=== PATIENT | male | born 1970 | race Caucasian/White ===

== ENCOUNTER 2024-04-01 10:26 | Outpatient (OUT) | payer BC, SELFPAY ==
--- NOTE | 2024-04-01 10:45 | CT_ITS ---
The [address] [address] Patient Name: LIYA BERMAN MRN: [id number] date: 1970 Sex: M Assigned Patient Location: [facility] Current Patient Location: [facility] Accession/Order Number: [id number] Exam Date: 04/01/2024 10:38 Report Date: 04/01/2024 12:30 At the request of: STACEY MOROCHO Procedure: CT head/brain wo con CT head without contrast, 04/01/2024. HISTORY: Headache and dizziness. COMPARISON: None. TECHNIQUE: Noncontrast axial CT images obtained through the head. Reconstructions obtained in the sagittal and coronal planes. Dose reduction techniques were achieved by using automated exposure control and/or adjustment of mA and/or kV according to patient size and/or use of iterative reconstruction technique. FINDINGS: There are postoperative changes from previous frontal craniotomy as well as maxillofacial reconstruction. Frontal sinuses are obliterated. Ethmoid air cells and sphenoid sinuses are clear. Mastoid air cells are clear. Middle ear cavities appear clear. No skull lesion. Orbital contents unremarkable to the extent visualized. Mild generalized cerebral volume loss. No hydrocephalus. No subdural fluid collection. No mass effect. No shift of midline structures. No acute hemorrhage. No masses. No edema in the brain. CT/CT head/brain wo con IMPRESSION: 1. No acute findings. No hemorrhage. No mass. 2. There are postoperative changes from previous frontal craniotomy as well as maxillofacial bone reconstruction. 3. There are no extra-axial fluid collections. 4. Mild generalized cerebral volume loss could be related to prior traumatic brain injury. No hydrocephalus. Electronically authenticated by: ANDRY DANIEL Date: 04/01/2024 12:30
== END 2024-04-01 10:27 | disposition home or self-care (01) ==
LOC: RAD 10:29
PROVIDERS: PCP Family Medicine; Visit Provider Family Medicine
DX: G43.909 Migraine, unspecified, not intractable, without status migrainosus (principal)
CPT/HCPCS: 70450

== ENCOUNTER 2024-04-12 11:21 | Outpatient (OUT) | payer BC, SELFPAY ==
[2024-04-12 12:46] LABS: Estimated Average Glucose 108 mg/dL; Glycohemoglobin A1C 5.4 % (4.5-6.2)
[2024-04-12 13:14] LABS: Alanine Aminotransferase 32 U/L (16-63); Albumin Globulin Ratio 1.2; Albumin Level 3.6 g/dL (3.4-5.0); Alkaline Phosphatase 146 U/L (46-116); Anion Gap 11.4; Aspartate Amino Transferase 14 U/L (15-37); BUN Creatinine Ratio 10.1; Bilirubin Total 0.6 mg/dL (0.2-1.0); Calcium 9.1 mg/dL (8.5-10.1); Carbon Dioxide 29.4 mmol/L (21.0-32.0); Chloride 105 mmol/L (98-107); Chol HDL Ratio 4.2; Cholesterol 223 mg/dL (<=200); Estimated GFR (African America >60 (>=60); Estimated GFR (Non-African Ame 58 (>=60); Free T3 3.09 pg/mL (2.18-3.98); Glucose 99 mg/dL (74-106); HDL Cholesterol 53 mg/dL (40-60); Potassium 3.8 mmol/L (3.5-5.1); Sodium 142 mmol/L (136-145); Total Protein 6.6 g/dL (6.4-8.2); Triglycerides 149 mg/dL (<=150); VLDL CHOLESTEROL 29.8 mg/dL
[2024-04-12 13:26] LABS: Prostate Specific Antigen Scrn 2.29 ng/mL (<=4.00)
[2024-04-12 16:40] LABS: Basophils Percent Auto 0.4 % (0.2-2.0); Eosinophils Absolute Auto 0.1 10^3/uL (0.0-0.7); Eosinophils Percent Auto 1.3 % (0.9-7.0); Hematocrit 45.7 % (42.0-54.0); Hemoglobin 15.7 g/dL (14.0-18.0); Immature Granulocytes Abs Auto 0.04 10^3/uL (0.00-0.03); Immature Granulocytes Pct Auto 0.7 % (0.0-0.5); Lymphocytes Percent Auto 35.9 % (20.5-60.0); Mean Corpuscular HGB Conc 34.4 g/dL (29.9-35.2); Mean Corpuscular Hemoglobin 31.7 pg (25.9-34.0); Mean Corpuscular Volume 92.3 fL (80.0-94.0); Mean Platelet Volume 9.6 fL (9.5-13.5); Monocytes Absolute Auto 0.6 10^3/uL (0.3-0.8); Monocytes Percent Auto 10.3 % (1.7-12.0); Neutrophils Absolute Auto 2.8 10^3/uL (1.4-6.5); Neutrophils Percent Auto 51.4 % (43.0-75.0); Platelet Count 307 10^3/uL (150-450); Red Blood Count 4.95 10^6/uL (4.70-6.10); Red Cell Distribution Width 11.9 % (11.0-15.0); White Blood Count 5.5 10^3/uL (4.0-11.0)
[2024-04-13 12:09] LABS: Insulin 20.1 uIU/mL (2.6-24.9)
== END 2024-04-12 11:22 | disposition home or self-care (01) ==
LOC: LAB 11:23
PROVIDERS: PCP Family Medicine; Visit Provider Family Medicine
DX: Z00.00 Encounter for general adult medical examination without abnormal findings (principal)
CPT/HCPCS: 36415; 80053; 80061; 83036; 83525; 84436; 84443; 84481; 84550; 85025; G0103

== ENCOUNTER 2024-06-14 08:16 | Outpatient (OUT) | payer BC, SELFPAY ==
--- OUTSIDE RECORDS SUMMARY | 2024-06-14 08:25 | XMS_ITS | CCD ---
Author Organization [facility] Care Team Providers Care Mobility Architect Name Role Phone RASHAWN, DR IBARRA Attending Unavailable HOY, DR IBARRA Consulting Unavailable JAYNAY, DR IBARRA Primary Care Unavailable JAYNAY, DR IBARRA Admitting Unavailable HOY, DR IBARRA Attending Unavailable HOY, DR IBARRA Consulting Unavailable HOY, DR IBARRA Primary Care Unavailable HOY, DR IBARRA Admitting Unavailable HOY, DR IBARRA Consulting Unavailable JAYNAY, DR IBARRA Primary Care Unavailable RASHAWN, DR IBARRA Admitting Unavailable RASHAWN, DR IBARRA Attending Unavailable Free, Text Entry Unavailable Unavailable Nitesh Yousif Unavailable Unavailable Michael Vanegas Unavailable Unavailable Pending Provider Unavailable Unavailable Jami Pate Attending Unavailable Divine, Dr. Michael Dugan Referring Unavail able Pending, Provider Primary Care Unavailable Jami Pate Referring Unavailable Pending, Provider Primary Care Unavailable James Vasques Attending Unavailable MD NITESH YOUSIF JR Attending Unajay juarez Pending, Provider Primary Care Unavailable MD ELSIE CROFT Admitting Unava ilMD BARBER Nelson Referring Unavail able Pending, Provider Primary Care Unavailable Pesa, Ms. Mosquera Attending Unavailable Pending, Provider Primary Care Unavailable Divine, Dr. Michael Dugan Attending Unavail able Tufaro, Dr. Michael Dugan Referring Unavail able Tufaro, Dr. Michael Dugan Attending Unavail able Tufaro, Dr. Michael Dugan Referring Unavail able Pending, Provider Primary Care Unavailable Pending, Provider Primary Care Unavailable Pesa, Ms. Mosquera Attending Unavailable Pesa, Ms. Mosquera Referring Unavailable Tufaro, Dr. Michael Dugan Referring Unavail able Tufaro, Dr. Michael Dugan Attending Unavail able Pending, Provider Primary Care Unavailable Pending, Provider Primary Care Unavailable Dr. Michael Vanegas Referring Unavail able Dr. Michael Vanegas Attending Unavail able Stacey Morocho MD Unavailable Stacey Morocho MD Primary Care Provider Stacey Morocho MD Primary Care Provider Pola GARCIA Attending Unavailable Stacey Morocho Referring Unavailable Stacey Morocho Primary Care Physician JENNIFER GUZMAN Referring Unavailable HOConnor, STACEY M Primary Care Unavailable PAPAY, CHRISTOPHER A Referring Unavailable STACEY MOROCHO M Primary Care Unavailable MICHAEL VANEGAS Referring Unavailable STACEY MOROCHO M Primary Care Unavailable PAPAY, CHRISTOPHER A Attending Unavailable HOConnor, STACEY M Primary Care Unavailable HOConnor, STACEY M Referring Unavailable PAPAY, CHRISTOPHER A Attending Unavailable STACEY MOROCHO M Primary Care Unavailable PAPAY, CHRISTOPHER A Referring Unavailable PAPAY, CHRISTOPHER A Attending Unavailable STACEY MOROCHO M Primary Care Unavailable PAPAY, CHRISTOPHER A Attending Unavailable PAPAY, CHRISTOPHER A Referring Unavailable NANCY CHENG Attending Unavailable HOConnor, STACEY M Primary Care Unavailable PAPAY, CHRISTOPHER A Attending Unavailable PAPAY, CHRISTOPHER A Admitting Unavailable STACEY MOROCHO M Primary Care Unavailable Allergies Allergy Classification Reported Allergen(s) Allergy Type Date of Onset Reaction(s) Facility (1 source) No Known Medication Allergies; Translations: [No Known Medication Allergies] Propensity to adverse reactions (disorder) [facility] Repository Medications Current Medications Medication Drug Class(es) Dates Sig (Normalized) Sig (Original) acetaminophen 325 mg oral tablet (4 sources) Start: 01-08-2024 End: 01-27-2024 take 2 tablets by mouth every six hours as needed for pain, then take 2 tablets by mouth every six hours as needed for pain acetaminophen (TYLENOL) 325 mg tablet Take 2 tablets by mouth every 6 hours for 5 days, THEN 2 tablets every 6 hours as needed for pain for up to 14 days. 0 01/08/2024 01/27/[address] rength 500 MG TABS Quantity: 0 Refills: 0 Ordered: 04-Jul-2022 DO Active DM/p-ephed/acetaminoph/doxyl am (NYQUIL D ORAL) (5 sources) DM/p-ephed/aceta minoph/doxylam (NYQUIL D ORAL) Take by mouth daily at bedtime. Active DM/p-ephed/aceta minoph/doxylam (NYQUIL D ORAL) Take by mouth daily at bedtime. 0 Active fluticasone propionate 0.05 mg/actuat metered dose nasal spray (1 source) Corticosteroid Start: 05-17-2024 take 2 spray(s) nasal route twice daily fluticasone (FLONASE ALLERGY RELIEF) 50 mcg/actuation nasal spray Use 2 Sprays in each nostril two times a day. 16 g 1 05/17/2024 Active oxymetazoline hydrochloride 0.5 mg/ml nasal spray (5 sources) oxymetazoline (AFRIN, OXYMETAZOLINE,) 0.05 % nasal spray Use 2 Sprays in the nose daily at bedtime. Active SUMAtriptan 100 mg oral tablet (1 source) Serotonin-1b and Serotonin-1d Receptor Agonist Start: 04-18-2024 take 1 tablet by mouth once Imitrex 100 mg Tab 100 mg = 1 tab(s), Oral, Once, Refills(s) 0 Start Date: 04/18/24 Status: Ordered Completed/Discontinued Medications Medication Drug Class(es) Dates Sig (Normalized) Sig (Original) Bacitracin (2 sources) Bacitracin OINT Quantity: 0 Refills: 0 Ordered: 04-Jul-2022 DO Active cefadroxil 500 mg oral capsule (1 source) Cephalosporin Antibacterial Start: 01-08-2024 End: 01-18-2024 take 1 capsule by mouth twice daily cefADROxil (DURICEF) 500 mg capsule Take 1 capsule by mouth two times a day for 10 days. 20 capsule 0 01/08/2024 01/18/2024 cyclobenzaprine hydrochloride 5 mg oral tablet (11 sources) Muscle Relaxant Start: 05-31-2022 End: 01-04-2024 take 1 tablet by mouth every eight hours as needed cyclobenzaprine (FLEXERIL) 5 mg tablet Take 5 mg by mouth three times daily as needed. 0 05/31/2022 01/04/2024 Discontinued Comment on above: Take 5 mg by mouth t hree times daily as needed. gabapentin 300 mg oral capsule (11 sources) Anti-epileptic Agent Start: 05-31-2022 End: 01-04-2024 gabapentin (NEURONTIN) 300 mg capsule Take 300 mg by mouth. 0 05/31/2022 01/04/2024 Discontinued Comment on above: Take 300 mg by mouth . loratadine 10 mg disintegrating oral tablet (13 sources) End: 01-04-2024 loratadine 10 mg dissolvable tablet Take by mouth. 0 01/04/2024 Discontinued Loratadine 10 MG Oral Tablet Disintegrating Quantity: 0 Refills: 0 Ordered: 04-Jul-2022 DO Active Comment on above: Take by mouth. oxyCODONE hydrochloride 5 mg oral tablet (13 sources) Opioid Agonist End: 01-04-2024 oxyCODONE IR (ROXICODONE) 5 mg immediate release tablet Take by mouth q 6 HR. 0 01/04/2024 Discontinued Comment on above: Take by mouth q 6 HR . tobramycin 3 mg/ml ophthalmic solution (13 sources) Aminoglycoside Antibacterial End: 01-04-2024 tobramycin (TOBREX) 0.3 % ophthalmic solution Use in eyes. 0 01/04/2024 Discontinued Tobramycin 0.3 % Ophthalmic Solution Quantity: 0 Refills: 0 Ordered: 04-Jul-2022 DO Active Comment on above: Use in eyes. NEGATED: Highlighted row has not occurred!No Current Medications (1 source) No Current Medic ations Problems Active Problems Problem Classification Problem Date Documented Date Episodic/Chronic E Codes: Fall (2 sources) Fall 05-28-2022 Comment on above: FALL Esophageal disorders (11 sources) Gastroesophageal reflux disease without esophagitis; Translations: [Gastro-esophageal reflux disease without esophagitis] Onset: 01-04-2024 01-04-2024 Chronic Headache; including migraine (1 source) Migraine 04-18-2024 Chronic Other inflammatory condition of skin (1 source) Rosacea; Translations: [Rosacea, unspecified] 05-17-2024 Chronic Other injuries and conditions due to external causes (4 sources) H/O: facial injury; Translations: [Personal history of (healed) traumatic fracture] 09-05-2023 Episodic Other injuries and conditions due to external causes (1 source) Injury of face; Translations: [Unspecified injury of face, subsequent encounter] 09-05-2023 Episodic Other lower respiratory disease (2 sources) Difficulty breathing; Translations: [Other abnormalities of breathing] 09-05-2023 Episodic Other nervous system disorders (1 source) Other specified disorders of brain; Translations: [Other specified disorders of brain] Onset: 06-15-2022 Chronic Other nutritional; endocrine; and metabolic disorders (1 source) Overweight in adulthood with body mass index of 25 or more but less than 30 05-08-2024 Episodic Other screening for suspected conditions (not mental disorders or infectious disease) (19 sources) Abnormal findings on diagnostic imaging of other specified body structures; Translations: [Radiology result abnormal] Onset: 07-25-2022 02-08-2023 Chronic Other screening for suspected conditions (not mental disorders or infectious disease) (1 source) Screening for malignant neoplasm of colon done; Translations: [Encounter for screening for malignant neoplasm of colon] Onset: 05-08-2024 Episodic Residual codes; unclassified (1 source) Obstructive sleep apnea (adult) (pediatric); Translations: [Obstructive sleep apnea (adult) (pediatric)] Onset: 06-15-2022 Chronic Residual codes; unclassified (3 sources) Postoperative state; Translations: [Other specified postprocedural states] 01-25-2024 Episodic Substance-related disorders (1 source) Nicotine dependence, unspecified, uncomplicated; Translations: [Nicotine dependence, unspecified, uncomplicated] Onset: 06-15-2022 Chronic Unclassified (3 sources) CONTACT W/AND (SUSP) EXPOS COVID-19; Translations: [CONTACT W/AND (SUSP) EXPOS COVID-19] Onset: 08-15-2021 Unclassified (1 source) MULTIPLE COMPLEX FACIAL FRACTURE REPAIR 06-14-2022 Comment on above: MULTIPLE COMPLEX FAC IAL FRACTURE REPAIR Unclassified (1 source) Extensive facial fractures 06-05-2022 Unclassified (1 source) Fracture of frontal sinus 06-13-2022 Unclassified (1 source) Fracture of orbital roof 06-13-2022 Unclassified (1 source) Orbital wall fracture 06-13-2022 Unclassified (1 source) Fracture of maxillary sinus 06-13-2022 Unclassified (1 source) Other cranial cerebrospinal fluid leak; Translations: [Other cranial cerebrospinal fluid leak] Onset: 06-15-2022 Unclassified (1 source) Fracture of medial orbital wall, left side, initial encounter for closed fracture; Translations: [Fracture of medial orbital wall, left side, init] Onset: 06-15-2022 Unclassified (1 source) Fracture of medial orbital wall, right side, initial encounter for closed fracture; Translations: [Fracture of medial orbital wall, right side, init] Onset: 06-15-2022 Unclassified (1 source) Contact with and (suspected) exposure to COVID-19; Translations: [Contact with and (suspected) exposure to COVID-19] Onset: 06-15-2022 Unclassified (1 source) Patient encounter status 05-08-2024 Unclassified (1 source) Post Op Onset: 01-16-2024 Past or Other Problems Problem Classification Problem Date Documented Date Episodic/Chronic Complications of surgical procedures or medical care (1 source) Accidental puncture or laceration of dura during a procedure; Translations: [Accidental puncture or laceration of dura during a procedure] Onset: 06-15-2022 Episodic E Codes: Fall (20 sources) Unspecified fall, initial encounter; Translations: [Fall on and from ladder, initial encounter] Onset: 06-15-2022 Episodic Headache; including migraine (10 sources) Headache; Translations: [Post-traumatic headache, unspecified, not intractable] Onset: 01-04-2024 01-04-2024 Episodic Intracranial injury (2 sources) Contusion and laceration of right cerebrum without loss of consciousness, initial encounter; Translations: [Contusion and laceration of left cerebrum without loss of consciousness, initial encounter] Onset: 06-15-2022 Episodic Nausea and vomiting (1 source) Nausea with vomiting, unspecified; Translations: [Nausea with vomiting, unspecified] Onset: 06-15-2022 Episodic Other injuries and conditions due to external causes (1 source) Unspecified injury of head, sequela; Translations: [Headaches due to old head injury] Onset: 01-04-2024 Episodic Other injuries and conditions due to external causes (1 source) Personal history of (healed) traumatic fracture; Translations: [H/O closed fracture of nasal bones] Onset: 12-29-2023 Episodic Other injuries and conditions due to external causes (1 source) Unspecified injury of face, subsequent encounter; Translations: [Facial injury, subsequent encounter] Onset: 09-05-2023 Episodic Other lower respiratory disease (9 sources) Dyspnea on exertion; Translations: [Other forms of dyspnea] Onset: 01-04-2024 01-04-2024 Episodic Other lower respiratory disease (1 source) Other forms of dyspnea; Translations: [CELAYA (dyspnea on exertion)] Onset: 01-04-2024 Episodic Other lower respiratory disease (1 source) Other abnormalities of breathing; Translations: [Difficulty breathing] Onset: 12-29-2023 Episodic Other nervous system disorders (1 source) Other acute postprocedural pain; Translations: [Post-op pain] Onset: 01-08-2024 Episodic Other nutritional; endocrine; and metabolic disorders (10 sources) Overweight; Translations: [Overweight] Onset: 01-04-2024 01-04-2024 Episodic Other nutritional; endocrine; and metabolic disorders (1 source) Overweight; Translations: [Overweight] Onset: 01-04-2024 Episodic Other upper respiratory infections (20 sources) Acute sinusitis, unspecified; Translations: [Acute sinusitis] Onset: 09-03-2020 02-08-2023 Episodic Residual codes; unclassified (1 source) Other specified postprocedural states; Translations: [Other specified postprocedural states] Onset: 07-25-2022 Episodic Skull and face fractures (20 sources) Fracture of upper jaw, closed; Translations: [Closed fracture of other facial bones] Onset: 06-01-2022 06-05-2022 Episodic Unclassified (1 source) CONTACT W/AND (SUSP) EXPOS COVID-19; Translations: [CONTACT W/AND (SUSP) EXPOS COVID-19] Onset: 08-10-2021 Results Test Name Value Interpretation Reference Range Facility [facility] 05-17-2024 CNOV Office Visit (PLASAV ) ----- RM BERMAN ([id number]) 1970 M Date Time Provider Department 05/17/24 1:45 PM CHRISTOPHER MCGREGOR PLASAV During your visit today, we recorded the following information about you: Christopher Mcgregor MD 05/22/2024 7:42 AM Signed Plastic Surgery Follow Up Note CC: post-op HPI: Rm Berman is 4 months s/p open revision septorhinoplasty. No symptoms or signs of infection (no N/V/F/C, no wound drainage and no new redness) Meds and allergies reviewed in EPIC. ALLERGIES: ALLERGIES No Known Allergies PHYSICAL EXAM: Awake, alert, oriented x3 NAD, NC/AT VSS Septum supported well Structure is good ASSESSMENT: Expected post operative course s/p revision rhinopseptoplasty PLAN: Healed well Recommend to follow with Dermatology HIPAA: Patient acknowledged and consented to discussion of HPI/PE/medical care/dispo with family/friends in room. The patient is seen and examined by Dr. Mcgregor and the following reflects their service. Scribed by Nancy Cheng PA-C Attending Note I have personally performed a face to face assessment of the patient and have reviewed the ARLYN note. I performed a substantive portion of the visit including all aspects of the following. My delvalle findings include: agree with above for history, physical and medical decision making. Other additions or changes: None Signature: Fransisca Mcgregor MD Date: May 22, 2024 Time: 7:42 AM Referring Provider: CHRISTOPHER MCGREGOR [[id number]] Allergies As of Date: 05/17/2024 (No Known Allergies) Date Reviewed: 05/17/2024 Reviewed by: Aaliyah Emerson RN - Fully Assessed Reason for Visit: Post Op [174] Primary Visit Diagnosis:Rosacea [L71.9] Other Visit Diagnoses:Post-operative state [Z98.890] H/O closed fracture of nasal bones [Z87.81] Order(s):fluticasone (FLONASE ALLERGY RELIEF) 50 mcg/actuation nasal sprayUse 2 Sprays in each nostril two times a day.Disp: 16 gRfl: 1 CONSULT TO DERMATOLOGY [[id number]] Order #: [id number]: 1 FUTURE Prescriptions as of 05/22/2024 - fluticasone (FLONASE ALLERGY RELIEF) 50 mcg/actuation nasal spray Use 2 Sprays in each nostril two times a day. - oxymetazoline (AFRIN, OXYMETAZOLINE,) 0.05 % nasal spray Use 2 Sprays in the nose daily at bedtime. - DM/p-ephed/acetaminoph/do xylam (NYQUIL D ORAL) Take by mouth daily at bedtime. Problem List As Of Date 05/17/2024 Noted Resolved Abnormal findings on diagnostic imaging of othe*07/25/2022 Acute sinusitis, unspecified [J01.90] 09/03/2020 Facial fracture (HCC) [S02.92XA] 02/08/2023 Closed fracture of orbit (HCC) [S02.85XA] 02/08/2023 Fall on and from ladder, initial encounter [W11*06/15/2022 Headaches due to old head injury [G44.309, S09.*01/04/2024 Gastroesophageal reflux disease without esophag*01/04/2024 CELAYA (dyspnea on exertion) [R06.09] 01/04/2024 Overweight [E66.3] 01/04/2024 Prescriptions ordered this encounter Disp Refills Start End FLUTICASONE PROPIONATE 50 MCG/ACTUAT* 16 g 1 05/17/2024 Route: EACH NOSTRIL Sig: Use 2 Sprays in each nostril two times a day. Encounter Status:Closed by CHRISTOPHER MCGREGOR on 05/22/24 Normal [facility] Ambulatory Visit Summaryon 1 Ambulatory Visit Summary Ambulatory Visit Summary RM BERMAN :1970 Visit Date:05/08/2024 Ambulatory Visit Instructions Your Diagnosis Screening for malignant neoplasm of colon Your Care Team Attending Physician - RADHA SIMPSON, Pola Cruz Primary Care Physician - Stacey Morocho MD Referring Physician - Stacey Morocho MD This Is Your Medications List Contact prescribing physician if questions or concerns sumatriptan (Imitrex 100 mg Tab) Procedures Performed Nose reconstruction, Reconstruction of facial bones. Discharge Vitals Heart Rate (Peripheral) 76 Respiratory Rate 16 Blood Pressure 126/78 Height 175.2 cm Height 69 in Weight 84.3 kg Weight 185.46 lb BMI 27.46 Medications What How Much When Instructions Unchanged sumatriptan (Imitrex 100 mg Tab) 1 Tablets By Mouth Once Contact prescribing physician if questions or concerns Allergies No Known Allergies No Known Medication Allergies Problems Ongoing - Any problem that you are currently receiving treatment for. BMI 27.0-27.9,adult Gastroesophageal reflux disease without esophagitis History of facial trauma Migraine Overweight Screening for malignant neoplasm of colon Patient Survey You may receive a survey via text or e-mail asking about your office visit. Please share your experience with us by completing your survey. We appreciate your feedback and thank you for choosing us for your care. Patrick [facility] CNOVon 02-14-2024 CNOV Office Visit (PLASAV ) ----- RM BERMAN ([id number]) 1970 M Date Time Provider Department 02/14/24 2:00 PM CHRISTOPHER MCGREGOR PLASAV During your visit today, we recorded the following information about you: Christopher Mcgregor MD 02/16/2024 9:46 AM Signed Plastic Surgery Follow Up Note CC: post-op HPI: Rm Berman is 5.5 weeks s/p open revision septorhinoplasty. No symptoms or signs of infection (no N/V/F/C, no wound drainage and no new redness) Meds and allergies reviewed in EPIC. ALLERGIES: ALLERGIES No Known Allergies PHYSICAL EXAM: Awake, alert, oriented x3 NAD, NC/AT VSS No septal hematoma. Supratip swelling Profile much improved ASSESSMENT: Expected post operative course PLAN: Okay to return to full activity Follow up in 3 months HIPAA: Patient acknowledged and consented to discussion of HPI/PE/medical care/dispo with family/friends in room. The patient is seen and examined by Dr. Mcgregor and the following reflects their service. Scribed by Nancy Cheng PA-C Attending Note I have personally performed a face to face assessment of the patient and have reviewed the ARLYN note. I performed a substantive portion of the visit including all aspects of the following. My delvalle findings include: agree with above for history, physical and medical decision making. Other additions or changes: None Signature: Fransisca Mcgregor MD Date: February 16, 2024 Time: 9:46 AM Referring Provider: CHRISTOPHER MCGREGOR [[id number]] Allergies As of Date: 02/14/2024 (No Known Allergies) Date Reviewed: 02/14/2024 Reviewed by: Masha Horton RN - Fully Assessed Reason for Visit: Post Op [174] Primary Visit Diagnosis:Post-operative state [Z98.890] Prescriptions as of 02/16/2024 - oxymetazoline (AFRIN, OXYMETAZOLINE,) 0.05 % nasal spray Use 2 Sprays in the nose daily at bedtime. - DM/p-ephed/acetaminoph/do xylam (NYQUIL D ORAL) Take by mouth daily at bedtime. Problem List As Of Date 02/14/2024 Noted Resolved Abnormal findings on diagnostic imaging of othe*07/25/2022 Acute sinusitis, unspecified [J01.90] 09/03/2020 Facial fracture (HCC) [S02.92XA] 02/08/2023 Closed fracture of orbit (HCC) [S02.85XA] 02/08/2023 Fall on and from ladder, initial encounter [W11*06/15/2022 Headaches due to old head injury [G44.309, S09.*01/04/2024 Gastroesophageal reflux disease without esophag*01/04/2024 CELAYA (dyspnea on exertion) [R06.09] 01/04/2024 Overweight [E66.3] 01/04/2024 Disposition: Return in about 3 months (around 05/16/2024) for Follow up. Follow-up and Disposition History for Encounter Date Provider Department Center 02/14/2024 [id number] MCGREGOR [facility] Encounter Status:Closed by CHRISTOPHER MCGREGOR on 02/16/24 [facility] CNCOon 01-16-2024 CNCO Letter Text Normal [facility] CNOVon 01-16-2024 CNOV Office Visit (PLASMN ) ----- RM BERMAN ([id number]) 1970 M Date Time Provider Department 01/16/24 4:00 PM NANCY CHENG During your visit today, we recorded the following information about you: Nancy Cheng PA-C 01/25/2024 1:35 PM Signed Plastic Surgery Follow Up Note CC: post-op HPI: Rm Berman is 7 day s/p open revision septorhinoplasty. No symptoms or signs of infection (no N/V/F/C, no wound drainage and no new redness) Meds and allergies reviewed in [facility]. ALLERGIES: ALLERGIES No Known Allergies PHYSICAL EXAM: Awake, alert, oriented x3 NAD, NC/AT VSS No septal hematoma. Nasal stents, and splints in tact. Incision(s) c/d/i, no s/s of infection. ASSESSMENT: Expected post operative course PLAN: Nasal stents/splints removed, minimal bleeding. Patient tolerated the above well and left in good condition. Care including nasal cleaning regimen reviewed. Discussed to continue sleeping on back for 5 weeks, limiting physical activity for 5 weeks Reviewed nasal exercises with patient HIPAA: Patient acknowledged and consented to discussion of HPI/PE/medical care/dispo with family/friends in room. Nancy Cheng PA-C January 16, 2024 Referring Provider: SELF [[id number]] Allergies As of Date: 01/16/2024 (No Known Allergies) Date Reviewed: 01/16/2024 Reviewed by: Judy Floyd OCCA - Fully Assessed Reason for Visit: Post Op [174] Primary Visit Diagnosis:Post-operative state [Z98.890] Prescriptions as of 01/25/2024 - acetaminophen (TYLENOL) 325 mg tablet Take 2 tablets by mouth every 6 hours for 5 days, THEN 2 tablets every 6 hours as needed for pain for up to 14 days. - oxymetazoline (AFRIN, OXYMETAZOLINE,) 0.05 % nasal spray Use 2 Sprays in the nose daily at bedtime. - DM/p-ephed/acetaminoph/do xylam (NYQUIL D ORAL) Take by mouth daily at bedtime. Problem List As Of Date 01/16/2024 Noted Resolved Abnormal findings on diagnostic imaging of othe*07/25/2022 Acute sinusitis, unspecified [J01.90] 09/03/2020 Facial fracture (HCC) [S02.92XA] 02/08/2023 Closed fracture of orbit (HCC) [S02.85XA] 02/08/2023 Fall on and from ladder, initial encounter [W11*06/15/2022 Headaches due to old head injury [G44.309, S09.*01/04/2024 Gastroesophageal reflux disease without esophag*01/04/2024 CELAYA (dyspnea on exertion) [R06.09] 01/04/2024 Overweight [E66.3] 01/04/2024 Encounter Status:Closed by NANCY CHENG on 01/25/24 [facility] ANES POSTPROC EVALon 024 ANES POSTPROC EVAL HNO ID: [id number] Author: YUN LIU MD Service: ? Author Type: Anesthesiologist Type: Anesthesia Postprocedure Evaluation Filed: 01/10/2024 06:47 Note Text: POST ANESTHESIA EVALUATION NOTE : 1970 Procedure Summary Date: 01/08/24 Room / Location: [address] PEDIATRIC SURGERY Anesthesia Start: 1129 Anesthesia Stop: 1541 Procedure: Revision of rhinoplasty/nose reconstruction with cadaveric cartilage and acellular dermal matrix. . (Bilateral: Nose) Diagnosis: Difficulty breathing H/O closed fracture of nasal bones Facial injury, subsequent encounter (Difficulty breathing [R06.89]) (H/O closed fracture of nasal bones [Z87.81]) (Facial injury, subsequent encounter [S09.93XD]) Surgeons: Christopher Mcgregor MD Responsible Provider: Yun Liu MD Anesthesia Type: general ASA Status: 2 Anesthesia Type: general Airway Type: ETT Last Vitals Vitals Value Taken Time BP 121/78 01/08/24 1803 Temp 36 ?C (96.8 ?F) 01/08/24 1742 Pulse 82 01/08/24 1803 Resp 16 01/08/24 1803 SpO2 96 % 01/08/24 1803 Post Anesthesia Patient Status Patient Evaluation: PACU. Neurological Status: aware and responsive. Pulmonary Status: breathing comfortably on room air Airway Control: returned to baseline unsupported. Cardiovascular Status: stable. Pain Management: clinically adequate Postoperative Hydration: acceptable. Intraoperative Events: no significant anesthesia events Post Operative Nausea/Vomiting Status: no significant post operative nausea or vomiting Recommendation: continue current plan of care. Anesthesia Observations No notable events were associated with this procedure. Documented by Joellen Ribeiro APRN.CRNA 01/08/2024 3:43 PM EDT SIGNATURE: YUN CRUZ MD PATIENT NAME: Rm Berman DATE: January 10, 2024 TIME: 6:46 AM CSN: [id number] Normal [facility] ANES PRE-OPon 01-08-2024 ANES PRE-OP HNO ID: [id number] Author: YUN LIU MD Service: ? Author Type: Anesthesiologist Type: Anesthesia Preprocedure Evaluation Filed: 01/08/2024 08:32 Note Text: ANESTHESIOLOGY DAY OF SURGERY NOTE : 1970 Procedure Information Date/Time: 01/08/24 1015 Procedures: REVISION RHINOPLASTY - using donor cartilage (Bilateral: Nose) SEPTOPLASTY (Bilateral: Nose) RESECTION TURBINATE (Bilateral: Nose) Location: [address] PEDIATRIC SURGERY Surgeons: Christopher Mcgregor MD Estimated body mass index is 27.18 kg/m? as calculated from the following: Height as of 01/04/24: 175.3 cm (5' 9 ). Weight as of 01/04/24: 83.5 kg (184 lb 1.4 oz). Most recent hematocrit and potassium results: Hematocrit 47.6 01/04/2024 Potassium 4.2 01/04/2024 CBC with diff: WBC 6.78 01/04/2024 RBC 5.19 01/04/2024 Hemoglobin 16.2 01/04/2024 Hematocrit 47.6 01/04/2024 MCV 91.7 01/04/2024 MCH 31.2 01/04/2024 MCHC 34.0 01/04/2024 RDW-CV 11.9 01/04/2024 Platelet Count 273 01/04/2024 MPV 9.5 01/04/2024 Neutrophils % 49.0 01/04/2024 Lymphocytes % 39.4 01/04/2024 Monocytes % 9.3 01/04/2024 Eosinophils % 1.5 01/04/2024 Basophils % 0.4 01/04/2024 Abs Neut 3.32 01/04/2024 Abs Dupage 0.63 01/04/2024 Abs Eosin 0.10 01/04/2024 Abs Baso 0.03 01/04/2024 Relevant Problems CARDIO (+) CELAYA (dyspnea on exertion) GI (+) Gastroesophageal reflux disease without esophagitis NEURO-PSYCH (+) Headaches due to old head injury PULMONARY (+) CELAYA (dyspnea on exertion) I - PHYSICAL EVALUATION AIRWAY Patient intubated: No. Tracheostomy tube not present Mallampati: II. TM distance: >3 FB. Neck ROM: full ROM without neurological symptoms. Mouth opening: adequate. Short neck: no. Thick neck: no DENTAL Dental findings: teeth intact. Additional exam findings: no II - ANESTHESIA PLAN ASA Score: 2 Anesthetic Plan: general Airway type: ETT NPO Status: adequate Beta Pedro Pablo Monitoring Plan Monitoring plan: Standard ASA. Post Procedure Analgesic Plan Postoperative analgesic plan: parenteral or oral opioids and multimodal analgesia. Informed Consent Anesthetic risks, benefits, alternatives, personnel and consent discussed: yes. Patient / Responsible Alliance Party agrees to proceed: yes Patient / Surrogate agrees to blood products: yes DNR status not reviewed with patient and/or family prior to surgery. Significant changes in the patient condition since the History and Physical, not otherwise documented in primary service progress note: no. Potential Anesthesia issues that may suggest increased risk of complications or contraindication to planned procedure: none. No vitals data found for the desired time range. No current facility-administered medications on file as of 01/08/2024. No current outpatient medications on file as of 01/08/2024. I have interviewed and examined the patient. I have reviewed the medical record and/or the pre-anesthesia evaluation, pertinent labs, and test results. This contains updated information obtained within 48 hours of Surgery/Procedure. SIGNATURE: YUN CRUZ MD PATIENT NAME: Rm Berman DATE: January 08, 2024 TIME: 8:20 AM CSN: [id number] Normal [facility] BRIEF OP NOTon 01-08-2024 BRIEF OP NOT HNO ID: [id number] Author: HOOD IVEY MD Service: Plastic Surgery Author Type: Resident Type: Brief Op Note Filed: 01/08/2024 15:28 Note Text: BRIEF OPERATIVE NOTE PLASTIC AND RECONSTRUCTIVE SURGERY LOG ID: [id number] Surgery/Procedure Date: 01/08/2024 Incision/Procedure Start Time: 12:08 PM Incision Close/Procedure End Time: 3:09 PM Surgeon(s)/Proceduralist( s) and Final Inspector Motorcyles(s): Surgeon(s) and Role: * Christopher Mcgregor MD - Primary * Hood Ivey MD - Resident - Assisting No Additional Staff Procedure(s): Revision of rhinoplasty/nose reconstruction with cadaveric cartilage and acellular dermal matrix. Septoplasty Implants: Implant Name Type Inv. Item Serial No. [employer] Sales Representative Lot No. LRB No. Used Action CORTIVA ALLOGRAFT DERMIS 2CM X 4CM - [id number] Tissue CORTIVA ALLOGRAFT DERMIS 2CM X 4CM [id number] [employer] N/A 1 Implanted GRAFT COSTAL CARTILAGE 3.5CM BONE FROZEN - [id number] Graft GRAFT COSTAL CARTILAGE 3.5CM BONE FROZEN [id number] [facility] N/A 1 Implanted Anesthesia: General Findings: reconstructed nose with minimal tip projection, collapsed nasal bridge Estimated Blood Loss: 50 mL IV Fluids: 1300 mL crystalloid Urine Output: Not Measured Tubes/Drains: None Specimens: * No specimens in log * Complications: None Pre-Procedure Diagnosis: history of reconstructed nose, history of facial trauma. Post-Procedure Diagnosis: Same as Preop Post-Op Plan / Disposition: Discharge home SIGNATURE: Hood Ivey MD PATIENT NAME: Rm Antonella DATE: January 08, 2024 TIME: 3:10 PM After 6PM and on weekends, please page [phone] (Plastic Surgery on-call - [facility]), otherwise contact above provider. Normal [facility] NURSING PROGon 01-08-2024 NURSING PROG HNO ID: [id number] Author: CARTER MOYA RN Service: Nursing Author Type: Registered Nurse Type: Nursing Progress Note Filed: 01/08/2024 08:35 Note Text: Other: [id number] Rm Berman informed consent, melissa ORTA Carter Claudio, Dr Mcgregor and plastic resident paged AND notified Normal [facility] OPERATIVE NOon 01-08-2024 OPERATIVE NO HNO ID: [id number] Author: CHRISTOPHER MCGREGOR MD Service: Plastic Surgery Author Type: Physician Type: Operative Report Filed: 01/25/2024 14:02 Note Text: [facility] - Operative Report [id number] [address] [place] ANTONELLA RM : 1970 AGE: 53. SEX: M PATIENT TYPE: A HOSP SVC: [facility] LOCATION: [place] [address] ATTENDING PHYSICIAN: Christopher Mcgregor M.D. CSN NUMBER: [id number] DATE OF SURGERY/PROCEDURE: 01/08/2024 INCISION/PROCEDURE START TIME: 12:08 PM INCISION CLOSE/PROCEDURE END TIME: 3:09 PM PREOPERATIVE DIAGNOSIS: 1. Status post multiple facial reconstructions, medial canthal reconstruction status post multiple facial traumas and craniofacial fractures - open. 2. Obstruction of breathing. 3. Nasal dorsal deformity. POSTOPERATIVE DIAGNOSIS: Same as above SURGEON: Christopher Mcgregor M.D. MATERIAL RECLAIMER: Hood Ivey MD - Resident - Assisting SURGERY/PROCEDURE: 1. Secondary open rhinoplasty with multiple cartilage grafts. 2. Bilateral screen printing cloth spreader grafts. 3. Intercolumellar strut graft. 4. Bilateral alar strut grafts. 5. Shield tip graft. 6. Bilateral inferior turbinoplasty through open rhinoplasty approach. 7. Septoplasty. ANESTHESIA: General endotracheal. ESTIMATED BLOOD LOSS: Minimal. REPLACEMENT: D5 lactated Ringer. CONDITION: Stable. INDICATIONS: This patient is a 53-year-old male with history of previous craniofacial trauma with multiple nasal open fractures that had previous revisional work to reconstruct his nose. He is for revisional open septorhinoplasty with turbinoplasty. DESCRIPTION OF PROCEDURE: The patient was placed under general endotracheal anesthesia in modified supine position after which time the anterior face and nose were prepped and draped in a sterile fashion. The vibrissae nasal hairs were then shaved with a #15 blade. The nasal skin subcutaneously was then injected with 0.5% lidocaine with 1:200,000 epinephrine and nasal septum was also infiltrated in a similar manner. Bilateral nasal vaults were then packed with 4% cocaine. Large neurosurgical pledgets were then removed after 5 minutes. After this was performed, we made an incision over the leading border of the septum on the right side. Subperichondrial plane was developed bilaterally and then elevated down to the area of the subluxation of the septum and deviated to the posterior area of the vomer and perpendicular plate. These were then removed with double-action scissors and rongeurs. After this time, the septum was then brought to the middle and the small window was taken in the inferior posterior portion measuring approximately 2 x 2 cm. An L strut was left intact. The incision was then closed with interrupted 6-0 mild chromic. An open rhinoplasty incision in a step-off manner in the mid columellar waist was then performed and this was carried into bilateral rim incisions. This was then elevated superiorly onto the area of the lower lateral and upper lateral cartilages and nasal dorsum. The nasal dorsum was then slightly rasped. Vertical osteotomies were then made medially to release the scarred area of the nasal bones onto the area of the septum and upper lateral cartilage. These were then and bilateral screen printing cloth spreader grafts were then placed on either side of the septum and secured with interrupted 4-0 PDS. This was then brought over onto the area of the bilateral upper lateral cartilages in a similar manner and controlled. After this was done, the area was irrigated with normal saline. Bilateral electrocautery was then used to control bleeding. An intercolumellar strut graft was then placed in between the medial crura in addition to bilateral alar superficial strut grafts that were secured on the side table utilizing donor frozen cartilage. After this was performed securing with 5-0 PDS, the skin was then draped on top, a shield graft was then modified and formed and placed anterior to the intercolumellar strut graft and secured again with 5-0 PDS. After this was done, low-level osteotomies were then performed to correct the deviation of the lateral frontal process of the maxilla and the wounds were then closed with interrupted 6-0 mild chromic. Bilateral inferior turbinates were then expected. They underwent a stab incision anteriorly and utilizing the turbinate shaver, underwent shaving of the area of the bone and outfracturing of the turbinates. Bilateral septum were then secured in the midline with a Jeyson splint, which was secured anteriorly with 3-0 Prolene, and bilateral nasal vaults were then packed with Merocel sponges. Steri-Strips and Aquaplast dressing were placed on the nasal dorsum. I was present and participated during the entire procedure including non-delvalle portions. Christopher Mcgregor M.D. FP:[id number] Normal [facility] CBC W Auto Differential pane l (Bld)on 01-04-2024 Basophils (Bld) [#/Vol] 0.03 10*3/uL [facility] Basophils/100 WBC (Bld) 0.4 % [facility] Differential cell count method Nom (Bld) Auto [facility] Eosinophils (Bld) [#/Vol] 0.10 10*3/uL [facility] Eosinophils/100 WBC (Bld) 1.5 % [facility] Erythrocyte distribution width (RBC) [Ratio] 11.9 % 11.5 - 15.0 % [facility] Hematocrit (Bld) [Volume fraction] 47.6 % 39.0 - 51.0 % [facility] Hemoglobin (Bld) [Mass/Vol] 16.2 g/dL 13.0 - 17.0 g/dL [facility] Immature granulocytes (Bld) [#/Vol] 0.03 10*3/uL [facility] Immature granulocytes/100 WBC (Bld) 0.4 % [facility] Lymphocytes (Bld) [#/Vol] 2.67 10*3/uL [facility] Lymphocytes/100 WBC (Bld) 39.4 % [facility] MCH (RBC) [Entitic mass] 31.2 pg 26.0 - 34.0 pg [facility] MCHC (RBC) [Mass/Vol] 34.0 g/dL 30.5 - 36.0 g/dL [facility] MCV (RBC) [Entitic vol] 91.7 fL 80.0 - 100.0 fL [facility] Monocytes (Bld) [#/Vol] 0.63 10*3/uL [facility] Monocytes/100 WBC (Bld) 9.3 % [facility] Neutrophils (Bld) [#/Vol] 3.32 10*3/uL [facility] Neutrophils/100 WBC (Bld) 49.0 % [facility] Nucleated RBC (Bld) [#/Vol] NINF [facility] Nucleated RBC/100 WBC (Bld) [Ratio] 0.0 % /100 WBC [facility] Platelet mean volume (Bld) [Entitic vol] 9.5 fL 9.0 - 12.7 fL [facility] Platelets (Bld) [#/Vol] 273 10*3/uL [facility] RBC (Bld) [#/Vol] 5.19 10*6/uL 4.20 - 6.0 0 m/uL [facility] WBC (Bld) [#/Vol] 6.78 10*3/uL [facility] Basophils (Bld) [#/Vol] 0.03 10*3/uL Normal <0.11 [facility] Comment on above: Order Comment: Speci men Type: BLOOD SPECIMENOrdering Facility: [facility] Address: [address] [place] [address] Performed By: #### 5 7021-8 ####[facility] [id number] [place] [address] [place] Basophils/100 WBC (Bld) 0.4 % Normal [facility] Comment on above: Order Comment: Speci men Type: BLOOD SPECIMENOrdering Facility: [facility] Address: [address] [place] [address] Performed By: #### 5 7021-8 ####[facility] [id number] [place] [address] [place] Differential cell count method Nom (Bld) Auto Normal [facility] Comment on above: Order Comment: Speci men Type: BLOOD SPECIMENOrdering Facility: [facility] Address: [address] [place] [address] Performed By: #### 5 7021-8 ####[facility] [id number] [place] [address] [place] Eosinophils (Bld) [#/Vol] 0.10 10*3/uL Normal <0.46 [facility] Comment on above: Order Comment: Speci men Type: BLOOD SPECIMENOrdering Facility: [facility] Address: [address] [place] [address] Performed By: #### 5 7021-8 ####[facility] [id number] [place] [address] [place] Eosinophils/100 WBC (Bld) 1.5 % Normal [facility] Comment on above: Order Comment: Speci men Type: BLOOD SPECIMENOrdering Facility: [facility] Address: [address] [place] [address] Performed By: #### 5 7021-8 ####[facility] [id number] [place] [address] [place] Erythrocyte distribution width (RBC) [Ratio] 11.9 % Normal 11.5-15.0 [facility] Comment on above: Order Comment: Speci men Type: BLOOD SPECIMENOrdering Facility: [facility] Address: [address] [place] [address] Performed By: #### 5 7021-8 ####[facility] [id number] [place] [address] [place] Hematocrit (Bld) [Volume fraction] 47.6 % Normal 39.0-51.0 [facility] Comment on above: Order Comment: Speci men Type: BLOOD SPECIMENOrdering Facility: [facility] Address: [address] [place] [address] Performed By: #### 5 7021-8 ####[facility] [id number] [place] [address] [place] Hemoglobin (Bld) [Mass/Vol] 16.2 g/dL Normal 13.0-17.0 [facility] Comment on above: Order Comment: Speci men Type: BLOOD SPECIMENOrdering Facility: [facility] Address: [address] [place] [address] Performed By: #### 5 7021-8 ####[facility] [id number] [place] [address] [place] Immature granulocytes (Bld) [#/Vol] 0.03 10*3/uL Normal <0.10 [facility] Comment on above: Order Comment: Speci men Type: BLOOD SPECIMENOrdering Facility: [facility] Address: [address] [place] [address] Performed By: #### 5 7021-8 ####[facility] [id number] [place] [address] [place] Immature granulocytes/100 WBC (Bld) 0.4 % Normal [facility] Comment on above: Order Comment: Speci men Type: BLOOD SPECIMENOrdering Facility: [facility] Address: [address] [place] [address] Performed By: #### 5 7021-8 ####[facility] [id number] [place] [address] [place] Lymphocytes (Bld) [#/Vol] 2.67 10*3/uL Normal 1.00-4.00 [facility] Comment on above: Order Comment: Speci men Type: BLOOD SPECIMENOrdering Facility: [facility] Address: [address] [place] [address] Performed By: #### 5 7021-8 ####[facility] [id number] [place] [address] [place] Lymphocytes/100 WBC (Bld) 39.4 % Normal [facility] Comment on above: Order Comment: Speci men Type: BLOOD SPECIMENOrdering Facility: [facility] Address: [address] [place] [address] Performed By: #### 5 7021-8 ####[facility] [id number] [place] [address] [place] MCH (RBC) [Entitic mass] 31.2 pg Normal 26.0-34.0 [facility] Comment on above: Order Comment: Speci men Type: BLOOD SPECIMENOrdering Facility: [facility] Address: [address] [place] [address] Performed By: #### 5 7021-8 ####[facility] [id number] [place] [address] [place] MCHC (RBC) [Mass/Vol] 34.0 g/dL Normal 30.5-36.0 [facility] Comment on above: Order Comment: Speci men Type: BLOOD SPECIMENOrdering Facility: [facility] Address: [address] [place] [address] Performed By: #### 5 7021-8 ####[facility] [id number] [place] [address] [place] MCV (RBC) [Entitic vol] 91.7 fL Normal 80.0-100.0 [facility] Comment on above: Order Comment: Speci men Type: BLOOD SPECIMENOrdering Facility: [facility] Address: [address] [place] [address] Performed By: #### 5 7021-8 ####[facility] [id number] [place] [address] [place] Monocytes (Bld) [#/Vol] 0.63 10*3/uL Normal <0.87 [facility] Comment on above: Order Comment: Speci men Type: BLOOD SPECIMENOrdering Facility: [facility] Address: [address] [place] [address] Performed By: #### 5 7021-8 ####[facility] [id number] [place] [address] [place] Monocytes/100 WBC (Bld) 9.3 % Normal [facility] Comment on above: Order Comment: Speci men Type: BLOOD SPECIMENOrdering Facility: [facility] Address: [address] [place] [address] Performed By: #### 5 7021-8 ####[facility] [id number] [place] [address] [place] Neutrophils (Bld) [#/Vol] 3.32 10*3/uL Normal 1.45-7.50 [facility] Comment on above: Order Comment: Speci men Type: BLOOD SPECIMENOrdering Facility: [facility] Address: [address] [place] [address] Performed By: #### 5 7021-8 ####[facility] [id number] [place] [address] [place] Neutrophils/100 WBC (Bld) 49.0 % Normal [facility] Comment on above: Order Comment: Speci men Type: BLOOD SPECIMENOrdering Facility: [facility] Address: [address] [place] [address] Performed By: #### 5 7021-8 ####[facility] [id number] [place] [address] [place] Nucleated RBC (Bld) [#/Vol] 10*3/uL Normal <0.01 [facility] Comment on above: Order Comment: Speci men Type: BLOOD SPECIMENOrdering Facility: [facility] Address: [address] [place] [address] Performed By: #### 5 7021-8 ####[facility] [id number] [place] [address] [place] Nucleated RBC/100 WBC (Bld) [Ratio] 0.0 /100 WBC Normal [facility] Comment on above: Order Comment: Speci men Type: BLOOD SPECIMENOrdering Facility: [facility] Address: [address] [place] [address] Performed By: #### 5 7021-8 ####[facility] [id number] [place] [address] [place] Platelet mean volume (Bld) [Entitic vol] 9.5 fL Normal 9.0-12.7 [facility] Comment on above: Order Comment: Speci men Type: BLOOD SPECIMENOrdering Facility: [facility] Address: [address] [place] [address] Performed By: #### 5 7021-8 ####[facility] [id number] [place] [address] [place] Platelets (Bld) [#/Vol] 273 10*3/uL Normal 150-400 [facility] Comment on above: Order Comment: Speci men Type: BLOOD SPECIMENOrdering Facility: [facility] Address: [address] [place] [address] Performed By: #### 5 7021-8 ####[facility] [id number] [place] [address] [place] RBC (Bld) [#/Vol] 5.19 10*6/uL Normal 4.20-6.00 [facility] Comment on above: Order Comment: Speci men Type: BLOOD SPECIMENOrdering Facility: [facility] Address: [address] [place] [address] Performed By: #### 5 7021-8 ####[facility] [id number] [place] [address] [place] WBC (Bld) [#/Vol] 6.78 10*3/uL Normal 3.70-11.00 [facility] Comment on above: Order Comment: Speci men Type: BLOOD SPECIMENOrdering Facility: [facility] Address: [address] [place] [address] Performed By: #### 5 7021-8 ####[facility] [id number] [place] [address] [place] Comprehensive metabolic 2000 panelon 01-04-2024 Albumin [Mass/Vol] 4.3 g/dL 3.9 - 4.9 g/dL [facility] ALP [Catalytic activity/Vol] 141 U/L High 38 - 113 U/L [facility] ALT [Catalytic activity/Vol] 21 U/L 10 - 54 U/L [facility] Anion gap [Moles/Vol] 12 mmol/L 9 - 18 mmol/L [facility] AST [Catalytic activity/Vol] 17 U/L 14 - 40 U/L [facility] Bilirubin [Mass/Vol] 0.4 mg/dL 0.2 - 1 .3 mg/dL [facility] Calcium [Mass/Vol] 9.6 mg/dL 8.5 - 10. 2 mg/dL [facility] Chloride [Moles/Vol] 102 mmol/L 97 - 10 5 mmol/L [facility] CO2 [Moles/Vol] 25 mmol/L 22 - 30 mmol/L [facility] Creatinine [Mass/Vol] 1.22 mg/dL 0.73 - 1.22 mg/dL [facility] GFR/1.73 sq M.predicted among non-blacks MDRD (S/P/Bld) [Vol rate/Area] 71 mL/min/{1.73_m2} - PINF [facility] Comment on above: Estimated Glomerular Filtration Rate (eGFR) is calculated using the 2020 CKD-EPI creatinine equation. This equation utilizes serum creatinine, sex, and age as parameters. The creatinine assay has traceable calibration to isotope dilution-mass spectrometry. Refer to KDIGO guidelines for clinical interpretation. In patients with unstable renal function, e.g. those with acute kidney injury, the eGFR may not accurately reflect actual GFR. Glucose [Mass/Vol] 87 mg/dL 74 - 99 mg/dL [facility] Comment on above: The [place] [employer] (ADA) provides guidance for cutoff values for fasting glucose and random glucose. The ADA defines fasting as no caloric intake for at least 8 hours. Fasting plasma glucose results between 100 to 125 mg/dL indicate increased risk for diabetes (prediabetes). Fasting plasma glucose results greater than or equal to 126 mg/dL meet the criteria for diagnosis of diabetes. In the absence of unequivocal hyperglycemia, results should be confirmed by repeat testing. In a patient with classic symptoms of hyperglycemia or hyperglycemic crisis, random plasma glucose results greater than or equal to 200 mg/dL meet the criteria for diagnosis of diabetes. Reference: Standards of Medical Care in Diabetes 2016, [place] [employer]. Diabetes Care. 2016.39(Suppl 1). Interpretation and review of laboratory results Abnormal [facility] Potassium [Moles/Vol] 4.2 mmol/L 3.7 - 5.1 mmol/L [facility] Protein [Mass/Vol] 6.7 g/dL 6.3 - 8.0 g/dL [facility] Sodium [Moles/Vol] 139 mmol/L 136 - 144 mmol/L [facility] Urea nitrogen [Mass/Vol] 18 mg/dL 9 - 24 mg/dL [facility] Albumin [Mass/Vol] 4.3 g/dL Normal 3.9-4.9 [facility] Comment on above: Order Comment: Speci men Type: BLOOD SPECIMENOrdering Facility: [facility] Address: [address] [place] [address] Performed By: #### 2 4323-8 ####[facility] [id number] [place] [address] [place] ALP [Catalytic activity/Vol] 141 U/L High 38-113 [facility] Comment on above: Order Comment: Speci men Type: BLOOD SPECIMENOrdering Facility: [facility] Address: [address] [place] [address] Performed By: #### 2 4323-8 ####[facility] [id number] [place] [address] [place] ALT [Catalytic activity/Vol] 21 U/L Normal 10-54 [facility] Comment on above: Order Comment: Speci men Type: BLOOD SPECIMENOrdering Facility: [facility] Address: [address] [place] [address] Performed By: #### 2 4323-8 ####[facility] [id number] [place] [address] [place] Anion gap [Moles/Vol] 12 mmol/L Normal 9-18 [facility] Comment on above: Order Comment: Speci men Type: BLOOD SPECIMENOrdering Facility: [facility] Address: [address] [place] [address] Performed By: #### 2 4323-8 ####[facility] [id number] [place] [address] [place] AST [Catalytic activity/Vol] 17 U/L Normal 14-40 [facility] Comment on above: Order Comment: Speci men Type: BLOOD SPECIMENOrdering Facility: [facility] Address: [address] [place] [address] Performed By: #### 2 4323-8 ####[facility] [id number] [place] [address] [place] Bilirubin [Mass/Vol] 0.4 mg/dL Normal 0.2-1.3 [facility] Comment on above: Order Comment: Speci men Type: BLOOD SPECIMENOrdering Facility: [facility] Address: [address] [place] [address] Performed By: #### 2 4323-8 ####[facility] [id number] [place] [address] [place] Calcium [Mass/Vol] 9.6 mg/dL Normal 8.5-10.2 [facility] Comment on above: Order Comment: Speci men Type: BLOOD SPECIMENOrdering Facility: [facility] Address: [address] [place] [address] Performed By: #### 2 4323-8 ####[facility] [id number] [place] [id number] [place] Chloride [Moles/Vol] 102 mmol/L Normal 97-105 [facility] Comment on above: Order Comment: Speci men Type: BLOOD SPECIMENOrdering Facility: [facility] Address: [address] [place] [address] Performed By: #### 2 4323-8 ####[facility] [id number] [place] [address] [place] CO2 [Moles/Vol] 25 mmol/L Normal 22-30 [facility] Comment on above: Order Comment: Speci men Type: BLOOD SPECIMENOrdering Facility: [facility] Address: [address] [place] [address] Performed By: #### 2 4323-8 ####[facility] [id number] [place] [address] [place] Creatinine [Mass/Vol] 1.22 mg/dL Normal 0.73-1.22 [facility] Comment on above: Order Comment: Speci men Type: BLOOD SPECIMENOrdering Facility: [facility] Address: [address] [place] [address] Performed By: #### 2 4323-8 ####[facility] [id number] [place] [address] [place] [facility] Creatinine and Glomerular filtration rate.predicted panel (S/P/Bld) 71 mL/min/1.73m??? Normal >=60 [facility] Comment on above: Order Comment: Speci men Type: BLOOD SPECIMENOrdering Facility: [facility] Address: [address] [place] [address] Result Comment: Chele mated Glomerular Filtration Rate (eGFR) is calculated using the 2020 CKD-EPI creatinine equation. This equation utilizes serum creatinine, sex, and age as parameters. The creatinine assay has traceable calibration to isotope dilution-mass spectrometry. Refer to KDIGO guidelines for clinical interpretation. In patients with unstable renal function, e.g. those with acute kidney injury, the eGFR may not accurately reflect actual GFR. Performed By: #### 2 4323-8 ####[facility] [id number] [place] [address] [place] Glucose [Mass/Vol] 87 mg/dL Normal 74-99 [facility] Comment on above: Order Comment: Speci men Type: BLOOD SPECIMENOrdering Facility: [facility] Address: [address] [place] [address] Result Comment: The [place] Diabetes Association (ADA) provides guidance for cutoff values for fasting glucose and random glucose. The ADA defines fasting as no caloric intake for at least 8 hours. Fasting plasma glucose results between 100 to 125 mg/dL indicate increased risk for diabetes (prediabetes). Fasting plasma glucose results greater than or equal to 126 mg/dL meet the criteria for diagnosis of diabetes. In the absence of unequivocal hyperglycemia, results should be confirmed by repeat testing. In a patient with classic symptoms of hyperglycemia or hyperglycemic crisis, random plasma glucose results greater than or equal to 200 mg/dL meet the criteria for diagnosis of diabetes. Reference: Standards of Medical Care in Diabetes 2016, [place] [employer]. Diabetes Care. 2016.39(Suppl 1). Performed By: #### 2 4323-8 ####[facility] [id number] [place] [address] [place] Potassium [Moles/Vol] 4.2 mmol/L Normal 3.7-5.1 [facility] Comment on above: Order Comment: Speci men Type: BLOOD SPECIMENOrdering Facility: [facility] Address: [address] [place] [address] Performed By: #### 2 4323-8 ####[facility] [id number] [place] [address] [place] Protein [Mass/Vol] 6.7 g/dL Normal 6.3-8.0 [facility] Comment on above: Order Comment: Speci men Type: BLOOD SPECIMENOrdering Facility: [facility] Address: [address] [place] [address] Performed By: #### 2 4323-8 ####[facility] [id number] [place] [address] [place] Sodium [Moles/Vol] 139 mmol/L Normal 136-144 [facility] Comment on above: Order Comment: Speci men Type: BLOOD SPECIMENOrdering Facility: [facility] Address: [address] [place] [address] Performed By: #### 2 4323-8 ####[facility] [id number] [place] [address] [place] Urea nitrogen [Mass/Vol] 18 mg/dL Normal 9-24 [facility] Comment on above: Order Comment: Speci men Type: BLOOD SPECIMENOrdering Facility: [facility] Address: [address] [place] [address] Performed By: #### 2 4323-8 ####[facility] LABIA [id number] [place] [address] [place] HISTORY PHYSICALon HISTORY PHYSICAL HNO ID: [id number] Author: JENNIFER GUZMAN APRN.PRODUCTION PLANNING MANAGER Service: ? Author Type: Nurse Practitioner Type: H&P Filed: 01/05/2024 14:58 Note Text: HISTORY AND PHYSICAL EXAMINATION SERVICE DATE: 01/04/2024 SERVICE TIME: 2:40 PM PRIMARY CARE PHYSICIAN: Stacey Morocho MD Assessment Patient has the following medical conditions which may affect tess-operative course: Headaches due to old head injury recurrent headaches, and migraines related to head injury Fall 2021 Endorses sensitivity to light Acute sinusitis, unspecified Managed with afrin and nyquil nightly Inability to breathe through nose Gastroesophageal reflux disease without esophagitis Managed with TUMS PRN CELAYA (dyspnea on exertion) Endorses CELAYA due to lack of oxygenation through nose Mets 5.5 Overweight BMI 27.18 [place] Activity Status Index: METS: Do yardwork, such as raking leaves, weeding, or pushing a power mower (4.50 METs) DASI Score: 4.5 Patient denies any chest pain or undue shortness of breath with the above physical activity. Clinical Frailty Scale: 3. Well, with treated comorbid disease STOP-Bang Score: Patient over 50 years old Male patient BMI less than or equal to 35 kg/m2 STOP-Bang Score: 2 (+NAUN non-compliant with cpap/bipap +severe) ANESTHESIA FINDINGS: Intubation History: No history of difficult intubation. No abnormal airway history Significant Anesthesia Considerations: potential postop nausea/vomiting Airway History: Hx of facial fracture with CSF leak - sp extensive repair and rhinoplasty No history of difficult airway No abnormal airway history I - PHYSICAL EVALUATION AIRWAY Patient intubated: No. Tracheostomy tube not present Mallampati: I. TM distance: >3 FB. Neck ROM: full ROM without neurological symptoms. Mouth opening: adequate. Short neck: no. Thick neck: no Rodriguez present: no Lip Bite Test: II Microretrognathia/Microna gthia/Recessed Chin: No DENTAL Dental findings: teeth intact. Additional comments: Crowns Left upper rear endorses dental pain - ongoing for the last week . II - ANESTHESIA PLAN Anesthetic plan additional comments: *PACC/TCI - anesthesia choice. Beta Pedro Pablo Monitoring Plan Post Procedure Analgesic Plan Prepared for Surgery: optimally prepared for surgery, pending [see comment]. CMP, CBC ordered by il Addendum 01/05/24 Labs reviewed and accepted from 01/04/24 CONSULTS: Patient does not require consults for optimization at this time Planned Anesthetic: anesthesia choice The Following Tests/Procedures Have Been Initiated: Orders Placed This Encounter CMP Standing Status: Future Number of Occurrences: 1 Standing Expiration Date: 04/04/2024 Complete Blood Count and Differential Standing Status: Future Number of Occurrences: 1 Standing Expiration Date: 04/04/2024 oxymetazoline (AFRIN, OXYMETAZOLINE,) 0.05 % nasal spray Sig: Use 2 Sprays in the nose daily at bedtime. DM/p-ephed/acetaminoph/do xylam (NYQUIL D ORAL) Sig: Take by mouth daily at bedtime. REASON FOR VISIT: Rm Berman is a 53 year old male who is scheduled for Procedure(s): REVISION RHINOPLASTY - using donor cartilage (Bilateral) SEPTOPLASTY (Bilateral) RESECTION TURBINATE (Bilateral) at the request of Christopher Vital MD for consultation. My final recommendation will be communicated back to the requesting physician by way of shared medical record or letter. Subjective The patient has the following: ACTIVE PROBLEM LIST Abnormal Findings On Diagnostic Imaging of Other Specified Body Structures Acute Sinusitis, Unspecified Facial Fracture (Hcc) Closed Fracture of Orbit (Hcc) Fall On and From Ladder, Initial Encounter Headaches Due to Old Head Injury Gastroesophageal Reflux Disease Without Esophagitis Celaya (Dyspnea On Exertion) Overweight COVID-19 Immunization Status Covid-19 Vaccine (Series Information) Completed 04/27/2023 Imm Admin: COVID-19 vaccine, age 12+ yr, season (PFIZER-BIONTECH) 06/04/2021 Imm Admin: COVID-19 original vaccine, age 12+ yr, monovalent (PFIZER-BIONTECH - PURPLE TOP) 11/21/2020 Imm Admin: COVID-19 original vaccine, age 12+ yr, monovalent (PFIZER-BIONTECH - PURPLE TOP) Only the first 3 history entries have been loaded, but more history exists. CHIEF COMPLAINT: Preop exam HPI: Rm Berman is a 53 year old male with PMHx facial fracture. Presents to PACC today for preop exam. Patient is scheduled for the above procedure on 01/08/24. Patient with history of facial fracture from fall with prior repair, endorses persistent difficulty with breathing. Plan for revision rhinoplasty, septoplasty and turbinate reduction. Denies fevers, chills, chest pain, and SOB. REVIEW OF SYSTEMS: General: Negative for: weight loss >10% of BW in last 6 months, malaise and fever. Neurological: +sensitivity to light + endorses chronic facial discomfort and tightness related to injury Posit (more content not included)... Normal [facility] Griselda 11-30-2023 CNPN Telephone (PLASMN) ----- RM BERMAN ([id number]) 1970 M Date Time Provider Department 11/30/23 CHRISTOPHER MCGREGOR During your visit today, we recorded the following information about you: Raya Bhatti 11/30/2023 1:53 PM Signed Yoon from [facility] called she has not heard from CC. Yoon has tried [facility] at [phone], no luck. She's faxed, ,called CC no one is returning her call. Yoon is working w the pt to get him scheduled for surgery. Sent staff message to Marie. Nettles #[phone] Thanks Allergies As of Date: 11/30/2023 (Not on File) Date Reviewed: 09/05/2023 Reviewed by: Sylvie Garrett MA - Fully Assessed Reason for Visit: [facility] - workmans comp [Other] Prescriptions as of 11/30/2023 - tobramycin (TOBREX) 0.3 % ophthalmic solution Use in eyes. - oxyCODONE IR (ROXICODONE) 5 mg immediate release tablet Take by mouth q 6 HR. - loratadine 10 mg dissolvable tablet Take by mouth. - gabapentin (NEURONTIN) 300 mg capsule Take 300 mg by mouth. - cyclobenzaprine (FLEXERIL) 5 mg tablet Take 5 mg by mouth three times daily as needed. Problem List As Of Date 11/30/2023 Noted Resolved Abnormal findings on diagnostic imaging of othe*07/25/2022 Acute sinusitis, unspecified [J01.90] 09/03/2020 Facial fracture (HCC) [S02.92XA] 02/08/2023 Closed fracture of orbit (HCC) [S02.85XA] 02/08/2023 Fall on and from ladder, initial encounter [W11*06/15/2022 Encounter Status:Closed by RAYA BHATTI on 11/30/23 [facility] CNOVon 09-05-2023 CNOV Office Visit (PLASMN ) ----- ANTONELLARM ([id number]) 1970 M Date Time Provider Department 09/05/23 9:30 AM CHRISTOPHER MCGREGOR During your visit today, we recorded the following information about you: Temperature Pulse Blood pressure Weight 97 degrees 68/minute 118/86 81.2 kg Height 1.765 m Christopher Mcgregor MD 09/08/2023 3:07 PM Signed CC: trouble breathing HPI: Rm Berman is a 53 year old male here to discuss craniofacial crush injury. Injury first occurred 05/2022 after falling 20 feet. LV was 04/12/[address] Vanegas. 06/08/2022: H/O open reduction and internal fixation of naso-orbital ethmoidal injuries, nasal bone reconstruction, ORIF maxillay bone fractures and pericranial flap for skull base floor reconstruction Patient has numbness/tingling in forehead. No sense of smell. Pt reports difficulty breathing, Current Outpatient Medications on File Prior to Visit Medication Sig tobramycin (TOBREX) 0.3 % ophthalmic solution Use in eyes. oxyCODONE IR (ROXICODONE) 5 mg immediate release tablet Take by mouth q 6 HR. loratadine 10 mg dissolvable tablet Take by mouth. gabapentin (NEURONTIN) 300 mg capsule Take 300 mg by mouth. cyclobenzaprine (FLEXERIL) 5 mg tablet Take 5 mg by mouth three times daily as needed. No current facility-administered medications on file prior to visit. EXAM: There were no vitals taken for this visit. A+O x 3, NC/AT. NAD. Left internal exam: severe septal deviation to the right with scar band against the middle turbinate Right internal nasal exam: Subluxation of the septum of the left side Turbinate hypertrophy bilaterally ASSESSMENT/PLAN: Patient would benefit from: -septoplasty revision, turbinate reduction -revision rhinoplasty of the bridge with donor cartilage Pre-d sent for functional portion. Soft tissue cephalometrics and photos today. The risks/benefits/alternativ es/indications including but not limited to: cosmetic dissatisfaction along with possible need for revision surgery, bleeding, infection, breathing/functional difficulty, septal perforation, and skin necrosis, reviewed with patient who stated understanding and wishes to proceed. The patient is seen and examined by Dr. Mcgregor and the following reflects their service. Scribed by Nancy Cheng PA-C Attending Note I have personally performed a face to face assessment of the patient and have reviewed the ARLYN note. I performed a substantive portion of the visit including all aspects of the following. My delvalle findings include: agree with above for history, physical and medical decision making. Other additions or changes: None Signature: Fransisca Mcgregor MD Date: September 08, 2023 Time: 3:07 PM Referring Provider: STACEY MOROCHO [[id number]] Allergies As of Date: 09/05/2023 (Not on File) Date Reviewed: 09/05/2023 Reviewed by: Sylvie Garrett MA - Fully Assessed Reason for Visit: Consult [173] Primary Visit Diagnosis:Difficulty breathing [R06.89] Other Visit Diagnoses:H/O closed fracture of nasal bones [Z87.81] Facial injury, subsequent encounter [S09.93XD] Order(s):SURGICAL REQUEST - ELECTIVE (03/2020) [2017210] Order #: [id number]: 1 Prescriptions as of 09/08/2023 - tobramycin (TOBREX) 0.3 % ophthalmic solution Use in eyes. - oxyCODONE IR (ROXICODONE) 5 mg immediate release tablet Take by mouth q 6 HR. - loratadine 10 mg dissolvable tablet Take by mouth. - gabapentin (NEURONTIN) 300 mg capsule Take 300 mg by mouth. - cyclobenzaprine (FLEXERIL) 5 mg tablet Take 5 mg by mouth three times daily as needed. Problem List As Of Date 09/05/2023 Noted Resolved Abnormal findings on diagnostic imaging of othe*07/25/2022 Acute sinusitis, unspecified [J01.90] 09/03/2020 Facial fracture (HCC) [S02.92XA] 02/08/2023 Closed fracture of orbit (HCC) [S02.85XA] 02/08/2023 Fall on and from ladder, initial encounter [W11*06/15/2022 Encounter Status:Closed by CHRISTOPHER MCGREGOR on 09/08/23 [facility] Griselda 07-20-2023 BON Telephone (DPQ) ----- RM BERMAN ([id number]) 1970 M Date Time Provider Department 07/20/23 MICHAEL VANEGAS DPQ During your visit today, we recorded the following information about you: Nikki Irby 07/20/2023 1:48 PM Signed C9 and [employer] signed, faxed, and emailed to [facility]. Scanned into chart Allergies As of Date: 07/20/2023 (Not on File) Date Reviewed: Never Reviewed Reason for Visit: C9 and [facility] [Other] Prescriptions as of 07/20/2023 - tobramycin (TOBREX) 0.3 % ophthalmic solution Use in eyes. - oxyCODONE IR (ROXICODONE) 5 mg immediate release tablet Take by mouth q 6 HR. - loratadine 10 mg dissolvable tablet Take by mouth. - gabapentin (NEURONTIN) 300 mg capsule Take 300 mg by mouth. - cyclobenzaprine (FLEXERIL) 5 mg tablet Take 5 mg by mouth three times daily as needed. Problem List As Of Date 07/20/2023 Noted Resolved Abnormal findings on diagnostic imaging of othe*07/25/2022 Acute sinusitis, unspecified [J01.90] 09/03/2020 Facial fracture (HCC) [S02.92XA] 02/08/2023 Closed fracture of orbit (HCC) [S02.85XA] 02/08/2023 Fall on and from ladder, initial encounter [W11*06/15/2022 Encounter Status:Closed by NIKKI IRBY on 07/20/23 [facility] 07-18-2023 [facility] Telephone (DPQ) ----- RM BERMAN ([id number]) 1970 M Date Time Provider Department 07/18/23 MICHAEL VANEGAS DPQ During your visit today, we recorded the following information about you: Nikki Irby 07/18/2023 10:27 AM Signed Denice calling from [employer] says pre [facility] sent us a fax last week for a c9 form. I have not received anything. Can this be sent over again please or scanned into the chart. Please advise. Thank you Allergies As of Date: 07/18/2023 (Not on File) Date Reviewed: Never Reviewed Prescriptions as of 02/27/2024 - oxymetazoline (AFRIN, OXYMETAZOLINE,) 0.05 % nasal spray Use 2 Sprays in the nose daily at bedtime. - DM/p-ephed/acetaminoph/do xylam (NYQUIL D ORAL) Take by mouth daily at bedtime. Problem List As Of Date 07/18/2023 Noted Resolved Abnormal findings on diagnostic imaging of othe*07/25/2022 Acute sinusitis, unspecified [J01.90] 09/03/2020 Facial fracture (HCC) [S02.92XA] 02/08/2023 Closed fracture of orbit (HCC) [S02.85XA] 02/08/2023 Fall on and from ladder, initial encounter [W11*06/15/2022 Encounter Status:Closed by NIKKI IRBY on 02/27/24 [facility] 06-16-2023 [facility] Telephone (DPQ) ----- RM BERMAN ([id number]) 1970 M Date Time Provider Department 06/16/23 MICHAEL VANEGAS DPQ During your visit today, we recorded the following information about you: Nikki Irby 06/16/2023 11:46 AM Signed Received medco14 for office visit of 04/12/[address] Vanegas. Okay to sign? Please advise. Thank you Allergies As of Date: 06/16/2023 (Not on File) Date Reviewed: Never Reviewed Reason for Visit: [facility]co14 [Other] Prescriptions as of 02/27/2024 - oxymetazoline (AFRIN, OXYMETAZOLINE,) 0.05 % nasal spray Use 2 Sprays in the nose daily at bedtime. - DM/p-ephed/acetaminoph/do xylam (NYQUIL D ORAL) Take by mouth daily at bedtime. Problem List As Of Date 06/16/2023 Noted Resolved Abnormal findings on diagnostic imaging of othe*07/25/2022 Acute sinusitis, unspecified [J01.90] 09/03/2020 Facial fracture (HCC) [S02.92XA] 02/08/2023 Closed fracture of orbit (HCC) [S02.85XA] 02/08/2023 Fall on and from ladder, initial encounter [W11*06/15/2022 Encounter Status:Closed by NIKKI IRBY on 02/27/24 [facility] 06-02-2023 CNPN Telephone (DPQ) ----- RM BERMAN ([id number]) 1970 M Date Time Provider Department 06/02/23 MICHAEL VANEGAS During your visit today, we recorded the following information about you: Nikki Irby 06/02/2023 3:58 PM Signed Received [facility] 14 placed on Nikki Taylor 06/09/2023 11:39 AM Signed Received another medco14 request. Placed on Dr. Divine whitney Allergies As of Date: 06/02/2023 (Not on File) Date Reviewed: Never Reviewed Reason for Visit: [employer]14 paperwork [Other] Prescriptions as of 06/09/2023 - tobramycin (TOBREX) 0.3 % ophthalmic solution Use in eyes. - oxyCODONE IR (ROXICODONE) 5 mg immediate release tablet Take by mouth q 6 HR. - loratadine 10 mg dissolvable tablet Take by mouth. - gabapentin (NEURONTIN) 300 mg capsule Take 300 mg by mouth. - cyclobenzaprine (FLEXERIL) 5 mg tablet Take 5 mg by mouth three times daily as needed. Problem List As Of Date 06/02/2023 Noted Resolved Abnormal findings on diagnostic imaging of othe*07/25/2022 Acute sinusitis, unspecified [J01.90] 09/03/2020 Facial fracture (HCC) [S02.92XA] 02/08/2023 Closed fracture of orbit (HCC) [S02.85XA] 02/08/2023 Fall on and from ladder, initial encounter [W11*06/15/2022 Encounter Status:Closed by NIKKI IRBY on 06/02/23 Normal [facility] CT FACIAL BONE/ISIDRA WO IVCON on 2023 [facility] Follow Up (Plastic Surgery)o n 11-28-2022 Follow Up (Plastic Surgery) *Diagnoses/Problems Facial fracture due to fall (802.8,E888.9) (S02.92XA,W19.XXXA) Fracture of orbital roof (801.00) (S02.129A) *Patient Discussion/Summary Patient Discussion Summary Free Text Note Form: Problems 1) Limited upgaze OS. I reviewed the scan carefully and I do not see a clear mechanical reason for the mildly limited upgaze. He has no visual disturbance in all visual trejo except for upgaze. He is going to see a neuro opthomologist. I stated that this may be a result of direct trauma or nerve injury. 2) Paraesthesia of bilateral infraorbital nerves. I advised that for the most part this will improve. The nerves in question were trapped in the fractures and will slowly improve but may never be like pre injury. 3) Nasal obstruction. I went through is post op CT cut by cut and showed him the septum occluding the left nasal airway. I advised him that the septum can be resected and this airway improved. he will consider all of our discussions and follow up with me in 2-3 months. He has been very happy with his care here. I advised that he can fly, continue light duty, no lifting >10-15 lbs and no ladder climbing at this time. We should get a repeat head and craniofacial CT to evaluate the healing on the flooe of the anterior skull base/ cribriform plate area. *Chief Complaint Chief Complaint Free Text Note Form: An interactive audio and video telecommunication system which permits real time communications between the patient (at the originating site) and provider (at the distant site) was utilized to provide this telehealth service. follow up visit History of Present IllnessHPI: Rm Berman is 52 year old male s/p Multiple nasal bone ORIFs, calvarium bone harvest for nasal graft, cribiform defect ORIF on 06/08/22. Patient presents for a virtual visit follow up. 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) Past Medical History History of Healthy adult Surgical History History of Facial surgery Social History Occasional alcohol use *Allergies No Known Drug Allergies Recorded By: Joellen Marroquin; 07/04/2022 1:36:00 PM *Current Meds Medication NameInstruction No Reported Medications *Vitals Vital Signs Recorded: 28Nov2022 01:59PM Eufwgfwrbpc78.8 F Heart Rate59 Iyhvzwae346 Dpsfjqdjw23 Height5 ft 8.5 in Kuplhd143 lb BMI Lyvnjmdmrp30.22 kg/m2 BSA Calculated1.94 Tobacco Useb) No Physical Exam Free Text PE_UH: The patient returns with his for a follow up visit s/p craniofacial crush injury secondary to fall from a ladder at work. He had a combined neuro/craniofacial approach for repair of his extensive injuries. He had his frontal sinus cranialized and large pericranial flap placed on the floor of the anterior skull base. PE: The scalp is well healed. The anterior defect to accommodate the pericranial flap is palpable but not noticeable. The supra orbital rims are stable. There is some flattening of the nasal dorsum but the cranial bone graft is present. The orbital size is equal bilaterally and appears to be equal to his pre injury situation. The infra orbital rims are without a step defect/ Problems 1) Limited upgaze OS. I reviewed the scan carefully and I do not see a clear mechanical reason for the mildly limited upgaze. He has no visual disturbance in all visual trejo except for upgaze. He is going to see a neuro opthomologist. I stated that this may be a result of direct trauma or nerve injury. 2) Paraesthesia of bilateral infraorbital nerves. I advised that for the most part this will improve. The nerves in question were trapped in the fractures and will slowly improve but may never be like pre injury. 3) Nasal obstruction. I went through is post op CT cut by cut and showed him the septum occluding the left nasal airway. I advised him that the septum can be resected and this airway improved. he will consider all of our discussions and follow up with me in 2-3 months. He has been very happy with his care here. I advised that he can fly, continue light duty, no lifting >10-15 lbs and no ladder climbing at this time. We should get a repeat head and craniofacial CT to evaluate the healing on the flooe of the anterior skull base/ cribriform plate area. Time Time Stamp_UH: Total time on date of patient encounter: 20 minutes. 'Scores and Scales' Signatures Electronically signed by : Michael Vanegas MD; Nov 28 2022 4:10PM EST (Author) [facility] 2022 Ophthalmic Eye Exam DOCUMENT REVIEWED BY : Jami Pate MD DOCUMENT SIGNED ELECTRONICALLY BY Jami Pate MD ON 10/04/2022 05:03:[address] [address] THIS DOCUMENT WAS CREATED ON: 10/04/2022 05:03:25 PM BY: MD Lulu Andres COT performed Refraction SHREYA Stephenson performed IQHZS-Efhj-ux Exam Date: Tuesday, October 04, 2022 PATIENT NAME: RM BERMAN DATE: 1970 AGE: 52 GENDER: Male RACE: REFERRING DOCTOR: Michael Vanegas PRIMARY CARE PHYSICIAN: Stacey Morocho History Chief Complaint/Reason For Visit: Referred by Dr. Vanegas for evaluation. Patient fell 20 feet on May 2022. Patient had Facial Fractures; S/P Open Reduction and Internal Fixation of very complicated Naso-Orbital Ethmoidal Injuries Bilaterally, Nasal Bone Fractures w Cantilever bone Graft for Nasal Bone Reconstruction, Open Reduction and Internal Fixation of Maxillary Bone Fractures, Pericranial Flap for Anterior Skull Base Floor Reconstruction 06/08/22. Problem-swelling remains about both eyes, patient sees double w upward gaze OU but goes away if he closes either eye, Location-both eyes, Duration-several months, Timing-every day, HISTORY OF PRESENT ILLNESS: PROBLEM: swelling remains about both eyes, patient sees double w upward gaze OU but goes away if he closes either eye LOCATION: both eyes DURATION: several months TIMING: every day HPI was performed by Dr. Jami Pate MD and scribed by Aaron Pate MD PAST MEDICAL HISTORY: ILLNESSES: History of Healthy adult SURGERIES: History of Facial surgery SOCIAL HISTORY: ALCOHOL: Occasional alcohol use CURRENT MEDICATIONS: No Reported Medications - ALLERGIES: No Known Drug Allergies REVIEW OF SYSTEMS: All other Review Of Systems negative Exam ORIENTATION, MOOD AND AFFECT: Alert AND oriented x3 RIGHT EYE LEFT EYE UNCORRECTED VA 20/20 20/20 WEARING OTC Readers OTC Readers MANIFEST REFRACTION -0.50 SPHER add +2.00 -0.25 -0.75 x 150 add +2.00 BEST NINI FINAL VA 20/20 20/20 PRESSURE METHOD: Applanation Applanation PRESSURES: 14 14 DATE-TIME: 10/04/2022 3:07:23 PM 10/04/2022 3:07:23 LINE DANCER: Lisa Dolan1 CONFRONTATION VF Full to count fingers Full to count fingers EXTERNAL EYE EXAM: LID: Good Position Good Position PUPIL: PERRL/no APD, 2.5mm PERRL/no APD, 2.5mm ADNEXA: Normal, medial canthus pulled Normal. No lagophthalmos. more nasally. No lagophthalmos MUSCLE BALANCE: Ortho OCULAR MOTILITY: Full motility except upgaze - 90% OD and 80% OS. COLOR VA ISHIHARA OUT OF 11 OD: 11 COLOR VA ISHIHARA OUT OF 11 OS: 11 ANTERIOR SEGMENT EXAM: TEARFILM: Good Good CONJUNCTIVA: White and quiet White and quiet CORNEA: Clear, no guttata Clear, no guttata ANTERIOR CHAMBER: Deep and quiet Deep and quiet IRIS: Round and reactive, dilates Round and reactive, dilates 7.5mm 7.5mm LENS: tr NS, tr CC tr NS, tr CC ANTERIOR VITREOUS: Clear Clear FUNDUS EXAM: Dilation drop number 1 Mydriacyl 1% AND Dharmesh 2 1/2% OU 10/04/2022 03:12:19 PM Dilation drop number 2 Mydriacyl 1% OU 10/04/2022 03:12:26 PM CUP TO DISC: .3 .3 OPTIC DISC: [place] and sharp Rochester and sharp VITREOUS: Clear Clear MACULA: Normal reflex Normal reflex VESSELS: Normal Normal PERIPHERY: No tears, breaks, or holes No tears, breaks, or holes Impression 1 H53.2 Diplopia-New 2 S02.19XA Fracture of orbital roof-New 3 H52.4 Presbyopia-New Discussion Letter prepared for Michael Vanegas by:Jami Pate MD Plan Diplopia H53.2 Fracture of orbital roof S02.19XA -Patient fell from ladder in May 2022 -S/p Multiple nasal bone ORIFs, calvarium bone harvest for nasal graft, cribiform defect ORIF on 06/08/22 ([facility] Plastic surgery) -CT head (06/02/22) - Extensive comminuted fractures of the mid face with involvement of the anterior maxilla and nasal bones bilaterally, the nasal septum, the medial and inferior ceballos of the orbits, left greater than right. The fractures extend to the ceballos of the frontal sinuses with involvement of the inner table of the frontal bone. Pneumocephalus. -Noted diplopia initially, which has improved over time, however, having 3 main issues: 1. Diplopia only on upgaze. No diplopia in other trejo of gaze other than upgaze. Mild restriction of upgaze L>R today, no significant misalignment in other trejo of gaze. D/w patient would recommend observation for now. May potentially continue to improve with time as swelling improves, or could potentially remain stable. However, if no diplopia in primary, left, or right gaze, would not recommend surgical intervention. 2. Trouble with tracking/focusing when moving eyes - d/w patient this is a common symptom in patients with concussion/head trauma. I would also recommend giving this time as it may improve. Also could potentially pursue occupational therapy if i (more content not included)... [facility] Follow Up (Plastic Surgery)o n 10-03-2022 Follow Up (Plastic Surgery) *Diagnoses/Problems Facial fracture due to fall (802.8,E888.9) (S02.92XA,W19.XXXA) *Patient Discussion/Summary Patient Discussion Summary Free Text Note Form: I had a long discussion with the patient and his in the presence of Rekha Duarte R.N. We discussed his problem list. Much of his problems are resolving with time. He does have some limitations with diplopia in the left eye. His vision is is improving. There is persistent swelling under the right eye which is improving. We discussed the fact that we will get a new CT in 1 month to check progress. His sense of smell has not returned and I informed him due to the location of his initial injuries, through his cribriform plate, his smell may never return to normal. All in all he is feeling much better. He is seeing the opthomologist this week. I asked that he send a copy of the report. *Chief Complaint Chief Complaint Free Text Note Form: An interactive audio and video telecommunication system which permits real time communications between the patient (at the originating site) and provider (at the distant site) was utilized to provide this telehealth service. follow up visit History of Present IllnessHPI: Rm Berman is 52 year old male s/p Multiple nasal bone ORIFs, calvarium bone harvest for nasal graft, cribiform defect ORIF on 06/08/22. Patient presents for a virtual visit follow up. *Active Problems Facial fracture due to fall (802.8,E888.9) (S02.92XA,W19.XXXA) *Allergies No Known Drug Allergies Recorded By: Joellen Marroquin; 07/04/2022 1:36:00 PM Physical Exam Free Text PE_UH: I had a long discussion with the patient and his in the presence of Rekha Duarte R.N. We discussed his problem list. Much of his problems are resolving with time. He does have some limitations with diplopia in the left eye. His vision is is improving. There is persistent swelling under the right eye which is improving. We discussed the fact that we will get a new CT in 1 month to check progress. His sense of smell has not returned and I informed him due to the location of his initial injuries, through his cribriform plate, his smell may never return to normal. All in all he is feeling much better. He is seeing the opthomologist this week. I asked that he send a copy of the report. Time Time Stamp_UH: Total time on date of patient encounter: 30 minutes. 'Scores and Scales' Signatures Electronically signed by : Michael Vanegas MD; Oct 03 2022 12:18PM EST (Author) Electronically signed by : Michael Vanegas MD; Oct 03 2022 2:32PM EST (Author) [facility] Follow Up (Plastic Surgery)o n 09-05-2022 Follow Up (Plastic Surgery) *Diagnoses/Problems Facial fracture due to fall (802.8,E888.9) (S02.92XA,W19.XXXA) *Patient Discussion/Summary Patient Discussion Summary Free Text Note Form: Rm Berman is 52 year old male s/p 06/08/22 Multiple nasal bone ORIFs, calvarium bone harvest for nasal graft, cribiform defect ORIF. Patient presents for a post operative follow up. He reports limitations when he looks up for which he was seen by his opthalmology provider. Limitations: No driving yet, no lifting anything >10 lbs. Okay to use elliptical or exercise bike, but keep it moderate. We recommend to return to work 3/6 but would like to have a virtual appointment with Dr. Vanegas prior to his return. Mr Berman is scheduled for a virtual with Dr. Vanegas 10/03. Plan: FU 4 weeks for a virtual, tentative return to work October 10. Provider Impressions Provider Impressions Free Text Note Form: Rm Berman is 52 year old male s/p 06/08/22 Multiple nasal bone ORIFs, calvarium bone harvest for nasal graft, cribiform defect ORIF. Patient presents for a post operative follow up. He reports limitations when he looks up for which he was seen by his opthalmology provider. Limitations: No driving yet, no lifting anything >10 lbs. Okay to use elliptical or exercise bike, but keep it moderate. We recommend to return to work 3/6 but would like to have a virtual appointment with Dr. Vanegas prior to his return. Mr Berman is scheduled for a virtual with Dr. Vanegas 10/03. Plan: FU 4 weeks for a virtual, tentative return to work October 10. *Chief Complaint Chief Complaint Free Text Note Form: Post operative follow up visit History of Present IllnessHPI: Rm Berman is 52 year old male s/p 06/08/22 Multiple nasal bone ORIFs, calvarium bone harvest for nasal graft, cribiform defect ORIF. Patient presents for a post operative follow up. *Active Problems Facial fracture due to fall (802.8) (S02.92XA) *Allergies No Known Drug Allergies Recorded By: Joellen Marroquin; 07/04/2022 1:36:00 PM *Vitals Vital Signs Recorded: 05Sep2022 11:28AM Vuzsceyzfgb07.3 F, Temporal Heart Rate73 Fownxrhg394 Teicjjard11 Height5 ft 8.5 in Qegmog855 lb BMI Dyejbtsboz26.07 kg/m2 BSA Calculated1.94 Tobacco Useb) No PHQ-2 #1. Over the last 2 weeks have you felt down, depressed or hopeless? (If yes, answer PHQ-9 below)No PHQ-2 #2. Over the last 2 weeks have you felt little interest or pleasure in doing things? (If yes, answer PHQ-9 below)No Falls Screening (Age 18+)b) One or more falls in the last year Pain Scale0/10 Time Time Stamp_UH: Other time spent: 20 minutes. 'Scores and Scales' Signatures Electronically signed by : Eveline Dai PA-C; Sep 05 2022 3:58PM EST (Author) [facility] [employer] Tobacco Screening.on 023 Adult depression screening assessment No [facility] [address] Work Phone: Fall risk assessment b) One or more fall s in the last year [facility] [address] Work Phone: Tobacco use status [facility] b) No [facility] [employer] [address] Work Phone: CT IMAGE RECONSTRUCTION 3D V OLUME and MIPon 07-25-2022 CT IMAGE RECONSTRUCTION 3D VOLUME and MIP Patient Name: RM BERMAN STUDY: CT FACIAL BONES; CT HEAD WO CONTRAST; CT CORONAL/SAGITTAL/OBLIQUE RECON; 07/25/2022 7:57 am; 07/25/2022 7:55 am INDICATION: post op fracial fracture repair with plating S02.92XA: Facial fracture due to fall W19.XXXA:. COMPARISON: June 09. ACCESSION NUMBER(S): [id number]; [id number]; [id number] ORDERING CLINICIAN: EVELINE DAI TECHNIQUE: Noncontrast enhanced CT of the head was performed with multiplanar and 3D reconstruction FINDINGS: * Postoperative changes including repair with graft and cranioplasty at the frontal sinuses and ethmoid air cells bilaterally. Postoperative changes are also present in the anterior wall of both maxillary sinuses. *Hyperdense heterogeneous structure in the right anterior nasal aperture and mid nasal fossa on the right is consistent with bone cement *The posterior wall of the frontal sinuses is absent; however, there is no evidence of intracranial gas to suggest fistula *The cribriform plate and planum sphenoidale are discontinuous without evidence of gas. Soft tissue or bone cement repair is likely present at these locations and there is no evidence of CSF fistula in the anterior skull base. *The orbits are normal *The pterygoid plates are normal *The sphenoid sinuses are normal *The mastoid air cells are normal. *There is hyperdense fluid in the bilateral maxillary sinuses consistent with residual hemorrhage *Noncontrast enhanced CT of the brain demonstrates normal size ventricular system without evidence of cerebral contusion or extra-axial collection. IMPRESSION: * Bilateral facial fractures with internal fixation, fascial and bone cement repair as described *No evidence of intracranial gas or fluid * THIS EXAMINATION WAS INTERPRETED AT [facility] Electronically signed by: CHRISTEL DE LOS SANTOS MD [facility] Follow Up (Plastic Surgery)o n 07-25-2022 Follow Up (Plastic Surgery) *Diagnoses/Problems Facial fracture due to fall (802.8,E888.9) (S02.92XA,W19.XXXA) *Orders Dentistry Referral Evaluation and Treatment Evaluate AND Treat Bite is malaligned after facial fracture due to fall. Status: Hold For - Scheduling,Retrospective By Protocol Authorization Requested for: [id number] Ordered;For: Facial fracture due to fall; Ordered By: Michael Vanegas Performed: Due: 23Oct2022; Last Updated By: Kalyani Mcguire; 07/25/2022 11:25:13 AM Ophthalmology - General Referral Evaluation and Treatment Evaluate AND Treat Visual blurriness, right eye swollen post facial fractuers from fall. Status: Hold For - Scheduling,Retrospective By Protocol Authorization Requested for: [id number] Ordered;For: Facial fracture due to fall; Ordered By: Michael Vanegas Performed: Due: 23Oct2022; Last Updated By: Kalyani Mcguire; 07/25/2022 11:25:13 AM *Patient Discussion/Summary Patient Discussion Summary Free Text Note Form: The patient returns for a post op visit. s/p orif multiple facial fractures including bilat ARI, inner and outer table frontal sinus fractures. Surgery was Jun.08. PE: All of his incisions are well healed. I removed sutures today. He has persistent edema of the right lower lid and complains of blurry vision worse on right than left. I advised that he see a local opthalmologist to check his eyes. I also advised aggressive massage of the bridge of the nose and incisional area of the head to soften the scar. We discussed his infraorbital paraesthesias. I explained that much of this will resolve with time but he may be left with some residual numbness. He should see a local dentist to establish care and check bite alignment. He can continue a normal diet, shower, wash his hair like normal. We spoke about frequent headaches and I reminded Mr. Berman and his that he had a significant brain injury and this could continue for a while, but he is too early postop at this point. He may need to see a neurologist down the road if these headaches become chronic. We will reassess this in 6 weeks. We comprehensively reviewed his scans that were completed today and answered all questions. All in all he is doing very well only 6 weeks post surgery. As far as work goes, Mr. Berman is not ready to return to work. He needs to be evaluated and examined by an buttermaker helper to examine his retina and eyesight. He also needs to see a local dentist to check his teeth and bit. They were very happy with today's visit. *Chief Complaint Chief Complaint Free Text Note Form: Post operative visit after ORIF of facial fractures from fall. History of Present IllnessHPI: Rm Berman is 52 year old male presenting for a post-op visit after being seen by trauma for a fall from a ladder. Patient required the OR on 06/08/22 Procedure: 1. Multiple nasal bone ORIFs 2. Calvarium bone harvest for nasal graft 3. Cribiform defect ORIF. Hospital course was uncomplicated and patient was discharged home. *Active Problems Facial fracture due to fall (802.8,E888.9) (S02.92XA,W19.XXXA) *Allergies No Known Drug Allergies Recorded By: Joellen Marroquin; 07/04/2022 1:36:00 PM *Current Meds Medication NameInstruction Bacitracin OINT Loratadine 10 MG Oral Tablet Disintegrating oxyCODONE HCl - 5 MG Oral TabletTAKE 1 TABLET EVERY 6 HOURS NEEDED FOR BREAKTHROUGH PAIN. Tobramycin 0.3 % Ophthalmic Solution Tylenol Extra Strength 500 MG TABS *Vitals Vital Signs Recorded: 01Caq3613 10:19AM Egjblayvtqy40.1 F, Temporal Heart Rate70 Xofailpd097 Dobsqxncc39 Height5 ft 8.5 in Lrhpfp597 lb BMI Vgttgdrbyq25.27 kg/m2 BSA Calculated1.88 Tobacco Useb) No PHQ-2 #1. Over the last 2 weeks have you felt down, depressed or hopeless? (If yes, answer PHQ-9 below)No PHQ-2 #2. Over the last 2 weeks have you felt little interest or pleasure in doing things? (If yes, answer PHQ-9 below)No Falls Screening (Age 18+)b) One or more falls in the last year Pain Scale3/10 Physical Exam Free Text PE_UH: The patient returns for 6-week post op visit s/p orif multiple facial fractures including bilat ARI, inner and outer table frontal sinus fractures. Surgery was Jun.08. PE: All of his incisions are well healed. He has persistent edema of the right lower lid and complains of vision blurriness worse on right compared to left. We will refer him to opthalmology. I advised aggressive massage of the incisional area of the bridge of the nose and head. We discussed his infraorbital paraesthesias. I explained that much of this will resolve with time but he may be left with some residual numbness. He can continue a normal diet, shower, wash his hair like normal. I removed some retained sutures. I went through the post op images with the patient cut by cut. I advised that some of the nasal width may be a function of the small suzanne fragments displaced into the soft tissue in the lateral para nasal area. He c/o some dental changes in sensation. We are referring him to (more content not included)... [facility] NR CT FACIAL BONES W/O CONTR Liz 07-25-[address] FACIAL BONES W/O CONTRAST Patient Name: RM BERMAN STUDY: CT FACIAL BONES; CT HEAD WO CONTRAST; CT CORONAL/SAGITTAL/OBLIQUE RECON; 07/25/2022 7:57 am; 07/25/2022 7:55 am INDICATION: post op fracial fracture repair with plating S02.92XA: Facial fracture due to fall W19.XXXA:. COMPARISON: June 09. ACCESSION NUMBER(S): [id number]; [id number]; [id number] ORDERING CLINICIAN: EVELINE DAI TECHNIQUE: Noncontrast enhanced CT of the head was performed with multiplanar and 3D reconstruction FINDINGS: * Postoperative changes including repair with graft and cranioplasty at the frontal sinuses and ethmoid air cells bilaterally. Postoperative changes are also present in the anterior wall of both maxillary sinuses. *Hyperdense heterogeneous structure in the right anterior nasal aperture and mid nasal fossa on the right is consistent with bone cement *The posterior wall of the frontal sinuses is absent; however, there is no evidence of intracranial gas to suggest fistula *The cribriform plate and planum sphenoidale are discontinuous without evidence of gas. Soft tissue or bone cement repair is likely present at these locations and there is no evidence of CSF fistula in the anterior skull base. *The orbits are normal *The pterygoid plates are normal *The sphenoid sinuses are normal *The mastoid air cells are normal. *There is hyperdense fluid in the bilateral maxillary sinuses consistent with residual hemorrhage *Noncontrast enhanced CT of the brain demonstrates normal size ventricular system without evidence of cerebral contusion or extra-axial collection. IMPRESSION: * Bilateral facial fractures with internal fixation, fascial and bone cement repair as described *No evidence of intracranial gas or fluid * THIS EXAMINATION WAS INTERPRETED AT [facility] Electronically signed by: CHRISTEL DE LOS SANTOS MD Normal [facility] NR CT HEAD WO CONTRASTon NR CT HEAD WO CONTRAST Patient Name: RM BERMAN STUDY: CT FACIAL BONES; CT HEAD WO CONTRAST; CT CORONAL/SAGITTAL/OBLIQUE RECON; 07/25/2022 7:57 am; 07/25/2022 7:55 am INDICATION: post op fracial fracture repair with plating S02.92XA: Facial fracture due to fall W19.XXXA:. COMPARISON: June 09. ACCESSION NUMBER(S): [id number]; [id number]; [id number] ORDERING CLINICIAN: EVELINE DAI TECHNIQUE: Noncontrast enhanced CT of the head was performed with multiplanar and 3D reconstruction FINDINGS: * Postoperative changes including repair with graft and cranioplasty at the frontal sinuses and ethmoid air cells bilaterally. Postoperative changes are also present in the anterior wall of both maxillary sinuses. *Hyperdense heterogeneous structure in the right anterior nasal aperture and mid nasal fossa on the right is consistent with bone cement *The posterior wall of the frontal sinuses is absent; however, there is no evidence of intracranial gas to suggest fistula *The cribriform plate and planum sphenoidale are discontinuous without evidence of gas. Soft tissue or bone cement repair is likely present at these locations and there is no evidence of CSF fistula in the anterior skull base. *The orbits are normal *The pterygoid plates are normal *The sphenoid sinuses are normal *The mastoid air cells are normal. *There is hyperdense fluid in the bilateral maxillary sinuses consistent with residual hemorrhage *Noncontrast enhanced CT of the brain demonstrates normal size ventricular system without evidence of cerebral contusion or extra-axial collection. IMPRESSION: * Bilateral facial fractures with internal fixation, fascial and bone cement repair as described *No evidence of intracranial gas or fluid * THIS EXAMINATION WAS INTERPRETED AT [facility] Electronically signed by: CHRISTEL DE LOS SANTOS MD [facility] Post Op (Plastic Surgery)on 07-04-2022 Post Op (Plastic Surgery) Diagnoses/Problems Facial fracture due to fall (802.8,E888.9) (S02.92XA,W19.XXXA) Patient Discussion/Summary The patient returns for a post op visit. s/p orif multiple facial fractures including bilat ARI, inner and outer table frontal sinus fractures. Surgery was Jun.08. PE: all of his incisions are well healed. He has persistent edema of the right lower lid. I advised aggressive massage of the area. We discussed his infraorbital paraesthesias. I explained that much of this will resolve with time but he may be left with some residual numbness. He can advance to a normal diet, shower, wash his hair. I asked him to refrain from blowing his nose. I debrided some clots from his nose. All in all he is doing very well. We will obtain new imaging prior to his next visit. They were very happy with todays visit. Chief Complaint Headache Post operative visit History of Present IllnessRm Berman is 52 year old male presenting for a post-op visit after being seen by trauma for a fall from a ladder. Patient required the OR on 06/08/22 Procedure: 1. Multiple nasal bone ORIFs 2. Calvarium bone harvest for nasal graft 3. Cribiform defect ORIF. Hospital course was uncomplicated and patient was discharged home. Allergies No Known Drug Allergies Recorded By: Joellen Marroquin; 07/04/2022 1:36:00 PM Current Meds Medication NameInstruction Bacitracin OINT Loratadine 10 MG Oral Tablet Disintegrating oxyCODONE HCl - 5 MG Oral TabletTAKE 1 TABLET EVERY 6 HOURS NEEDED FOR BREAKTHROUGH PAIN. Tobramycin 0.3 % Ophthalmic Solution Tylenol Extra Strength 500 MG TABS Vitals Vital Signs Recorded: 04Jul2022 01:34PM Heart Rate84 [id number] Kiurtsdqk46 Height5 ft 8.5 in Knxgpw152 lb BMI Kxacxnjmzy45.23 kg/m2 BSA Calculated1.84 Physical Exam The patient returns for a post op visit. s/p orif multiple facial fractures including bilat ARI, inner and outer table frontal sinus fractures. Surgery was Jun.08. PE: all of his incisions are well healed. He has persistent edema of the right lower lid. I advised aggressive massage of the area. We discussed his infraorbital paraesthesias. I explained that much of this will resolve with time but he may be left with some residual numbness. He can advance to a normal diet, shower, wash his hair. I asked him to refrain from blowing his nose. I debrided some clots from his nose. All in all he is doing very well. We will obtain new imaging prior to his next visit. They were very happy with todays visit. Time Time Stamp_UH: Total time on date of patient encounter: 15 minutes. 'Scores and Scales' Signatures Electronically signed by : Michael Vanegas MD; Jul 04 2022 2:34PM EST (Author) [facility] [employer] [facility] Daily Progress Note-Plastic Surgeryon 06-15-2022 Daily Progress Note-Plastic Surgery Service: Plastic Surgery Subjective Data: RM BERMAN is a 52 year old Male who is Hospital Day #15 and POD #7 for 1. Multiple nasal bone ORIFs; 2. Calvarium bone harvest for nasal graft; 3. Cribiform defect ORIF; 4. Refer to neurosurg note. Slept well overnight, pain controlled on PO analgesics. Tolerating FLD well. No epistaxis or rhinorrhea in interim of nasal packing removal. Vision intact without diplopia or blurred vision. He is having some increased tearing and eye drainage. Ambulating and voiding independently. No BM since prior to OR but plans on utilizing scheduled suppositories this AM. Denies headache, dizziness, fever, chills, chest pain, dyspnea, abdominal pain, nausea or vomiting. Updated on plan and expectations for remaining postoperative course with all questions addressed. Overnight Events: Patient had an uneventful night. Objective Data: Objective Information: T PRBPMAPSpO2 [id number]/6896% Date/Time06/15 4: 4: 4: 4: 4:38 Range(35.9C - 36.6C ) (76 - 91 ) (18 - 18 ) (98 - 110 )/ (68 - 76 ) (96% - 99% ) Pain reported at 06/15 6:00: 4 = Moderate ---- Intake and Output ----- Mn/Dy/Year TimeIntakeOutputNet Jun 15, 2022 6:00 [id number] Jun 14, 2022 10:00 [id number] Jun 14, 2022 2:00 [id number] The Intake and Output Totals for the last 24 hours are: [id number] Physical Exam by System: Constitutional: A&O x3, sitting upright in bed. Eyes: Bilateral periorbital ecchymosis and edema. PERRLA, EOMI, clear sclera. Patient opens eyes spontaneously. Vision grossly intact bilaterally per patient. Eye drainage and tearing bilaterally. ENMT: MMM. Intraoral incision to inner, upper gingivae which is approximated with sutures. Improving nasal edema with incision spanning across nasal bridge which is approximated with intact absorbable sutures, dressed with topical Bacitracin. Bilateral nasal passages patent with small amount of residual dried blood but no active epistaxis or rhinorrhea. Head/Neck: Midfacial improving postoperative edema and ecchymosis. Surgical incisions spanning across nasal bridge and inferior to R eye which are approximated with intact absorbable sutures, dressed with topical Bacitracin. No bleeding, drainage or dehiscence. Bicoronal scalp incision which is intact, approximated with sutures. Respiratory/Thorax: Breathing comfortably on RA with symmetric chest expansion, no tachypnea or increased work of breathing. Gastrointestinal: Nondistended, soft. Genitourinary: Voiding independently. Extremities: SAAVEDRA spontaneously. Neurological: A&Ox3, no gross neuro deficits. Psychological: Appropriate mood and behavior. Skin: Warm, dry. Healed abrasions/lacerations to L anterior knee which are approximated with sutures. Medication: Medications: Continuous Medications ------- No continuous medications are active Scheduled Medications ------- 1. Acetaminophen: 650 mg Oral Every 6 Hours 2. Bacitracin - Polymyxin B Topical: 1 application(s) Topical 3 Times a Day 3. Chlorhexidine Gluconate 0.12% Mucous Mem: 15 mL Topical 3 Times a Day After Meals 4. Docusate: 240 mg Oral Daily 5. Enoxaparin SubCutaneous: 30 mg SubCutaneous Every 12 Hours 6. Sennosides: 1 tablet(s) Oral 2 Times a Day PRN Medications ------- 1. Bisacodyl Rectal: 10 mg Rectal Daily 2. Dextrose 50% in Water Injectable: 25 gram(s) IntraVenous Push Every 15 Minutes 3. Glucagon Injectable: 1 mg IntraMuscular Every 15 Minutes 4. oxyCODONE Immediate Release: 5 mg Oral Every 4 Hours 5. oxyCODONE Immediate Release: 10 mg Oral Every 4 Hours Assessment and Plan: Daily Risk Screen: Does patient have an indwelling urinary cathetern/a consulting service Comorbidities: ComorbidityOther Code Status: Code StatusFull Code Assessment: LIYA BERMAN is a 52 year old otherwise healthy male who initially presented to [facility] on 06/01/22 as a transfer from [facility] in [place], [place] for trauma evaluation s/p falling 14ft from a ladder while at work on 05/28. CTH at OSH notable for diffuse comminuted facial/frontal sinus fractures with evidence of intracranial extension and diffuse pneumocephalus. Plastic Surgery (Face) consulted for repair of patient's extensive facial fractures. Patient now s/p bifrontal craniotomy for frontal sinus exenteration and durotomy (per NSGY) plus cribriform defect ORIF, calvarial bone harvest with nasal bone ORIF, pericranial flap for anterior skull base reconstruction and complex closure (per plastics). Plan/Recommendations: - Xeroform nasal packing removed per plastic surgery team yesterday AM w/o complication -> Monitor for epistaxis or CSF rhinorrhoea for which plastics should be notified immediately -> Recommend patient remain inpatient 24 hrs post packing removal for mon (more content not included)... Normal [facility] Daily Progress Note-Trauma S urgayeshaon 06-15-2022 Daily Progress Note-Trauma Surgery Service: Trauma Surgery Subjective Data: Additional Information: 52 yo male with complex facial fractures transferred from [place] s/p repair by NSGY and plastics. Doing well. Tolerating PO. Packing was removed yesterday. Drain removed 2 days ago. Care discussed at the bedside with his . On exam, NAD. Facial incisions and scalp incisions are healing well and without erythema or drainage. Nasal packing is not present. Plan for diet, Lovenox and OK for discharge today. Objective Data: Objective Information: T PRBPMAPSpO2 [id number]/7699% Date/Time06/15 12: 12: 12: 12: 12:45 Range(35.9C - 36.8C ) (76 - 117 ) (18 - 18 ) (98 - 110 )/ (68 - 77 ) (96% - 99% ) Pain reported at 06/15 11:34: 3 = Mild ---- Intake and Output ----- Mn/Dy/Year TimeIntakeOutputNet Jun 15, 2022 6:00 [id number] Jun 14, 2022 10:00 [id number] Jun 14, 2022 2:00 [id number] The Intake and Output Totals for the last 24 hours are: IntakeOutputNet [id number] Assessment and Plan: Code Status: Code StatusFull Code Electronic Signatures: Nitesh Yousif) (Signed 15-Jun-2022 13:41) Authored: Service, Subjective Data, Objective Data, Assessment and Plan, Note Completion Last Updated: 15-Jun-2022 13:41 by Nitesh Yousif) Normal [facility] GLUCOSE-POCTon 06-15-2022 Glucose [Mass/Vol] 98 mg/dL Normal 74 - 99 [facility] Comment on above: Performed By: #### R ENAL #### [facility] [address] [place] [address] Glucose [Mass/Vol] 139 mg/dL High 74 - 99 [facility] Comment on above: Performed By: #### R ENAL #### [facility] [address] [place] [address] Laboratory - Chemistry and C hemistry - challengeon 06-15-2022 Glucose [Mass/Vol] 98 mg/dL 74 - 99 [facility] Surgery-[facility] [address] Work Phone: Glucose [Mass/Vol] 139 mg/dL above high threshold 74 - 99 MG-Plastic Surgery-[facility] [address] Work Phone: Order Reconciliationon 06-15 Order Reconciliation Page 1 Discharge Reconciliation Document Reconciliation Type: Discharge requested on behalf of Surekha eDe (Advanced Practice Nurse) done by Surekha Dee (FEED INSPECTION SUPERVISOR-PRODUCTION PLANNING MANAGER) Discharge - Reconciliation: 15-Jun-2022 12:09 by: Surekha Dee (FEED INSPECTION SUPERVISOR-PRODUCTION PLANNING MANAGER) Current OrdersDateHOME MEDICATIONS AT DISCHARGE DateReconciliation Comment/ Additional Information Acetaminophen Tablet (TYLENOL)DOSE = 650 mg Oral Every 6 Hours 09-Jun-2022 15:21 acetaminophen 325 mg oral tablet 2 tab(s) orally every 6 hours -.Meds to Beds 15-Jun-2022 12:02 Prescription is created for acetaminophen 325 mg oral tablet Bacitracin - Polymyxin B Topical Ointment (POLYSPORIN)DOSE = 1 application(s) Topical 3 Times a DayApply to incision 08-Jun-2022 21:25 bacitracin-polymyxin B 500 units-10,000 units/g topical ointment Apply topically to affected area 3 times a day -.Meds to Beds 15-Jun-2022 12:06 Prescription is created for bacitracin-polymyxin B 500 units-10,000 units/g topical ointment Bisacodyl Rectal Suppository (DULCOLAX)DOSE = 10 mg Rectal Daily, PRN Constipation 14-Jun-2022 22:07 Bisacodyl Rectal is not required Chlorhexidine Gluconate 0.12% Mucous Mem Liquid (PERIDEX)DOSE = 15 mL Topical 3 Times a Day After MealsApply to MouthClinician Notes: Swish and spit 3x a day following meals and PRN, 10-Jun-2022 10:05 chlorhexidine 0.12% mucous membrane liquid 15 milliliter(s) mucous membrane 3 times a day -.Meds to Beds 15-Jun-2022 12:04 Prescription is created for chlorhexidine 0.12% mucous membrane liquid Dextrose 50% in Water Injectable DOSE = 25 gram(s) IntraVenous Push Every 15 Minutes, PRN Blood Glucose 70 mg/dL or LESS & HAS IV access;Clinician Notes: IF patient HAS a secure IV access & is Unconscious, Conscious, NPO or Unable to Eat or Drink. R 08-Jun-2022 21:40 Dextrose 50% in Water Injectable is not required Docusate Capsule (SURFAK)DOSE = 240 mg Oral Daily 11-Jun-2022 19:38 docusate calcium 240 mg oral capsule 1 cap(s) orally once a day -.Meds to Beds 15-Jun-2022 12:03 Prescription is created for docusate calcium 240 mg oral capsule Enoxaparin SubCutaneous (LOVENOX)DOSE = 30 mg SubCutaneous Every 12 Hours 10-Jun-2022 07:54 Enoxaparin SubCutaneous is not required Glucagon Injectable DOSE = 1 mg IntraMuscular Every 15 Minutes, PRN Blood Glucose 70 mg/dL or LESS & NO IV accessClinician Notes: IF patient DOES NOT have secure IV access & is Unconscious, Conscious, NPO or Unable to Eat or Drink. Repeat until BG r 08-Jun-2022 21:40 Glucagon Injectable is not required Hydrogen Peroxide 3% Topical SolutionDOSE = 1 application(s) Topical OnceApply to scalpClinician Notes: Please place at bedside, Plastic surgery team to return to clean dry blood from incision. 15-Jun-2022 09:08 Hydrogen Peroxide 3% Topical is not required oxyCODONE Immediate Release Tablet (OXYIR, ROXICODONE)DOSE = 10 mg Oral Every 4 Hours, PRN Pain - Severe (7-10) 09-Jun-2022 12:45 oxyCODONE Immediate Release is not required oxyCODONE Immediate Release Tablet (OXYIR, ROXICODONE)DOSE = 5 mg Oral Every 4 Hours, PRN Pain - Mod (4-6) 09-Jun-2022 12:45 oxyCODONE 5 mg oral tablet 1 tab(s) orally every 6 hours, As Needed -Pain - Mod (4-6) - .Meds to Beds 15-Jun-2022 12:02 Prescription is created for oxyCODONE 5 mg oral tablet Sennosides Tablet (SENOKOT)DOSE = 1 tablet(s) Oral 2 Times a Day 11-Jun-2022 19:38 senna (sennosides) 8.6 mg oral tablet 1 tab(s) orally 2 times a day -.Meds to Beds 15-Jun-2022 12:05 Prescription is created for senna (sennosides) 8.6 mg oral tablet Home Medications Added During Discharge Reconciliation Claritin 10 mg oral tablet 1 tab(s) orally once a day -.Meds to Beds tobramycin 0.3% ophthalmic solution 1 drop(s) in each eye 2 times a day -.Meds to Beds All Active Home Medications at time of Discharge Reconciliation: 15-Jun-2022 12:09 acetaminophen 325 mg oral tablet 2 tab(s) orally every 6 hours -.Meds to Beds bacitracin-polymyxin B 500 units-10,000 units/g topical ointment Apply topically to affected area 3 times a day -.Meds to Beds chlorhexidine 0.12% mucous membrane liquid 15 milliliter(s) mucous membrane 3 times a day -.Meds to Beds Claritin 10 mg oral tablet 1 tab(s) orally once a day -.Meds to Beds docusate calcium 240 mg oral capsule 1 cap(s) orally once a day -.Meds to Beds oxyCODONE 5 mg oral tablet 1 tab(s) orally every 6 hours, As Needed -Pain - Mod (4-6) - .Meds to Beds senna (sennosides) 8.6 mg oral tablet 1 tab(s) orally 2 times a day -.Meds to Beds tobramycin 0.3% ophthalmic solution 1 drop(s) in each eye 2 times a day -.Meds to Beds Normal [facility] Order Reconciliation Page 1 Admission Reconciliation Document Reconciliation Type: Admission requested on behalf of Surekha Dee (Advanced Practice Nurse) done by Surekha Dee (FEED INSPECTION SUPERVISOR-PRODUCTION PLANNING MANAGER) Admission - Reconciliation: 15-Jun-2022 12:01 by: Surekha Dee (FEED INSPECTION SUPERVISOR-PRODUCTION PLANNING MANAGER) No Current Medications. Additional Current Orders Acetaminophen Tablet (TYLENOL)DOSE = 650 mg Oral Every 6 Hours Bacitracin - Polymyxin B Topical Ointment (POLYSPORIN)DOSE = 1 application(s) Topical 3 Times a DayApply to incision Bisacodyl Rectal Suppository (DULCOLAX)DOSE = 10 mg Rectal Daily, PRN Constipation Chlorhexidine Gluconate 0.12% Mucous Mem Liquid (PERIDEX)DOSE = 15 mL Topical 3 Times a Day After MealsApply to MouthClinician Notes: Swish and spit 3x a day following meals and PRN, Dextrose 50% in Water Injectable DOSE = 25 gram(s) IntraVenous Push Every 15 Minutes, PRN Blood Glucose 70 mg/dL or LESS & HAS IV access;Clinician Notes: IF patient HAS a secure IV access & is Unconscious, Conscious, NPO or Unable to Eat or Drink. Repeat until BG reaches 100 mg/dL or greater. Push 2-3 mL/minute. Discontinue Once BG reaches 100 mg/dL or greater. Docusate Capsule (SURFAK)DOSE = 240 mg Oral Daily Enoxaparin SubCutaneous (LOVENOX)DOSE = 30 mg SubCutaneous Every 12 Hours Glucagon Injectable DOSE = 1 mg IntraMuscular Every 15 Minutes, PRN Blood Glucose 70 mg/dL or LESS & NO IV accessClinician Notes: IF patient DOES NOT have secure IV access & is Unconscious, Conscious, NPO or Unable to Eat or Drink. Repeat until BG reaches 100 mg/dL or greater. Discontinue Once BG reaches 100 mg/dL or greater. Hydrogen Peroxide 3% Topical SolutionDOSE = 1 application(s) Topical OnceApply to scalpClinician Notes: Please place at bedside, Plastic surgery team to return to clean dry blood from incision. oxyCODONE Immediate Release Tablet (OXYIR, ROXICODONE)DOSE = 10 mg Oral Every 4 Hours, PRN Pain - Severe (7-10) oxyCODONE Immediate Release Tablet (OXYIR, ROXICODONE)DOSE = 5 mg Oral Every 4 Hours, PRN Pain - Mod (4-6) Sennosides Tablet (SENOKOT)DOSE = 1 tablet(s) Oral 2 Times a Day Normal [facility] Daily Progress Note-Plastic Surgeryon 06-14-2022 Daily Progress Note-Plastic Surgery Service: Plastic Surgery Subjective Data: RM BERMAN is a 52 year old Male who is Hospital Day #14 and POD #6 for 1. Multiple nasal bone ORIFs; 2. Calvarium bone harvest for nasal graft; 3. Cribiform defect ORIF; 4. Refer to neurosurg note. Resting upright in bed asleep on assessment, pain controlled, no acute concerns. Aware of plan for nasal packing removal today. He is tolerating FLD, voiding independently. Has not had BM since prior to OR, endorses prior relief of use of suppository. Denies headache, dizziness, fever, chills, chest pain, dyspnea, abdominal pain, nausea, vomiting or visual changes. Overnight Events: Patient had an uneventful night. Objective Data: Objective Information: T PRBPMAPSpO2 [id number]/6996% Date/Time06/14 7: 7: 7: 7: 7:37 Range(35.8C - 36.6C ) (76 - 102 ) (16 - 19 ) (100 - 129 )/ (69 - 83 ) (95% - 99% ) Pain reported at 06/14 6:00: 5 = Moderate ---- Intake and Output ----- Mn/Dy/Year TimeIntakeOutputNet Jun 14, 2022 6:00 [id number] Jun 13, 2022 2:00 [id number] The Intake and Output Totals for the last 24 hours are: IntakeOutputNet [id number] Physical Exam by System: Constitutional: A&O x3, sitting upright in bed. Eyes: Bilateral periorbital ecchymosis and edema. PERRLA, EOMI, clear sclera. Patient opens eyes spontaneously. Vision grossly intact bilaterally per patient. ENMT: MMM. Intraoral incision to inner, upper gingivae which is approximated with sutures. Appreciable nasal edema with incision spanning across nasal bridge which is approximated with intact absorbable sutures, dressed with topical Bacitracin. R nasal passage packed with postoperative Xeroform dressing, moderate amount of blood tinged mucous surrounding packing. L nasal passage patent with dried blood. Head/Neck: Midfacial postoperative edema and ecchymosis. Surgical incisions spanning across nasal bridge and inferior to R eye which are approximated with intact absorbable sutures, dressed with topical Bacitracin. No bleeding, drainage or dehiscence. Bicoronal scalp incision which is intact, approximated with sutures. x1 10 fr [address] drain in place at L parietal scalp region with serosanguinous drainage. Respiratory/Thorax: Breathing comfortably on RA with symmetric chest expansion, no tachypnea or increased work of breathing. Gastrointestinal: Nondistended, soft. Genitourinary: Voiding independently. Extremities: SAAVEDRA spontaneously. Neurological: A&Ox3, no gross neuro deficits. Psychological: Tearful, anxious mood. Skin: Warm, dry. Healed abrasions/lacerations to L anterior knee which are approximated with sutures. Medication: Medications: Continuous Medications ------- No continuous medications are active Scheduled Medications ------- 1. Acetaminophen: 650 mg Oral Every 6 Hours 2. Bacitracin - Polymyxin B Topical: 1 application(s) Topical 3 Times a Day 3. Chlorhexidine Gluconate 0.12% Mucous Mem: 15 mL Topical 3 Times a Day After Meals 4. Docusate: 240 mg Oral Daily 5. Enoxaparin SubCutaneous: 30 mg SubCutaneous Every 12 Hours 6. Lidocaine Viscous 2%: 15 mL Oral Once 7. Sennosides: 1 tablet(s) Oral 2 Times a Day PRN Medications ------- 1. Dextrose 50% in Water Injectable: 25 gram(s) IntraVenous Push Every 15 Minutes 2. Glucagon Injectable: 1 mg IntraMuscular Every 15 Minutes 3. oxyCODONE Immediate Release: 5 mg Oral Every 4 Hours 4. oxyCODONE Immediate Release: 10 mg Oral Every 4 Hours Assessment and Plan: Daily Risk Screen: Does patient have an indwelling urinary cathetern/a consulting service Comorbidities: ComorbidityOther Code Status: Code StatusFull Code Assessment: LIYA BERMAN is a 52 year old otherwise healthy male who initially presented to [facility] on 06/01/22 as a transfer from [facility] in [place], [place] for trauma evaluation s/p falling 14ft from a ladder while at work on 05/28. CTH at OSH notable for diffuse comminuted facial/frontal sinus fractures with evidence of intracranial extension and diffuse pneumocephalus. Plastic Surgery (Face) consulted for repair of patient's extensive facial fractures. Patient now s/p bifrontal craniotomy for frontal sinus exenteration and durotomy (per NSGY) plus cribriform defect ORIF, calvarial bone harvest with nasal bone ORIF, pericranial flap for anterior skull base reconstruction and complex closure (per plastics). Plan/Recommendations: - Xeroform nasal packing removed per plastic surgery team this AM w/o complication -> Monitor for epistaxis or CSF rhinorrhoea for which plastics should be notified immediately -> Recommend patient remain inpatient 24 hrs post packing removal for monitoring - Keep HOB elevated to alleviate facial edema - Bacitracin to incision lines daily, otherwise HOSE COUPLING JOINER - BROOKE drain removed from L scalp (more content not included)... Normal [facility] Daily Progress Note-Trauma Wilbert ricks 06-14-2022 Daily Progress Note-Trauma Surgery Service: Trauma Surgery Subjective Data: RM BERMNA is a 52 year old Male who is Hospital Day # 14 and POD #6 for 1. Multiple nasal bone ORIFs;2. Calvarium bone harvest for nasal graft;3. Cribiform defect ORIF;4. Refer to neurosurg note;5. NAEO. Pt awake, lying in bed this morning. Tearful. Pt had bad family news that he received yesterday. Pt denies any pain. Pt looking forward to having nasal packing removed today by Plastics. Pt tolerating FLD. Denies N/V, SOB. Objective Data: Objective Information: T PRBPMAPSpO2 [id number]/6996% Date/Time06/14 7: 7: 7: 7: 7:37 Range(35.8C - 36.6C ) (76 - 102 ) (16 - 19 ) (100 - 129 )/ (69 - 83 ) (95% - 99% ) Pain reported at 06/14 6:00: 5 = Moderate ---- Intake and Output ----- Mn/Dy/Year TimeIntakeOutputNet Jun 14, 2022 6:00 [id number] Jun 13, 2022 2:00 [id number] The Intake and Output Totals for the last 24 hours are: IntakeOutputNet [id number] Physical Exam by System: Constitutional: NAD, awake, alert x3 Eyes: periorbital edema, ecchymosis, improving. EOMI ENMT: MMM. Intraoral incision to inner, upper gingivae which is approximated with sutures. Appreciable nasal edema with incision spanning across nasal bridge which is approximated with intact absorbable sutures, dressed with topical Bacitracin. R nasal passage packed with postoperative Xeroform dressing, moderate amount of blood tinged mucous surrounding packing. L nasal passage patent with dried blood. Head/Neck: Midfacial postoperative edema and ecchymosis. Surgical incisions spanning across nasal bridge and inferior to R eye which are approximated with intact absorbable sutures, dressed with topical Bacitracin. No bleeding, drainage or dehiscence. Bicoronal scalp incision which is intact, approximated with sutures. L parietal scalp region post BROOKE drain removal, c/d/i, no drainage Respiratory/Thorax: CTAB, on RA, no increase WOB Gastrointestinal: soft, NT/ND Musculoskeletal: SAAVEDRA x4 Extremities: Healed abrasions/lacerations to L anterior knee which are approximated with sutures. Neurological: GCS 15 Psychological: tearful, cooperative, pleasant Skin: warm, dry, scattered bruising to face Medication: Medications: CENTRAL NERVOUS SYSTEM AGENTS: 1. Acetaminophen: 650 mg Oral Every 6 Hours 2. oxyCODONE Immediate Release: 5 mg Oral Every 4 Hours PRN 3. oxyCODONE Immediate Release: 10 mg Oral Every 4 Hours PRN COAGULATION MODIFIERS: 1. Enoxaparin SubCutaneous: 30 mg SubCutaneous Every 12 Hours GASTROINTESTINAL AGENTS: 1. Docusate: 240 mg Oral Daily 2. Sennosides: 1 tablet(s) Oral 2 Times a Day METABOLIC AGENTS: 1. Dextrose 50% in Water Injectable: 25 gram(s) IntraVenous Push Every 15 Minutes PRN 2. Glucagon Injectable: 1 mg IntraMuscular Every 15 Minutes PRN TOPICAL AGENTS: 1. Bacitracin - Polymyxin B Topical: 1 application(s) Topical 3 Times a Day 2. Lidocaine Viscous 2%: 15 mL Oral Once 3. Chlorhexidine Gluconate 0.12% Mucous Mem: 15 mL Topical 3 Times a Day After Meals Assessment and Plan: Code Status: Code StatusFull Code Assessment: 52 YOM s/p fall with ladder 05/28 List of clinically significant injuries/problems - pneumocephalus - comminuted frontal sinus fx involving anterior and posterior ceballos, ext to nola roney and cribiform plate - comminuted nasal bone fx - b/l medial and inferior orbital wall fx - nasal septum fx - anterior ceballos of b/l maxillary sinuses - suspicion of epidual blood products posteriorly at cranial/cervical junction - Bifrontal cerebral parenchymal contusions OR Course: 06/08 bifrontal approach for frontal sinus exenteration, duraplasty with NSGY, multiple nasal ORIF, cribriform defect ORIF and calvarial bone harvest with Plastics PLAN ## comminuted frontal sinus and facial/nasal bone fx -Plastics following -> BROOKE drain removed from L scalp by plastics 06/13 -> Nasal packing to be removed by plastics POD6 (06/14) -> Strict sinus precautions -> Bacitracin to incision lines daily, otherwise HOSE COUPLING JOINER -> Peridex mouth wash TID -> FLD -> Continue to monitor for 24h post nasal packing removal for CSF leak - NSGY initially following -> Okay for chemoppx POD#2 -> CTX x 5 days for traumatic durotomy (last dose 06/13 pm) - Pain control with scheduled Tylenol, PRN oxy 5/10 with Dilaudid breakthrough ## FEN/GI - Full liquid diet, Ensures - HLIV - BR - Monitor electrolytes and replete as clinically indicated - ISS: continue while poor PO intake PPX: - SCDs - LVX Dispo: RNF, discharge home with no needs when medically clear, likely tomorrow Patient discussed with attending Dr. Nica Mchugh, FEED INSPECTION SUPERVISOR-PRODUCTION PLANNING MANAGER Trauma Surgery [id number] I spent 20 minutes with patient today obtaining subjective information, reviewing vitals/ labs/ radiology reports, performing physical exam. Greater than 50% (more content not included)... Normal [facility] GLUCOSE-POCTon 06-14-2022 Glucose [Mass/Vol] 136 mg/dL High 74 - 99 [facility] Comment on above: Performed By: #### G CARLIN #### [facility] [address] [place] [address] Glucose [Mass/Vol] 99 mg/dL Normal 74 - 99 [facility] Comment on above: Performed By: #### R ENAL #### [facility] [address] [place] [address] Glucose [Mass/Vol] 101 mg/dL High 74 - 99 [facility] Comment on above: Performed By: #### G CARLIN #### [facility] [address] [place] [address] Glucose [Mass/Vol] 110 mg/dL High 74 - 99 [facility] Comment on above: Performed By: #### R ENAL #### [facility] [address] [place] [address] Laboratory - Chemistry and C hemistry - challengeon 06-14-2022 Glucose [Mass/Vol] 136 mg/dL above high threshold 74 - 99 MG-Plastic Surgery-[facility] 2099 Work Phone: Glucose [Mass/Vol] 99 mg/dL 74 - 99 [facility] Work Phone: Glucose [Mass/Vol] 101 mg/dL above high threshold 74 - 99 [facility] [place] [facility] Work Phone: Glucose [Mass/Vol] 110 mg/dL above high threshold 74 - 99 MG-Plastic Surgery-[facility] 2100 Work Phone: Clinical Event Note-Neurosur shauna Updateon 06-13-2022 Clinical Event Note-Neurosurgery Update Clinical Event: Clinical Event Note: TopicNeurosurgery Update Details Agree with prophylactic CTX for five days in setting of traumatic durotomy. Electronic Signatures: Radha Prieto ( (Resident)) (Signed 13-Jun-2022 07:45) Authored: Clinical Event Note Last Updated: 13-Jun-2022 07:45 by Radha Prieto ( (Resident)) Normal [facility] Daily Progress Note-Plastic Surgeryon 06-13-2022 Daily Progress Note-Plastic Surgery Service: Plastic Surgery Subjective Data: RM BERMAN is a 52 year old Male who is Hospital Day #13 and POD #5 for 1. Multiple nasal bone ORIFs; 2. Calvarium bone harvest for nasal graft; 3. Cribiform defect ORIF; 4. Refer to neurosurg note. Resting upright in bed on assessment, experiencing some face discomfort, provided PO pain medication. Apprehensive to utilize narcotics d/t concern of them contributing to constipation. Last BM prior to OR. He is passing gas and utilizing bowel regimen. He is tolerating small amount of liquids on FLD. Voiding independently and ambulating. Denies visual changes including decreased vision, diplopia or blurred vision. No dizziness, fever, chills, chest pain, dyspnea, abdominal pain, nausea or vomiting. Aware of plan for nasal packing removal at bedside tomorrow. Expresses anxiety surrounding packing removal but agreeable to complete with premedication. Additional Information: L parietal scalp BROOKE drain removed on assessment today w/o complication. Objective Data: Objective Information: T PRBPMAPSpO2 [id number]/8399% Date/Time06/13 8: 8: 8: 8: 8:08 Range(36.2C - 37.1C ) (75 - 99 ) (16 - 19 ) (112 - 130 )/ (74 - 83 ) (96% - 100% ) Highest temp of 37.1 C was recorded at 06/12 12:00 Pain reported at 06/13 11:00: 0 = None Physical Exam by System: Constitutional: A&O x3, sitting upright in bed. Eyes: Bilateral periorbital ecchymosis and edema. PERRLA, EOMI, clear sclera. Patient opens eyes spontaneously. Vision grossly intact bilaterally per patient. ENMT: MMM. Intraoral incision to inner, upper gingivae which is approximated with sutures. Appreciable nasal edema with incision spanning across nasal bridge which is approximated with intact absorbable sutures, dressed with topical Bacitracin. R nasal passage packed with postoperative Xeroform dressing, moderate amount of blood tinged mucous surrounding packing. L nasal passage patent with dried blood. Head/Neck: Midfacial postoperative edema and ecchymosis. Surgical incisions spanning across nasal bridge and inferior to R eye which are approximated with intact absorbable sutures, dressed with topical Bacitracin. No bleeding, drainage or dehiscence. Bicoronal scalp incision which is intact, approximated with sutures. x1 10 fr [address] drain in place at L parietal scalp region with serosanguinous drainage. Respiratory/Thorax: Breathing comfortably on RA with symmetric chest expansion, no tachypnea or increased work of breathing. Gastrointestinal: Nondistended, soft. Genitourinary: Voiding independently. Extremities: SAAVEDRA spontaneously. Neurological: A&Ox3, no gross neuro deficits. Psychological: Tearful, anxious mood. Skin: Warm, dry. Healed abrasions/lacerations to L anterior knee which are approximated with sutures. Medication: Medications: Continuous Medications ------- No continuous medications are active Scheduled Medications ------- 1. Acetaminophen: 650 mg Oral Every 6 Hours 2. Bacitracin - Polymyxin B Topical: 1 application(s) Topical 3 Times a Day 3. cefTRIAXone 2 gram/Dextrose 5% IVPB Premixed Soln 50 mL: 50 mL IntraVenous Piggyback Every 12 Hours 4. Chlorhexidine Gluconate 0.12% Mucous Mem: 15 mL Topical 3 Times a Day After Meals 5. Docusate: 240 mg Oral Daily 6. Enoxaparin SubCutaneous: 30 mg SubCutaneous Every 12 Hours 7. Insulin Regular Moderate Corrective Scale: unit(s) SubCutaneous Every 6 Hours 8. Sennosides: 1 tablet(s) Oral 2 Times a Day PRN Medications ------- 1. Dextrose 50% in Water Injectable: 25 gram(s) IntraVenous Push Every 15 Minutes 2. Glucagon Injectable: 1 mg IntraMuscular Every 15 Minutes 3. HYDROmorphone Injectable: 0.2 mg IntraVenous Push Every 2 Hours 4. oxyCODONE Immediate Release: 5 mg Oral Every 4 Hours 5. oxyCODONE Immediate Release: 10 mg Oral Every 4 Hours Assessment and Plan: Daily Risk Screen: Does patient have an indwelling urinary cathetern/a consulting service Comorbidities: ComorbidityOther Code Status: Code StatusFull Code Assessment: LIYA BERMAN is a 52 year old otherwise healthy male who initially presented to [facility] on 06/01/22 as a transfer from [facility] in [place], [place] for trauma evaluation s/p falling 14ft from a ladder while at work on 05/28. CTH at OSH notable for diffuse comminuted facial/frontal sinus fractures with evidence of intracranial extension and diffuse pneumocephalus. Plastic Surgery (Face) consulted for repair of patient's extensive facial fractures. Patient now s/p bifrontal craniotomy for frontal sinus exenteration and durotomy (per NSGY) plus cribriform defect ORIF, calvarial bone harvest with nasal bone ORIF, pericranial flap for anterior skull base reconstruction and complex closure (per plastics). Plan/Recommendations: - Mainta (more content not included)... Normal [facility] Daily Progress Note-Trauma Wilbert ricks 06-13-2022 Daily Progress Note-Trauma Surgery Service: Trauma Surgery Subjective Data: RM BERMAN is a 52 year old Male who is Hospital Day # 13 and POD #5 for 1. Multiple nasal bone ORIFs;2. Calvarium bone harvest for nasal graft;3. Cribiform defect ORIF;4. Refer to neurosurg note;5. Additional Information: No acute events overnight. Pain controlled. Tolerating full liquid diet. Objective Data: Objective Information: T PRBPMAPSpO2 [id number]/7795% Date/Time06/13 16: 16: 16: 16: 16:25 Range(36.2C - 37.1C ) (75 - 102 ) (16 - 19 ) (109 - 130 )/ (74 - 83 ) (95% - 100% ) Highest temp of 37.1 C was recorded at 06/12 12:00 Pain reported at 06/13 11:13: 7 = Severe ---- Intake and Output ----- Mn/Dy/Year TimeIntakeOutputNet Jun 13, 2022 2:00 [id number] Jun 13, 2022 6:00 [id number] The Intake and Output Totals for the last 24 hours are: IntakeOutputNet [id number] Physical Exam by System: Constitutional: Awake, alert, NAD Eyes: periorbital edema ENMT: R nasal packing Head/Neck: facial edema and ecchymoses, L parietal scalp BROOKE to self suction with serosanguinous drainage Respiratory/Thorax: Nonlabored respirations on room air Cardiovascular: regular rate Gastrointestinal: soft, nontender, nondistended Extremities: Moves all extremities Neurological: No focal neurological deficits, cognitively at preop baseline Psychological: appropriate affect Assessment and Plan: Comorbidities: ComorbidityOther Code Status: Code StatusFull Code Assessment: 52 YOM s/p fall with ladder 05/28 List of clinically significant injuries/problems - pneumocephalus - comminuted frontal sinus fx involving anterior and posterior ceballos, ext to nola roney and cribiform plate - comminuted nasal bone fx - b/l medial and inferior orbital wall fx - nasal septum fx - anterior ceballos of b/l maxillary sinuses - suspicion of epidual blood products posteriorly at cranial/cervical junction - Bifrontal cerebral parenchymal contusions OR Course: 06/08 bifrontal approach for frontal sinus exenteration, duraplasty with NSGY, multiple nasal ORIF, cribriform defect ORIF and calvarial bone harvest with Plastics PLAN ## comminuted frontal sinus and facial/nasal bone fx -Plastics following -> BROOKE drain removed from L scalp by plastics 06/13 -> Nasal packing to be removed by plastics POD6 (06/14) -> Strict sinus precautions -> Bacitracin to incision lines daily, otherwise MARGARITA -> Peridex mouth wash TID -> FLD - NSGY initially following -> Okay for chemoppx POD#2 -> CTX x 5 days for traumatic durotomy (last dose 06/13 pm) - Pain control with scheduled Tylenol, PRN oxy 5/10 with Dilaudid breakthrough ## FEN/GI - Full liquid diet, Ensures - HLIV - BR - Monitor electrolytes and replete as clinically indicated - ISS: continue while poor PO intake ## PPX: SCDs, LVX Dispo: RNF, discharge home with no needs when medically clear, likely tomorrow Patient seen and discussed with attending Dr. Nica Pedraza MD Trauma Surgery [id number] Attestation: Note Completion: I am a: Resident/Fellow Attending AttestationI saw and evaluated the patient. I personally obtained the delvalle and critical portions of the history and physical exam or was physically present for delvalle and critical portions performed by the resident/fellow. I reviewed the resident/fellows documentation and discussed the patient with the resident/fellow. I agree with the resident/fellows medical decision making as documented in their note with the exception/addition of the following: I personally evaluated the patient [id number] Comments/ Additional Findings I saw and examined the patient with the resident/ARLYN team. I agree with the note with the additions/clarifications below. Late entry for 06/13/2022 52 yo male with complex facial fractures transferred from [place] s/p repair by NSGY and plastics. Doing well. Tolerating PO. Pain is controlled. On exam, NAD. Drain with serosanginous output. Facial incisions and scalp incisions are healing well and without erythema or drainage. Plan for diet, antiemetics, Lovenox and drain and nasal packing per surgical teams. Electronic Signatures: Yolis Pedraza (Resident)) (Signed 13-Jun-2022 17:56) Authored: Service, Subjective Data, Objective Data, Assessment and Plan, Note Completion Nitesh Yousif) (Signed 15-Jun-2022 13:39) Authored: Note Completion Co-Signer: Service, Subjective Data, Objective Data, Assessment and Plan, Note Completion Last Updated: 15-Jun-2022 13:39 by Nitesh Yousif) Normal [facility] GLUCOSE-POCTon 06-13-2022 Glucose [Mass/Vol] 85 mg/dL Normal 74 - 99 [facility] Comment on above: Performed By: #### I ONC1 #### [facility] [address] [place] [address] Glucose [Mass/Vol] 118 mg/dL High 74 - 99 [facility] Comment on above: Performed By: #### R ENAL #### [facility] [address] [place] [address] Glucose [Mass/Vol] 96 mg/dL Normal 74 - 99 [facility] Comment on above: Performed By: #### R ENAL #### [facility] [address] [place] [address] Glucose [Mass/Vol] 88 mg/dL Normal 74 - 99 [facility] Comment on above: Performed By: #### I ONC1 #### [facility] [address] [place] [address] Laboratory - Chemistry and C hemistry - challengeon 06-13-2022 Glucose [Mass/Vol] 85 mg/dL 74 - 99 [facility] Surgery-[facility] 2100 Work Phone: [phone] Glucose [Mass/Vol] 118 mg/dL above high threshold 74 - 99 [facility]astic Surgery[facility] [place] [address] Work Phone: [phone] Glucose [Mass/Vol] 96 mg/dL 74 - 99 [facility] Surgery-[facility] 2100 Work Phone: Glucose [Mass/Vol] 88 mg/dL 74 - 99 [facility] Surgery-[facility] 2100 Work Phone: [phone] Rehab Note-physical therapis ton 06-13-2022 Rehab Note-physical therapist Rehab: Info: Disciplinephysical therapist Mode of Treatmentphysical therapy; individual therapy Time IN13:40 Time OUT14:06 Total Treatment [id number] Patient in ... at end of sessionbed, 2 railings up; alarm off; not on at start of visit Communicated with ... at end of sessionbedside nurse Patient Effortgood Symptoms Noted During/After Treatmentincreased pain Treatment Considerations/CommentsSi nus precautions - reviewed with pt Patient Response to TreatmentPt tolerating mobility well this date, including functional mobility into hallway. Progressing well & remains appropriate for dc to home with no further PT needed. Patient/Family/Caregiver Comments/ObservationsPt appears & expresses tasha overwhelmed with situation as well as other family situations. How much can one person take Expresses eagerness to return home to be with family. Support & encouragement offered - RN aware. Line and Tubestelemetry Post Treatment Patient Positionsitting Post Treatment SpO2 (%)99 % Post Treatment Oxygen Deliveryroom air Post Treatment CommentsPost ambulation Vision/Cognition: Affect/Mental Status (Cognitive)overwhelmed by current situation, but appropriate Orientation Status (Cognition)oriented x 4 Able to Follow Commands (Receptive)WFL Mobility/Tone: Bed Mobility Assessment/Interventionss upine to sit [facility]hmw[facility] [place] (Bed Mobility)standby assist Assistive Device (Bed Mobility)bed rails; HOB elevated Transfer Assessment/Interventionss it to stand transfer; stand to sit transfer Sit-Stand [place] (Transfers)standby assist; verbal cues Stand-Sit [place] (Transfers)standby assist; verbal cues Gait/Stairs Locomotiongait/ambulation independence; distance ambulated; gait deviations Gait Locomotion (Gait)standby assist Distance in Feet (Gait Training)50' Gait Deviations Identified (Gait)decreased edgar Impairments Impacting Function (Mobility)pain; endurance/activity tolerance Motor: Sitting, Static (Balance)good balance Sitting, Dynamic (Balance)good balance Gru-yl-Unwyo (Balance)good balance Standing, Static (Balance)good balance Standing, Dynamic (Balance)good balance Balance ActivitiesPt masha sitting EOB x ~15 min prior to ambulation - reports inc PEDRAZA, mild dizziness that resolved, some photosensitivity Sensory: Pre-Treatment Pain Rating5/10 Post-Treatment Pain Rating5/10 Pain LocationHA Pain LimitationRN or team was notified of limitations due to pain; Educated patient on positioning to reduce pain; Educated patient on rest/activity routine to address increase in pain; Patient trained for proper mobility/transfer techniques to decrease pain Health: Plan of Care Reviewed Withpatient; support person unavailable Outcomes Tools: Turning from your back to your side while in a flat bed without using bedrails a little Moving from lying on your back to sitting on the side of a flat bed without using bedrailsa little Moving to and from bed to chair (including a wheelchair)a little Standing up from a chair using your arms (e.g. wheelchair or bedside chair)a little To walk in hospital rooma little Climbing 3-5 steps with railinga joe AM-PAC (PT) Total Score18 Short Term Goals: Bed Mobility: Date [id number] Bed Mobility: [place] Level Goalindependent Bed Mobility: Time Frame for Goal2 wks Transfer: Established Transfer: Transfer Type Dpzrvdo-jz-uzrcx/chair-to -bed; rqd-wi-velji/ethoz-vc-rsz Transfer: [place] Level Goalindependent Transfer: Time Frame for Goal2 wks Gait: Established Gait: [place] Level Goalindependent Gait: Distance [id number] ft Gait: Time Frame for Goal2 wks Balance: Established Balance: Goal DetailsFunctional balance assessment >/= 20/30 Balance: Time Frame for Goal2 wks Strength: Established Strength Train: Goal5x sit <> resin mixer <12 sec Strength Train: Time Frame for Goal2 wks Education: Learnerpatient Barriers to Learningacuteness of illness barrier Methodverbal Outcome Evaluation1=partially meets; needs review Topicrehab plan of care; precautions; discharge recommendations including destination and/or equipment; fall prevention; sctivity/rest routine to decrease pain; positioning to decrease pain; activity modification to decrease pain Education - Topicsinus precautions Outcome Summary: Progress: Physical Therapyprogress toward functional goals as expected DC Recommendations: Discharge Recommendation (PT Eval)Home with family assist, do not anticipate further PT needs. Will continue to follow acutely. Electronic Signatures: Christine Croft (PT) (Signed 13-Jun-2022 16:19) Authored: Info, Vision/Cognition, Mobility/Tone, Motor, Sensory, Health, Outcomes Tools, Short Term Goals, Education, Outcome Summary, DC Recommendations Last Updated: 13-Jun-2022 16:19 by W (more content not included)... Normal [facility] Daily Progress Note-Plastic Surgeryon 06-12-2022 Daily Progress Note-Plastic Surgery Service: Plastic Surgery Subjective Data: RM BERMAN is a 52 year old Male who is Hospital Day # 12 and POD #4 for 1. Multiple nasal bone ORIFs;2. Calvarium bone harvest for nasal graft;3. Cribiform defect ORIF;4. Refer to neurosurg note;5. Sitting upright in bed on assessment. Pain stable and controlled with oxycodone if given every 4 hours. Continued concerns about upper lip swelling which is inhibiting his ability to eat, but admits it does feel like swelling is beginning to decrease. He denies abdominal pain, boating, nausea, vomiting, headache, dizziness, fever, chills, chest pain, dyspnea or palpitations. He is voiding independently. Vision intact bilaterally with some R eye blurriness per patient. Denies visual loss, diplopia. Overnight Events: Patient had an uneventful night. Objective Data: Objective Information: T PRBPMAPSpO2 [id number]% Date/Time06/12 8: 8: 8: 8: 21: 8:00 Range(36C - 36.7C ) (67 - 92 ) (16 - 18 ) (112 - 125 )/ (72 - 87 ) (93 - 93 ) (96% - 100% ) Pain reported at 06/12 9:29: 7 = Severe ---- Intake and Output ----- Mn/Dy/Year TimeIntakeOutGr[facility] Jun 12, 2022 6:00 am000 Jun 11, 2022 10:00 [id number] Jun 11, 2022 2:00 [id number] The Intake and Output Totals for the last 24 hours are: IntakeOutpresbyterian [facility] ranchoNet [id number] Physical Exam by System: Constitutional: A&O x3, sitting upright in bed. Eyes: Bilateral periorbital ecchymosis and edema. PERRLA, EOMI, clear sclera. Patient opens eyes spontaneously. Vision grossly intact bilaterally per patient. ENMT: MMM. Intraoral incision to inner, upper gingivae which is approximated with sutures. Appreciable nasal edema with incision spanning across nasal bridge which is approximated with intact absorbable sutures, dressed with topical Bacitracin. R nasal passage packed with postoperative Xeroform dressing, moderate amount of blood tinged mucous surrounding packing. L nasal passage patent with dried blood. Head/Neck: Midfacial postoperative edema and ecchymosis. Surgical incisions spanning across nasal bridge and inferior to R eye which are approximated with intact absorbable sutures, dressed with topical Bacitracin. No bleeding, drainage or dehiscence. Bicoronal scalp incision which is intact, approximated with sutures. x1 10 fr [address] drain in place at L parietal scalp region with serosanguinous drainage. Respiratory/Thorax: Breathing comfortably on RA with symmetric chest expansion, no tachypnea or increased work of breathing. Gastrointestinal: Nondistended, soft. Genitourinary: Voiding independently. Extremities: SAAVEDRA spontaneously. Neurological: A&Ox3, no gross neuro deficits. Psychological: Labile mood. Skin: Warm, dry. Healed abrasions/lacerations to L anterior knee which are approximated with sutures. Medication: Medications: Continuous Medications ------- 1. Lactated Ringers Infusion: 1000 mL IntraVenous Scheduled Medications ------- 1. Acetaminophen: 650 mg Oral Every 6 Hours 2. Bacitracin - Polymyxin B Topical: 1 application(s) Topical 3 Times a Day 3. cefTRIAXone 2 gram/Dextrose 5% IVPB Premixed Soln 50 mL: 50 mL IntraVenous Piggyback Every 12 Hours 4. Chlorhexidine Gluconate 0.12% Mucous Mem: 15 mL Topical 3 Times a Day After Meals 5. Docusate: 240 mg Oral Daily 6. Enoxaparin SubCutaneous: 30 mg SubCutaneous Every 12 Hours 7. Insulin Regular Moderate Corrective Scale: unit(s) SubCutaneous Every 6 Hours 8. Sennosides: 1 tablet(s) Oral 2 Times a Day PRN Medications ------- 1. Dextrose 50% in Water Injectable: 25 gram(s) IntraVenous Push Every 15 Minutes 2. Glucagon Injectable: 1 mg IntraMuscular Every 15 Minutes 3. HYDROmorphone Injectable: 0.2 mg IntraVenous Push Every 2 Hours 4. oxyCODONE Immediate Release: 5 mg Oral Every 4 Hours 5. oxyCODONE Immediate Release: 10 mg Oral Every 4 Hours Radiology Results: Results: Impression: CT HEAD: There is no evidence of acute hemorrhage, mass lesion or acute infarction. CT MAXILLOFACIAL SKELETON: Postoperative changes of bifrontal approach craniotomy for frontal sinus exenteration with postoperative pneumocephalus and blood products. Postoperative changes are also noted of reduction internal fixation of multiple nasal bone fractures with associated blood products. CT Image Reconstruction 3D Volume and MIP [Nov 3 2022 7:13AM] Assessment and Plan: Daily Risk Screen: Does patient have an indwelling urinary cathetern/a consulting service Comorbidities: ComorbidityOther Code Status: Code StatusFull Code Assessment: LIYA BERMAN is a 52 year old otherwise healthy male who initially presented to [facility] on 06/01/22 as a transfer from [facility] in [place], [place] for trauma evaluation s/p falling 14ft from a ladder while a (more content not included)... Normal [facility] Daily Progress Note-Trauma S brandonon 06-12-2022 Daily Progress Note-Trauma Surgery Service: Trauma Surgery Subjective Data: RM BERMAN is a 52 year old Male who is Hospital Day # 12 and POD #4 for 1. Multiple nasal bone ORIFs;2. Calvarium bone harvest for nasal graft;3. Cribiform defect ORIF;4. Refer to neurosurg note;5. No acute events overnight. Drinking juice and water. Voiding, no bowel movement in several days. Pain is tolerable. Objective Data: Objective Information: T PRBPMAPSpO2 [id number]% Date/Time06/12 16: 16: 16: 16: 21:12116 16:06 Range(36C - 37.1C ) (67 - 99 ) (16 - 18 ) (112 - 130 )/ (72 - 87 ) (93 - 93 ) (96% - 100% ) Highest temp of 37.1 C was recorded at 06/12 12:00 Pain reported at 06/12 13:12: 5 = Moderate Intake Output Enteral - Oral 120 mL Urine 1700 mL IV Fluids 900 mL Physical Exam by System: Constitutional: Calm, conversational Eyes: EOMI, periorbital edema ENMT: Nasal edema with incision spanning across nasal bridge, R nare packed and taped, superior nasal laceration with sutures Head/Neck: Midfacial postoperative edema and ecchymosis. Surgical incisions spanning across nasal bridge and inferior to R eye. Bicoronal scalp incision which is intact, approximated with sutures, dried blood along incision, hemostatic. x1 BROOKE drain in place at L parietal scalp region with serosanguinous drainage in bulb, holding suction. Respiratory/Thorax: Nonlabored respirations on room air Genitourinary: No lafleur Extremities: Moves all extremities Neurological: No focal neurological deficits, cognitively at preop baseline Psychological: Calm, sad Medication: Medications: Continuous Medications ------- 1. Lactated Ringers Infusion: 1000 mL IntraVenous Scheduled Medications ------- 1. Acetaminophen: 650 mg Oral Every 6 Hours 2. Bacitracin - Polymyxin B Topical: 1 application(s) Topical 3 Times a Day 3. cefTRIAXone 2 gram/Dextrose 5% IVPB Premixed Soln 50 mL: 50 mL IntraVenous Piggyback Every 12 Hours 4. Chlorhexidine Gluconate 0.12% Mucous Mem: 15 mL Topical 3 Times a Day After Meals 5. Docusate: 240 mg Oral Daily 6. Enoxaparin SubCutaneous: 30 mg SubCutaneous Every 12 Hours 7. Insulin Regular Moderate Corrective Scale: unit(s) SubCutaneous Every 6 Hours 8. Sennosides: 1 tablet(s) Oral 2 Times a Day PRN Medications ------- 1. Dextrose 50% in Water Injectable: 25 gram(s) IntraVenous Push Every 15 Minutes 2. Glucagon Injectable: 1 mg IntraMuscular Every 15 Minutes 3. HYDROmorphone Injectable: 0.2 mg IntraVenous Push Every 2 Hours 4. oxyCODONE Immediate Release: 5 mg Oral Every 4 Hours 5. oxyCODONE Immediate Release: 10 mg Oral Every 4 Hours Recent Lab Results: Results: I have reviewed these laboratory results: Glucose_POCT Trending View [id number] 12:12:00 12-Jun-2022 06:09:00 12-Jun-2022 03:33:00 Glucose-POCT83 90 76 Assessment and Plan: Comorbidities: ComorbidityOther Code Status: Code StatusFull Code Assessment: 52 YOM s/p fall with ladder 05/28. TR from [facility] in [place] List of clinically significant injuries/problems - pneumocephalus - comminuted frontal sinus fx involving anterior and posterior ceballos, ext to nola roney and cribiform plate - comminuted nasal bone fx - b/l medial and inferior orbital wall fx - nasal septum fx - anterior ceballos of b/l maxillary sinuses - suspicion of epidual blood products posteriorly at cranial/cervical junction - Bifrontal cerebral parenchymal contusions OR Course: 06/08 sp bifrontal approach for frontal sinus exenteration, duraplasty with NSGY, multiple nasal ORIF, cribriform defect ORIF and calvarial bone harvest with Plastics PLAN ## comminuted frontal sinus and facial/nasal bone fx -Plastics following -> BROOKE drain per plastics(), maintain and record output per shift -> Nasal packing until POD5 (06/13) -> Sinus Precautions -> Peridex mouth wash TID -> FLD POD#2 - NSGY initially following -> Okay for chemoppx POD#2 -> CTX for ABx x 5 days per NSGY (117pm) - Pain control with scheduled Tylenol, PRN oxy /10 with Dilaudid breakthrough ## FEN/GI - Full liquid diet, added Ensures today - BR - Poor PO intake, continue IVF - Monitor electrolytes and replete as clinically indicated - ISS: continue while poor PO intake ## PPX - SCDs - LVX 30 mg BID Dispo: Continue care on RNF, PT/OT recommended home with no needs when medically cleared Patient discussed with attending. Dr. Tamir Mata MD Trauma Surgery, Phone [phone] Attestation: Note Completion: I am a: Resident/Fellow Attending AttestationI reviewed the resident/fellows documentation and discussed the patient with the resident/fellow. I agree with the resident/fellows medical decision making as documented in the note. Comments/ Additional Findings parish (more content not included)... Normal [facility] GLUCOSE-POCTon 06-12-2022 Glucose [Mass/Vol] 147 mg/dL High 74 - 99 [facility] Comment on above: Performed By: #### R ENAL #### [facility] [address] [place] [address] Glucose [Mass/Vol] 83 mg/dL Normal 74 - 99 [facility] Comment on above: Performed By: #### R ENAL #### [facility] [address] [place] [address] Glucose [Mass/Vol] 90 mg/dL Normal 74 - 99 [facility] Comment on above: Performed By: #### G CARLIN #### [facility] [address] [place] [address] Glucose [Mass/Vol] 76 mg/dL Normal 74 - 99 [facility] Comment on above: Performed By: #### G CARLIN #### [facility] [address] [place] [address] Laboratory - Chemistry and C hemistry - challengeon 06-12-2022 Glucose [Mass/Vol] 147 mg/dL above high threshold 74 - 99 MG-Plastic Surgery-[facility] [address] Work Phone: [phone] Glucose [Mass/Vol] 83 mg/dL 74 - 99 [facility] Surgery-[facility] 2099 Work Phone: Glucose [Mass/Vol] 90 mg/dL 74 - 99 [facility] Surgery-[facility] 2099 Work Phone: [phone] Glucose [Mass/Vol] 76 mg/dL 74 - 99 [facility] Surgery-[facility] 2099 Work Phone: Daily Progress Note-Plastic Surgeryon 06-11-2022 Daily Progress Note-Plastic Surgery Service: Plastic Surgery Subjective Data: RM BERMAN is a 52 year old Male who is Hospital Day # 11 and POD #3 for 1. Multiple nasal bone ORIFs;2. Calvarium bone harvest for nasal graft;3. Cribiform defect ORIF;4. Refer to neurosurg note;5. Sitting upright in bedside chair on assessment. Experiencing some pain to his surgical sites but reports pain is well controlled with oxycodone if given every 4 hours. Concerned about upper lip swelling which is inhibiting his ability to eat. He denies abdominal pain, boating, nausea, vomiting, headache, dizziness, fever, chills, chest pain, dyspnea or palpitations. He is voiding independently. Vision intact bilaterally with some R eye blurriness per patient. Denies visual loss, diplopia. Overnight Events: Patient had an uneventful night. Objective Data: Objective Information: T PRBPMAPSpO2 [id number]% Date/Time06/11 7: 7: 7: 7: 9: 7:24 Range(36C - 37.1C ) (67 - 95 ) (11 - 19 ) (99 - 122 )/ (69 - 87 ) (80 - 99 ) (92% - 98% ) Highest temp of 37.1 C was recorded at 06/10 13:00 Pain reported at 06/10 8:00: 0 Pain reported at 06/11 4:11: 7 = Severe ---- Intake and Output ----- Mn/Dy/Year TimeIntakeOutputNet Jun 11, 2022 6:00 [id number] Jun 10, 2022 10:00 [id number] Jun 10, 2022 2:00 [id number] The Intake and Output Totals for the last 24 hours are: [facility] [phone] Physical Exam by System: Constitutional: A&O x3, sitting upright in bed. Eyes: Bilateral periorbital ecchymosis and edema. PERRLA, EOMI, clear sclera. Patient opens eyes spontaneously. Vision grossly intact bilaterally per patient. ENMT: MMM. Intraoral incision to inner, upper gingivae which is approximated with sutures. Appreciable nasal edema with incision spanning across nasal bridge which is approximated with intact absorbable sutures, dressed with topical Bacitracin. R nasal passage packed with postoperative Xeroform dressing. Some thin blood tinged serous drainage from b/l nares. L nasal passage patent with dried blood. Head/Neck: Midfacial postoperative edema and ecchymosis. Surgical incisions spanning across nasal bridge and inferior to R eye which are approximated with intact absorbable sutures, dressed with topical Bacitracin. No bleeding, drainage or dehiscence. Bicoronal scalp incision which is intact, approximated with sutures. x1 10 fr BROO[address] drain in place at L parietal scalp region with serosanguinous drainage. Respiratory/Thorax: Breathing comfortably on RA with symmetric chest expansion, no tachypnea or increased work of breathing. Gastrointestinal: Nondistended, soft. Genitourinary: Voiding independently. Extremities: SAAVEDRA spontaneously. Neurological: A&Ox3, no gross neuro deficits. Psychological: Labile mood. Skin: Warm, dry. Healed abrasions/lacerations to L anterior knee which are approximated with sutures. Medication: Medications: Continuous Medications ------- 1. Lactated Ringers Infusion: 1000 mL IntraVenous Scheduled Medications ------- 1. Acetaminophen: 650 mg Oral Every 6 Hours 2. Bacitracin - Polymyxin B Topical: 1 application(s) Topical 3 Times a Day 3. cefTRIAXone 2 gram/Dextrose 5% IVPB Premixed Soln 50 mL: 50 mL IntraVenous Piggyback Every 12 Hours 4. Chlorhexidine Gluconate 0.12% Mucous Mem: 15 mL Topical 3 Times a Day After Meals 5. Enoxaparin SubCutaneous: 30 mg SubCutaneous Every 12 Hours 6. Insulin Regular Moderate Corrective Scale: unit(s) SubCutaneous Every 6 Hours PRN Medications ------- 1. Dextrose 50% in Water Injectable: 25 gram(s) IntraVenous Push Every 15 Minutes 2. Glucagon Injectable: 1 mg IntraMuscular Every 15 Minutes 3. HYDROmorphone Injectable: 0.2 mg IntraVenous Push Every 2 Hours 4. oxyCODONE Immediate Release: 5 mg Oral Every 4 Hours 5. oxyCODONE Immediate Release: 10 mg Oral Every 4 Hours Radiology Results: Results: Impression: CT HEAD: There is no evidence of acute hemorrhage, mass lesion or acute infarction. CT MAXILLOFACIAL SKELETON: Postoperative changes of bifrontal approach craniotomy for frontal sinus exenteration with postoperative pneumocephalus and blood products. Postoperative changes are also noted of reduction internal fixation of multiple nasal bone fractures with associated blood products. CT Image Reconstruction 3D Volume and MIP [Jun 09 2022 7:13AM] Assessment and Plan: Daily Risk Screen: Does patient have an indwelling urinary cathetern/a consulting service Comorbidities: ComorbidityOther Code Status: Code StatusFull Code Assessment: LIYA BERMAN is a 52 year old otherwise healthy male who initially presented to [facility] on 06/01/22 as a transfer from [facility] in [place], [place] for trauma evaluation s/p falling 14ft from a ladder while at work on (more content not included)... Normal [facility] Daily Progress Note-Trauma Wilbert ricks 06-11-2022 Daily Progress Note-Trauma Surgery Service: Trauma Surgery Subjective Data: RM BERMAN is a 52 year old Male who is Hospital Day # 11 and POD #3 for 1. Multiple nasal bone ORIFs;2. Calvarium bone harvest for nasal graft;3. Cribiform defect ORIF;4. Refer to neurosurg note;5. No acute events overnight. Tolerating water, did not enjoy jello. Objective Data: Objective Information: T PRBPMAPSpO2 [id number]% Date/Time06/11 15: 15: 15: 15: 9: 15:45 Range(36C - 37.1C ) (67 - 95 ) (11 - 19 ) (99 - 125 )/ (69 - 87 ) (80 - 99 ) (92% - 98% ) Highest temp of 37.1 C was recorded at 06/10 13:00 Pain reported at 06/10 8:00: 0 Pain reported at 06/11 17:54: 8 = Severe Intake Output Enteral - Oral 120 mL Urine 1635 mL IV Fluids 225 mL Drain 15 mL Physical Exam by System: Constitutional: Calm, conversational Eyes: EOMI, periorbital edema ENMT: Nasal edema with incision spanning across nasal bridge, R nare packed and taped, superior nasal laceration with sutures Head/Neck: Midfacial postoperative edema and ecchymosis. Surgical incisions spanning across nasal bridge and inferior to R eye. Bicoronal scalp incision which is intact, approximated with sutures, dried blood along incision, hemostatic. x1 BROOKE drain in place at L parietal scalp region with serosanguinous drainage in bulb, holding suction Respiratory/Thorax: Nonlabored respirations on room air Genitourinary: No lafleur Extremities: Moves all extremities Neurological: No focal neurological deficits, cognitively at preop baseline Psychological: Calm, sad Medication: Medications: Continuous Medications ------- 1. Lactated Ringers Infusion: 1000 mL IntraVenous Scheduled Medications ------- 1. Acetaminophen: 650 mg Oral Every 6 Hours 2. Bacitracin - Polymyxin B Topical: 1 application(s) Topical 3 Times a Day 3. cefTRIAXone 2 gram/Dextrose 5% IVPB Premixed Soln 50 mL: 50 mL IntraVenous Piggyback Every 12 Hours 4. Chlorhexidine Gluconate 0.12% Mucous Mem: 15 mL Topical 3 Times a Day After Meals 5. Enoxaparin SubCutaneous: 30 mg SubCutaneous Every 12 Hours 6. Insulin Regular Moderate Corrective Scale: unit(s) SubCutaneous Every 6 Hours PRN Medications ------- 1. Dextrose 50% in Water Injectable: 25 gram(s) IntraVenous Push Every 15 Minutes 2. Glucagon Injectable: 1 mg IntraMuscular Every 15 Minutes 3. HYDROmorphone Injectable: 0.2 mg IntraVenous Push Every 2 Hours 4. oxyCODONE Immediate Release: 5 mg Oral Every 4 Hours 5. oxyCODONE Immediate Release: 10 mg Oral Every 4 Hours Recent Lab Results: Results: I have reviewed these laboratory results: Glucose_POCT Trending View [id number] 17:43:00 11-Jun-2022 11:19:00 11-Jun-2022 06:22:00 11-Jun-2022 00:53:00 Glucose-POCT78 93 86 106 H Assessment and Plan: Comorbidities: ComorbidityOther Code Status: Code StatusFull Code Assessment: 52 YOM s/p fall with ladder 05/28. TR from [employer] in [place] List of clinically significant injuries/problems - pneumocephalus - comminuted frontal sinus fx involving anterior and posterior ceballos, ext to nola roney and cribiform plate - comminuted nasal bone fx - b/l medial and inferior orbital wall fx - nasal septum fx - anterior ceballos of b/l maxillary sinuses - suspicion of epidual blood products posteriorly at cranial/cervical junction - Bifrontal cerebral parenchymal contusions OR Course: 06/08 sp bifrontal approach for frontal sinus exenteration, duraplasty with NSGY, multiple nasal ORIF, cribriform defect ORIF and calvarial bone harvest with Plastics PLAN ## comminuted frontal sinus and facial/nasal bone fx -Plastics following -> BROOKE drain per plastics, maintain and record output per shift -> Nasal packing until POD5 (06/13) -> Sinus Precautions -> Peridex mouth wash TID -> FLD POD#2 - NSGY initially following -> Okay for chemoppx POD#2 -> CTX for ABx x 5 days per NSGY (117pm) - Pain control with juan f. Tylenol, PRN oxy /10 with Dilaudid BT ## FEN/GI - Full liquid diet - BR - Poor PO intake, continue IVF - Monitor electrolytes and replete as clinically indicated - ISS: continue while poor PO intake ## PPX - SCDs - LVX 30 mg BID Dispo: Continue care on RNF, PT/OT recommended home with no needs when medically cleared Patient discussed with attending. Dr. Tamir Mata MD Trauma Surgery, Phone [phone] Attestation: Note Completion: I am a: Resident/Fellow Attending AttestationI saw and evaluated the patient. I personally obtained the delvalle and critical portions of the history and physical exam or was physically present for delvalle and critical portions performed by the resident/fellow. I reviewed the resident/fellows documentation and discussed the patient with the resident/fellow. I agree with t (more content not included)... Normal [facility] GLUCOSE-POCTon 06-11-2022 Glucose [Mass/Vol] 78 mg/dL Normal 74 - 99 [facility] Comment on above: Performed By: #### G CARLIN #### [facility] [address] [place] [address] Glucose [Mass/Vol] 93 mg/dL Normal 74 - 99 [facility] Comment on above: Performed By: #### G CARLIN #### [facility] [address] [place] [address] Glucose [Mass/Vol] 86 mg/dL Normal 74 - 99 [facility] Comment on above: Performed By: #### G CARLIN #### [facility] [address] [place] [address] Glucose [Mass/Vol] 106 mg/dL High 74 - 99 [facility] Comment on above: Performed By: #### G CARLIN #### [facility] [address] [place] [address] Laboratory - Chemistry and C hemistry - challengeon 06-11-2022 Glucose [Mass/Vol] 78 mg/dL 74 - 99 [facility] 2099 Work Phone: [phone] Glucose [Mass/Vol] 93 mg/dL 74 - 99 [facility] Surgery-[facility] 2099 Work Phone: Glucose [Mass/Vol] 86 mg/dL 74 - 99 [facility] Surgery-[facility] 2099 Work Phone: Glucose [Mass/Vol] 106 mg/dL above high threshold 74 - 99 MG-Plastic Surgery-[facility] 2099 Work Phone: [phone] CBCon 06-10-2022 Erythrocyte distribution width (RBC) [Ratio] 11.8 % Normal 11.5 - 14.5 [facility] Comment on above: Performed By: #### I ONC1 #### [facility] [address] [place] [address] Hematocrit (Bld) [Volume fraction] 33.8 % Low 41.0 - 52.0 [facility] Comment on above: Performed By: #### I ONC1 #### [facility] [address] [place] [address] Hemoglobin (Bld) [Mass/Vol] 11.9 g/dL Low 13.5 - 17.5 [facility] Comment on above: Performed By: #### I ONC1 #### [facility] [address] [place] [address] MCHC (RBC) [Mass/Vol] 35.2 g/dL Normal 32.0 - 36.0 [facility] Comment on above: Performed By: #### I ONC1 #### [facility] [address] [place] [address] MCV (RBC) [Entitic vol] 94 fL Normal 80 - 100 [facility] Comment on above: Performed By: #### I ONC1 #### [facility] [address] [place] [address] NUCLEATED RBC 0.0 /100 WBC Normal 0.0-0.0 [facility] Comment on above: Performed By: #### I ONC1 #### [facility] [address] [place] [address] Platelets (Bld) [#/Vol] 283 10*3/uL Normal 150 - 450 [facility] Comment on above: Performed By: #### I ONC1 #### [facility] [address] [place] [address] RBC 3.58 x10E12/L Low 4.50 - 5.90 [facility] Comment on above: Performed By: #### I ONC1 #### [facility] [address] [place] [address] WBC (Bld) [#/Vol] 13.2 10*3/uL High 4.4 - 11.3 [facility] Comment on above: Performed By: #### I ONC1 #### [facility] [address] [place] [address] Daily Progress Note-Plastic Surgeryon 06-10-2022 Daily Progress Note-Plastic Surgery Service: Plastic Surgery Subjective Data: RM BERMAN is a 52 year old Male who is Hospital Day #10 and POD #2 for 1. Multiple nasal bone ORIFs; 2. Calvarium bone harvest for nasal graft; 3. Cribiform defect ORIF; 4. Refer to neurosurgery note. Sitting upright in bedside chair on assessment. Experiencing some pain to his surgical sites but is apprehensive about using narcotics d/t concern he will not be able to have a bowel movement. Last BM x4 days ago. He denies abdominal pain, boating, nausea, vomiting, headache, dizziness, fever, chills, chest pain, dyspnea or palpitations. He is voiding independently, tolerating small amounts of clear liquids. Vision intact bilaterally with some R eye blurriness per patient. Denies visual loss, diplopia. Additional Information: Remains in TSICU. Extubated yesterday AM and Lafleur catheter removed. Objective Data: Objective Information: T PRBPMAPSpO2 [id number]% Date/Time06/10 8: 9: 9: 9: 9: 9:00 Range(36.1C - 37C ) (74 - 115 ) (9 - 19 ) (99 - 198 )/ (69 - 91 ) (80 - 131 ) (92% - 100% ) As of 09-Jun-2022 10:33:00, patient is on 4 L/min of oxygen via room air. Highest temp of 37 C was recorded at 06/09 12:00 Pain reported at 06/10 8:00: 0 Pain reported at 06/10 8:00: 2 = Mild ---- Intake and Output ----- Mn/Dy/Year TimeIntakeOutputNet Jun 10, 2022 6:00 [id number] Jun 09, 2022 10:00 [id number] Jun 09, 2022 2:00 [id number] The Intake and Output Totals for the last 24 hours are: IntakeOutputNet [id number] Physical Exam by System: Constitutional: A&O x3, sitting upright in bedside chair, appears uncomfortable. Eyes: Bilateral periorbital ecchymosis and edema. PERRLA, EOMI, clear sclera. Patient opens eyes spontaneously. Vision grossly intact bilaterally per patient. ENMT: MMM. Intraoral incision to inner, upper gingivae which is approximated with sutures. Appreciable nasal edema with incision spanning across nasal bridge which is approximated with intact absorbable sutures, dressed with topical Bacitracin. R nasal passage packed with postoperative Xeroform dressing. Some thin blood tinged serous drainage from b/l nares. L nasal passage patent with dried blood. Head/Neck: Midfacial postoperative edema and ecchymosis. Surgical incisions spanning across nasal bridge and inferior to R eye which are approximated with intact absorbable sutures, dressed with topical Bacitracin. No bleeding, drainage or dehiscence. Bicoronal scalp incision which is intact, approximated with sutures, small amount of oozing bleeding. x1 10 fr BROOKE drain in place at L parietal scalp region with serosanguinous drainage. Respiratory/Thorax: Breathing comfortably on RA with symmetric chest expansion, no tachypnea or increased work of breathing. Cardiovascular: Regular rhythm and rate per cardiac specialist. Gastrointestinal: Nondistended, soft. Genitourinary: Voiding independently. Extremities: SAAVEDRA spontaneously. Neurological: A&Ox3, no gross neuro deficits. Psychological: Labile mood. Skin: Warm, dry. Healed abrasions/lacerations to L anterior knee which are approximated with sutures. Medication: Medications: Continuous Medications ------ 1. Lactated Ringers Infusion: 1000 mL IntraVenous Scheduled Medications ------- 1. Acetaminophen: 650 mg Oral Every 6 Hours 2. Bacitracin - Polymyxin B Topical: 1 application(s) Topical 3 Times a Day 3. cefTRIAXone 2 gram/Dextrose 5% IVPB Premixed Soln 50 mL: 50 mL IntraVenous Piggyback Every 12 Hours 4. Enoxaparin SubCutaneous: 30 mg SubCutaneous Every 12 Hours 5. Insulin Regular Moderate Corrective Scale: unit(s) SubCutaneous Every 6 Hours PRN Medications ------- 1. Calcium Gluconate IVPB: 1 gram(s) IntraVenous Piggyback Every 6 Hours 2. Calcium Gluconate IVPB: 2 gram(s) IntraVenous Piggyback Every 6 Hours 3. Dextrose 50% in Water Injectable: 25 gram(s) IntraVenous Push Every 15 Minutes 4. Glucagon Injectable: 1 mg IntraMuscular Every 15 Minutes 5. HYDROmorphone Injectable: 0.2 mg IntraVenous Push Every 2 Hours 6. Magnesium Sulfate 2 gram/Sterile Water 50 mL Premix Soln: 2 gram(s) IntraVenous Piggyback Every 6 Hours 7. Magnesium Sulfate 4 gram/Sterile Water 100 mL Premix Soln: 4 gram(s) IntraVenous Piggyback Every 6 Hours 8. oxyCODONE Immediate Release: 5 mg Oral Every 4 Hours 9. oxyCODONE Immediate Release: 10 mg Oral Every 4 Hours 10. Potassium Chloride 20 mEq/Sterile Water 100 mL Premix IVPB: 20 mEq IntraVenous Piggyback Every 6 Hours Recent Lab Results: Results: I have reviewed these laboratory results: Renal Function Panel 10-Jun-2022 02:26:00 ResultValue Glucose, Serum 106 H NA 137 K 3.8 CL 100 Bicarbonate, Serum 27 Anion Gap, Serum 14 BUN 12 CREAT 0.98 GFR Male >90 Calcium, Serum 8.1 L Phosphor (more content not included)... Normal [facility] Daily Progress Note-Trauma S rambo 06-10-2022 Daily Progress Note-Trauma Surgery Service: Trauma Surgery Subjective Data: RM BERMAN is a 52 year old Male who is Hospital Day # 10 and POD #2 for 1. Multiple nasal bone ORIFs;2. Calvarium bone harvest for nasal graft;3. Cribiform defect ORIF;4. Refer to neurosurg note;5. No acute events overnight. Feeling well this morning. Only pain is in his hand where he was getting IV potassium. Otherwise doing well. Objective Data: Objective Information: T PRBPMAPSpO2 [id number]% Date/Time06/10 10: 10: 10: 10: 9: 10:00 Range(36.1C - 37C ) (74 - 115 ) (9 - 19 ) (99 - 198 )/ (69 - 91 ) (80 - 131 ) (92% - 100% ) As of 09-Jun-2022 10:33:00, patient is on 4 L/min of oxygen via room air. Highest temp of 37 C was recorded at 06/09 12:00 Pain reported at 06/10 8:00: 0 Pain reported at 06/10 8:00: 2 = Mild Weights 06/10 8:00: Weight in kg (Weight (kg)) 77.2 06/10 8:00: Weight in lbs ((lbs)) 170.1 Vent Settings 06/09 8:31ModesCPAP 06/09 8:31Tidal Volume Set (mL)450 06/09 8:31PEEP (cm H2O)5 06/09 8:31FiO2 (%)30 06/09 4:01Rate Set (breaths/min)16 Vent Data 06/09 10:33Start 06/09 10:33Start Time18:24 06/09 10:33Discontinued 06/09 10:33Discontinued Time10:33 06/09 10:33Ventilator Days and Hours16 Hours Vent Weaning 06/09 8:31Spontaneous Respiratory Rate (breaths/min)7 06/09 8:31Spontaneous Tidal Volume (mL)898 06/09 8:31RSBI (f/VT)7 06/09 8:31Spontaneous Minute Ventilation (L)6.286 06/09 8:31Negative Inspiratory Force (enter negative value) (cm H2O)-23 Non-Invasive 06/09 8:31High Inspiratory Pressure (cm H2O)40 ---- Intake and Output ----- Mn/Dy/Year TimeIntakeOutputNet Jun 10, 2022 6:00 [id number] Jun 09, 2022 10:00 [id number] Jun 09, 2022 2:00 [id number] The Intake and Output Totals for the last 24 hours are: IntakeOutputNet [id number] Physical Exam by System: Constitutional: Well developed, awake/alert/oriented x3, no distress, alert and cooperative Eyes: PERRL, EOMI, clear sclera ENMT: Nasal edema with incision spanning across nasal bridge. R nare packed Head/Neck: Midfacial postoperative edema and ecchymosis. Surgical incisions spanning across nasal bridge and inferior to R eye. Bicoronal scalp incision which is intact, approximated with sutures, small amount of oozing bleeding. x1 10 fr [address] drain in place at L parietal scalp region with serosanguinous drainage. Respiratory/Thorax: Patent airways, CTAB, normal breath sounds with good chest expansion, thorax symmetric Gastrointestinal: Nondistended, soft, non-tender, no rebound tenderness or guarding Neurological: alert and oriented x3, intact senses, motor, response and reflexes, normal strength. GCS 15 Medication: Medications: Continuous Medications ------- 1. Lactated Ringers Infusion: 1000 mL IntraVenous Scheduled Medications ------- 1. Acetaminophen: 650 mg Oral Every 6 Hours 2. Bacitracin - Polymyxin B Topical: 1 application(s) Topical 3 Times a Day 3. cefTRIAXone 2 gram/Dextrose 5% IVPB Premixed Soln 50 mL: 50 mL IntraVenous Piggyback Every 12 Hours 4. Chlorhexidine Gluconate 0.12% Mucous Mem: 15 mL Topical 3 Times a Day After Meals 5. Enoxaparin SubCutaneous: 30 mg SubCutaneous Every 12 Hours 6. Insulin Regular Moderate Corrective Scale: unit(s) SubCutaneous Every 6 Hours PRN Medications ------- 1. Dextrose 50% in Water Injectable: 25 gram(s) IntraVenous Push Every 15 Minutes 2. Glucagon Injectable: 1 mg IntraMuscular Every 15 Minutes 3. HYDROmorphone Injectable: 0.2 mg IntraVenous Push Every 2 Hours 4. oxyCODONE Immediate Release: 5 mg Oral Every 4 Hours 5. oxyCODONE Immediate Release: 10 mg Oral Every 4 Hours Recent Lab Results: Results: I have reviewed these laboratory results: Renal Function Panel 10-Jun-2022 02:26:00 ResultValue Glucose, Serum 106 H NA 137 K 3.8 CL 100 Bicarbonate, Serum 27 Anion Gap, Serum 14 BUN 12 CREAT 0.98 GFR Male >90 Calcium, Serum 8.1 L Phosphorus, Serum 2.7 ALB 3.2 L Complete Blood Count 10-Jun-2022 02:26:00 ResultValue White Blood Cell Count 13.2 H Nucleated Erythrocyte Count 0.0 Red Blood Cell Count 3.58 L HGB 11.9 L HCT 33.8 L MCV 94 MCHC 35.2 PLT 283 RDW-CV 11.8 Triglycerides, Serum 10-Jun-2022 02:26:00 ResultValue Triglycerides, Serum 124 . AGE DESIRABLE BORDERLINE HIGH HIGH VERY HIGH 0 D-90 D 19 - 174 ---- ---- ----91 D- 9 Y 0 - 74 75 - 99 >/= 100 ---- 10-19 Y 0 - 89 90 - 129 >/= 130 ---- Magnesium, Serum 10-Jun-2022 02:26:00 ResultValue Magnesium, Serum 2.00 Glucose_POCT 10-Jun-2022 00:06:00 ResultValue Glucose-POCT 119 H Radiology Results: Results: Impression: 1. Medical appliances as described above. 2. No focal infiltrate, pleural effusion, edema or pneumothora (more content not included)... Normal [facility] GLUCOSE-POCTon 06-10-2022 Glucose [Mass/Vol] 104 mg/dL High 74 - 99 [facility] Comment on above: Performed By: #### G CARLIN ####[id number] [place] [address] Glucose [Mass/Vol] 119 mg/dL High 74 - 99 [facility] Comment on above: Performed By: #### G CARLIN #### [facility] [address] [place] [address] Laboratory - Chemistry and C hemistry - challengeon 06-10-2022 Glucose [Mass/Vol] 104 mg/dL above high threshold 74 - 99 [facility] 2099 Work Phone: Glucose [Mass/Vol] 119 mg/dL above high threshold 74 - 99 [facility] 2099 Work Phone: Laboratory - Hematology and Cell countson 06-10-2022 Erythrocyte distribution width (RBC) [Ratio] 11.8 % See Below [facility] 2099 Work Phone: Comment on above: Reference Range: 11. 5 - 14.5 Hematocrit (Bld) [Volume fraction] 33.8 % below low threshold See Below [facility] 2099 Work Phone: Comment on above: Reference Range: 41. 0 - 52.0 Hemoglobin (Bld) [Mass/Vol] 11.9 g/dL below low threshold See Below [facility] 2099 Work Phone: Comment on above: Reference Range: 13. 5 - 17.5 MCHC (RBC) [Mass/Vol] 35.2 g/dL See Below [facility] 2099 Work Phone: Comment on above: Reference Range: 32. 0 - 36.0 MCV (RBC) [Entitic vol] 94 fL 80 - 100 [facility] 2099 Work Phone: Platelets (Bld) [#/Vol] 283 10*3/uL 150 - 450 [facility] 2099 Work Phone: RBC (Bld) [#/Vol] 3.58 {x10E12/L} below low threshold See Below [facility] 2099 Work Phone: Comment on above: Reference Range: 4.5 0 - 5.90 WBC (Bld) [#/Vol] 13.2 10*3/uL above high threshold 4.4 - 11.3 [facility] 2099 Work Phone: MAGNESIUMon 06-10-2022 Magnesium [Mass/Vol] 2.00 mg/dL Normal 1.60 - 2.40 [facility] Comment on above: Performed By: #### G CARLIN #### [facility] [address] [place] [address] Magnesium, Serumon Magnesium [Mass/Vol] 2.00 mg/dL See Below [facility]-P last[facility] Surgery-[facility] 2099 Work Phone: Comment on above: Reference Range: 1.6 0 - 2.40 No Panel Informationon 06-10 0.0 {/100_WBC} 0.0-0.0 [facility] 2099 Work Phone: RENAL FUNCTION PANELon 06-10 Albumin [Mass/Vol] 3.2 g/dL Low 3.4 - 5.0 [facility] Comment on above: Performed By: #### G CARLIN #### [facility] [address] [place] [address] Anion gap [Moles/Vol] 14 mmol/L Normal 10 - 20 [facility] Comment on above: Performed By: #### G CARLIN #### [facility] [address] [place] [address] Calcium [Mass/Vol] 8.1 mg/dL Low 8.6 - 10.6 [facility] Comment on above: Performed By: #### G CARLIN #### [facility] [address] [place] [address] Chloride [Moles/Vol] 100 mmol/L Normal 98 - 107 [facility] Comment on above: Performed By: #### G CARLIN #### [facility] [address] [place] [address] Creatinine [Mass/Vol] 0.98 mg/dL Normal 0.50 - 1.30 [facility] Comment on above: Performed By: #### G CARLIN #### [facility] [address] [place] [address] eGFR MALE >90 Normal >90 [facility] Comment on above: Result Comment: CALC ULATIONS OF ESTIMATED GFR ARE PERFORMED USING THE 2020 CKD-EPI STUDY REFIT EQUATION WITHOUT THE RACE VARIABLE FOR THE IDMS-TRACEABLE CREATININE METHODS. https://jasn.asnjournals.org/content/early//ASN.6270954 988 Performed By: #### G CARLIN #### [facility] [address] [place] [address] Glucose [Mass/Vol] 106 mg/dL High 74 - 99 [facility] Comment on above: Performed By: #### G CARLIN #### [facility] [address] [place] [address] HCO3 (Bld) [Moles/Vol] 27 mmol/L Normal 21 - 32 [facility] Comment on above: Performed By: #### G CARLIN #### [facility] [address] [place] [address] Phosphate [Mass/Vol] 2.7 mg/dL Normal 2.5 - 4.9 [facility] Comment on above: Result Comment: The performance characteristics of phosphorus testing in heparinized plasma have been validated by the individual laboratory site where testing is performed. Testing on heparinized plasma is not approved by the FDA; however, such approval is not necessary. Performed By: #### G CARLIN #### [facility] [address] [place] [address] Potassium [Moles/Vol] 3.8 mmol/L Normal 3.5 - 5.3 [facility] Comment on above: Performed By: #### G CARLIN #### [facility] [address] [place] [address] Sodium [Moles/Vol] 137 mmol/L Normal 136 - 145 [facility] Comment on above: Performed By: #### G CARLIN #### [facility] [address] [place] [address] Urea nitrogen [Mass/Vol] 12 mg/dL Normal 6 - 23 [facility] Comment on above: Performed By: #### G CARLIN #### [facility] [address] [place] [address] Renal Function Panelon 06-10 Albumin BCP dye [Mass/Vol] 3.2 g/dL below low threshold 3.4 - 5.0 [facility] Work Phone: Anion gap [Moles/Vol] 14 mmol/L 10 - 20 [facility] 2099 Work Phone: Calcium [Mass/Vol] 8.1 mg/dL below low threshold 8.6 - 10.6 [facility] 2099 Work Phone: Chloride [Moles/Vol] 100 mmol/L 98 - 107 [facility] last[facility] 2099 Work Phone: CO2 [Moles/Vol] 27 mmol/L 21 - 32 [facility]asti c Surgery-[facility] 2099 Work Phone: Creatinine [Mass/Vol] 0.98 mg/dL See Below [facility] 2099 Work Phone: Comment on above: Reference Range: 0.5 0 - 1.30 Glucose [Mass/Vol] 106 mg/dL above high threshold 74 - 99 [facility] 2099 Work Phone: Phosphate [Mass/Vol] 2.7 mg/dL 2.5 - 4.9 [facility] last[facility] Surgery-[facility] 2099 Work Phone: Comment on above: The performance pauline acteristics of phosphorus testing in heparinized plasma have been validated by the individual laboratory site where testing is performed. Testing on heparinized plasma is not approved by the FDA; however, such approval is not necessary. Potassium [Moles/Vol] 3.8 mmol/L 3.5 - 5.3 [facility] 2099 Work Phone: Sodium [Moles/Vol] 137 mmol/L 136 - 145 [facility]-Tomasa stic Surgery-[facility] 2099 Work Phone: Urea nitrogen [Mass/Vol] 12 mg/dL 6 - 23 [facility] 2099 Work Phone: [phone] Renal Function Panel >90 >90 [facility]P last[facility] Surgery-[facility] 2099 Work Phone: Comment on above: CALCULATIONS OF CHELE MATED GFR ARE PERFORMED USING THE 2020 CKD-EPI STUDY REFIT EQUATION WITHOUT THE RACE VARIABLE FOR THE IDMS-TRACEABLE CREATININE METHODS.https://jasn.asnjournals.org/content/early/ASN .6226233486 TRIGLYCERIDESon 06-10-2022 Triglyceride [Mass/Vol] 124 mg/dL Normal 0 - 149 [facility] Comment on above: Result Comment: . AGE DESIRABLE BORDERLINE HIGH HIGH VERY HIGH 0 D-90 D 19 - 174 ---- ---- ---- 91 D- 9 Y 0 - 74 75 - 99 >/= 100 ---- 10-19 Y 0 - 89 90 - 129 >/= 130 ---- 20-24 Y 0 - 114 115 - 149 >/= 150 ---- >24 Y 0 - 149 150 - 199 200- 499 >/= 500 . Venipuncture immediately after or during the administration of Metamizole may lead to falsely low results. Testing should be performed immediately prior to Metamizole dosing. Performed By: #### I ONC1 #### [facility] [address] [place] [address] Triglycerides, Serumon 06-10 Triglyceride [Mass/Vol] 124 mg/dL 0 - 149 [facility] 2099 Work Phone: Comment on above: . AGE DESIRABLE BORD JAZLYN HIGH HIGH VERY HIGH 0 D-90 D 19 - 174 ---- ---- ----91 D- 9 Y 0 - 74 75 - 99 >/= 100 ---- 10-19 Y 0 - 89 90 - 129 >/= 130 ---- 20-24 Y 0 - 114 115 - 149 >/= 150 ---- >24 Y 0 - 149 150 - 199 200- 499 >/= 500. Venipuncture immediately after or during the administration of Metamizole may lead to falsely low results. Testing should be performed immediately prior to Metamizole dosing. CALCIUM, IONIZEDon 2 CALCIUM,IONIZED 1.08 mmol/L Low 1.10 - 1.33 [facility] Comment on above: Result Comment: The performance characteristics of ionized calcium tested in heparinized plasma or serum have been validated by the individual laboratory site where testing is performed. Testing on heparinized plasma or serum is not approved by the FDA; however, such approval is not necessary. Performed By: #### G CARLIN #### [facility] [address] [place] [address] CBCon 06-09-2022 Erythrocyte distribution width (RBC) [Ratio] 11.8 % Normal 11.5 - 14.5 [facility] Comment on above: Performed By: #### C BC ####[id number] [place] [address] Hematocrit (Bld) [Volume fraction] 40.8 % Low 41.0 - 52.0 [facility] Comment on above: Performed By: #### C BC ####[id number] [place] [address] Hemoglobin (Bld) [Mass/Vol] 14.5 g/dL Normal 13.5 - 17.5 [facility] Comment on above: Performed By: #### C BC ####[id number] [place] [address] MCHC (RBC) [Mass/Vol] 35.5 g/dL Normal 32.0 - 36.0 [facility] Comment on above: Performed By: #### C BC ####[id number] [place] [address] MCV (RBC) [Entitic vol] 94 fL Normal 80 - 100 [facility] Comment on above: Performed By: #### C BC ####[id number] [place] [address] NUCLEATED RBC 0.0 /100 WBC Normal 0.0-0.0 [facility] Comment on above: Performed By: #### C BC ####[id number] [place] [address] Platelets (Bld) [#/Vol] 359 10*3/uL Normal 150 - 450 [facility] Comment on above: Performed By: #### C BC ####[id number] [place] [address] RBC 4.33 x10E12/L Low 4.50 - 5.90 [facility] Comment on above: Performed By: #### C BC ####[id number] [place] [address] WBC (Bld) [#/Vol] 16.1 10*3/uL High 4.4 - 11.3 [facility] Comment on above: Performed By: #### C BC ####[id number] [place] [address] Erythrocyte distribution width (RBC) [Ratio] 11.8 % Normal 11.5 - 14.5 [facility] Comment on above: Performed By: #### G CARLIN #### [facility] [address] [place] [address] Hematocrit (Bld) [Volume fraction] 40.9 % Low 41.0 - 52.0 [facility] Comment on above: Performed By: #### G CARLIN #### [facility] [address] [place] [address] Hemoglobin (Bld) [Mass/Vol] 14.9 g/dL Normal 13.5 - 17.5 [facility] Comment on above: Performed By: #### G CARLIN #### [facility] [address] [place] [address] MCHC (RBC) [Mass/Vol] 36.4 g/dL High 32.0 - 36.0 [facility] Comment on above: Performed By: #### G CARLIN #### [facility] [address] [place] [address] MCV (RBC) [Entitic vol] 95 fL Normal 80 - 100 [facility] Comment on above: Performed By: #### G CARLIN #### [facility] [address] [place] [address] NUCLEATED RBC 0.0 /100 WBC Normal 0.0-0.0 [facility] Comment on above: Performed By: #### G CARLIN #### [facility] [address] [place] [address] Platelets (Bld) [#/Vol] 322 10*3/uL Normal 150 - 450 [facility] Comment on above: Performed By: #### G CARLIN #### [facility] [address] [place] [address] RBC 4.30 x10E12/L Low 4.50 - 5.90 [facility] Comment on above: Performed By: #### Josue CARLIN #### [facility] [address] [place] [address] WBC (Bld) [#/Vol] 16.9 10*3/uL High 4.4 - 11.3 [facility] Comment on above: Performed By: #### Josue CARLIN #### [facility] [address] [place] [address] COAGULATION SCREENon 022 aPTT Coag (Bld) [Time] 23 s Low 26 - 39 [facility] Comment on above: Result Comment: THE APTT IS NO LONGER USED FOR MONITORING UNFRACTIONATED HEPARIN THERAPY. FOR MONITORING HEPARIN THERAPY, USE THE HEPARIN ASSAY. Performed By: #### G CARLIN #### [facility] [address] [place] [address] PT Coag (PPP) [Time] 13.4 s Normal 9.8 - 13.4 [facility] Comment on above: Performed By: #### G CARLIN #### [facility] [address] [place] [address] PT, INR 1.2 High 0.9 - 1.1 [facility] Comment on above: Performed By: #### G CARLIN #### [facility] [address] [place] [address] CT Facial Boneson 06-09-2022 CT Facial bones Normal [facility] 2099 Work Phone: CT Head without Contraston 1 08-09-2021 CT Head limited WO contrast Normal [facility] 2100 Work Phone: CT IMAGE RECONSTRUCTION 3D V OLUME and MIPon 06-09-2022 CT IMAGE RECONSTRUCTION 3D VOLUME and MIP Patient Name: RM BERMAN STUDY: CT FACIAL BONES; CT HEAD WO CONTRAST; CT CORONAL/SAGITTAL/OBLIQUE RECON; 06/09/2022 12:50 am INDICATION: s/p cranial face recon, Lie Flat: Yes ; s/p bifrontal crani, frontal sinus exenteration, Lie Flat: Yes . COMPARISON: CT head on 06/02/2022 ACCESSION NUMBER(S): [id number]; [id number]; [id number] ORDERING CLINICIAN: MIGUEL A ROBERT TECHNIQUE: Axial noncontrast CT images of the head with coronal and sagittal reformatted images. Axial noncontrast CT images of the facial bones with coronal and sagittal reformatted images. 3D facial reconstructions were created on an independent workstation and reviewed. FINDINGS: CT HEAD: BRAIN PARENCHYMA: No evidence of acute intraparenchymal hemorrhage or acute large territory ischemic infarct. No mass-effect, midline shift or effacement of cerebral sulci. Shepard-white matter distinction is preserved. VENTRICLES and EXTRA-AXIAL SPACES: No acute extra-axial or intraventricular hemorrhage. Ventricles and sulci are age-concordant. MASTOIDS: Well-aerated. CALVARIUM: No skull fracture. CT MAXILLOFACIAL SKELETON: FACIAL BONES: Surgical changes of bifrontal approach craniotomy for frontal sinus exenteration. Open reduction internal fixation of multiple nasal bone fractures. Redemonstration of extensive comminuted fractures of the mid face with involvement of the nasal bones bilaterally, the nasal septum, the medial and inferior ceballos of the orbits, left greater than right. These fractures are again noted to extend to the level of the frontal sinus. ORBITS: The globes, extraocular muscles, and optic nerve sheath complexes are intact. No retrobulbar hematoma. SOFT TISSUES: No discernible abnormality. PARANASAL SINUSES: There is moderate opacification of the frontal sinuses with hyperdense heterogeneous material and postoperative pneumocephalus. There is additional layering high attenuation material in the right maxillary sinus, likely blood products. Hyperattenuating packing material is visualized within the right nostril. No hemorrhage within the paranasal sinuses. OTHER FINDINGS: Partially visualized endotracheal tube. IMPRESSION: CT HEAD: There is no evidence of acute hemorrhage, mass lesion or acute infarction. CT MAXILLOFACIAL SKELETON: Postoperative changes of bifrontal approach craniotomy for frontal sinus exenteration with postoperative pneumocephalus and blood products. Postoperative changes are also noted of reduction internal fixation of multiple nasal bone fractures with associated blood products. I personally reviewed the images/study and I agree with operations vice president Dr. Yvette Clinton's findings as stated. This study was interpreted at [facility], [place], [place]. Electronically signed by: CHRISTEL DE LOS SANTOS MD Normal [facility] CT Image Reconstruction 3D V olume and MIPon 06-09-2022 CT Image Reconstruction 3D Volume and MIP [facility] 2[facility] Work Phone: Calcium, Ionized Levelon Calcium, Ionized Level 1.08 mmol/L below low threshold See Below [facility] [place] [place] [facility] 2[facility] Work Phone: Comment on above: Reference Range: 1.1 0 - 1.33 The performance characteristics of ionized calcium tested in heparinized plasma or serum have been validated by the individual laboratory site where testing is performed. Testing on heparinized plasma or serum is not approved by the FDA; however, such approval is not necessary. Clinical Event Note-Neurosur shauna signoffon 06-09-2022 Clinical Event Note-Neurosurgery signoff Clinical Event: Clinical Event Note: TopicNeurosurgery signoff Details Imaging reviewed, no acute neurosurgical intervention or additional neuroimaging needed at this time. Patient going well neurologically stable postoperatively. OK for DVT prophylaxis. Thank you for allowing us to participate in the care of this patient. Will sign off at this time. Please page [phone] with any questions or concerns. Electronic Signatures: Garth Franco (Resident)) (Signed 09-Jun-2022 16:19) Authored: Clinical Event Note Last Updated: 09-Jun-2022 16:19 by Garth Franco (Resident)) Normal [facility] Clinical Event Note-plastic surgery post op checkon 06-09-2022 Clinical Event Note-plastic surgery post op check Clinical Event: Clinical Event Note: Topicplastic surgery post op check Details Rm is POD0 nasal bone ORIF with plastic surgery and frontal sinus exenteration, duraplasty with NSGY. Patient is HDS in TSICU. Physical Exam: Constitutional: Intubated, opens eyes to voice Eyes: Bilateral periorbital edema and ecchymosis. Sutures well-approximated below right eye and left eyebrow ENMT: MMM. Closed lac to bridge of nose. Bloody drainage from mouth. Xeroform nasal packing to right nare. Head/Neck: Coronal incision c/d/i covered with bacitracin. x1 BROOKE drain to left scalp with SSG output. Cardiovascular: WWP Respiratory/Thorax: intubated Genitourinary: Lafleur in place Psychological: Sedated Skin: Warm and dry with no lesions or rashes Plan: - Obtain non-contrast CT head/face with 3D reconstruction post-op - Q1 neuro checks per nursing until post-op CT obtained/cleared per NSGY - Hold anticoagulants 2 days post-op per NSGY recs - Resume IV abx - Keep HOB elevated as able - Maintain sinus precautions - Bacitracin to incision lines daily, otherwise HOSE COUPLING JOINER - x1 BROOKE drain per plastics - Peridex mouthwash TID following meals and PRN - Keep xeroform nasal packing in place until POD5 - Plastics will follow Makenna Carver PA-C Plastic and Reconstructive Surgery [facility], Pager #[phone], Team phones: [phone] Electronic Signatures: Makenna Carver (PAC) (Signed 08-Jun-2022 23:34) Authored: Clinical Event Note Last Updated: 08-Jun-2022 23:34 by Makenna Carver (PAC) Normal [facility] Daily Progress Note - Critic al Care-TSICUon 06-09-2022 Daily Progress Note - Critical Care-TSICU Service: Critical Care Service: ServiceTSICU Subjective Data: ID Statement: RM BERMAN is a 52 year old Male who is Hospital Day # 9 and ICU Day #2 and POD #1 for 1. Multiple nasal bone ORIFs;2. Calvarium bone harvest for nasal graft;3. Cribiform defect ORIF;4. Refer to neurosurg note;5. Objective Data: Objective Information T PRBPMAPSpO2 [id number]% Date/Time06/09 12: 13: 13: 12: 12: 13:00 Range(36.1C - 37C ) (81 - 115 ) (11 - 24 ) (98 - 198 )/ (70 - 91 ) (80 - 131 ) (95% - 100% ) As of 09-Jun-2022 08:00:00, patient is on 30% oxygen via ventilator assisted. Highest temp of 37 C was recorded at 06/09 12:00 Pain reported at 06/09 13:30: 0 Pain reported at 06/09 12:00: 6 = Moderate ---- Intake and Output ----- Mn/Dy/Year TimeIntakeOutputNet Jun 09, 2022 2:00 [id number] Jun 09, 2022 6:00 [id number] Jun 08, 2022 10:00 [id number] The Intake and Output Totals for the last 24 hours are: IntakeOutputNet [id number] Drain and tube details (included in I&O totals) 1685 cc Indwelling Catheter - Urethral( 09-Jun-2022 06:00:00 ) Date: Weight/Scale Type: 08-Jun-2022 21:0575.8 kg 08-Jun-2022 18:3790 kg Physical Exam by System: Neurological: Eyes open to voice, perrl, OU 3mm Reactive EOMI BUE follow commands with thumbs up BLE wiggles toes to command Cardiovascular: well perfused Respiratory/Thorax: equal chest rise, breathing comfortably on room air Genitourinary: lafleur in place Gastrointestinal: soft, non distended Skin: bicoronal incision, BROOKE drain in place Musculoskeletal: no obvious deformity Constitutional: sedated, awakens when off sedatoin Eyes: anicteric ENMT: mucous membranes moist Head/Neck: trachea midline Extremities: normal ROM Lymphatic: No significant lymphadenopathy Psychological: sedated Allergies: Allergies: No Known Allergies: Recent Lab Results: Results: CBC: 06/09/2022 03:18 \ Hgb / \ 14.5 / WBC Plt 16.1 H 359 / Hct \ / 40.8 L \ RBC: 4.33 L MCV: 94 RFP: 06/09/2022 03:18 NA+ Cl- BUN / 138 99 10 / ------- Glucose -- 110 H K+ HCO3- Creat \ 4.7 28 1.05 \ Calcium : 8.5 LAnion Gap : 16 Albumin : 3.5 Phos : 3.5 Coagulation: 06/08/2022 21:25 PT / 13.4 / -------< INR < 1.2 H PTT\ 23 L \ Assessment and Plan: Daily Risk Screen: Does patient have a central lineno Does patient have an indwelling urinary catheterno Is the patient intubatedno Assessment/Plan: Assessment/Plan: 52 YOM s/p fall with ladder 05[facility]28[facility] [place] List of clinically significant injuries/problems - pneumocephalus - comminuted frontal sinus fx involving anterior and posterior ceballos, ext to nola roney and cribiform plate - comminuted nasal bone fx - b/l medial and inferior orbital wall fx - nasal septum fx - anterior ceballos of b/l maxillary sinuses - suspicion of epidual blood products posteriorly at cranial/cervical junction - Bifrontal cerebral parenchymal contusions OR -06/08 sp bifrontal approach for frontal sinus exenteration with NGY, nasal ORIF, cribiform ORIF and calvarial bone harvest with Plastics NEURO #comminuted frontal sinus and facial/nasal bone fx - s/p bifrontal approach for repair with plastics/NGY - BROOKE drain per plastics, maintain and record output per shift - maintain SBP<180 - monitor for CSF rhinorrhea - Dilaudid as needed, Oxy 5/10 as needed, sched tylenol Resp - Extubated - Doing well on room air CV - maintain MAPS>65 - maintain SBP <180, PRNs as needed - not requiring pressors GI - Clear liquid diet ID - CTX for ABx x 5 days per NSGY RENAL - strict I/Os - LR at 75 until taking adequate by mouth - lafleur in place, DC - electrolyte replacement per ICU protocol ENDO - accuchecks - SSI MSK - plastics recs- - Maintain Xeroform nasal packing until POD5 (05/13) - Keep HOB elevated to alleviate facial edema - Bacitracin to incision lines daily, otherwise MARGARITA - BROOKE drain care to x1 drain present at L parietal scalp Strip drain tubing TID and PRN Monitor and record output q8h Removal per plastic surgery team when output <30 cc/24 hrs for 2 consecutive days - Peridex mouthwash TID (once extubated) - Patient to maintain strict sinus precautions postoperatively Do NOT blow nose for at least two weeks Do NOT forcibly split Do NOT smoke Avoid holding sneezes, sneeze with mouth open Do not use a straw to drink Keep mouth open when coughing No lifting greater than 15-20 pounds - Hold anticoagulants until POD2 (05/10) - Continue IV ABX (currently IV ceftriaxone until POD5 per NSYG recs in setting of traumatic durotomy) NSGY- Signed off, no additional neuro needs DVT ppx: SCD, ok for DVT ppx on POD 2 per NGY GI pp (more content not included)... Normal [facility] Daily Progress Note-Samy anand 06-09-2022 Daily Progress Note-Neurosurgery Service: Neurosurgery Subjective Data: RM BERMAN is a 52 year old Male who is Hospital Day # 9 and POD #1 for 1. Multiple nasal bone ORIFs;2. Calvarium bone harvest for nasal graft;3. Cribiform defect ORIF;4. Refer to neurosurg note;5. Objective Data: Objective Information: T PRBPMAPSpO2 [id number] % Date/Time06/09 8: 8: 8: 8: 8: 8:00 Range(36.1C - 36.9C ) (81 - 115 ) (16 - 24 ) (98 - 198 )/ (70 - 91 ) (85 - 131 ) (95% - 100% ) As of 09-Jun-2022 08:00:00, patient is on 30% oxygen via ventilator assisted. Highest temp of 36.9 C was recorded at 06/08 4:28 Pain reported at 06/09 8:00: 2 Pain reported at 06/09 8:00: 8 = Severe ---- Intake and Output ----- Mn/Dy/Year TimeIntakeOutputNet Jun 09, 2022 6:00 am831.6930-99 Jun 08, 2022 10:00 [id number] The Intake and Output Totals for the last 24 hours are: IntakeOutputNet [id number] Physical Exam by System: Neurological: Awake, Ox3 FCx4 12/09 Assessment and Plan: Daily Risk Screen: Does patient have an indwelling urinary cathetern/a consulting service Does patient have a central linen/a consulting service Code Status: Code StatusFull Code Assessment: 52 year old with no sig pmh, s/p 14ft fall off ladder, CTH diffuse comminuted facial and frontal sinus fxs w/ intracranial ext, diffuse pneumocephalus, 06/02 vCTH stable. Hospital course: 06/08 s/p bifrontal approach, frontal sinus exenteration, s/p nasal bone ORIFs, calvarial bone harvest for nasal fracture, cribriform defect ORIG, and wound closure by Plastic Surgery Trauma primary: drains per plastics please page once extubated for exam Please page Neurosurgery pager [phone]] with any questions or concerns during the day. Progress note authored by Plate Washer resident. Arben[employer]alo messages will have delayed responses. Attestation: Note Completion: I am a: Resident/Fellow Attending AttestationI saw and evaluated the patient. I personally obtained the delvalle and critical portions of the history and physical exam or was physically present for delvalle and critical portions performed by the resident/fellow. I reviewed the resident/fellows documentation and discussed the patient with the resident/fellow. I agree with the resident/fellows medical decision making as documented in the note. I personally evaluated the patient [id number] Electronic Signatures: Miguel A Robert (Resident)) (Signed 09-Jun-2022 08:34) Authored: Service, Subjective Data, Objective Data, Assessment and Plan, Note Completion Barber Castañeda) (Signed 09-Jun-2022 15:27) Authored: Note Completion Co-Signer: Service, Subjective Data, Objective Data, Assessment and Plan, Note Completion Last Updated: 09-Jun-2022 15:27 by Barber Castañeda) Normal [facility] Daily Progress Note-Plastic Surgeryon 06-09-2022 Daily Progress Note-Plastic Surgery Service: Plastic Surgery Subjective Data: RM BERMAN is a 52 year old Male who is Hospital Day #9 and POD #1 for 1. Multiple nasal bone ORIFs; 2. Calvarium bone harvest for nasal graft; 3. Cribriform defect ORIF. Resting in bed in TSICU, remains intubated, following commands. Additional Information: Patient to TSICU postoperatively yesterday evening. No acute events overnight. Objective Data: Objective Information: T PRBPMAPSpO2 [id number] % Date/Time06/09 8: 8: 8: 8: 8: 8:00 Range(36.1C - 36.9C ) (81 - 115 ) (16 - 24 ) (98 - 198 )/ (70 - 91 ) (85 - 131 ) (95% - 100% ) As of 09-Jun-2022 08:00:00, patient is on 30% oxygen via ventilator assisted. Highest temp of 36.9 C was recorded at 06/08 4:28 Pain reported at 06/09 8:00: 2 Pain reported at 06/09 8:00: 8 = Severe ---- Intake and Output ----- Mn/Dy/Year TimeIntakeOutputNet Jun 09, 2022 6:00 [id number] Jun 08, 2022 10:00 [id number] The Intake and Output Totals for the last 24 hours are: IntakeOutputNet [id number] Physical Exam by System: Constitutional: Awake, following verbal commands. Eyes: Bilateral periorbital ecchymosis and edema. EOMI, clear sclera. Patient opens eyes spontaneously. Vision grossly intact per patient. ENMT: Intubated. MMM. Intraoral incision to inner, upper gingivae which is approximated with sutures. Appreciable nasal edema with incision spanning across nasal bridge which is approximated with intact absorbable sutures, dressed with topical Bacitracin. R nasal passage packed with postoperative Xeroform dressing. L nasal passage patent with dried blood. Head/Neck: Midfacial postoperative edema and ecchymosis. Surgical incisions spanning across nasal bridge and inferior to R eye which are approximated with intact absorbable sutures, dressed with topical Bacitracin. No bleeding, drainage or dehiscence. Bicoronal scalp incision which is intact, approximated with sutures, small amount of oozing bleeding. x1 10 fr BROO[address] drain in place at L parietal scalp region with serosanguinous drainage. Respiratory/Thorax: Intubated, on vent. Cardiovascular: Regular rhythm, marginally tachycardic rate per cardiac specialist. Gastrointestinal: Nondistended, soft. +orogastric tube. Genitourinary: Voiding per indwelling Lafleur catheter. Extremities: Moves b/l upper extremities spontaneously. Neurological: Alert, following verbal commands. Skin: Warm, dry. Healed abrasions/lacerations to L anterior knee which are approximated with sutures. Medication: Medications: Continuous Medications ------- 1. Lactated Ringers Infusion: 1000 mL IntraVenous 2. Propofol 10 mg/mL Infusion with Bolus from Ba mcg/kg/min IntraVenous Scheduled Medications ------- 1. Bacitracin - Polymyxin B Topical: 1 application(s) Topical 3 Times a Day 2. cefTRIAXone 2 gram/Dextrose 5% IVPB Premixed Soln 50 mL: 50 mL IntraVenous Piggyback Every 12 Hours 3. Famotidine Injectable: 20 mg IntraVenous Push Every 12 Hours 4. Insulin Regular Moderate Corrective Scale: unit(s) SubCutaneous Every 6 Hours PRN Medications ------- 1. Calcium Gluconate IVPB: 1 gram(s) IntraVenous Piggyback Every 6 Hours 2. Calcium Gluconate IVPB: 2 gram(s) IntraVenous Piggyback Every 6 Hours 3. Dextrose 50% in Water Injectable: 25 gram(s) IntraVenous Push Every 15 Minutes 4. Glucagon Injectable: 1 mg IntraMuscular Every 15 Minutes 5. HYDROmorphone Injectable: 0.2 mg IntraVenous Push Every 2 Hours 6. Magnesium Sulfate 2 gram/Sterile Water 50 mL Premix Soln: 2 gram(s) IntraVenous Piggyback Every 6 Hours 7. Magnesium Sulfate 4 gram/Sterile Water 100 mL Premix Soln: 4 gram(s) IntraVenous Piggyback Every 6 Hours 8. Potassium Chloride 20 mEq/Sterile Water 100 mL Premix IVPB: 20 mEq IntraVenous Piggyback Every 6 Hours Recent Lab Results: Results: I have reviewed these laboratory results: Complete Blood Count 09-Jun-2022 03:18:00 ResultValue White Blood Cell Count 16.1 H Nucleated Erythrocyte Count 0.0 Red Blood Cell Count 4.33 L HGB 14.5 HCT 40.8 L MCV 94 MCHC 35.5 PLT 359 RDW-CV 11.8 Renal Function Panel 09-Jun-2022 03:18:00 ResultValue Glucose, Serum 110 H NA 138 K 4.7 CL 99 Bicarbonate, Serum 28 Anion Gap, Serum 16 BUN 10 CREAT 1.05 GFR Male 85 Calcium, Serum 8.5 L Phosphorus, Serum 3.5 ALB 3.5 Magnesium, Serum 09-Jun-2022 03:18:00 ResultValue Magnesium, Serum 2.18 Calcium, Ionized Level 09-Jun-2022 03:18:00 ResultValue Calcium, Ionized Level 1.08 L Radiology Results: Results: Impression: 1. Medical appliances as described above. 2. No focal infiltrate, pleural effusion, edema or pneumothorax. Xray Chest 1 View [Jun 09 2022 7:52AM] Impression: 1. Enteric tube with distal tip and side hole projecting ov (more content not included)... Normal [facility] Daily Progress Note-Trauma S rambo 06-09-2022 Daily Progress Note-Trauma Surgery Service: Trauma Surgery Subjective Data: RM BERMAN is a 52 year old Male who is Hospital Day # 9 and POD #1 for 1. Multiple nasal bone ORIFs;2. Calvarium bone harvest for nasal graft;3. Cribiform defect ORIF;4. Refer to neurosurg note;5. Extubated this morning without issues. Objective Data: Objective Information: T PRBPMAPSpO2 [id number]% Date/Time06/09 8: 10: 10: 10: 10: 10:00 Range(36.1C - 36.9C ) (81 - 115 ) (11 - 24 ) (98 - 198 )/ (70 - 91 ) (85 - 131 ) (95% - 100% ) As of 09-Jun-2022 08:00:00, patient is on 30% oxygen via ventilator assisted. Highest temp of 36.9 C was recorded at 06/08 4:28 Pain reported at 06/09 9:00: 0 Pain reported at 06/09 8:00: 8 = Severe ---- Intake and Output ----- Mn/Dy/Year TimeIntakeOutputNet Jun 09, 2022 6:00 [id number] Jun 08, 2022 10:00 [id number] The Intake and Output Totals for the last 24 hours are: IntakeOutputNet [id number] Physical Exam by System: Constitutional: Cooperative, conversational ENMT: Moist mucus membranes Head/Neck: post op incision without drainage; BROOKE in place Respiratory/Thorax: nonlabored on supp O2 Cardiovascular: RRR, normotensive with maps 80s; HR 80s Gastrointestinal: Nondistended, soft, non-tender, no rebound tenderness or guarding Genitourinary: lafleur in place Extremities: WWP, no edema Neurological: GCS 15 Medication: Medications: Continuous Medications ------- 1. Lactated Ringers Infusion: 1000 mL IntraVenous 2. Propofol 10 mg/mL Infusion with Bolus from Ba mcg/kg/min IntraVenous Scheduled Medications ------- 1. Bacitracin - Polymyxin B Topical: 1 application(s) Topical 3 Times a Day 2. cefTRIAXone 2 gram/Dextrose 5% IVPB Premixed Soln 50 mL: 50 mL IntraVenous Piggyback Every 12 Hours 3. Famotidine Injectable: 20 mg IntraVenous Push Every 12 Hours 4. Insulin Regular Moderate Corrective Scale: unit(s) SubCutaneous Every 6 Hours PRN Medications ------- 1. Calcium Gluconate IVPB: 1 gram(s) IntraVenous Piggyback Every 6 Hours 2. Calcium Gluconate IVPB: 2 gram(s) IntraVenous Piggyback Every 6 Hours 3. Dextrose 50% in Water Injectable: 25 gram(s) IntraVenous Push Every 15 Minutes 4. Glucagon Injectable: 1 mg IntraMuscular Every 15 Minutes 5. HYDROmorphone Injectable: 0.2 mg IntraVenous Push Every 2 Hours 6. Magnesium Sulfate 2 gram/Sterile Water 50 mL Premix Soln: 2 gram(s) IntraVenous Piggyback Every 6 Hours 7. Magnesium Sulfate 4 gram/Sterile Water 100 mL Premix Soln: 4 gram(s) IntraVenous Piggyback Every 6 Hours 8. Potassium Chloride 20 mEq/Sterile Water 100 mL Premix IVPB: 20 mEq IntraVenous Piggyback Every 6 Hours Recent Lab Results: Results: CBC: 06/09/2022 03:18 \ Hgb / \ 14.5 / WBC Plt 16.1 H 359 / Hct \ / 40.8 L \ RBC: 4.33 L MCV: 94 RFP: 06/09/2022 03:18 NA+ Cl- BUN / 138 99 10 / ------- Glucose -- 110 H K+ HCO3- Creat \ 4.7 28 1.05 \ Calcium : 8.5 LAnion Gap : 16 Albumin : 3.5 Phos : 3.5 Coagulation: 06/08/2022 21:25 PT / 13.4 / -------< INR < 1.2 H PTT\ 23 L \ Radiology Results: Results: Impression: 1. Medical appliances as described above. 2. No focal infiltrate, pleural effusion, edema or pneumothorax. Xray Chest 1 View [Jun 09 2022 7:52AM] Assessment and Plan: Daily Risk Screen: Does patient have an indwelling urinary catheteryes Plan for indwelling urinary catheter removal todayno The patient continues to require indwelling urinary catheterization for critically ill patients who need accurate urinary output measurements Does patient have a central linen/a consulting service Admitting Dx: Fall from ladder: Entered Date: 01-Jun-2022 02:31 Additional Dx: Extensive facial fractures: Entered Date: 05-Jun-2022 21:31 Code Status: Code StatusFull Code Assessment: 52M s/p fall from ladder 05/28. List of clinically significant injuries/problems - Pneumocephalus - Comminuted frontal sinus fx involving anterior and posterior ceballos, ext to nola roney and cribiform plate - Comminuted nasal bone fx - B/l medial and inferior orbital wall fx - Nasal septum fx - Anterior ceballos of b/l maxillary sinuses - Suspicion of epidural blood products posteriorly at cranial/cervical junction - Bifrontal cerebral parenchymal contusions OR course: 06/08 sp bifrontal approach for frontal sinus exenteration with NGY, nasal ORIF, cribiform ORIF and calvarial bone harvest with Plastics Plan: - NSGY and Plastics following. f/u recs - BROOKE drain in place to the scalp>managed by plastics - aggressive bronchial hygiene - continue antibiotics - OK for diet when able - PT/OT Discussed with Dr. Rojas (more content not included)... Normal [facility] Daily Progress Note-Trauma Surgery Service: Trauma Surgery Subjective Data: RM BERMAN is a 52 year old Male who is Hospital Day # 8 and POD #0 for 1. Multiple nasal bone ORIFs;2. Calvarium bone harvest for nasal graft;3. Cribiform defect ORIF;4. Refer to neurosurg note;5. patient seen post operatively in the ICU on propofol for sedation. Remained intubated postoperatively and currently on minimal settinngs but otherwise HDS. Objective Data: Objective Information: T PRBPMAPSpO2 [id number]% Date/Time06/08 21:0511 22: 22: 22:0012 22:001/ 22:00 Range(35.9C - 36.9C ) (72 - 113 ) (16 - 24 ) (98 - 118 )/ (70 - 89 ) (85 - 94 ) (94% - 100% ) As of 08-Jun-2022 21:05:00, patient is on 30% oxygen via ventilator assisted. Highest temp of 36.9 C was recorded at 06/08 4:28 Pain reported at 06/08 21:05: 0 Pain reported at 06/08 18:16: unable to assess; pt intubated and sedated ---- Intake and Output ----- Mn/Dy/Year TimeIntakeOutputNet Jun 08, 2022 10:00 [id number] The Intake and Output Totals for the last 24 hours are: IntakeOutputNet [id number] Physical Exam by System: Constitutional: Cooperative, conversational ENMT: Moist mucus membranes Head/Neck: post op incision without drainage; BROOKE in place Respiratory/Thorax: intubated, on AC minimal settings Cardiovascular: RRR, normotensive with maps 80s; HR 80s Gastrointestinal: Nondistended, soft, non-tender, no rebound tenderness or guarding Genitourinary: lafleur in place Extremities: BUE follow commands with thumbs up BLE wiggles toes to command Neurological: Eyes open to voice, perrl, OU 3mm Reactive EOMI BUE follow commands with thumbs up BLE wiggles toes to command Recent Lab Results: Results: CBC: 06/08/2022 21:25 \ Hgb / \ 14.9 / WBC Plt 16.9 H 322 / Hct \ / 40.9 L \ RBC: 4.30 L MCV: 95 Coagulation: 06/08/2022 21:25 PT / 13.4 / -------< INR < 1.2 H PTT\ 23 L \ Radiology Results: Results: Impression: No evidence of acute cardiopulmonary process. Xray Chest 1 View [Jun 07 2022 11:50AM] Assessment and Plan: Daily Risk Screen: Does patient have an indwelling urinary catheteryes Plan for indwelling urinary catheter removal todayno The patient continues to require indwelling urinary catheterization for critically ill patients who need accurate urinary output measurements Code Status: Code StatusFull Code Assessment: 52 YOM s/p fall with ladder 05/28. Transfer from [facility] in [place]. List of clinically significant injuries/problems - Pneumocephalus - Comminuted frontal sinus fx involving anterior and posterior ceballos, ext to nola roney and cribiform plate - Comminuted nasal bone fx - B/l medial and inferior orbital wall fx - Nasal septum fx - Anterior ceballos of b/l maxillary sinuses - Suspicion of epidural blood products posteriorly at cranial/cervical junction - Bifrontal cerebral parenchymal contusions OR course: 06/08 sp bifrontal approach for frontal sinus exenteration with NGY, nasal ORIF, cribiform ORIF and calvarial bone harvest with Plastics Plan: - s/p OR with nsgy and plastics today> remained intubated post op and was admitted to tsicu - BROOKE drain in place to the scalp>managed by plastics -intubated/sedated in ICU on minimal settings; prop for sedation -cont. antibiotics per nsgy for at least 5 days -eval for poss. extubation in AM Dispo: tsu Azalea Castle [facility] Trauma Surgery [id number]/[place] Electronic Signatures: Joie Alvarado (PAC) (Signed 09-Jun-2022 06:04) Authored: Note Azalea Ornelas (FEED INSPECTION SUPERVISOR-[facility]) (Signed 08-Jun-2022 23:00) Authored: Service, Subjective Data, Objective Data, Assessment and Plan Last Updated: 09-Jun-2022 06:04 by Joie Alvarado (PAC) Normal [facility] GLUCOSE-POCTon 06-09-2022 Glucose [Mass/Vol] 139 mg/dL High 74 - 99 [facility] Comment on above: Performed By: #### I ONC1 #### [facility] [id number] [place] [address] Glucose [Mass/Vol] 127 mg/dL High 74 - 99 [facility] Comment on above: Performed By: #### I ONC1 #### [facility] [address] [place] [address] Glucose [Mass/Vol] 121 mg/dL High 74 - 99 [facility] Comment on above: Performed By: #### G CARLIN #### [facility] [address] [place] [address] Glucose [Mass/Vol] 131 mg/dL High 74 - 99 [facility] Comment on above: Performed By: #### G CARLIN #### [facility] [address] [place] [address] Laboratory - Chemistry and C hemistry - challengeon 06-09-2022 Glucose [Mass/Vol] 139 mg/dL above high threshold 74 - 99 [facility] [facility] Work Phone: Glucose [Mass/Vol] 127 mg/dL above high threshold 74 - 99 [facility] [facility] Work Phone: Glucose [Mass/Vol] 121 mg/dL above high threshold 74 - 99 [facility] [facility] Work Phone: Glucose [Mass/Vol] 131 mg/dL above high threshold 74 - 99 [facility] [facility] Work Phone: Laboratory - Hematology and Cell countson 06-09-2022 Erythrocyte distribution width (RBC) [Ratio] 11.8 % See Below [facility] 2099 Work Phone: Comment on above: Reference Range: 11. 5 - 14.5 Hematocrit (Bld) [Volume fraction] 40.8 % below low threshold See Below [facility] 2099 Work Phone: Comment on above: Reference Range: 41. 0 - 52.0 Hemoglobin (Bld) [Mass/Vol] 14.5 g/dL See Below [facility] 2099 Work Phone: Comment on above: Reference Range: 13. 5 - 17.5 MCHC (RBC) [Mass/Vol] 35.5 g/dL See Below [facility] [facility]99 Work Phone: Comment on above: Reference Range: 32. 0 - 36.0 MCV (RBC) [Entitic vol] 94 fL 80 - 100 [facility] 2099 Work Phone: Platelets (Bld) [#/Vol] 359 10*3/uL 150 - 450 [facility] 2099 Work Phone: RBC (Bld) [#/Vol] 4.33 {x10E12/L} below low threshold See Below [facility] 2099 Work Phone: Comment on above: Reference Range: 4.5 0 - 5.90 WBC (Bld) [#/Vol] 16.1 10*3/uL above high threshold 4.4 - 11.3 [facility] 2099 Work Phone: MAGNESIUMon 06-09-2022 Magnesium [Mass/Vol] 2.18 mg/dL Normal 1.60 - 2.40 [facility] Comment on above: Performed By: #### G CARLIN #### [facility] [address] [place] [address] Magnesium [Mass/Vol] 1.90 mg/dL Normal 1.60 - 2.40 [facility] Comment on above: Result Comment: MILD HEMOLYSIS DETECTED. The result may be falsely elevated due to hemolysis or other interferents. Clinical correlation is recommended. Repeat testing may be considered. MARKED LIPEMIA, HIGH SPEED CENTRIFUGATION WAS PERFORMED REVISED REPORT, Previously reported as: MILD HEMOLYSIS DETECTED. The result may be falsely elevated due to hemolysis or other interferents. Clinical correlation is recommended. Repeat testing may be considered. (Reported 06/08/2022 23:53) Performed By: #### M G ####[id number] [place] [address] Magnesium, Serumon Magnesium [Mass/Vol] 2.18 mg/dL See Below [facility] 2099 Work Phone: Comment on above: Reference Range: 1.6 0 - 2.[address] FACIAL BONES W/O CONTR Liz 06-09-[address] FACIAL BONES W/O CONTRAST Patient Name: RM BERMAN STUDY: CT FACIAL BONES; CT HEAD WO CONTRAST; CT CORONAL/SAGITTAL/OBLIQUE RECON; 06/09/2022 12:50 am INDICATION: s/p cranial face recon, Lie Flat: Yes ; s/p bifrontal crani, frontal sinus exenteration, Lie Flat: Yes . COMPARISON: CT head on 06/02/2022 ACCESSION NUMBER(S): [id number]; [id number]; [id number] ORDERING CLINICIAN: MIGUEL A ROBERT TECHNIQUE: Axial noncontrast CT images of the head with coronal and sagittal reformatted images. Axial noncontrast CT images of the facial bones with coronal and sagittal reformatted images. 3D facial reconstructions were created on an independent workstation and reviewed. FINDINGS: CT HEAD: BRAIN PARENCHYMA: No evidence of acute intraparenchymal hemorrhage or acute large territory ischemic infarct. No mass-effect, midline shift or effacement of cerebral sulci. Shepard-white matter distinction is preserved. VENTRICLES and EXTRA-AXIAL SPACES: No acute extra-axial or intraventricular hemorrhage. Ventricles and sulci are age-concordant. MASTOIDS: Well-aerated. CALVARIUM: No skull fracture. CT MAXILLOFACIAL SKELETON: FACIAL BONES: Surgical changes of bifrontal approach craniotomy for frontal sinus exenteration. Open reduction internal fixation of multiple nasal bone fractures. Redemonstration of extensive comminuted fractures of the mid face with involvement of the nasal bones bilaterally, the nasal septum, the medial and inferior ceballos of the orbits, left greater than right. These fractures are again noted to extend to the level of the frontal sinus. ORBITS: The globes, extraocular muscles, and optic nerve sheath complexes are intact. No retrobulbar hematoma. SOFT TISSUES: No discernible abnormality. PARANASAL SINUSES: There is moderate opacification of the frontal sinuses with hyperdense heterogeneous material and postoperative pneumocephalus. There is additional layering high attenuation material in the right maxillary sinus, likely blood products. Hyperattenuating packing material is visualized within the right nostril. No hemorrhage within the paranasal sinuses. OTHER FINDINGS: Partially visualized endotracheal tube. IMPRESSION: CT HEAD: There is no evidence of acute hemorrhage, mass lesion or acute infarction. CT MAXILLOFACIAL SKELETON: Postoperative changes of bifrontal approach craniotomy for frontal sinus exenteration with postoperative pneumocephalus and blood products. Postoperative changes are also noted of reduction internal fixation of multiple nasal bone fractures with associated blood products. I personally reviewed the images/study and I agree with operations vice president Dr. Yvette Clinton's findings as stated. This study was interpreted at [facility], [place], [place]. Electronically signed by: CHRISTEL DE LOS SANTOS MD Normal [facility] NR CT HEAD WO CONTRASTon NR CT HEAD WO CONTRAST Patient Name: RM BERMAN STUDY: CT FACIAL BONES; CT HEAD WO CONTRAST; CT CORONAL/SAGITTAL/OBLIQUE RECON; 06/09/2022 12:50 am INDICATION: s/p cranial face recon, Lie Flat: Yes ; s/p bifrontal crani, frontal sinus exenteration, Lie Flat: Yes . COMPARISON: CT head on 06/02/2022 ACCESSION NUMBER(S): [id number]; [id number]; [id number] ORDERING CLINICIAN: MIGUEL A ROBERT TECHNIQUE: Axial noncontrast CT images of the head with coronal and sagittal reformatted images. Axial noncontrast CT images of the facial bones with coronal and sagittal reformatted images. 3D facial reconstructions were created on an independent workstation and reviewed. FINDINGS: CT HEAD: BRAIN PARENCHYMA: No evidence of acute intraparenchymal hemorrhage or acute large territory ischemic infarct. No mass-effect, midline shift or effacement of cerebral sulci. Shepard-white matter distinction is preserved. VENTRICLES and EXTRA-AXIAL SPACES: No acute extra-axial or intraventricular hemorrhage. Ventricles and sulci are age-concordant. MASTOIDS: Well-aerated. CALVARIUM: No skull fracture. CT MAXILLOFACIAL SKELETON: FACIAL BONES: Surgical changes of bifrontal approach craniotomy for frontal sinus exenteration. Open reduction internal fixation of multiple nasal bone fractures. Redemonstration of extensive comminuted fractures of the mid face with involvement of the nasal bones bilaterally, the nasal septum, the medial and inferior ceballos of the orbits, left greater than right. These fractures are again noted to extend to the level of the frontal sinus. ORBITS: The globes, extraocular muscles, and optic nerve sheath complexes are intact. No retrobulbar hematoma. SOFT TISSUES: No discernible abnormality. PARANASAL SINUSES: There is moderate opacification of the frontal sinuses with hyperdense heterogeneous material and postoperative pneumocephalus. There is additional layering high attenuation material in the right maxillary sinus, likely blood products. Hyperattenuating packing material is visualized within the right nostril. No hemorrhage within the paranasal sinuses. OTHER FINDINGS: Partially visualized endotracheal tube. IMPRESSION: CT HEAD: There is no evidence of acute hemorrhage, mass lesion or acute infarction. CT MAXILLOFACIAL SKELETON: Postoperative changes of bifrontal approach craniotomy for frontal sinus exenteration with postoperative pneumocephalus and blood products. Postoperative changes are also noted of reduction internal fixation of multiple nasal bone fractures with associated blood products. I personally reviewed the images/study and I agree with operations vice president Dr. Yvette Clinton's findings as stated. This study was interpreted at [facility], [place], [place]. Electronically signed by: CHRISTEL DE LOS SANTOS MD Normal [facility] No Panel Informationon 06-09 0.0 {/100_WBC} 0.0-0.0 [facility] Work Phone: OT Evaluation v2-occupationa l therapy - co-treatment with PTon 06-09-2022 OT Evaluation v2-occupational therapy - co-treatment with PT Rehab: Info: Mode of Treatmentoccupational therapy; co-treatment with PT to maximize pt safety with mobility and optimize pt performance during session. Time IN11:32 Time OUT11:54 Total Treatment [id number] Patient in ... at end of sessionchair; alarm on Communicated with ... at end of sessionbedside nurse Patient Effortexcellent Symptoms Noted During/After Treatmentnone Patient Profile Reviewedyes Onset of Illness/Injury or Date of [id number] Reason for Referralfall from ladder with injuries including: - pneumocephalus - comminuted frontal sinus fx involving anterior and posterior ceballos, ext to nola roney and cribiform plate - comminuted nasal bone fx - b/l medial and inferior orbital wall fx - nasal septum fx - anterior ceballos of b/l maxillary sinuses - suspicion of epidual blood products posteriorly at cranial/cervical junction - Bifrontal cerebral parenchymal contusions OR -06/08 sp bifrontal approach for frontal sinus exenteration with NGY, nasal ORIF, cribiform ORIF and calvarial bone harvest with Plastics General Observations of PatientPt supine in bed upon arrival. Pt pleasant and agreeable to therapy, flat affect. 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 Tub shower with no grab bars or shower chair in bathroom Lives WithWife who works and 18 yo son Type of Equipment Currently In the Homenone Line and TubesIV; telemetry; BROOKE Pre Treatment Patient Positionsupine Pre Treatment Blood Pressure [id number] mmHg Pre Treatment Diastolic (mm Hg)77 mmHg Pre Treatment Heart Rate (beats/min)101 Pre Treatment Respiratory Rate (breaths/min)19 Pre Treatment SpO2 (%)99 % Pre Treatment Oxygen Deliveryroom air Post Treatment Patient Positionsitting Post Treatment Blood Pressure [id number] Post Treatment Diastolic (mm Hg)78 mmHg Post Treatment Heart Rate (beats/min)119 Post Treatment Respiratory Rate (breaths/min)14 Post Treatment SpO2 (%)100 % Post Treatment Oxygen Deliveryroom air Vision/Cognition: Affect/Mental Status (Cognitive)flat affect, soft speech, difficult to understand at times 2/2 facial surgery and swelling Orientation Status (Cognition)oriented x 4 Cognition TestsCAM ICU (-) Cognitive Function (Cognitive)WFL Able to Follow Commands (Receptive)WFL ROM: Upper Extremity: Range of Motionleft upper extremity ROM WFL; right upper extremity ROM WFL Lower Extremity: Range of Motionleft lower extremity ROM WFL; right lower extremity ROM WFL MMT: Upper Extremity: Manual Muscle Testing (MMT)left upper extremity strength WFL; right upper extremity strength WFL Lower Extremity: Manual Muscle Testing (MMT)left lower extremity strength WFL; right lower extremity strength WFL Mobility/Tone: Bed Mobility Assessment/Interventionss upine to sit Bqxkky-ky-Ynd [place] (Bed Mobility)standby assist; 1 person assist; verbal cues Comment, Bed MobilityHOB ~30 deg, cues for body positioning and sequencing of mobility Transfer Assessment/Interventionss it to stand transfer; stand to sit transfer; bed to chair transfer Bed-Chair [place] (Transfers)contact guard; 1 person assist Bed-Chair Assistive Device (Transfers)no AD Sit-Stand [place] (Transfers)contact guard; 1 person assist Sit-Stand Assistive Device (Transfers)no AD Stand-Sit [place] (Transfers)contact guard; 1 person assist Stand-Sit Assistive Device (Transfers)no AD ADL: BADL Assessment/Interventionba thing; upper body dressing; lower body dressing; grooming; toileting; feeding [place] Level (Bathing)contact guard; anticipated [place] Level (Upper Body Dressing)standby assist Comment (Upper Body Dressing)donning gown [place] Level (Lower Body Dressing)contact guard assist [place] Level (Grooming)independent [place] Level (Feeding)independent [place] Level (Toileting)anticipate; contact guard Impairments, BADL Safety/Performancebalance ; endurance/activity tolerance; pain Skilled BADL Treatment/InterventionBAD L process/adaptation training; compensatory training; energy conservation Motor: Sitting, Static (Balance)SBA Sitting, Dynamic (Balance)SBA Yfk-gc-Qsyba (Balance)CGA no AD Standing, Static (Balance)CGA no AD Standing, Dynamic (Balance)CGA no AD Sensory: Comment, Pre/Post Treatment PainDenied pain. Positioned for comfort end of session. Sensory General Assessmentno sensation deficits identifi (more content not included)... Normal [facility] PT Evaluation [id number] t - Co-treat with OT to maximizeon 06-09-2022 PT Evaluation [id number] - Co-treat with OT to maximize Rehab: Info: Mode of Treatmentphysical therapy; co-treatment; Co-treat with OT to maximize pt safety and function Time IN11:32 Time OUT11:54 Total Treatment [id number] Patient in ... at end of sessionchair; alarm on Communicated with ... at end of sessionbedside nurse Patient Effortexcellent Symptoms Noted During/After Treatmentnone Patient Profile Reviewedyes Onset of Illness/Injury or Date of [id number] Reason for Referralfall from ladder with injuries including: - pneumocephalus - comminuted frontal sinus fx involving anterior and posterior ceballos, ext to nola roney and cribiform plate - comminuted nasal bone fx - b/l medial and inferior orbital wall fx - nasal septum fx - anterior ceballos of b/l maxillary sinuses - suspicion of epidual blood products posteriorly at cranial/cervical junction - Bifrontal cerebral parenchymal contusions OR -06/08 sp bifrontal approach for frontal sinus exenteration with NGY, nasal ORIF, cribiform ORIF and calvarial bone harvest with Plastics General Observations of PatientPt supine in bed at start of session, alert and agreeable to therapy. Pt now extubated, OK to see per RN. 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 Tub shower with no grab bars or shower chair in bathroom Lives WithWife who works and 18 yo son Type of Equipment Currently In the [place] Line and TubesIV; telemetry; BROOKE Pre Treatment Patient Positionsupine Pre Treatment Blood Pressure [id number] mmHg Pre Treatment Diastolic (mm Hg)77 mmHg Pre Treatment Heart Rate (beats/min)101 Pre Treatment Respiratory Rate (breaths/min)19 Pre Treatment SpO2 (%)99 % Pre Treatment Oxygen Deliveryroom air Post Treatment Patient Positionsitting Post Treatment Blood Pressure [id number] Post Treatment Diastolic (mm Hg)78 mmHg Post Treatment Heart Rate (beats/min)119 Post Treatment Respiratory Rate (breaths/min)14 Post Treatment SpO2 (%)100 % Post Treatment Oxygen Deliveryroom air Vision/Cognition: Affect/Mental Status (Cognitive)CAM (-), flat affect, garbled speech 2/2 facial surgery and swelling but appearing overall WFL Orientation Status (Cognition)oriented x 4 Able to Follow Commands (Receptive)WFL ROM: Lower Extremity: Range of Motionleft lower extremity ROM WFL; right lower extremity ROM WFL MMT: Lower Extremity: Manual Muscle Testing (MMT)left lower extremity strength WFL; right lower extremity strength WFL Mobility/Tone: Bed Mobility Assessment/Interventionss upine to sit Jolprk-tj-Aig [place] (Bed Mobility)standby assist; 1 person assist; verbal cues Comment, Bed MobilityHOB ~30 deg, cues for body positioning and sequencing of mobility Transfer Assessment/Interventionss it to stand transfer; stand to sit transfer Sit-Stand [place] (Transfers)contact guard; 1 person assist Sit-Stand Assistive Device (Transfers)no AD Stand-Sit [place] (Transfers)contact guard; 1 person assist Stand-Sit Assistive Device (Transfers)no AD Gait/Stairs Locomotiongait/ambulation independence; distance ambulated; gait/ambulation assistive device Gait Locomotion (Gait)contact guard; 1 person assist Assistive Device (Gait Training)no AD Distance in Feet (Gait Training)x3 ft bed to chair Comment, Gait/Stairs Trainingappropriate balance with stepping Motor: Sitting, Static (Balance)SBA Sitting, Dynamic (Balance)SBA Slz-fs-Ggnlf (Balance)CGA no AD Standing, Static (Balance)CGA no AD Standing, Dynamic (Balance)CGA no AD Sensory: Comment, Pre/Post Treatment PainDenied pain. Positioned for comfort end of session. Sensory General Assessmentno sensation deficits identified Health: Observed Emotional Statecooperative; flat Plan of Care Reviewed Withpatient Impression: Criteria for Skilled Therapeutic Interventions Met (PT Eval)yes; treatment indicated PT Diagnosisimpaired mobility, impaired gait Patient/Family Goals Statement (PT Eval)to get out of ICU System Pathology/Pathophysiology Noted (PT Eval)musculoskeletal Impairments Found (PT Eval)aerobic capacity/endurance; gait, locomotion, and balance Functional Limitations in Following Categoriesself-care; mobility/gait; community/leisure Disability: Inability to Perform Actions/Activities of Required Roles community/leisure Assessment (PT Eval)Pt is a 52 yo male admitted s/p fall with facial fxs and subsequent surgical repair. Upon PT eval, pt moving well but d (more content not included)... Normal [facility] RENAL FUNCTION PANELon 06-09 Albumin [Mass/Vol] 3.5 g/dL Normal 3.4 - 5.0 [facility] Comment on above: Performed By: #### G CARLIN #### [facility] [id number] [place] [address] Anion gap [Moles/Vol] 16 mmol/L Normal 10 - 20 [facility] Comment on above: Performed By: #### G CARLIN #### [facility] [address] [place] [address] Calcium [Mass/Vol] 8.5 mg/dL Low 8.6 - 10.6 [facility] Comment on above: Performed By: #### G CARLIN #### [facility] [address] [place] [address] Chloride [Moles/Vol] 99 mmol/L Normal 98 - 107 [facility] Comment on above: Performed By: #### G CARLIN #### [facility] [address] [place] [address] Creatinine [Mass/Vol] 1.05 mg/dL Normal 0.50 - 1.30 [facility] Comment on above: Performed By: #### G CARLIN #### [facility] [address] [place] [address] GFR/1.73 sq M.predicted among non-blacks MDRD (S/P/Bld) [Vol rate/Area] 85 mL/min/{1.73_m2} Normal >90 [facility] Comment on above: Result Comment: CALC ULATIONS OF ESTIMATED GFR ARE PERFORMED USING THE 2020 CKD-EPI STUDY REFIT EQUATION WITHOUT THE RACE VARIABLE FOR THE IDMS-TRACEABLE CREATININE METHODS. https://jasn.asnjournals.org/content/early//ASN.4981413 988 Performed By: #### G CARLIN #### [facility] [id number] [place] [address] Glucose [Mass/Vol] 110 mg/dL High 74 - 99 [facility] Comment on above: Performed By: #### G CARLIN #### [facility] [address] [place] [address] HCO3 (Bld) [Moles/Vol] 28 mmol/L Normal 21 - 32 [facility] Comment on above: Performed By: #### G CARLIN #### [facility] [address] [place] [address] Phosphate [Mass/Vol] 3.5 mg/dL Normal 2.5 - 4.9 [facility] Comment on above: Result Comment: The performance characteristics of phosphorus testing in heparinized plasma have been validated by the individual laboratory site where testing is performed. Testing on heparinized plasma is not approved by the FDA; however, such approval is not necessary. MILD HEMOLYSIS DETECTED. The result may be falsely elevated due to hemolysis or other interferents. Clinical correlation is recommended. Repeat testing may be considered. Performed By: #### G CARLIN #### [facility] [address] [place] [address] Potassium [Moles/Vol] 4.7 mmol/L Normal 3.5 - 5.3 [facility] Comment on above: Result Comment: MILD HEMOLYSIS DETECTED. The result may be falsely elevated due to hemolysis or other interferents. Clinical correlation is recommended. Repeat testing may be considered. Performed By: #### G CARLIN #### [facility] [id number] [place] [address] Sodium [Moles/Vol] 138 mmol/L Normal 136 - 145 [facility] Comment on above: Performed By: #### G CARLIN #### [facility] [address] [place] [address] Urea nitrogen [Mass/Vol] 10 mg/dL Normal 6 - 23 [facility] Comment on above: Performed By: #### G CARLIN #### [facility] [address] [place] [address] Anion gap [Moles/Vol] 16 mmol/L Normal 10 - 20 [facility] Comment on above: Performed By: #### R ENAL ####[id number] [place] [address] Sodium [Moles/Vol] 131 mmol/L Low 136 - 145 [facility] Comment on above: Performed By: #### R ENAL ####[id number] [place] [address] Urea nitrogen [Mass/Vol] 9 mg/dL Normal 6 - 23 [facility] Comment on above: Performed By: #### R ENAL ####[id number] [place] [address] Albumin [Mass/Vol] 3.3 g/dL Low 3.4 - 5.0 [facility] Comment on above: Performed By: #### R ENAL ####[id number] [place] [address] Calcium [Mass/Vol] 8.4 mg/dL Low 8.6 - 10.6 [facility] Comment on above: Performed By: #### R ENAL ####[id number] [place] [address] Chloride [Moles/Vol] 93 mmol/L Low 98 - 107 [facility] Comment on above: Performed By: #### R ENAL ####[id number] [place] [address] Creatinine [Mass/Vol] 0.91 mg/dL Normal 0.50 - 1.30 [facility] Comment on above: Performed By: #### R ENAL ####[id number] [place] [address] eGFR MALE >90 Normal >90 [facility] Comment on above: Result Comment: CALC ULATIONS OF ESTIMATED GFR ARE PERFORMED USING THE 2020 CKD-EPI STUDY REFIT EQUATION WITHOUT THE RACE VARIABLE FOR THE IDMS-TRACEABLE CREATININE METHODS. https://jasn.asnjournals.org/content/early/ASN.8793284 988 Performed By: #### R ENAL ####[id number] [place] [address] Glucose [Mass/Vol] 109 mg/dL High 74 - 99 [facility] Comment on above: Performed By: #### R ENAL ####[id number] [place] [address] HCO3 (Bld) [Moles/Vol] 27 mmol/L Normal 21 - 32 [facility] Comment on above: Performed By: #### R ENAL ####[id number] [place] [address] Phosphate [Mass/Vol] 3.0 mg/dL Normal 2.5 - 4.9 [facility] Comment on above: Result Comment: The performance characteristics of phosphorus testing in heparinized plasma have been validated by the individual laboratory site where testing is performed. Testing on heparinized plasma is not approved by the FDA; however, such approval is not necessary. MILD HEMOLYSIS DETECTED. The result may be falsely elevated due to hemolysis or other interferents. Clinical correlation is recommended. Repeat testing may be considered. Performed By: #### R ENAL ####[id number] [place] [address] Potassium [Moles/Vol] 5.1 mmol/L Normal 3.5 - 5.3 [facility] Comment on above: Result Comment: MILD HEMOLYSIS DETECTED. The result may be falsely elevated due to hemolysis or other interferents. Clinical correlation is recommended. Repeat testing may be considered. Performed By: #### R ENAL ####[id number] [place] [address] Radiologyon 06-09-2022 XR Chest Single view Normal [facility] 2099 Work Phone: Renal Function Panelon 06-09 Albumin BCP dye [Mass/Vol] 3.5 g/dL 3.4 - 5.0 [facility] 2099 Work Phone: Anion gap [Moles/Vol] 16 mmol/L 10 - 20 [facility] 2099 Work Phone: Calcium [Mass/Vol] 8.5 mg/dL below low threshold 8.6 - 10.6 [facility] 2099 Work Phone: Chloride [Moles/Vol] 99 mmol/L 98 - 107 [facility] 2099 Work Phone: CO2 [Moles/Vol] 28 mmol/L 21 - 32 [facility] 2099 Work Phone: Creatinine [Mass/Vol] 1.05 mg/dL See Below MG-Plastic Surgery-[facility] 2099 Work Phone: Comment on above: Reference Range: 0.5 0 - 1.30 Glucose [Mass/Vol] 110 mg/dL above high threshold 74 - 99 [facility] 2099 Work Phone: Phosphate [Mass/Vol] 3.5 mg/dL 2.5 - 4.9 MG-P lastic Surgery-[facility] 2099 Work Phone: Comment on above: The performance pauline acteristics of phosphorus testing in heparinized plasma have been validated by the individual laboratory site where testing is performed. Testing on heparinized plasma is not approved by the FDA; however, such approval is not necessary.MILD HEMOLYSIS DETECTED. The result may be falsely elevated due tohemolysis or other interferents. Clinical correlation is recommended.Repeat testing may be considered. Potassium [Moles/Vol] 4.7 mmol/L 3.5 - 5.3 MG-Plastic Surgery-[facility] 2100 Work Phone: Comment on above: MILD HEMOLYSIS DETEC JANET. The result may be falsely elevated due tohemolysis or other interferents. Clinical correlation is recommended.Repeat testing may be considered. Sodium [Moles/Vol] 138 mmol/L 136 - 145 [facility] 2100 Work Phone: Urea nitrogen [Mass/Vol] 10 mg/dL 6 - 23 [facility] 2100 Work Phone: Renal Function Panel 85 {mL/min/1.73m2} >90 [facility] 2100 Work Phone: Comment on above: CALCULATIONS OF CHELE MATED GFR ARE PERFORMED USING THE 2020 CKD-EPI STUDY REFIT EQUATION WITHOUT THE RACE VARIABLE FOR THE IDMS-TRACEABLE CREATININE METHODS.https://jasn.asnjournals.org/content/early/ASN .1178331465 ABDOMEN AP VIEWon 022 ABDOMEN AP VIEW Patient Name: RM BERMAN STUDY: CHEST 1 VIEW; ABDOMEN AP VIEW; 06/08/2022 10:29 pm INDICATION: post op eval, ett eval ; eval og placement . COMPARISON: Chest radiograph 06/06/2022 ACCESSION NUMBER(S): [id number]; [id number] ORDERING CLINICIAN: DOM DON FINDINGS: AP radiograph of the chest was provided. AP radiograph of the abdomen was provided. Endotracheal tube approximately 6.9 cm above the alfredo. Enteric tube with distal tip and side hole projecting over the stomach. CARDIOMEDIASTINAL SILHOUETTE: Cardiomediastinal silhouette is normal in size and configuration. LUNGS: No evidence of airspace consolidation, pleural effusion, or pneumothorax. ABDOMEN: Nonobstructive bowel gas pattern. No definite evidence of pneumoperitoneum. BONES: No acute osseous changes. IMPRESSION: 1. Enteric tube with distal tip and side hole projecting over the stomach. 2. Endotracheal tube approximately 6.9 cm above the alfredo. Consider advancement by 2 cm 3. No focal infiltrate, pleural effusion, edema or pneumothorax. 4. Nonobstructive bowel gas pattern. I personally reviewed the images/study and I agree with the findings as stated. This study was interpreted at [place], [place]. Electronically signed by: SHE NGUYEN MD Normal [facility] TH CHEST 1 VIEWon 06-09-2022 TH CHEST 1 VIEW Patient Name: RM BERMAN STUDY: CHEST 1 VIEW; 06/09/2022 6:47 am INDICATION: eval ett, for effusions . COMPARISON: Radiograph dated 06/08/2022 ACCESSION NUMBER(S): [id number] ORDERING CLINICIAN: DOM DON FINDINGS: ET tube is terminating 6 cm from the alfredo. Enteric tube is in place with the tip projecting over the distal stomach. The cardiac silhouette size is within normal limits. There is no focal consolidation, edema or pneumothorax. No sizeable pleural effusion. No acute osseous abnormality. IMPRESSION: 1. Medical appliances as described above. 2. No focal infiltrate, pleural effusion, edema or pneumothorax. Electronically signed by: SHE NGUYEN MD Normal [facility] TH CHEST 1 VIEW Patient Name: RM BERMAN STUDY: CHEST 1 VIEW; ABDOMEN AP VIEW; 06/08/2022 10:29 pm INDICATION: post op eval, ett eval ; eval og placement . COMPARISON: Chest radiograph 06/06/2022 ACCESSION NUMBER(S): [id number]; [id number] ORDERING CLINICIAN: DOM DON FINDINGS: AP radiograph of the chest was provided. AP radiograph of the abdomen was provided. Endotracheal tube approximately 6.9 cm above the alfredo. Enteric tube with distal tip and side hole projecting over the stomach. CARDIOMEDIASTINAL SILHOUETTE: Cardiomediastinal silhouette is normal in size and configuration. LUNGS: No evidence of airspace consolidation, pleural effusion, or pneumothorax. ABDOMEN: Nonobstructive bowel gas pattern. No definite evidence of pneumoperitoneum. BONES: No acute osseous changes. IMPRESSION: 1. Enteric tube with distal tip and side hole projecting over the stomach. 2. Endotracheal tube approximately 6.9 cm above the alfredo. Consider advancement by 2 cm 3. No focal infiltrate, pleural effusion, edema or pneumothorax. 4. Nonobstructive bowel gas pattern. I personally reviewed the images/study and I agree with the findings as stated. This study was interpreted at [facility], [place], [place]. Electronically signed by: SHE NGUYEN MD Normal [facility] CALCIUM, IONIZEDon 2 CALCIUM,IONIZED 0.91 mmol/L Low 1.10 - 1.33 [facility] Comment on above: Result Comment: The performance characteristics of ionized calcium tested in heparinized plasma or serum have been validated by the individual laboratory site where testing is performed. Testing on heparinized plasma or serum is not approved by the FDA; however, such approval is not necessary. Performed By: #### I ONC1 #### [facility] [address] [place] [address] Calcium, Ionized Levelon Calcium, Ionized Level 0.91 mmol/L below low threshold See Below MG-Plastic Surgery-[facility] 2100 Work Phone: Comment on above: Reference Range: 1.1 0 - 1.33 The performance characteristics of ionized calcium tested in heparinized plasma or serum have been validated by the individual laboratory site where testing is performed. Testing on heparinized plasma or serum is not approved by the FDA; however, such approval is not necessary. Clinical Event Note-OR [facility] [place] 06-08-2022 Clinical Event Note-OR Wheat Washer Clinical Event: Clinical Event Note: TopicOR Wheat Washer Details I was the FEED INSPECTION SUPERVISOR/DISABILITY COORDINATOR rn first assist in today's OR procedure with Dr. Divine Guzman APRN-FE, DISABILITY COORDINATOR Phone [phone] or [phone]/Doc Halo Electronic Signatures: Christiano Guzman (FEED INSPECTION SUPERVISOR-PRODUCTION PLANNING MANAGER) (Signed 08-Jun-2022 18:40) Authored: Clinical Event Note Last Updated: 08-Jun-2022 18:40 by Christiano Guzman (FEED INSPECTION SUPERVISOR-PRODUCTION PLANNING MANAGER) Normal [facility] Daily Progress Note - Critic al Care-TSICUon 06-08-2022 Daily Progress Note - Critical Care-TSICU Service: Critical Care Service: ServiceTSICU Subjective Data: ID Statement: RM BERMAN is a 52 year old Male who is Hospital Day # 8 and ICU Day #1 and POD #0 for 1. Multiple nasal bone ORIFs;2. Calvarium bone harvest for nasal graft;3. Cribiform defect ORIF;4. Refer to neurosurg note;5. Objective Data: Objective Information T PRBPMAPSpO2 [id number]/[id number] % Date/Time06/08 21::: 21: 21: 21:32 Range(35.9C - 36.9C ) (72 - 113 ) (17 - 24 ) (100 - 118 )/ (70 - 89 ) (94 - 94 ) (94% - 100% ) As of 08-Jun-2022 21:05:00, patient is on 30% oxygen via ventilator assisted. Highest temp of 36.9 C was recorded at 06/08 4:28 Pain reported at 06/08 21:05: 0 Pain reported at 06/08 18:16: unable to assess; pt intubated and sedated The Intake and Output Totals for the last 24 hours are: IntakeOutputNet [id number] Date: Weight/Scale Type: 08-Jun-2022 18:3790 kg Physical Exam by System: Neurological: intubated Eyes open to voice, perrl, OU 3mm Reactive EOMI BUE follow commands with thumbs up BLE wiggles toes to command Cardiovascular: well perfused Respiratory/Thorax: intubated, equal chest rise Genitourinary: lafleur in place Gastrointestinal: soft, non distended Skin: bicoronal incision, BROOKE drain in place Musculoskeletal: no obvious deformity Constitutional: sedated, awakens when off sedatoin Eyes: anicteric ENMT: mucous membranes moist Head/Neck: trachea midline Extremities: normal ROM Lymphatic: No significant lymphadenopathy Psychological: sedated Allergies: Allergies: No Known Allergies: Assessment and Plan: Daily Risk Screen: Does patient have a central lineno Does patient have an indwelling urinary catheteryes Plan for indwelling urinary catheter removal todayyes Is the patient intubatedyes Plan for extubation todayyes Assessment/Plan: Assessment/Plan: 52 YOM s/p fall with ladder 05/28. TR from [facility] in [place] List of clinically significant injuries/problems - pneumocephalus - comminuted frontal sinus fx involving anterior and posterior ceballos, ext to nola roney and cribiform plate - comminuted nasal bone fx - b/l medial and inferior orbital wall fx - nasal septum fx - anterior ceballos of b/l maxillary sinuses - suspicion of epidual blood products posteriorly at cranial/cervical junction - Bifrontal cerebral parenchymal contusions OR -06/08 sp bifrontal approach for frontal sinus exenteration with NGY, nasal ORIF, cribiform ORIF and calvarial bone harvest with Plastics NEURO #comminuted frontal sinus and facial/nasal bone fx - s/p bifrontal approach for repair with plastics/NGY - BROOKE drain per plastics, maintain and record output per shift - plastics recs- baci to incision, ice packs - CTH/CT face postop - maintain SBP<180 - monitor for CSF rhinorrhea - propofol for sedation, dilaudid for analgesia Resp - remained intubated postop for edema - minimal vent settings - wean to extubate in AM CV - maintain MAPS>65 - maintain SBP <180, PRNs as needed - not requiring pressors GI - NPO - place OG for meds - ADAT when extubated, was regular diet before OR ID - CTX for ABx ppx, will discuss length of Abx course - NGY recommending at least 5 days of postop Abx in setting of traumatic durotomy RENAL - strict I/Os - LR at 75 - lafleur in place, likely DC when extubated - electrolyte replacement per ICU protocol ENDO - accuchecks - SSI DVT ppx: SCD, ok for DVT ppx on POD 2 per NGY GI ppx: pepcid Code Status: Code StatusFull Code Attestation: Note Completion: I am a: Resident/Fellow Attending AttestationI saw and evaluated the patient. I personally obtained the delvalle and critical portions of the history and physical exam or was physically present for delvalle and critical portions performed by the resident/fellow. I reviewed the resident/fellows documentation and discussed the patient with the resident/fellow. I agree with the resident/fellows medical decision making as documented in the note. I personally evaluated the patient [id number] Electronic Signatures: Jonathan Fong (Resident)) (Signed 08-Jun-2022 21:55) Authored: Service, Subjective Data, Objective Data, Assessment and Plan, Note Completion Nitesh Yousif) (Signed 09-Jun-2022 11:06) Authored: Note Completion Co-Signer: Service, Subjective Data, Objective Data, Assessment and Plan, Note Completion Last Updated: 09-Jun-2022 11:06 by Nitesh Yousif) [facility] Daily Progress Note-Neuroslori kika 06-08-2022 Daily Progress Note-Neurosurgery Service: Neurosurgery Subjective Data: RM BERMAN is a 52 year old Male who is Hospital Day # 8. Objective Data: Objective Information: T PRBPMAPSpO2 Value36.82031785/7095% Date/Time06/08 0:0311/2 0:0311/2 0:0311/2 0:0311/2 0:03 Range(35.9C - 36.8C ) (72 - 109 ) (17 - 20 ) (100 - 118 )/ (70 - 78 ) (94% - 97% ) Pain reported at 06/07 22:47: 9 = Severe ---- Intake and Output ----- Mn/Dy/Year TimeIntakeOutputNet Jun 06, 2022 10:00 pm000 Jun 06, 2022 6:00 [id number] The Intake and Output Totals for the last 24 hours are: IntakeOutputNet [id number] Physical Exam by System: Neurological: Awake, Ox3 FCx4 5/5 Recent Lab Results: Results: CBC: 06/06/2022 06:24 \ Hgb / \ 15.7 / WBC Plt 7.1 265 / Hct \ / 44.4 \ RBC: 4.69 MCV: 95 RFP: 06/06/2022 06:24 NA+ Cl- BUN / 140 102 6 / ------- Glucose -- 85 K+ HCO3- Creat \ 3.6 26 0.98 \ Calcium : 9.3Anion Gap : 16 Albumin : 3.6 Phos : 3.5 Coagulation: 06/06/2022 19:30 PT / 12.3 / -------< INR < 1.1 PTT\ 26 \ Assessment and Plan: Daily Risk Screen: Does patient have an indwelling urinary cathetern/a consulting service Does patient have a central linen/a consulting service Code Status: Code StatusFull Code Assessment: 52 year old with no sig pmh, s/p 14ft fall off ladder, CTH diffuse comminuted facial and frontal sinus fxs w/ intracranial ext, diffuse pneumocephalus, 06/02 vCTH stable. Recs: trauma primary OR Wed 06/08 frontal sinus exenteration, pericranial flap, possible mesh cranioplasty, LD with plastic surgery HOB 30 ENT recs Attestation: Note Completion: I am a: Resident/Fellow Attending AttestationI saw and evaluated the patient. I personally obtained the delvalle and critical portions of the history and physical exam or was physically present for delvalle and critical portions performed by the resident/fellow. I reviewed the resident/fellows documentation and discussed the patient with the resident/fellow. I agree with the resident/fellows medical decision making as documented in the note. I personally evaluated the patient [id number] Electronic Signatures: Fito Ledezma (Resident)) (Signed 08-Jun-2022 01:19) Authored: Service, Subjective Data, Objective Data, Assessment and Plan, Note Completion Barber Castañeda) (Signed 09-Jun-2022 15:26) Authored: Assessment and Plan, Note Completion Co-Signer: Service, Subjective Data, Objective Data, Assessment and Plan, Note Completion Last Updated: 09-Jun-2022 15:26 by Barber Castañeda) Normal [facility] GLUCOSE-POCTon 06-08-2022 Glucose [Mass/Vol] 129 mg/dL High 74 - 99 [facility] Comment on above: Performed By: #### G CARLIN #### [facility] [address] [place] [address] Laboratory - Chemistry and C hemistry - challengeon 06-08-2022 Glucose [Mass/Vol] 129 mg/dL above high threshold 74 - 99 MG-Plastic Surgery-[facility] 2099 Work Phone: Laboratory - Coagulationon 1 08-08-2021 aPTT Coag (PPP) [Time] 23 s below low threshold 26 - 39 [facility] [place] 2099 Work Phone: Comment on above: THE APTT IS NO LONGE R USED FOR MONITORING UNFRACTIONATED HEPARIN THERAPY. FOR MONITORING HEPARIN THERAPY, USE THE HEPARIN ASSAY. INR Coag (PPP) [Relative time] 1.2 {INR} above high threshold 0.9 - 1.1 [facility]astic Surgery[facility] 2099 Work Phone: PT Coag (PPP) [Time] 13.4 s 9.8 - 13.4 MG-P lastic Surgery-[facility] 2099 Work Phone: Laboratory - Hematology and Cell countson 06-08-2022 Erythrocyte distribution width (RBC) [Ratio] 11.8 % See Below [facility]Plastic Surgery[facility] 2099 Work Phone: Comment on above: Reference Range: 11. 5 - 14.5 Hematocrit (Bld) [Volume fraction] 40.9 % below low threshold See Below MG-Plastic Surgery-[facility] 2099 Work Phone: Comment on above: Reference Range: 41. 0 - 52.0 Hemoglobin (Bld) [Mass/Vol] 14.9 g/dL See Below [facility]astic Surgery[facility] 2099 Work Phone: Comment on above: Reference Range: 13. 5 - 17.5 MCHC (RBC) [Mass/Vol] 36.4 g/dL above high threshold See Below MG-Plastic Surgery-[facility] 2099 Work Phone: Comment on above: Reference Range: 32. 0 - 36.0 MCV (RBC) [Entitic vol] 95 fL 80 - 100 MG-Plastic Surgery-[facility] 2099 Work Phone: Platelets (Bld) [#/Vol] 322 10*3/uL 150 - 450 MG-Plastic Surgery-[facility] 2099 Work Phone: RBC (Bld) [#/Vol] 4.30 {x10E12/L} below low threshold See Below MG-Plastic Surgery-[facility] 2099 Work Phone: Comment on above: Reference Range: 4.5 0 - 5.90 WBC (Bld) [#/Vol] 16.9 10*3/uL above high threshold 4.4 - 11.3 MG-Plastic Surgery-[facility] 2099 Work Phone: Magnesium, Serumon Magnesium [Mass/Vol] 1.90 mg/dL See Below MG-P last Surgery-[facility] 2099 Work Phone: Comment on above: Reference Range: 1.6 0 - 2.40MILD HEMOLYSIS DETECTED. The result may be falsely elevated due tohemolysis or other interferents. Clinical correlation is recommended.Repeat testing may be considered.MARKED LIPEMIA, HIGH SPEED CENTRIFUGATION WAS PERFORMED REVISED REPORT, Previously reported as: MILD HEMOLYSIS DETECTED. The result may be falsely elevated due tohemolysis or other interferents. Clinical correlation is recommended.Repeat testing may be considered. (Reported 06/08/2022 23:53) No Panel Informationon 06-08 0.0 {/100_WBC} 0.0-0.0 MG-Plastic Surgery-[facility] 2099 Work Phone: [facility] - [facility] PREOPERATIVE DIAGNOSIS: Frontal sinus fracture. POSTOPERATIVE DIAGNOSIS: Frontal sinus fracture. OPERATION/PROCEDURE: 1. Bifrontal approach for frontal sinus exenteration. 2. Duraplasty. SURGEON: Barber Castañeda MD. MATERIAL RECLAIMER(S): Miguel A Robert, ANESTHESIA: BRIEF HISTORY: This is a 52-year-old gentleman with no significant past medical history who had a fall off ladder. CT head showed a diffuse comminuted facial and frontal sinus fractures with intracranial extension, diffuse pneumocephalus, stable on volumetric CT head. PROCEDURE DETAILS: The patient was brought into the operating room theater. A pre-incision team huddle was performed including verification of patient's name, MRN, laterality of the procedure, which in this case was not applicable, procedure to be performed. The patient was ultimately intubated without complication. The patient's hair was already clipped. The bifrontal incision was planned from tragus to tragus. The planned incision along with the entire face and neck was prepped in the usual sterile fashion. The patient was prepped and draped in usual sterile fashion after performing a pre-incision pause including verification of antibiotics. The incision was anesthetized with local anesthetic. A 15 blade was used to incise incision. We preserved the periosteum. A combination of blunt and sharp dissection was used to elevate the flap. We undermined posteriorly as well as anteriorly. A 10 blade was used to sharply reflect the flap anteriorly while preserving the pericranial graft. A large pericranial graft was incised with Bovie electrocautery and reflected anteriorly using a Kilauea 1 retractor and Ray-Ed. The pericranial flap was reflected anteriorly and covered with a moist lap sponge. A cranial career development associate was used to make a bur hole at the proximal location of the anterior sagittal sinus. The [place] drill was used to create 2 lateral incisions much more frontal. A B1 with a footplate was used to create a triangular shaped craniotomy. Additional bone was removed with B1 with a footplate. The dura was dissected off the anterior skull base. An [place] drill was used to exenterate the frontal sinus. The mucosa was stripped off the frontal sinus and discarded. No fransisca purulence was noted. There was one durotomy at the lateral lakeisha hole which was repaired with a 4-0 Nurolon suture. There was a traumatic orbitofrontal durotomy, which was also repaired with a 4-0 Nurolon suture. After the frontal sinus was exenterated, Dr. Vanegas (Plastic Surgery) took over. Please see separate operative report for the details of the plastic surgery portion of this case. The wound was copiously irrigated. After the pericranial graft was laid anteriorly, we proceeded to place DuraGen over the dura. DuraSeal was also used to reinforce the duraplasty. The bone was replaced. The wound was closed in the usual fashion after placing a drain. Miguel A Robert MD for Barber Castañeda MD EST EST DICTATION NUMBER: [id number] INTERNAL JOB NUMBER: [id number] CC: MD Barber Montoya MD, ELSIE CROFT Electronic Signatures: Barber Castañeda () (Signed on 09-Jun-2022 14:58) Authored Unsigned, Draft (SYS GENERATED) (Entered on 08-Jun-2022 13:14) Entered Last Updated: 09-Jun-2022 14:58 by Barber Castañeda) [facility] Operative Reports - [facility] PREOPERATIVE DIAGNOSIS: 1. Complex craniomaxillofacial trauma with frontal sinus anterior and posterior table fractures. 2. Bilateral naso-orbital ethmoidal fractures. 3. Nasal bone fractures. 4. Maxillary fractures. 5. Orbital rim and floor fractures. 6. Dural tear. POSTOPERATIVE DIAGNOSIS: 1. Complex craniomaxillofacial trauma with frontal sinus anterior and posterior table fractures. 2. Bilateral naso-orbital ethmoidal fractures. 3. Nasal bone fractures. 4. Maxillary fractures. 5. Orbital rim and floor fractures. 6. Dural tear. OPERATION/PROCEDURE: 1. Open reduction and internal fixation of very complicated naso-orbital ethmoidal injuries bilaterally. 2. Nasal bone fractures with cantilever bone graft for nasal bone reconstruction. 3. Open reduction and internal fixation of maxillary bone fractures. 4. Pericranial flap for anterior skull base floor reconstruction. SURGEON: Michael Vanegas MD, DDS. MATERIAL RECLAIMER(S): Resident surgeon is Wandy Quinteros. ANESTHESIA: General orotracheal. FINDINGS: Much of the frontal sinus inner table is fractured as well as the floor of the frontal sinus leading to a large defect into the nasopharynx. Both medial orbital ceballos are fractured and displaced. Nasal bones are crushed and unidentifiable. The fractures extend down to the medial ceballos of the maxilla bilaterally with displacement of the bones. INDICATIONS FOR SURGERY: The patient is a 52-year-old male, who fell from a ladder, striking his midface, sustaining severe craniomaxillofacial injuries including a CSF leak. In consult with the Neurosurgery Service, extended operation was planned. The pros and cons of this procedure discussed by me with the patient and his prior to surgery. The neurosurgeons will dictate their portion of the case under separate cover. SURGICAL PROCEDURE: The patient was placed on the operating room table in a supine position. General anesthesia was achieved via orotracheal intubation. He was then prepped and draped in the usual fashion for procedures of the head and neck as well as craniotomy. Once I am involved in the case, the neurosurgeons have been operating for a period of time. Apparently, they have removed much of the bone of the floor of the frontal sinus as well as cranialization of the posterior wall of the frontal sinus. I began by extending our coronal flap down over the supraorbital rims. I released the supraorbital nerve bilaterally and preserve the blood supply which was supplying the very large pericranial flap which we used to reconstruct the floor of the anterior skull base. As I entered into the medial portion of the orbital cavity, the orbits bilaterally, it was noted that the bone was grossly displaced and I actually struggled for quite a while to find the medial orbital bones. With extensive dissection down into the cheek area, I identified the bone on the right side. It has been retracted down into the soft tissue and into the nasal cavity. We brought it up an I aligned it at the orbital rim. In an effort to get this to lie passively, we then went intraorally and made a LeFort 1 incision through the mucosa down to the anterior wall of the maxilla. As I dissect up on the right side, I am able to find the inferior extent of the maxillary fracture pushing from below and manipulating from above, I am able to line up the maxillary wall and the infraorbital rim on the right side. A plate was placed at the LeFort 1 level in the bony buttress. This stabilized that piece of bone. Now 2 plates were placed on the infraorbital rim. This was done through a separate rim incision to access directly down to the bone. Periosteal elevators were used to strip the soft tissue and I am able to identify the fractures. The bone was aligned and 2 plates were placed at the infraorbital rim. Once this was done, we then reconstituted the medial orbital area on the right side. It was clear that the nasal bones on this side were quite fragmented and small pieces stuck to soft tissue and absolutely impossible to reconstruct. We now proceeded to the left side, where I found a large fragment of bone. This was a difficult puzzle to put back together. This appeared to be fractured off the nasal process of the frontal bone. We put this up in place and then using plates and screws, we held it into position. I found the medial wall of the orbit on the left side. Im able retract it as soft tissue pushing below from the [place] 1 level, I stabilized the bone with a plate anchoring into the maxilla and then further plating of the orbital component itself. Then the decision was made that he will need nasal support. I harvested a cranial bone graft from the patient's right parietal bone, formulate this into a nasal cantilever graft. I created a pocket in the soft tissue of the nasal area. I inserted the cantilever bone g (more content not included)... Normal [facility] Preop Checkliston 06-08-2022 Preop Checklist Preop Checklist: Preop Checklist: Temperature C36.9 degrees C Temperature F98.4 degrees F Heart Rate83 beats per minute Respiratory Rate20 breath per minute Blood Pressure Cvnarywe648 mm/Hg Blood Pressure Oasvjtwtw54 mm/Hg COVID 19 Results in Last 7 daysNot Detected NPOyes Last Food [id number] 23:59 Last Clear Fluid [id number] 23:59 ID Band On Patientpatient ID (name) Type and Screen Resultedyes Chlorhexadine Bath Givencompleted morning of surgery SCD's Appliednot applicable Denturesnot applicable Prostheticsnot applicable Hearing Aidsnot applicable Valuables Securednot applicable Neurological Assessment: Level of Consciousnessalert Mobilitymoves all extremities Able to Express Selfyes Age Appropriateyes Emotional Statuscalm Electronic Signatures: JONATHAN CLEMONS (THADDEUS) (Signed 08-Jun-2022 06:47) Authored: Preop Checklist Last Updated: 08-Jun-2022 06:47 by JONATHAN CLEMONS (THADDEUS) Normal [facility] Radiologyon 06-08-2022 XR Abdomen AP Normal [facility] 2099 Work Phone: XR Chest Single view Normal [facility] 2099 Work Phone: Renal Function Panelon 06-08 Albumin BCP dye [Mass/Vol] 3.3 g/dL below low threshold 3.4 - 5.0 [facility] 2099 Work Phone: Anion gap [Moles/Vol] 16 mmol/L 10 - 20 [facility] 2099 Work Phone: Calcium [Mass/Vol] 8.4 mg/dL below low threshold 8.6 - 10.6 [facility] 2099 Work Phone: Chloride [Moles/Vol] 93 mmol/L below low threshold 98 - 107 [facility] 2099 Work Phone: CO2 [Moles/Vol] 27 mmol/L 21 - 32 [facility] 2099 Work Phone: Creatinine [Mass/Vol] 0.91 mg/dL See Below [facility] 2099 Work Phone: Comment on above: Reference Range: 0.5 0 - 1.30 Glucose [Mass/Vol] 109 mg/dL above high threshold 74 - 99 [facility] 2099 Work Phone: Phosphate [Mass/Vol] 3.0 mg/dL 2.5 - 4.9 [facility] 2099 Work Phone: Comment on above: The performance pauline acteristics of phosphorus testing in heparinized plasma have been validated by the individual laboratory site where testing is performed. Testing on heparinized plasma is not approved by the FDA; however, such approval is not necessary.MILD HEMOLYSIS DETECTED. The result may be falsely elevated due tohemolysis or other interferents. Clinical correlation is recommended.Repeat testing may be considered. Potassium [Moles/Vol] 5.1 mmol/L 3.5 - 5.3 [facility] 2099 Work Phone: Comment on above: MILD HEMOLYSIS DETEC JANET. The result may be falsely elevated due tohemolysis or other interferents. Clinical correlation is recommended.Repeat testing may be considered. Sodium [Moles/Vol] 131 mmol/L below low threshold 136 - 145 [facility] 20[facility] Work Phone: Urea nitrogen [Mass/Vol] 9 mg/dL 6 - 23 [facility] 2099 Work Phone: Renal Function Panel >90 >90 [facility] 2099 Work Phone: Comment on above: CALCULATIONS OF CHELE MATED GFR ARE PERFORMED USING THE 2020 CKD-EPI STUDY REFIT EQUATION WITHOUT THE RACE VARIABLE FOR THE IDMS-TRACEABLE CREATININE METHODS.https://jasn.asnjournals.org/content/early/ASN .7766484888 Daily Progress Note-Neuroslori anand 06-07-2022 Daily Progress Note-Neurosurgery Service: Neurosurgery Subjective Data: RM BERMAN is a 52 year old Male who is Hospital Day # 7. Objective Data: Objective Information: T PRBPMAPSpO2 [id number]/408414% Date/Time06/07 0: 0: 0:16108/07 0:161 3:12108/07 0:16 Range(35.9C - 36.6C ) (69 - 96 ) (16 - 20 ) (114 - 126 )/ (73 - 80 ) (90 - 94 ) (95% - 97% ) Pain reported at 06/06 20:26: 7 = Severe ---- Intake and Output ----- Mn/Dy/[facility] Jun 05, 2022 10:00 [id number] Jun 05, 2022 2:00 [id number] Jun 05, 2022 6:00 am000 The Intake and Output Totals for the last 24 hours are: IntakeOutputNet [id number] Physical Exam by System: Neurological: Awake, Ox3 FCx4 12/09 Recent Lab Results: Results: CBC: 06/06/2022 06:24 \ Hgb / \ 15.7 / WBC Plt 7.1 265 / Hct \ / 44.4 \ RBC: 4.69 MCV: 95 RFP: 06/06/2022 06:24 NA+ Cl- BUN / 140 102 6 / ------- Glucose -- 85 K+ HCO3- Creat \ 3.6 26 0.98 \ Calcium : 9.3Anion Gap : 16 Albumin : 3.6 Phos : 3.5 Coagulation: 06/06/2022 19:30 PT / 12.3 / -------< INR < 1.1 PTT\ 26 \ Assessment and Plan: Daily Risk Screen: Does patient have an indwelling urinary cathetern/a consulting service Does patient have a central linen/a consulting service Code Status: Code StatusFull Code Assessment: 52 year old with no sig pmh, s/p 14ft fall off ladder, CTH diffuse comminuted facial and frontal sinus fxs w/ intracranial ext, diffuse pneumocephalus, 06/02 vCTH stable. Recs: trauma primary OR Wed 06/08 frontal sinus exenteration, pericranial flap, possible mesh cranioplasty, LD with plastic surgery HOB 30 ENT recs Attestation: Note Completion: I am a: Resident/Fellow Attending AttestationI saw and evaluated the patient. I personally obtained the delvalle and critical portions of the history and physical exam or was physically present for delvalle and critical portions performed by the resident/fellow. I reviewed the resident/fellows documentation and discussed the patient with the resident/fellow. I agree with the resident/fellows medical decision making as documented in the note. I personally evaluated the patient [id number] Electronic Signatures: Fito Ledezma (Resident)) (Signed 07-Jun-2022 01:43) Authored: Service, Subjective Data, Objective Data, Assessment and Plan, Note Completion Barber Castañeda) (Signed 09-Jun-2022 15:26) Authored: Assessment and Plan, Note Completion Co-Signer: Service, Subjective Data, Objective Data, Assessment and Plan, Note Completion Last Updated: 09-Jun-2022 15:26 by Barber Castañeda) Normal [facility] Daily Progress Note-Plastic Surgeryon 06-07-2022 Daily Progress Note-Plastic Surgery Service: Plastic Surgery Subjective Data: RM BERMAN is a 52 year old Male who is Hospital Day # 7. Possible OR today. Objective Data: Objective Information: T PRBPMAPSpO2 Value36.17800610/143225% Date/Time06/07 8: 8: 8: 8: 3: 8:08 Range(35.9C - 36.8C ) (69 - 96 ) (16 - 20 ) (111 - 126 )/ (73 - 80 ) (90 - 94 ) (94% - 97% ) Pain reported at 06/07 8:05: 7 = Severe ---- Intake and Output ----- Mn/Dy/Year TimeIntakeOutputNet Jun 07, 2022 6:00 [id number] Jun 06, 2022 10:00 pm000 The Intake and Output Totals for the last 24 hours are: IntakeOutputNet [id number] Physical Exam by System: Constitutional: awake/alert/oriented x3, no distress, alert and cooperative Eyes: EOMI, bilateral periorbital ecchymosis ENMT: MMM. Closed lac to bridge of nose. No nasal drainage noted on exam. Head/Neck: Scattered abrasions throughout face Respiratory/Thorax: Unlabored respirations on RA Cardiovascular: RRR Gastrointestinal: Nondistended, soft, non-tender, BM last night Genitourinary: Voiding independently Musculoskeletal: ROM intact, no joint swelling Extremities: normal extremities, no cyanosis edema, contusions or wounds, no clubbing Neurological: Alert and oriented x3 Psychological: Appropriate mood and behavior Skin: Warm and dry with no lesions or rashes Medication: Medications: ANTI-INFECTIVES: 1. cefTRIAXone 2 gram/Dextrose 5% IVPB Premixed Soln 50 mL: 50 mL IntraVenous Piggyback Every 12 Hours CENTRAL NERVOUS SYSTEM AGENTS: 1. oxyCODONE Immediate Release: 10 mg Oral Every 4 Hours PRN 2. Gabapentin: 300 mg Oral 3 Times a Day 3. Promethazine IV Piggy Back: 12.5 mg IntraVenous Piggyback Every 6 Hours PRN GASTROINTESTINAL AGENTS: 1. Bisacodyl Rectal: 10 mg Rectal Daily 2. Docusate: 100 mg Oral 2 Times a Day 3. Polyethylene Glycol: 17 gram(s) Oral Daily PRN 4. Sennosides: 2 tablet(s) Oral At Bedtime Currently Suspended Medications ------- 1. Acetaminophen: 650 mg Oral Every 4 Hours PRN 2. HYDROmorphone Injectable: 0.2 mg IntraVenous Push Every 4 Hours PRN 3. oxyCODONE Immediate Release: 5 mg Oral Every 4 Hours PRN 4. Enoxaparin SubCutaneous: 30 mg SubCutaneous Every 12 Hours 5. Lactated Ringers Infusion: 1000 mL IntraVenous Recent Lab Results: Results: Coagulation: 06/06/2022 19:30 PT / 12.3 / -------< INR < 1.1 PTT\ 26 \ I have reviewed these laboratory results: Coagulation Screen 06-Jun-2022 19:30:00 ResultValue Prothrombin Time, Plasma 12.3 International Normalized Ratio, Plasma 1.1 Activated Partial Thromboplastin Time 26 Renal Function Panel 06-Jun-2022 06:24:00 ResultValue Glucose, Serum 85 NA 140 K 3.6 CL 102 Bicarbonate, Serum 26 Anion Gap, Serum 16 BUN 6 CREAT 0.98 GFR Male >90 Calcium, Serum 9.3 Phosphorus, Serum 3.5 ALB 3.6 Complete Blood Count 06-Jun-2022 06:24:00 ResultValue White Blood Cell Count 7.1 Nucleated Erythrocyte Count 0.0 Red Blood Cell Count 4.69 HGB 15.7 HCT 44.4 MCV 95 MCHC 35.4 PLT 265 RDW-CV 11.8 Radiology Results: Results: Impression: Imaging for the purposes of preoperative planning demonstrates complex facial bone fractures extending to the frontal sinuses with associated pneumocephalus. CT Head without Contrast Volumeric Surgical Planning [Jun 02 2022 1:58PM] Assessment and Plan: Code Status: Code StatusFull Code Assessment: LIYA BERMAN is a 52 year old male with no significant PMH who fell on 05/28 14 ft from a ladder while he was at work and presented to [facility] in [place], [place] and was transferred to [facility] as a trauma. CTH at OSH indicates diffuse comminuted facial fracture/frontal sinus fracture with evidence of intracranial extension and diffuse pneumocephalus. Plastic Surgery (Face) consulted for extensive facial fractures. Plan/Recommendations: - Likely no OR today, possible OR tomorrow 06/08 NPO at midnight 06/08 COVID negative 06/01 Updated T&S 06/06 - Detailed CT obtained for surgical planning 06/02 - Patient to remain sinus precautions until further notice Keep head of bed elevated at all times, greater than 30 degrees Do NOT blow your nose for at least two weeks Keep head above heart level at all times Do NOT forcible split Do NOT smoke Avoid holding sneezes, sneeze with your mouth open Do not use a straw to drink Keep mouth open when coughing No lifting greater than 15-20 pounds - Continue protein supplementation with shakes/Ensure - Continue IV ceftriaxone - Pain management per primary - Plastics will continue to follow in preoperative period Patient and plan discussed with Dr. Divine Guzman, FEED INSPECTION SUPERVISOR-PRODUCTION PLANNING MANAGER/DISABILITY COORDINATOR Phone: [phone] Pager [phone] [facility] Time spent on the assessment of patient, gathering and interpreting data, review of medical (more content not included)... Normal [facility] Daily Progress Note-Trauma S urgeryon 06-07-2022 Daily Progress Note-Trauma Surgery Service: Trauma Surgery Subjective Data: RM BERMAN is a 52 year old Male who is Hospital Day # 7. Overnight Events: Patient had an uneventful night. Additional Information: No overnight events. Received suppository today. Head shaved in anticipation for OR. Nausea better controlled. Objective Data: Objective Information: T PRBPMAPSpO2 [id number]/[id number]% Date/Time06/07 14: 14: 14: 14: 3: 14:17 Range(35.9C - 36.8C ) (69 - 96 ) (16 - 20 ) (107 - 126 )/ (73 - 80 ) (90 - 94 ) (94% - 97% ) Pain reported at 06/07 12:18: 7 = Severe Intake Output Urine 700 mL Physical Exam by System: Constitutional: Cooperative, conversational Eyes: EOMI, able to open eyes, periorbital edema and bruising bilaterally (improving) ENMT: Moist mucus membranes Head/Neck: Normocephalic, shaved head Respiratory/Thorax: Nonlabored respirations on room air Genitourinary: No lafleur Extremities: Moves arms without assistance Neurological: No focal neurological deficits Psychological: Appropriate mood and behavior Medication: Medications: Continuous Medications ------- No continuous medications are active Scheduled Medications ------- 1. Bisacodyl Rectal: 10 mg Rectal Daily 2. cefTRIAXone 2 gram/Dextrose 5% IVPB Premixed Soln 50 mL: 50 mL IntraVenous Piggyback Every 12 Hours 3. Docusate: 100 mg Oral 2 Times a Day 4. Gabapentin: 300 mg Oral 3 Times a Day 5. Sennosides: 2 tablet(s) Oral At Bedtime PRN Medications ------- 1. oxyCODONE Immediate Release: 10 mg Oral Every 4 Hours 2. Polyethylene Glycol: 17 gram(s) Oral Daily 3. Promethazine IV Piggy Back: 12.5 mg IntraVenous Piggyback Every 6 Hours Currently Suspended Medications ------- 1. Acetaminophen: 650 mg Oral Every 4 Hours 2. Enoxaparin SubCutaneous: 30 mg SubCutaneous Every 12 Hours 3. HYDROmorphone Injectable: 0.2 mg IntraVenous Push Every 4 Hours 4. Lactated Ringers Infusion: 1000 mL IntraVenous 5. oxyCODONE Immediate Release: 5 mg Oral Every 4 Hours Radiology Results: Results: Impression: No evidence of acute cardiopulmonary process. Xray Chest 1 View [Jun 07 2022 11:50AM] Assessment and Plan: Daily Risk Screen: Does patient have an indwelling urinary catheteryes Plan for indwelling urinary catheter removal todayno The patient continues to require indwelling urinary catheterization forOR Code Status: Code StatusFull Code Assessment: 52 YOM s/p fall with ladder 05/28. Transfer from [facility] in [place]. List of clinically significant injuries/problems - Pneumocephalus - Comminuted frontal sinus fx involving anterior and posterior ceballos, ext to nola roney and cribiform plate - Comminuted nasal bone fx - B/l medial and inferior orbital wall fx - Nasal septum fx - Anterior ceballos of b/l maxillary sinuses - Suspicion of epidural blood products posteriorly at cranial/cervical junction - Bifrontal cerebral parenchymal contusions Plan: - OR with plastic surgery and neurosurgery - rescheduled to 06/08 due to projected duration of procedure - Soft diet, NPO at midnight 06/07 - Updated Type and Screen - Multimodal pain control with PRN Dilaudid for breakthrough - IVF to 50cc/hour with poor PO intake - Discontinued SSI - Continuous cardiac monitoring - KUB 06/02: Moderate stool burden - Scheduled suppository, docusate, and senna, Miralax PRN, mag citrate out of stock - Daily EKGs while on antiemetics - Discontinued Zofran, PRN Phenergan for nausea/vomiting - Continue IV ceftriaxone Discussed with attending, Dr. Tamir Mata MD General Surgery, PGY-1 Trauma Surgery, Phone [phone] Attestation: Note Completion: I am a: Resident/Fellow Attending AttestationI reviewed the resident/fellows documentation and discussed the patient with the resident/fellow. I agree with the resident/fellows medical decision making as documented in the note. Electronic Signatures: Maria M Baker () (Signed 09-Jun-2022 14:55) Authored: Assessment and Plan, Note Completion Co-Signer: Service, Subjective Data, Objective Data, Assessment and Plan, Note Completion Yun Mata (Resident)) (Signed 07-Jun-2022 17:59) Authored: Service, Subjective Data, Objective Data, Assessment and Plan, Note Completion Last Updated: 09-Jun-2022 14:55 by Maria M Baker () Normal [facility] CBCon 06-06-2022 Erythrocyte distribution width (RBC) [Ratio] 11.8 % Normal 11.5 - 14.5 [facility] Comment on above: Performed By: #### C ####[id number] [place] [address] Hematocrit (Bld) [Volume fraction] 44.4 % Normal 41.0 - 52.0 [facility] Comment on above: Performed By: #### C BC ####[id number] [place] [address] Hemoglobin (Bld) [Mass/Vol] 15.7 g/dL Normal 13.5 - 17.5 [facility] Comment on above: Performed By: #### C BC ####[id number] [place] [address] MCHC (RBC) [Mass/Vol] 35.4 g/dL Normal 32.0 - 36.0 [facility] Comment on above: Performed By: #### C BC ####[id number] [place] [address] MCV (RBC) [Entitic vol] 95 fL Normal 80 - 100 [facility] Comment on above: Performed By: #### C BC ####[id number] [place] [address] NUCLEATED RBC 0.0 /100 WBC Normal 0.0-0.0 [facility] Comment on above: Performed By: #### C BC ####[id number] [place] [address] Platelets (Bld) [#/Vol] 265 10*3/uL Normal 150 - 450 [facility] Comment on above: Performed By: #### C BC ####[id number] [place] [address] RBC 4.69 x10E12/L Normal 4.50 - 5.90 [facility] Comment on above: Performed By: #### C BC ####[id number] [place] [address] WBC (Bld) [#/Vol] 7.1 10*3/uL Normal 4.4 - 11.3 [facility] Comment on above: Performed By: #### C BC ####[id number] [place] [address] COAGULATION SCREENon 022 aPTT Coag (Bld) [Time] 26 s Normal 26 - 39 [facility] Comment on above: Result Comment: THE APTT IS NO LONGER USED FOR MONITORING UNFRACTIONATED HEPARIN THERAPY. FOR MONITORING HEPARIN THERAPY, USE THE HEPARIN ASSAY. Performed By: #### C OAGS ####[id number] [place] [address] PT Coag (PPP) [Time] 12.3 s Normal 9.8 - 13.4 [facility] Comment on above: Performed By: #### C OAGS ####[id number] [place] [address] PT, INR 1.1 Normal 0.9 - 1.1 [facility] Comment on above: Performed By: #### C OAGS ####[id number] [place] [address] Daily Progress Note-Neurosur kika 06-06-2022 Daily Progress Note-Neurosurgery Service: Neurosurgery Subjective Data: RM BERMAN is a 52 year old Male who is Hospital Day # 5. Objective Data: Objective Information: T PRBPMAPSpO2 [id number]/992039% Date/Time06/05 21:041 21:041 21: 21:041 21:041 21:04 Range(36.3C - 37.1C ) (44 - 83 ) (16 - 20 ) (109 - 132 )/ (66 - 86 ) (87 - 94 ) (94% - 98% ) Highest temp of 37.1 C was recorded at 06/05 16:23 Pain reported at 06/05 15:52: 7 = Severe ---- Intake and Output ----- Mn/Dy/Year TimeIntakeOutputNet Jun 05, 2022 2:00 [id number] Jun 05, 2022 6:00 am000 Jun 04, 2022 10:00 [id number] The Intake and Output Totals for the last 24 hours are: IntakeOutputNet [id number] Physical Exam by System: Neurological: Awake, Ox3 FCx4 12/09 Recent Lab Results: Results: CBC: 06/04/2022 06:36 \ Hgb / \ 13.9 / WBC Plt 7.3 253 / Hct \ / 38.5 L \ RBC: 4.24 L MCV: 91 RFP: 06/04/2022 06:36 NA+ Cl- BUN / 140 100 5 L / ------- Glucose -- 89 K+ HCO3- Creat \ 3.4 L 29 0.97 \ Calcium : 8.8Anion Gap : 14 Albumin : 3.4 Phos : 3.2 Assessment and Plan: Code Status: Code StatusFull Code Assessment: 52 year old with no sig pmh, s/p 14ft fall off ladder, CTH diffuse comminuted facial and frontal sinus fxs w/ intracranial ext, diffuse pneumocephalus, 06/02 vCTH stable. Recs: trauma primary OR Wed 06/08 frontal sinus exenteration, pericranial flap, possible mesh cranioplasty, LD with plastic surgery HOB 30 ENT recs Attestation: Note Completion: I am a: Resident/Fellow Attending AttestationI saw and evaluated the patient. I personally obtained the delvalle and critical portions of the history and physical exam or was physically present for delvalle and critical portions performed by the resident/fellow. I reviewed the resident/fellows documentation and discussed the patient with the resident/fellow. I agree with the resident/fellows medical decision making as documented in the note. I personally evaluated the patient [id number] Electronic Signatures: Barber Castañeda) (Signed 06-Jun-2022 16:12) Authored: Note Completion Co-Signer: Note Completion Oswald Rowe (Resident)) (Signed 06-Jun-2022 03:07) Authored: Service, Subjective Data, Objective Data, Assessment and Plan, Note Completion Last Updated: 06-Jun-2022 16:12 by Barber Castañeda) [facility] Daily Progress Note-Plastic Surgeryon 06-06-2022 Daily Progress Note-Plastic Surgery Service: Plastic Surgery Subjective Data: RM BERMAN is a 52 year old Male who is Hospital Day # 6. Patient resting comfortably in bed with HOB elevated. Reports nausea continues to improve. He notes that his pain is better controlled today. He states that he hasn't had much of an appetite and is open to trying protein shakes. Notes that he also hasn't had a BM in about 1 week. Notes some tearing from the bilateral eyes, but is unsure if it is 2/2 the ointment being used. Denies any drainage from nose. Denies any changes in vision, blurred vision or double vision. Denies any fever, chills, night sweats, CP, SOB, palpitations, nausea, vomiting, diarrhea. Objective Data: Objective Information: T PRBPMAPSpO2 [id number]/756544% Date/Time06/06 8: 8: 8: 8: 3: 8:53 Range(36.2C - 37.1C ) (44 - 83 ) (16 - 18 ) (109 - 132 )/ (66 - 86 ) (87 - 94 ) (94% - 97% ) Highest temp of 37.1 C was recorded at 06/05 16:23 Pain reported at 06/06 8:53: 6 = Moderate ---- Intake and Output ----- Mn/Dy/Year TimeIntakeOutputNet Jun 06, 2022 6:00 [id number] Jun 05, 2022 10:00 [id number] Jun 05, 2022 2:00 [id number] The Intake and Output Totals for the last 24 hours are: IntakeOutputNet [id number] Physical Exam by System: Constitutional: NAD Eyes: EOMI, bilateral periorbital ecchymosis ENMT: MMM. Closed lac to bridge of nose. No nasal drainage noted on exam. Head/Neck: Scattered abrasions throughout face Respiratory/Thorax: Unlabored respirations on RA Cardiovascular: RRR Musculoskeletal: ROM intact, no joint swelling Extremities: Normal extremities, no edema, wounds, clubbing Neurological: Alert and oriented x3 Psychological: Appropriate mood and behavior Skin: Warm and dry with no lesions or rashes Recent Lab Results: Results: CBC: 06/06/2022 06:24 \ Hgb / \ 15.7 / WBC Plt 7.1 265 / Hct \ / 44.4 \ RBC: 4.69 MCV: 95 RFP: 06/06/2022 06:24 NA+ Cl- BUN / 140 102 6 / ------- Glucose -- 85 K+ HCO3- Creat \ 3.6 26 0.98 \ Calcium : 9.3Anion Gap : 16 Albumin : 3.6 Phos : 3.5 Radiology Results: Results: Impression: Imaging for the purposes of preoperative planning demonstrates complex facial bone fractures extending to the frontal sinuses with associated pneumocephalus. CT Image Reconstruction 3D Volume and MIP [Jun 02 2022 1:59PM] Impression: Imaging for the purposes of preoperative planning demonstrates complex facial bone fractures extending to the frontal sinuses with associated pneumocephalus. CT Head without Contrast Volumeric Surgical Planning [Jun 02 2022 1:58PM] Assessment and Plan: Daily Risk Screen: Does patient have an indwelling urinary cathetern/a consulting service Does patient have a central linen/a consulting service Code Status: Code StatusFull Code Assessment: LIYA BERMAN is a 52 year old male with no significant PMH who fell on 05/28 14 ft from a ladder while he was at work and presented to [facility] in [place], [place] and was transferred to [facility] as a trauma. CTH at OSH indicates diffuse comminuted facial fracture/frontal sinus fracture with evidence of intracranial extension and diffuse pneumocephalus. Plastic Surgery (Face) consulted for extensive facial fractures. Assessment: Pt stable on exam. OR planning further discussed and surgical consent for ORIF of ARI fractures obtained bedside. Procedure was explained to pt and by attending, including risks and potential complications. Pt expressed understanding and all questions were answered. Plan/Recommendations: - Due to projected length of procedure- Surgery will be moved to first start on 06/07. NPO at midnight 06/07 COVID negative 06/01 Please update T&S 06/06 - Detailed CT obtained for surgical planning 06/02 - Patient to remain sinus precautions until further notice Keep head of bed elevated at all times, greater than 30 degrees Do NOT blow your nose for at least two weeks Keep head above heart level at all times Do NOT forcible split Do NOT smoke Avoid holding sneezes, sneeze with your mouth open Do not use a straw to drink Keep mouth open when coughing No lifting greater than 15-20 pounds - Rec protein supplementation with shakes/ Ensure - Continue IV ceftriaxone - Pain management per primary - Plastics will continue to follow in preoperative period Patient and plan discussed with JOSS Zheng-C Plastic and Reconstructive Surgery Available via HOLLR, pager: [phone] or Team phones: [phone] Time spent on the assessment of patient, gathering and interpreting data, review of medical record/patient history, personally reviewing radiographic imaging and formulation of this note 30 minutes. With greater than (more content not included)... Normal [facility] Daily Progress Note-Trauma S urgeryon 06-06-2022 Daily Progress Note-Trauma Surgery Service: Trauma Surgery Subjective Data: RM BERMAN is a 52 year old Male who is Hospital Day # 6. No overnight events. Patient tolerated more breakfast today and had eggs without nausea/vomiting. Nausea is improving. Pain in head/face is constant. Has not had bowel movement since admission. Overnight Events: Patient had an uneventful night. Objective Data: Objective Information: T PRBPMAPSpO2 [id number]% Date/Time06/06 12: 12: 12: 12: 3: 12:08 Range(36.2C - 37.1C ) (44 - 83 ) (16 - 18 ) (109 - 132 )/ (66 - 86 ) (87 - 94 ) (94% - 97% ) Highest temp of 37.1 C was recorded at 06/05 16:23 Pain reported at 06/06 13:50: 7 = Severe Intake Output Urine 1400 mL Physical Exam by System: Constitutional: Cooperative, conversational Eyes: EOMI, able to open eyes, periorbital edema and bruising bilaterally (improving) ENMT: Moist mucus membranes Head/Neck: Normocephalic Respiratory/Thorax: Nonlabored respirations on room air Gastrointestinal: Abdomen distended Genitourinary: No lafleur Extremities: Moves arms without assistance Neurological: No focal neurological deficits Psychological: Appropriate mood and behavior Medication: Medications: Continuous Medications ------- 1. Lactated Ringers Infusion: 1000 mL IntraVenous Scheduled Medications ------- 1. Bisacodyl Rectal: 10 mg Rectal Daily 2. cefTRIAXone 2 gram/Dextrose 5% IVPB Premixed Soln 50 mL: 50 mL IntraVenous Piggyback Every 12 Hours 3. Docusate: 100 mg Oral 2 Times a Day 4. Enoxaparin SubCutaneous: 30 mg SubCutaneous Every 12 Hours 5. Gabapentin: 300 mg Oral 3 Times a Day 6. Magnesium Citrate Oral Liquid: 300 mL Oral Once 7. Sennosides: 2 tablet(s) Oral At Bedtime PRN Medications ------- 1. Acetaminophen: 650 mg Oral Every 4 Hours 2. HYDROmorphone Injectable: 0.2 mg IntraVenous Push Every 4 Hours 3. oxyCODONE Immediate Release: 5 mg Oral Every 4 Hours 4. oxyCODONE Immediate Release: 10 mg Oral Every 4 Hours 5. Polyethylene Glycol: 17 gram(s) Oral Daily 6. Promethazine IV Piggy Back: 12.5 mg IntraVenous Piggyback Every 6 Hours Recent Lab Results: Results: I have reviewed these laboratory results: Renal Function Panel 06-Jun-2022 06:24:00 ResultValue Glucose, Serum 85 NA 140 K 3.6 CL 102 Bicarbonate, Serum 26 Anion Gap, Serum 16 BUN 6 CREAT 0.98 GFR Male >90 Calcium, Serum 9.3 Phosphorus, Serum 3.5 ALB 3.6 Complete Blood Count 06-Jun-2022 06:24:00 ResultValue White Blood Cell Count 7.1 Nucleated Erythrocyte Count 0.0 Red Blood Cell Count 4.69 HGB 15.7 HCT 44.4 MCV 95 MCHC 35.4 PLT 265 RDW-CV 11.8 Assessment and Plan: Code Status: Code StatusFull Code Assessment: 52 YOM s/p fall with ladder 05/28. Transfer from [facility] in [place]. List of clinically significant injuries/problems - Pneumocephalus - Comminuted frontal sinus fx involving anterior and posterior ceballos, ext to nola roney and cribiform plate - Comminuted nasal bone fx - B/l medial and inferior orbital wall fx - Nasal septum fx - Anterior ceballos of b/l maxillary sinuses - Suspicion of epidural blood products posteriorly at cranial/cervical junction - Bifrontal cerebral parenchymal contusions Plan: - OR with plastic surgery and neurosurgery - rescheduled to 06/08 due to projected duration of procedure - Soft diet, NPO at midnight 06/07 - Updated Type and Screen today - Multimodal pain control with PRN Dilaudid for breakthrough - IVF to 50cc/hour with poor PO intake - Discontinued SSI - Continuous cardiac monitoring - KUB 06/02: Moderate stool burden - Scheduled suppository, docusate, and senna, Miralax PRN, mag citrate out of stock - Daily EKGs while on antiemetics - Discontinued Zofran, PRN Phenergan for nausea/vomiting - Continue IV ceftriaxone Patient seen and discussed with attending, Dr. Tamir Mata MD General Surgery, PGY-1 Trauma Surgery, Phone [phone] Attestation: Note Completion: I am a: Resident/Fellow Attending AttestationI saw and evaluated the patient. I personally obtained the delvalle and critical portions of the history and physical exam or was physically present for delvalle and critical portions performed by the resident/fellow. I reviewed the resident/fellows documentation and discussed the patient with the resident/fellow. I agree with the resident/fellows medical decision making as documented in the note. I personally evaluated the patient [id number] Comments/ Additional Findings Patient and requesting conversations with neurosurg and facial surg teams regarding operative plan, recovery, restrictions, etc. Both teams contacted and asked to come speak to them. Electronic Signatures: Maria M Baker (more content not included)... Normal [facility] Laboratory - Blood bankon ABO group Nom (Bld) A MG-Pl astic Surgery-[facility] 2[facility] Work Phone: Blood group [facility] screen [facility]l [facility] Work Phone: Rh immune globulin screen (Bld) [Interp] Positive [facility] Work Phone: Laboratory - Coagulationon 1 aPTT Coag (PPP) [Time] 26 s 26 - 39 [facility] Work Phone: Comment on above: THE APTT IS NO LONGE R USED FOR MONITORING UNFRACTIONATED HEPARIN THERAPY. FOR MONITORING HEPARIN THERAPY, USE THE HEPARIN ASSAY. INR Coag (PPP) [Relative time] 1.1 {INR} 0.9 - 1.1 -Plastic Surgery-[facility] 2099 Work Phone: PT Coag (PPP) [Time] 12.3 s 9.8 - 13.4 MG-P [facility] 2099 Work Phone: Laboratory - Hematology and Cell countson 06-06-2022 Erythrocyte distribution width (RBC) [Ratio] 11.8 % See Below [facility] Work Phone: Comment on above: Reference Range: 11. 5 - 14.5 Hematocrit (Bld) [Volume fraction] 44.4 % See Below [facility] Work Phone: Comment on above: Reference Range: 41. 0 - 52.0 Hemoglobin (Bld) [Mass/Vol] 15.7 g/dL See Below [facility] Work Phone: [phone] Comment on above: Reference Range: 13. 5 - 17.5 MCHC (RBC) [Mass/Vol] 35.4 g/dL See Below [facility] Work Phone: Comment on above: Reference Range: 32. 0 - 36.0 MCV (RBC) [Entitic vol] 95 fL 80 - 100 [facility] Work Phone: Platelets (Bld) [#/Vol] 265 10*3/uL 150 - 450 MG-Plastic Surgery-[facility] 2099 Work Phone: RBC (Bld) [#/Vol] 4.69 {x10E12/L} See Below MG -Plastic Surgery-[facility] 2099 Work Phone: Comment on above: Reference Range: 4.5 0 - 5.90 WBC (Bld) [#/Vol] 7.1 10*3/uL 4.4 - 11.3 MG-Tomasa stic Surgery-[facility] 2099 Work Phone: No Panel Informationon 06-06 ORDER RECD MG-Plastic Surgery-[facility] 2099 Work Phone: 0.0 {/100_WBC} 0.0-0.0 MG-Plastic Surgery-[facility] 2099 Work Phone: RENAL FUNCTION PANELon 06-06 Albumin [Mass/Vol] 3.6 g/dL Normal 3.4 - 5.0 [facility] Comment on above: Performed By: #### R ENAL #### [facility] [address] [place] [address] Anion gap [Moles/Vol] 16 mmol/L Normal 10 - 20 [facility] Comment on above: Performed By: #### R ENAL #### [facility] [address] [place] [address] Calcium [Mass/Vol] 9.3 mg/dL Normal 8.6 - 10.6 [facility] Comment on above: Performed By: #### R ENAL #### [facility] [address] [place] [address] Chloride [Moles/Vol] 102 mmol/L Normal 98 - 107 [facility] Comment on above: Performed By: #### R ENAL #### [facility] [address] [place] [address] Creatinine [Mass/Vol] 0.98 mg/dL Normal 0.50 - 1.30 [facility] Comment on above: Performed By: #### R ENAL #### [facility] [address] [place] [address] eGFR MALE >90 Normal >90 [facility] Comment on above: Result Comment: CALC ULATIONS OF ESTIMATED GFR ARE PERFORMED USING THE 2020 CKD-EPI STUDY REFIT EQUATION WITHOUT THE RACE VARIABLE FOR THE IDMS-TRACEABLE CREATININE METHODS. https://jasn.asnjournals.org/content//ASN.4768532 988 Performed By: #### R ENAL #### [facility] [address] [place] [address] Glucose [Mass/Vol] 85 mg/dL Normal 74 - 99 [facility] Comment on above: Performed By: #### R ENAL #### [facility] [address] [place] [address] HCO3 (Bld) [Moles/Vol] 26 mmol/L Normal 21 - 32 [facility] Comment on above: Performed By: #### R ENAL #### [facility] [address] [place] [address] Phosphate [Mass/Vol] 3.5 mg/dL Normal 2.5 - 4.9 [facility] Comment on above: Result Comment: The performance characteristics of phosphorus testing in heparinized plasma have been validated by the individual laboratory site where testing is performed. Testing on heparinized plasma is not approved by the FDA; however, such approval is not necessary. Performed By: #### R ENAL #### [facility] [address] [place] [address] Potassium [Moles/Vol] 3.6 mmol/L Normal 3.5 - 5.3 [facility] Comment on above: Performed By: #### R ENAL #### [facility] [address] [place] [address] Sodium [Moles/Vol] 140 mmol/L Normal 136 - 145 [facility] Comment on above: Performed By: #### R ENAL #### [facility] [address] [place] [address] Urea nitrogen [Mass/Vol] 6 mg/dL Normal 6 - 23 [facility] Comment on above: Performed By: #### R ENAL #### [facility] [address] [place] [address] REQUEST-LEUKOREDUCED RED ROBERT LSon 06-06-2022 REQUEST-LEUKOREDUCED RED CELLS ORDER RECD Normal [facility] Comment on above: Performed By: #### O STARCH TREATING ASSISTANT ####[id number] [place] [address] Radiologyon 06-06-2022 XR Chest Single view Normal MG-P lastic Surgery-[facility] 2099 Work Phone: Renal Function Panelon 06-06 Albumin BCP dye [Mass/Vol] 3.6 g/dL 3.4 - 5.0 MG-Plastic Surgery-[facility] 2099 Work Phone: Anion gap [Moles/Vol] 16 mmol/L 10 - 20 [facility] 2099 Work Phone: Calcium [Mass/Vol] 9.3 mg/dL 8.6 - 10.6 MG-Tomasa stic Surgery-[facility] 2099 Work Phone: Chloride [Moles/Vol] 102 mmol/L 98 - 107 MG-P lastic Surgery-[facility] 2099 Work Phone: CO2 [Moles/Vol] 26 mmol/L 21 - 32 MG-Plasti c Surgery-[facility] 2099 Work Phone: Creatinine [Mass/Vol] 0.98 mg/dL See Below [facility] 2099 Work Phone: Comment on above: Reference Range: 0.5 0 - 1.30 Glucose [Mass/Vol] 85 mg/dL 74 - 99 MG-Tomasa stic Surgery-[facility] 2099 Work Phone: Phosphate [Mass/Vol] 3.5 mg/dL 2.5 - 4.9 MG-P lastic Surgery-[facility] 2099 Work Phone: Comment on above: The performance pauline acteristics of phosphorus testing in heparinized plasma have been validated by the individual laboratory site where testing is performed. Testing on heparinized plasma is not approved by the FDA; however, such approval is not necessary. Potassium [Moles/Vol] 3.6 mmol/L 3.5 - 5.3 MG-Plastic Surgery-[facility] 2099 Work Phone: Sodium [Moles/Vol] 140 mmol/L 136 - 145 MG-Tomasa stic Surgery-[facility] 2099 Work Phone: Urea nitrogen [Mass/Vol] 6 mg/dL 6 - 23 MG-Plastic Surgery-[facility] 2099 Work Phone: Renal Function Panel >90 >90 MG-P lastic Surgery-[facility] 2099 Work Phone: Comment on above: CALCULATIONS OF CHELE MATED GFR ARE PERFORMED USING THE 2020 CKD-EPI STUDY REFIT EQUATION WITHOUT THE RACE VARIABLE FOR THE IDMS-TRACEABLE CREATININE METHODS.https://jasn.asnjournals.org/content/early//ASN .2335249291 CHEST 1 VIEWon 06-06-2022 CHEST 1 VIEW Patient Name: RM BERMAN STUDY: CHEST 1 VIEW; 06/06/2022 6:47 pm INDICATION: preop . COMPARISON: None. ACCESSION NUMBER(S): [id number] ORDERING CLINICIAN: YORDAN WELLINGTON FINDINGS: Frontal radiograph of the chest was provided CARDIOMEDIASTINAL SILHOUETTE: Cardiac silhouette is normal in size. LUNGS: No focal consolidation, pleural effusion, or pneumothorax. ABDOMEN: No remarkable upper abdominal findings. BONES: No acute osseous abnormality. IMPRESSION: No evidence of acute cardiopulmonary process. I personally reviewed the images/study and I agree with the findings as stated. Electronically signed by: MARCELINO VEGA MD Normal [facility] TYPE + SCREENon 06-06-2022 ABO TYPE A Normal [facility] Comment on above: Performed By: #### G CARLIN #### [facility] [address] [place] [address] RH TYPE Positive Normal [facility] Comment on above: Performed By: #### G CARLIN #### [facility] [address] [place] [address] URINALYSISon 06-06-2022 Appearance (U) CLEAR Normal CLEAR [facility] Comment on above: Performed By: #### G CARLIN #### [facility] [address] [place] [address] Bilirubin Ql (U) Negative Normal NEGATIVE [facility] Comment on above: Performed By: #### G CARLIN #### [place] [address] [place] [address] Color (U) YELLOW Normal STRAW,YELLO W [facility] Comment on above: Performed By: #### G CARLIN #### [facility] [address] [place] [address] Glucose Ql (U) Negative Normal NEGATIVE [facility] Comment on above: Performed By: #### G CARLIN #### [facility] [address] [place] [address] Hemoglobin Ql (U) Negative Normal NEGATIVE [facility] Comment on above: Performed By: #### G CARLIN #### [facility] [address] [place] [address] Ketones Ql (U) 5 (TRACE) Abnormal NEGATIVE [facility] Comment on above: Performed By: #### G CARLIN #### [facility] [address] [place] [address] Leukocyte esterase Test strip Ql (U) Negative Normal NEGATIVE [facility] Comment on above: Performed By: #### G CARLIN #### [facility] [address] [place] [address] Nitrite Ql (U) Negative Normal NEGATIVE [facility] Comment on above: Performed By: #### G CARLIN #### [facility] [address] [place] [address] pH (U) 7.0 [pH] Normal 5.0 - 8.0 [facility] Comment on above: Performed By: #### G CARLIN #### [place] [address] [place] [address] Protein Ql (U) Negative Normal NEGATIVE [facility] Comment on above: Performed By: #### G CARLIN #### [facility] [address] [place] [address] Specific gravity (U) [Rel density] 1.012 Normal 1.005 - 1.035 [facility] Comment on above: Performed By: #### Josue CARLIN #### [facility] [address] [place] [address] Urobilinogen (U) [Mass/Vol] mg/dL Normal 0.0 - 1.9 [facility] Comment on above: Performed By: #### Josue CARLIN #### [facility] [address] [place] [address] Urinalysison 06-06-2022 Color (U) YELLOW See Below MG-Plastic Surgery-[facility] 2099 Work Phone: Comment on above: Reference Range: STR AW,YELLOW Glucose Ql (U) Negative NEGATIVE MG-Plastic Surgery-[facility] 2099 Work Phone: Ketones Ql (U) 5 (TRACE) Abnormal NEGATIVE MG-Plastic Surgery-[facility] 2099 Work Phone: Leukocyte esterase Test strip Ql (U) Negative NEGATIVE MG-Plastic Surgery-[facility] 2099 Work Phone: pH (U) 7.0 [pH] 5.0 - 8.0 MG-Plastic Surgery-[facility] 2099 Work Phone: Protein (U) [Mass/Vol] Negative NEGATIVE MG-Plastic Surgery-[facility] 2099 Work Phone: RBC (U) [#/Vol] Negative NEGATIVE MG-Plasti c Surgery-[facility] 2099 Work Phone: Specific gravity (U) [Rel density] 1.012 1 See Below [facility]-Plastic Surgery-[facility] 2099 Work Phone: Comment on above: Reference Range: 1.0 05 - 1.035 Urinalysis Negative NEGATIVE MG-Plastic Surgery-[facility] 2099 Work Phone: Urinalysis <2.0 0.0 - 1.9 MG-Plastic Surgery-[facility] 2099 Work Phone: Urinalysis CLEAR CLEAR MG-Plastic Surgery-[facility] 2099 Work Phone: Daily Progress Note-Neurosur kika 06-05-2022 Daily Progress Note-Neurosurgery Service: Neurosurgery Subjective Data: RM BERMAN is a 52 year old Male who is Hospital Day # 4. Objective Data: Objective Information: T PRBPMAPSpO2 [id number]/721721% Date/Time06/04 20: 20: 20: 20: 12: 20:00 Range(36.3C - 36.9C ) (63 - 85 ) (16 - 20 ) (105 - 132 )/ (66 - 86 ) (94 - 94 ) (94% - 98% ) Highest temp of 36.9 C was recorded at 06/03 23:45 Pain reported at 06/04 20:13: 8 = Severe ---- Intake and Output ----- Mn/Dy/Year TimeIntakeOutputNet Jun 04, 2022 10:00 [id number] Jun 04, 2022 2:00 [id number] Jun 04, 2022 6:00 [id number] The Intake and Output Totals for the last 24 hours are: IntakeOutputNet [id number] Physical Exam by System: Neurological: Ox3 no drift 5/5 strength SILT Recent Lab Results: Results: CBC: 06/04/2022 06:36 \ Hgb / \ 13.9 / WBC Plt 7.3 253 / Hct \ / 38.5 L \ RBC: 4.24 L MCV: 91 RFP: 06/04/2022 06:36 NA+ Cl- BUN / 140 100 5 L / ------- Glucose -- 89 K+ HCO3- Creat \ 3.4 L 29 0.97 \ Calcium : 8.8Anion Gap : 14 Albumin : 3.4 Phos : 3.2 Assessment and Plan: Code Status: Code StatusFull Code Assessment: 52 year old with no sig pmhx, 05/28 s/p 14ft fall from ladder, CTH diffuse comminuted facial fx/frontal sinus fx w/intracranial extension and diffuse pneumocephalus. Patient was transferred to [facility] under trauma and neurosurgery was consulted for findings above. Plan: keep patient on CTX OR Tues for reconstruction with plastic surgery HOB 30 avoid straining Attestation: Note Completion: I am a: Resident/Fellow Attending AttestationI saw and evaluated the patient. I personally obtained the delvalle and critical portions of the history and physical exam or was physically present for delvalle and critical portions performed by the resident/fellow. I reviewed the resident/fellows documentation and discussed the patient with the resident/fellow. I agree with the resident/fellows medical decision making as documented in the note. I personally evaluated the patient [id number] Electronic Signatures: Barber Castañeda () (Signed 05-Jun-2022 08:45) Authored: Note Completion Co-Signer: Service, Subjective Data, Objective Data, Assessment and Plan, Note Completion Ravinder Garcia (Resident)) (Signed 04-Jun-2022 22:22) Authored: Service, Subjective Data, Objective Data, Assessment and Plan, Note Completion Last Updated: 05-Jun-2022 08:45 by Barber Castañeda) Normal [facility] Daily Progress Note-Plastic Surgeryon 06-05-2022 Daily Progress Note-Plastic Surgery Service: Plastic Surgery Subjective Data: RM BERMAN is a 52 year old Male who is Hospital Day # 5. Patient resting comfortably in bed with HOB elevated. Reports nausea continues to improve. Admits pain was an issue overnight as he got behind on taking pain med, pain controlled at this point on assessment. Denies any other acute concerns. Objective Data: Objective Information: T PRBPMAPSpO2 [id number]% Date/Time06/05 7: 7: 7: 7: 7: 7:58 Range(36.3C - 37C ) (63 - 82 ) (16 - 20 ) (114 - 132 )/ (66 - 86 ) (94 - 102 ) (94% - 98% ) Highest temp of 37 C was recorded at 06/05 0:00 Pain reported at 06/05 7:58: 3 = Mild ---- Intake and Output ----- Mn/Dy/[facility]South[facility] Jun 05, 2022 6:00 am000 Jun 04, 2022 10:00 [id number] Jun 04, 2022 2:00 [id number] The Intake and Output Totals for the last 24 hours are: IntakeOutputNet [id number] Physical Exam by System: Constitutional: NAD Eyes: EOMI, bilateral periorbital ecchymosis and edema ENMT: MMM. Closed lac to bridge of nose. No nasal drainage noted on exam. Head/Neck: Scattered abrasions throughout face Respiratory/Thorax: Unlabored respirations on RA Musculoskeletal: ROM intact, no joint swelling Extremities: Normal extremities, no edema, wounds, clubbing Neurological: Alert and oriented x3 Psychological: Appropriate mood and behavior Skin: Warm and dry with no lesions or rashes Medication: Medications: ANTI-INFECTIVES: 1. cefTRIAXone 2 gram/Dextrose 5% IVPB Premixed Soln 50 mL: 50 mL IntraVenous Piggyback Every 12 Hours CENTRAL NERVOUS SYSTEM AGENTS: 1. Acetaminophen: 650 mg Oral Every 4 Hours PRN 2. HYDROmorphone Injectable: 0.2 mg IntraVenous Push Every 4 Hours PRN 3. oxyCODONE Immediate Release: 5 mg Oral Every 4 Hours PRN 4. oxyCODONE Immediate Release: 10 mg Oral Every 4 Hours PRN 5. Gabapentin: 300 mg Oral 3 Times a Day 6. Promethazine IV Piggy Back: 12.5 mg IntraVenous Piggyback Every 6 Hours PRN COAGULATION MODIFIERS: 1. Enoxaparin SubCutaneous: 30 mg SubCutaneous Every 12 Hours GASTROINTESTINAL AGENTS: 1. Bisacodyl Rectal: 10 mg Rectal Daily PRN 2. Docusate: 100 mg Oral 2 Times a Day 3. Polyethylene Glycol: 17 gram(s) Oral Daily PRN 4. Sennosides: 2 tablet(s) Oral At Bedtime METABOLIC AGENTS: 1. Insulin Regular Moderate Corrective Scale: unit(s) SubCutaneous Every 6 Hours 2. Dextrose 50% in Water Injectable: 25 gram(s) IntraVenous Push Every 15 Minutes PRN 3. Glucagon Injectable: 1 mg IntraMuscular Every 15 Minutes PRN NUTRITIONAL PRODUCTS: 1. Lactated Ringers Infusion: 1000 mL IntraVenous Recent Lab Results: Results: CBC: 06/04/2022 06:36 \ Hgb / \ 13.9 / WBC Plt 7.3 253 / Hct \ / 38.5 L \ RBC: 4.24 L MCV: 91 RFP: 06/04/2022 06:36 NA+ Cl- BUN / 140 100 5 L / ------- Glucose -- 89 K+ HCO3- Creat \ 3.4 L 29 0.97 \ Calcium : 8.8Anion Gap : 14 Albumin : 3.4 Phos : 3.2 Radiology Results: Results: Impression: Imaging for the purposes of preoperative planning demonstrates complex facial bone fractures extending to the frontal sinuses with associated pneumocephalus. CT Image Reconstruction 3D Volume and MIP [Jun 02 2022 1:59PM] Assessment and Plan: Daily Risk Screen: Does patient have an indwelling urinary cathetern/a consulting service Does patient have a central linen/a consulting service Code Status: Code StatusFull Code Assessment: LIYA BERMAN is a 52 year old male with no significant PMH who fell on 05/28 14 ft from a ladder while he was at work and presented to [facility] in [place], [place] and was transferred to [facility] as a trauma. CTH at OSH indicates diffuse comminuted facial fracture/frontal sinus fracture with evidence of intracranial extension and diffuse pneumocephalus. Plastic Surgery (Face) consulted for extensive facial fractures. Plan/Recommendations: - Plan for OR on Thursday 06/07 for ORIF of ARI fracture in coordination with NSGY due to nature of intracranial injury, add on case sheet submitted NPO at midnight 06/07 COVID negative 06/01 Please update T&S 06/06 - Detailed CT obtained for surgical planning 06/02 - Patient to remain sinus precautions until further notice Keep head of bed elevated at all times, greater than 30 degrees Do NOT blow your nose for at least two weeks Keep head above heart level at all times Do NOT forcible split Do NOT smoke Avoid holding sneezes, sneeze with your mouth open Do not use a straw to drink Keep mouth open when coughing No lifting greater than 15-20 pounds - Continue IV ceftriaxone - Pain management per primary - Plastics will continue to follow in preoperative period Patient and plan discussed with Dr. Divine Lee, SAMMY- (more content not included)... Normal [facility] Daily Progress Note-Trauma S rambo 06-05-2022 Daily Progress Note-Trauma Surgery Service: Trauma Surgery Subjective Data: RM BERMAN is a 52 year old Male who is Hospital Day # 5. No overnight events. Nausea is well controlled. Tolerated applesauce and other snacks without emesis yesterday. Pain is 3-4/10 and tolerable. No bowel movement since admission. Overnight Events: Patient had an uneventful night. Objective Data: Objective Information: T PRBPMAPSpO2 [id number]/981074% Date/Time06/05 11: 13: 11: 11: 12: 11:51 Range(36.3C - 37C ) (44 - 82 ) (16 - 20 ) (111 - 132 )/ (66 - 86 ) (94 - 94 ) (94% - 98% ) Highest temp of 37 C was recorded at 06/05 0:00 Pain reported at 06/05 10:52: 5 = Moderate Intake Output Enteral - Oral 720 mL Urine 500 mL Physical Exam by System: Constitutional: Calm, cooperative, conversational Eyes: EOMI, able to open eyes, periorbital edema and bruising bilaterally (improving) ENMT: Moist mucus membranes Head/Neck: Normocephalic Respiratory/Thorax: Nonlabored respirations on room air Gastrointestinal: Abdomen soft, nontender, mildly distended Genitourinary: No lafleur Extremities: Moves all extremities Neurological: No focal neurological deficits Psychological: Appropriate mood and behavior Medication: Medications: Continuous Medications ------- 1. Lactated Ringers Infusion: 1000 mL IntraVenous Scheduled Medications ------- 1. cefTRIAXone 2 gram/Dextrose 5% IVPB Premixed Soln 50 mL: 50 mL IntraVenous Piggyback Every 12 Hours 2. Docusate: 100 mg Oral 2 Times a Day 3. Enoxaparin SubCutaneous: 30 mg SubCutaneous Every 12 Hours 4. Gabapentin: 300 mg Oral 3 Times a Day 5. Insulin Regular Moderate Corrective Scale: unit(s) SubCutaneous Every 6 Hours 6. Magnesium Citrate Oral Liquid: 300 mL Oral Once 7. Sennosides: 2 tablet(s) Oral At Bedtime PRN Medications ------- 1. Acetaminophen: 650 mg Oral Every 4 Hours 2. Bisacodyl Rectal: 10 mg Rectal Daily 3. Dextrose 50% in Water Injectable: 25 gram(s) IntraVenous Push Every 15 Minutes 4. Glucagon Injectable: 1 mg IntraMuscular Every 15 Minutes 5. HYDROmorphone Injectable: 0.2 mg IntraVenous Push Every 4 Hours 6. oxyCODONE Immediate Release: 5 mg Oral Every 4 Hours 7. oxyCODONE Immediate Release: 10 mg Oral Every 4 Hours 8. Polyethylene Glycol: 17 gram(s) Oral Daily 9. Promethazine IV Piggy Back: 12.5 mg IntraVenous Piggyback Every 6 Hours Recent Lab Results: Results: I have reviewed these laboratory results: Glucose_POCT Trending View [id number] 11:42:00 05-Jun-2022 06:02:00 05-Jun-2022 00:40:00 [id number] 96 95 Radiology Results: Results: Impression: 1. Moderate stool burden nonobstructive bowel gas pattern. Otherwise no acute abdominopelvic process. Xray Abdomen AP View [Jun 02 2022 3:12PM] Assessment and Plan: Code Status: Code StatusFull Code Assessment: 52 YOM s/p fall with ladder 05/28. TR from [employer] in [place]. List of clinically significant injuries/problems - pneumocephalus - comminuted frontal sinus fx involving anterior and posterior ceballos, ext to nola roney and cribiform plate - comminuted nasal bone fx - b/l medial and inferior orbital wall fx - nasal septum fx - anterior ceballos of b/l maxillary sinuses - suspicion of epidural blood products posteriorly at cranial/cervical junction - Bifrontal cerebral parenchymal contusions Plan: - OR with plastic surgery and neurosurgery - 06/07/22 - Soft diet, NPO at midnight 06/06 - Obtain Type and Screen 06/06 - Multimodal pain control with PRN Dilaudid for breakthrough - Decrease IVF to 50cc/hour - Discontinue SSI - Continuous cardiac monitoring - KUB 06/02: Moderate stool burden - Scheduled docusate and senna, Miralax and suppository PRN, mag citrate out of stock - Daily EKGs while on antiemetics - Discontinued Zofran, PRN Phenergan for nausea/vomiting - Continue IV ceftriaxone Patient seen and discussed with attending, Dr. Moshe Mata MD General Surgery, PGY-1 Trauma Surgery, Phone [phone] Attestation: Note Completion: I am a: Resident/Fellow Attending AttestationI saw and evaluated the patient. I personally obtained the delvalle and critical portions of the history and physical exam or was physically present for delvalle and critical portions performed by the resident/fellow. I reviewed the resident/fellows documentation and discussed the patient with the resident/fellow. I agree with the resident/fellows medical decision making as documented in their note with the exception/addition of the following: I personally evaluated the patient [id number] Comments/ Additional Findings I saw and examined the patient with the resident/ARLYN team. I agree with the note with the additions/clarifications below. 52 yo male with comp (more content not included)... Normal [facility] GLUCOSE-POCTon 06-05-2022 Glucose [Mass/Vol] 98 mg/dL Normal 74 - 99 [facility] Comment on above: Performed By: #### G CARLIN #### [facility] [id number] [place] [address] Glucose [Mass/Vol] 96 mg/dL Normal 74 - 99 [facility] Comment on above: Performed By: #### G CARLIN #### [facility] [address] [place] [address] Glucose [Mass/Vol] 95 mg/dL Normal 74 - 99 [facility] Comment on above: Performed By: #### G CARLIN ####[id number] [place] [address] Laboratory - Chemistry and C hemistry - challengeon 06-05-2022 Glucose [Mass/Vol] 98 mg/dL 74 - 99 MG-[facility] Surgery-[facility] 2[address] Work Phone: Glucose [Mass/Vol] 96 mg/dL 74 - 99 [facility] Surgery-[facility] 2[address] Work Phone: Glucose [Mass/Vol] 95 mg/dL 74 - 99 MG-[facility] Surgery-[facility] 2100 Work Phone: CBCon 06-04-2022 Erythrocyte distribution width (RBC) [Ratio] 11.5 % Normal 11.5 - 14.5 [facility] Comment on above: Performed By: #### G CARLIN #### [facility] [address] [place] [address] Hematocrit (Bld) [Volume fraction] 38.5 % Low 41.0 - 52.0 [facility] Comment on above: Performed By: #### G CARLIN #### [facility] [address] [place] [address] Hemoglobin (Bld) [Mass/Vol] 13.9 g/dL Normal 13.5 - 17.5 [facility] Comment on above: Performed By: #### G CARLIN #### [facility] [address] [place] [address] MCHC (RBC) [Mass/Vol] 36.1 g/dL High 32.0 - 36.0 [facility] Comment on above: Performed By: #### G CARLIN #### [facility] [address] [place] [address] MCV (RBC) [Entitic vol] 91 fL Normal 80 - 100 [facility] Comment on above: Performed By: #### G CARLIN #### [facility] [address] [place] [address] NUCLEATED RBC 0.0 /100 WBC Normal 0.0-0.0 [facility] Comment on above: Performed By: #### G CARLIN #### [facility] [address] [place] [address] Platelets (Bld) [#/Vol] 253 10*3/uL Normal 150 - 450 [facility] Comment on above: Performed By: #### G CARLIN #### [facility] [address] [place] [address] RBC 4.24 x10E12/L Low 4.50 - 5.90 [facility] Comment on above: Performed By: #### G CARLIN #### [facility] [address] [place] [address] WBC (Bld) [#/Vol] 7.3 10*3/uL Normal 4.4 - 11.3 [facility] Comment on above: Performed By: #### G CARLIN #### [facility] [address] [place] [address] Daily Progress Note-Neurosur kika 06-04-2022 Daily Progress Note-Neurosurgery Service: Neurosurgery Subjective Data: RM BERMAN is a 52 year old Male who is Hospital Day # 3. Objective Data: Objective Information: T PRBPMAPSpO2 [id number]/7096% Date/Time06/03 19: 19: 19: 19: 19:30 Range(35.5C - 36.8C ) (65 - 85 ) (18 - 22 ) (105 - 131 )/ (67 - 83 ) (94% - 98% ) Pain reported at 06/03 20:30: 8 = Severe ---- Intake and Output ----- Mn/Dy/Year TimeIntakeOutputNet Jun 03, 2022 2:00 [id number] Jun 03, 2022 6:00 [id number] The Intake and Output Totals for the last 24 hours are: IntakeOutputNet [id number] Physical Exam by System: Neurological: Ox3 no drift 5/5 strength SILT Recent Lab Results: Results: CBC: 06/01/2022 05:39 \ Hgb / \ 14.0 / WBC Plt 8.7 200 / Hct \ / 39.4 L \ RBC: 4.21 L MCV: 94 RFP: 06/01/2022 05:39 NA+ Cl- BUN / 138 99 9 / ------- Glucose -- 70 L K+ HCO3- Creat \ 3.8 25 0.91 \ Calcium : 9.0Anion Gap : 18 Albumin : 3.2 L Phos : 3.2 Coagulation: 06/01/2022 05:39 PT / Canceled / -------< INR < Canceled PTT\ Canceled THE APTT IS NO LONGER USED FOR MONITORING UNFRACTIONATED HEPARIN THERAPY. FOR MONITORING HEPARIN THERAPY, USE THE HEPARIN ASSAY. \ Assessment and Plan: Code Status: Code StatusFull Code Assessment: 52 year old with no sig pmhx, 05/28 s/p 14ft fall from ladder, CTH diffuse comminuted facial fx/frontal sinus fx w/intracranial extension and diffuse pneumocephalus. Patient was transferred to [facility] under trauma and neurosurgery was consulted for findings above. Plan: keep patient on CTX OR Tues for reconstruction with plastic surgery HOB 30 avoid straining Attestation: Note Completion: I am a: Resident/Fellow Attending AttestationI saw and evaluated the patient. I personally obtained the delvalle and critical portions of the history and physical exam or was physically present for delvalle and critical portions performed by the resident/fellow. I reviewed the resident/fellows documentation and discussed the patient with the resident/fellow. I agree with the resident/fellows medical decision making as documented in the note. I personally evaluated the patient [id number] Electronic Signatures: Barber Castañeda () (Signed 05-Jun-2022 08:44) Authored: Note Completion Co-Signer: Service, Subjective Data, Objective Data, Assessment and Plan, Note Completion Ravinder Garcia (Resident)) (Signed 03-Jun-2022 23:15) Authored: Service, Subjective Data, Objective Data, Assessment and Plan, Note Completion Last Updated: 05-Jun-2022 08:44 by Barber Castañeda) Normal [facility] Daily Progress Note-Plastic Surgeryon 06-04-2022 Daily Progress Note-Plastic Surgery Service: Plastic Surgery Subjective Data: RM EBRMAN is a 52 year old Male who is Hospital Day # 4. Patient resting comfortably in bed with HOB elevated. Reporting nausea much improved this morning and feels better overall. Pain controlled at this point. Denies any other acute concerns. Objective Data: Objective Information: T PRBPMAPSpO2 [id number]/8395% Date/Time06/04 7: 7: 7: 7: 7:34 Range(36.3C - 36.9C ) (63 - 85 ) (16 - 20 ) (105 - 132 )/ (66 - 86 ) (94% - 98% ) Highest temp of 36.9 C was recorded at 06/03 23:45 Pain reported at 06/04 2:36: 8 = Severe ---- Intake and Output ----- Mn/Dy/Year TimeIntakeOutputNet Jun 04, 2022 6:00 [id number] Jun 03, 2022 10:00 [id number] Jun 03, 2022 2:00 [id number] The Intake and Output Totals for the last 24 hours are: IntakeOutputNet [id number] Physical Exam by System: Constitutional: NAD Eyes: EOMI, bilateral periorbital ecchymosis and edema ENMT: MMM. Closed lac to bridge of nose. No nasal drainage noted on exam. Head/Neck: Scattered abrasions throughout face Respiratory/Thorax: Unlabored respirations on RA Musculoskeletal: ROM intact, no joint swelling Extremities: Normal extremities, no edema, wounds, clubbing Neurological: Alert and oriented x3 Psychological: Appropriate mood and behavior Skin: Warm and dry with no lesions or rashes Medication: Medications: ANTI-INFECTIVES: 1. cefTRIAXone 2 gram/Dextrose 5% IVPB Premixed Soln 50 mL: 50 mL IntraVenous Piggyback Every 12 Hours CENTRAL NERVOUS SYSTEM AGENTS: 1. Acetaminophen: 650 mg Oral Every 4 Hours PRN 2. HYDROmorphone Injectable: 0.2 mg IntraVenous Push Every 4 Hours PRN 3. oxyCODONE Immediate Release: 5 mg Oral Every 4 Hours PRN 4. oxyCODONE Immediate Release: 10 mg Oral Every 4 Hours PRN 5. Gabapentin: 300 mg Oral 3 Times a Day 6. Promethazine IV Piggy Back: 12.5 mg IntraVenous Piggyback Every 6 Hours PRN COAGULATION MODIFIERS: 1. Enoxaparin SubCutaneous: 30 mg SubCutaneous Every 12 Hours GASTROINTESTINAL AGENTS: 1. Bisacodyl Rectal: 10 mg Rectal Daily PRN 2. Docusate: 100 mg Oral 2 Times a Day 3. Polyethylene Glycol: 17 gram(s) Oral Daily PRN 4. Sennosides: 2 tablet(s) Oral At Bedtime METABOLIC AGENTS: 1. Insulin Regular Moderate Corrective Scale: unit(s) SubCutaneous Every 6 Hours 2. Dextrose 50% in Water Injectable: 25 gram(s) IntraVenous Push Every 15 Minutes PRN 3. Glucagon Injectable: 1 mg IntraMuscular Every 15 Minutes PRN NUTRITIONAL PRODUCTS: 1. Lactated Ringers Infusion: 1000 mL IntraVenous Recent Lab Results: Results: CBC: 06/04/2022 06:36 \ Hgb / \ 13.9 / WBC Plt 7.3 253 / Hct \ / 38.5 L \ RBC: 4.24 L MCV: 91 RFP: 06/04/2022 06:36 NA+ Cl- BUN / 140 100 5 L / ------- Glucose -- 89 K+ HCO3- Creat \ 3.4 L 29 0.97 \ Calcium : 8.8Anion Gap : 14 Albumin : 3.4 Phos : 3.2 Radiology Results: Results: Impression: Imaging for the purposes of preoperative planning demonstrates complex facial bone fractures extending to the frontal sinuses with associated pneumocephalus. CT Image Reconstruction 3D Volume and MIP [Jun 02 2022 1:59PM] Assessment and Plan: Daily Risk Screen: Does patient have an indwelling urinary cathetern/a consulting service Does patient have a central linen/a consulting service Code Status: Code StatusFull Code Assessment: LIYA BERMAN is a 52 year old male with no significant PMH who fell on 05/28 14 ft from a ladder while he was at work and presented to [facility] in [place], [place] and was transferred to [facility] as a trauma. CTH at OSH indicates diffuse comminuted facial fracture/frontal sinus fracture with evidence of intracranial extension and diffuse pneumocephalus. Plastic Surgery (Face) consulted for extensive facial fractures. Plan/Recommendations: - Plan for OR on Thursday 06/07 for ORIF of ARI fracture in coordination with NSGY due to nature of intracranial injury, add on case sheet submitted NPO at midnight 06/07 COVID negative 06/01 Please update T&S 06/06 - Detailed CT obtained for surgical planning 06/02 - Patient to remain sinus precautions until further notice Keep head of bed elevated at all times, greater than 30 degrees Do NOT blow your nose for at least two weeks Keep head above heart level at all times Do NOT forcible split Do NOT smoke Avoid holding sneezes, sneeze with your mouth open Do not use a straw to drink Keep mouth open when coughing No lifting greater than 15-20 pounds - Continue IV ceftriaxone - Pain management per primary - Plastics will continue to follow in preoperative period Patient and plan discussed with Dr. Divine Lee, [facility] Plastic and Reconstructive Surgery Doc [facility], Pager #[phone] (more content not included)... Normal [facility] Daily Progress Note-Trauma S urgeryon 06-04-2022 Daily Progress Note-Trauma Surgery Service: Trauma Surgery Subjective Data: RM BERMAN is a 52 year old Male who is Hospital Day # 4. No overnight events. Nausea has improved significantly with Phenergan. Able to sleep overnight and no episodes of emesis. Tolerating little PO intake. No bowel movement since Monday. Overnight Events: Patient had an uneventful night. Objective Data: Objective Information: T PRBPMAPSpO2 [id number]/781019% Date/Time06/04 15: 15: 15: 15: 12: 15:42 Range(36.3C - 36.9C ) (63 - 85 ) (16 - 20 ) (105 - 132 )/ (66 - 86 ) (94 - 94 ) (94% - 98% ) Highest temp of 36.9 C was recorded at 06/03 23:45 Pain reported at 06/04 15:42: 8 = Severe Intake Output Urine 1000 mL Physical Exam by System: Constitutional: Calm, cooperative, conversational Eyes: EOMI, able to open eyes, periorbital edema and bruising bilaterally (improving) ENMT: Moist mucus membranes Head/Neck: Normocephalic Respiratory/Thorax: Nonlabored respirations on room air Genitourinary: No lafleur Extremities: Moves all extremities Neurological: No focal neurological deficits Psychological: Appropriate mood and behavior Medication: Medications: Continuous Medications ------- 1. Lactated Ringers Infusion: 1000 mL IntraVenous Scheduled Medications ------- 1. cefTRIAXone 2 gram/Dextrose 5% IVPB Premixed Soln 50 mL: 50 mL IntraVenous Piggyback Every 12 Hours 2. Docusate: 100 mg Oral 2 Times a Day 3. Enoxaparin SubCutaneous: 30 mg SubCutaneous Every 12 Hours 4. Gabapentin: 300 mg Oral 3 Times a Day 5. Insulin Regular Moderate Corrective Scale: unit(s) SubCutaneous Every 6 Hours 6. Sennosides: 2 tablet(s) Oral At Bedtime PRN Medications ------- 1. Acetaminophen: 650 mg Oral Every 4 Hours 2. Bisacodyl Rectal: 10 mg Rectal Daily 3. Dextrose 50% in Water Injectable: 25 gram(s) IntraVenous Push Every 15 Minutes 4. Glucagon Injectable: 1 mg IntraMuscular Every 15 Minutes 5. HYDROmorphone Injectable: 0.2 mg IntraVenous Push Every 4 Hours 6. oxyCODONE Immediate Release: 5 mg Oral Every 4 Hours 7. oxyCODONE Immediate Release: 10 mg Oral Every 4 Hours 8. Polyethylene Glycol: 17 gram(s) Oral Daily 9. Promethazine IV Piggy Back: 12.5 mg IntraVenous Piggyback Every 6 Hours Recent Lab Results: Results: I have reviewed these laboratory results: Glucose_POCT Trending View [id number] 12:29:00 04-Jun-2022 06:10:00 [id number] H 106 H Complete Blood Count 04-Jun-2022 06:36:00 ResultValue White Blood Cell Count 7.3 Nucleated Erythrocyte Count 0.0 Red Blood Cell Count 4.24 L HGB 13.9 HCT 38.5 L MCV 91 MCHC 36.1 H PLT 253 RDW-CV 11.5 Renal Function Panel 04-Jun-2022 06:36:00 ResultValue Glucose, Serum 89 NA 140 K 3.4 L CL 100 Bicarbonate, Serum 29 Anion Gap, Serum 14 BUN 5 L CREAT 0.97 GFR Male >90 Calcium, Serum 8.8 Phosphorus, Serum 3.2 ALB 3.4 Magnesium, Serum 04-Jun-2022 06:36:00 ResultValue Magnesium, Serum 1.84 Radiology Results: Results: Impression: 1. Moderate stool burden nonobstructive bowel gas pattern. Otherwise no acute abdominopelvic process. Xray Abdomen AP View [Jun 02 2022 3:12PM] Assessment and Plan: Code Status: Code StatusFull Code Assessment: 52 YOM s/p fall with ladder 05/28. TR from [employer] in [place]. List of clinically significant injuries/problems - pneumocephalus - comminuted frontal sinus fx involving anterior and posterior ceballos, ext to nola roney and cribiform plate - comminuted nasal bone fx - b/l medial and inferior orbital wall fx - nasal septum fx - anterior ceballos of b/l maxillary sinuses - suspicion of epidural blood products posteriorly at cranial/cervical junction - Bifrontal cerebral parenchymal contusions Plan: - OR with plastic surgery and neurosurgery - 06/07/22 - Soft diet - Multimodal pain control with PRN Dilaudid for breakthrough - LR@125 while PO intake is poor - moderate SSI while PO intake is poor - continuous cardiac monitoring - Bowel regimen, added Miralax PRN - KUB 06/02: Moderate stool burden - Daily EKGs while on antiemetics - Discontinued Zofran, PRN Phenergan Pt discussed with attending, Dr. Moshe Mata MD General Surgery, PGY-1 Trauma Surgery, Phone [phone] Attestation: Note Completion: I am a: Resident/Fellow Attending AttestationI saw and evaluated the patient. I personally obtained the delvalle and critical portions of the history and physical exam or was physically present for delvalle and critical portions performed by the resident/fellow. I reviewed the resident/fellows documentation and discussed the patient with the resident/fellow. I agree with the resident/fellows medical decision making as documented in their note with the e (more content not included)... Normal [facility] GLUCOSE-POCTon 06-04-2022 Glucose [Mass/Vol] 91 mg/dL Normal 74 - 99 [facility] Comment on above: Performed By: #### G CARLIN ####[id number] [place] [address] Glucose [Mass/Vol] 110 mg/dL High 74 - 99 [facility] Comment on above: Performed By: #### G CARLIN #### [facility] [address] [place] [address] Glucose [Mass/Vol] 106 mg/dL High 74 - 99 [facility] Comment on above: Performed By: #### G CARLIN #### [facility] [address] [place] [address] Glucose [Mass/Vol] 95 mg/dL Normal 74 - 99 [facility] Comment on above: Performed By: #### G CARLIN #### [facility] [address] [place] [address] Laboratory - Chemistry and C hemistry - challengeon 06-04-2022 Glucose [Mass/Vol] 91 mg/dL 74 - 99 [facility] 2099 Work Phone: Glucose [Mass/Vol] 110 mg/dL above high threshold 74 - 99 MG-Plastic Surgery-[facility] 2099 Work Phone: [phone] Glucose [Mass/Vol] 106 mg/dL above high threshold 74 - 99 MG-Plastic Surgery-[facility] 2099 Work Phone: Laboratory - Hematology and Cell countson 06-04-2022 Erythrocyte distribution width (RBC) [Ratio] 11.5 % See Below [facility] 2100 Work Phone: Comment on above: Reference Range: 11. 5 - 14.5 Hematocrit (Bld) [Volume fraction] 38.5 % below low threshold See Below MG-Plastic Surgery-[facility] 2099 Work Phone: Comment on above: Reference Range: 41. 0 - 52.0 Hemoglobin (Bld) [Mass/Vol] 13.9 g/dL See Below MG-Plastic Surgery-[facility] 2099 Work Phone: Comment on above: Reference Range: 13. 5 - 17.5 MCHC (RBC) [Mass/Vol] 36.1 g/dL above high threshold See Below MG-Plastic Surgery-[facility] 2099 Work Phone: Comment on above: Reference Range: 32. 0 - 36.0 MCV (RBC) [Entitic vol] 91 fL 80 - 100 MG-Plastic Surgery-[facility] 2099 Work Phone: Platelets (Bld) [#/Vol] 253 10*3/uL 150 - 450 MG-Plastic Surgery-[facility] 2099 Work Phone: RBC (Bld) [#/Vol] 4.24 {x10E12/L} below low threshold See Below MG-Plastic Surgery-[facility] 2099 Work Phone: Comment on above: Reference Range: 4.5 0 - 5.90 WBC (Bld) [#/Vol] 7.3 10*3/uL 4.4 - 11.3 MG-Tomasa stic Surgery-[facility] 2099 Work Phone: MAGNESIUMon 06-04-2022 Magnesium [Mass/Vol] 1.84 mg/dL Normal 1.60 - 2.40 [facility] Comment on above: Performed By: #### G CARLIN #### [facility] [address] [place] [address] Magnesium, Serumon Magnesium [Mass/Vol] 1.84 mg/dL See Below MG-P lastic Surgery-[facility] 2099 Work Phone: Comment on above: Reference Range: 1.6 0 - 2.40 No Panel Informationon 06-04 0.0 {/100_WBC} 0.0-0.0 MG-Plastic Surgery-[facility] 2100 Work Phone: RENAL FUNCTION PANELon 06-04 Albumin [Mass/Vol] 3.4 g/dL Normal 3.4 - 5.0 [facility] Comment on above: Performed By: #### G CARLIN #### [facility] [id number] [place] [address] Anion gap [Moles/Vol] 14 mmol/L Normal 10 - 20 [facility] Comment on above: Performed By: #### G CARLIN #### [facility] [address] [place] [address] Calcium [Mass/Vol] 8.8 mg/dL Normal 8.6 - 10.6 [facility] Comment on above: Performed By: #### G CARLIN #### [facility] [address] [place] [address] Chloride [Moles/Vol] 100 mmol/L Normal 98 - 107 [facility] Comment on above: Performed By: #### G CARLIN #### [facility] [address] [place] [address] Creatinine [Mass/Vol] 0.97 mg/dL Normal 0.50 - 1.30 [facility] Comment on above: Performed By: #### G CARLIN #### [facility] [address] [place] [address] eGFR MALE >90 Normal >90 [facility] Comment on above: Result Comment: CALC ULATIONS OF ESTIMATED GFR ARE PERFORMED USING THE 2020 CKD-EPI STUDY REFIT EQUATION WITHOUT THE RACE VARIABLE FOR THE IDMS-TRACEABLE CREATININE METHODS. https://jasn.asnjournals.org/content/early/ASN.6855121 988 Performed By: #### G CARLIN #### [facility] [address] [place] [address] Glucose [Mass/Vol] 89 mg/dL Normal 74 - 99 [facility] Comment on above: Performed By: #### G CARLIN #### [facility] [address] [place] [address] HCO3 (Bld) [Moles/Vol] 29 mmol/L Normal 21 - 32 [facility] Comment on above: Performed By: #### G CARLIN #### [facility] [address] [place] [address] Phosphate [Mass/Vol] 3.2 mg/dL Normal 2.5 - 4.9 [facility] Comment on above: Result Comment: The performance characteristics of phosphorus testing in heparinized plasma have been validated by the individual laboratory site where testing is performed. Testing on heparinized plasma is not approved by the FDA; however, such approval is not necessary. Performed By: #### G CARLIN #### [facility] [address] [place] [address] Potassium [Moles/Vol] 3.4 mmol/L Low 3.5 - 5.3 [facility] Comment on above: Performed By: #### G CARLIN #### [facility] [address] [place] [address] Sodium [Moles/Vol] 140 mmol/L Normal 136 - 145 [facility] Comment on above: Performed By: #### G CARLIN #### [facility] [address] [place] [address] Urea nitrogen [Mass/Vol] 5 mg/dL Low 6 - 23 [facility] Comment on above: Performed By: #### G CARLIN #### [facility] [address] [place] [address] Renal Function Panelon 06-04 Albumin BCP dye [Mass/Vol] 3.4 g/dL 3.4 - 5.0 MG-Plastic Surgery-[facility] 2099 Work Phone: Anion gap [Moles/Vol] 14 mmol/L 10 - 20 [facility]-Plastic Surgery-[facility] 2099 Work Phone: Calcium [Mass/Vol] 8.8 mg/dL 8.6 - 10.6 MG-Tomasa stic Surgery-[facility] 2099 Work Phone: Chloride [Moles/Vol] 100 mmol/L 98 - 107 MG-P lastic Surgery-[facility] 2099 Work Phone: CO2 [Moles/Vol] 29 mmol/L 21 - 32 MG-Plasti c Surgery-[facility] 2099 Work Phone: Creatinine [Mass/Vol] 0.97 mg/dL See Below MG-Plastic Surgery-[facility] 2099 Work Phone: Comment on above: Reference Range: 0.5 0 - 1.30 Glucose [Mass/Vol] 89 mg/dL 74 - 99 MG-Tomasa st[facility] Surgery[facility] 2099 Work Phone: Phosphate [Mass/Vol] 3.2 mg/dL 2.5 - 4.9 MG-P lastic Surgery-[facility] 2099 Work Phone: Comment on above: The performance pauline acteristics of phosphorus testing in heparinized plasma have been validated by the individual laboratory site where testing is performed. Testing on heparinized plasma is not approved by the FDA; however, such approval is not necessary. Potassium [Moles/Vol] 3.4 mmol/L below low threshold 3.5 - 5.3 MG-Plastic Surgery-[facility] 2099 Work Phone: Sodium [Moles/Vol] 140 mmol/L 136 - 145 [facility] Surgery[facility] 2099 Work Phone: Urea nitrogen [Mass/Vol] 5 mg/dL below low threshold 6 - 23 MG-Plastic Surgery-[facility] 2099 Work Phone: Renal Function Panel >90 >90 MG-P lastic Surgery-[facility] 2099 Work Phone: Comment on above: CALCULATIONS OF CHELE MATED GFR ARE PERFORMED USING THE 2020 CKD-EPI STUDY REFIT EQUATION WITHOUT THE RACE VARIABLE FOR THE IDMS-TRACEABLE CREATININE METHODS.https://jasn.asnjournals.org/content//ASN .6439939147 Daily Progress Note-Samy anand 06-03-2022 Daily Progress Note-Neurosurgery Service: Neurosurgery Subjective Data: RM BERMAN is a 52 year old Male who is Hospital Day # 2. Objective Data: Objective Information: T PRBPMAPSpO2 [id number]/7994% Date/Time06/02 20:1010/27 20: 20: 20: 20:10 Range(35.5C - 37.5C ) (66 - 84 ) (16 - 22 ) (107 - 146 )/ (71 - 83 ) (94% - 98% ) Highest temp of 37.5 C was recorded at 06/01 16:09 Pain reported at 06/02 20:10: 8 = Severe ---- Intake and Output ----- Mn/Dy/Year TimeIntakeOutputNet Jun 02, 2022 10:00 [id number] Jun 02, 2022 2:00 [id number] Jun 02, 2022 6:00 am000 The Intake and Output Totals for the last 24 hours are: IntakeOutputNet [id number] Physical Exam by System: Neurological: Ox3 no drift 5/5 strength SILT Recent Lab Results: Results: CBC: 06/01/2022 05:39 \ Hgb / \ 14.0 / WBC Plt 8.7 200 / Hct \ / 39.4 L \ RBC: 4.21 L MCV: 94 RFP: 06/01/2022 05:39 NA+ Cl- BUN / 138 99 9 / ------- Glucose -- 70 L K+ HCO3- Creat \ 3.8 25 0.91 \ Calcium : 9.0Anion Gap : 18 Albumin : 3.2 L Phos : 3.2 Coagulation: 06/01/2022 05:39 PT / Canceled / -------< INR < Canceled PTT\ Canceled THE APTT IS NO LONGER USED FOR MONITORING UNFRACTIONATED HEPARIN THERAPY. FOR MONITORING HEPARIN THERAPY, USE THE HEPARIN ASSAY. \ Assessment and Plan: Code Status: Code StatusFull Code Assessment: 52 year old with no sig pmhx, 05/28 s/p 14ft fall from ladder, CTH diffuse comminuted facial fx/frontal sinus fx w/intracranial extension and diffuse pneumocephalus. Patient was transferred to [facility] under trauma and neurosurgery was consulted for findings above. Plan: keep patient on CTX OR Tues for reconstruction with plastic surgery HOB 30 avoid straining Attestation: Note Completion: I am a: Resident/Fellow Attending AttestationI saw and evaluated the patient. I personally obtained the delvalle and critical portions of the history and physical exam or was physically present for delvalle and critical portions performed by the resident/fellow. I reviewed the resident/fellows documentation and discussed the patient with the resident/fellow. I agree with the resident/fellows medical decision making as documented in the note. I personally evaluated the patient [id number] Electronic Signatures: Barber Castañeda () (Signed 05-Jun-2022 08:44) Authored: Note Completion Co-Signer: Service, Subjective Data, Objective Data, Assessment and Plan, Note Completion Ravinder Garcia (Resident)) (Signed 02-Jun-2022 22:41) Authored: Service, Subjective Data, Objective Data, Assessment and Plan, Note Completion Last Updated: 05-Jun-2022 08:44 by Barber Castañeda () Normal [facility] Daily Progress Note-Plastic Surgeryon 06-03-2022 Daily Progress Note-Plastic Surgery Service: Plastic Surgery Subjective Data: RM BERMAN is a 52 year old Male who is Hospital Day # 3. Patient resting comfortably in bed with HOB elevated. Reporting intermittent nausea (bedside nursing aware and drawing Zofran). Pain controlled at this point. Denies any other acute concerns. Objective Data: Objective Information: T PRBPMAPSpO2 Value36.26822485/8295% Date/Time06/03 4: 4: 4: 4: 4:43 Range(35.5C - 36.8C ) (66 - 85 ) (18 - 22 ) (108 - 131 )/ (67 - 83 ) (94% - 98% ) Pain reported at 06/03 6:53: 8 = Severe ---- Intake and Output ----- Mn/Dy/Year Time[facility]Out[facility]oNet Jun 03, 2022 6:00 [id number] Jun 02, 2022 10:00 [id number] Jun 02, 2022 2:00 [id number] The Intake and Output Totals for the last 24 hours are: IntakeOutputNet [id number] Physical Exam by System: Constitutional: NAD Eyes: EOMI, bilateral periorbital ecchymosis and edema ENMT: MMM. Closed lac to bridge of nose. No nasal drainage noted on exam. Head/Neck: Scattered abrasions throughout face Respiratory/Thorax: Unlabored respirations on RA Musculoskeletal: ROM intact, no joint swelling Extremities: Normal extremities, no edema, wounds, clubbing Neurological: Alert and oriented x3 Psychological: Appropriate mood and behavior Skin: Warm and dry with no lesions or rashes Medication: Medications: Continuous Medications ------- 1. Lactated Ringers Infusion: 1000 mL IntraVenous Scheduled Medications ------- 1. cefTRIAXone 2 gram/Dextrose 5% IVPB Premixed Soln 50 mL: 50 mL IntraVenous Piggyback Every 12 Hours 2. Docusate: 100 mg Oral 2 Times a Day 3. Enoxaparin SubCutaneous: 30 mg SubCutaneous Every 12 Hours 4. Gabapentin: 300 mg Oral 3 Times a Day 5. Insulin Regular Moderate Corrective Scale: unit(s) SubCutaneous Every 6 Hours 6. Sennosides: 2 tablet(s) Oral At Bedtime PRN Medications ------- 1. Acetaminophen: 650 mg Oral Every 4 Hours 2. Bisacodyl Rectal: 10 mg Rectal Daily 3. Dextrose 50% in Water Injectable: 25 gram(s) IntraVenous Push Every 15 Minutes 4. Glucagon Injectable: 1 mg IntraMuscular Every 15 Minutes 5. HYDROmorphone Injectable: 0.2 mg IntraVenous Push Every 4 Hours 6. Metoclopramide Injectable: 5 mg IntraVenous Push Once 7. Ondansetron Injectable: 4 mg IntraVenous Push Every 4 Hours 8. oxyCODONE Immediate Release: 5 mg Oral Every 4 Hours 9. oxyCODONE Immediate Release: 10 mg Oral Every 4 Hours Radiology Results: Results: Impression: Imaging for the purposes of preoperative planning demonstrates complex facial bone fractures extending to the frontal sinuses with associated pneumocephalus. CT Image Reconstruction 3D Volume and MIP [Jun 02 2022 1:59PM] Assessment and Plan: Code Status: Code StatusFull Code Assessment: LIYA BERMAN is a 52 year old male with no significant PMH who fell on 05/28 14 ft from a ladder while he was at work and presented to [facility] in [place], [place] and was transferred to [facility] as a trauma. CTH at OSH indicates diffuse comminuted facial fracture/frontal sinus fracture with evidence of intracranial extension and diffuse pneumocephalus. Plastic Surgery (Face) consulted for extensive facial fractures. Plan/Recommendations: - Plan for OR on Thursday 06/07 for ORIF of ARI fracture in coordination with NSGY due to nature of intracranial injury, add on case sheet submitted NPO at midnight 06/07 COVID negative 06/01 Please update T&S 06/06 - Detailed CT obtained for surgical planning 06/02 - Patient to remain sinus precautions until further notice Keep head of bed elevated at all times, greater than 30 degrees Do NOT blow your nose for at least two weeks Keep head above heart level at all times Do NOT forcible split Do NOT smoke Avoid holding sneezes, sneeze with your mouth open Do not use a straw to drink Keep mouth open when coughing No lifting greater than 15-20 pounds - Continue IV ceftriaxone - Pain management per primary - Plastics will continue to follow in preoperative period Patient and plan discussed with Dr. Divine Delaney PA-C Plastic and Reconstructive Surgery Doc [facility], Pager #[phone], Team phones: [phone] Time spent on the assessment of patient, gathering and interpreting data, review of medical record/patient history, personally reviewing radiographic imaging and formulation of this note 30 minutes. With greater than 50% spent in personal discussion with patient. Electronic Signatures: Elina Delaney (PAC) (Signed 03-Jun-2022 07:13) Authored: Service, Subjective Data, Objective Data, Assessment and Plan, Note Completion Last Updated: 03-Jun-2022 07:13 by Elina Delaney (PAC) [facility] Daily Progress Note-Trauma Wilbert ricks 06-03-2022 Daily Progress Note-Trauma Surgery Service: Trauma Surgery Subjective Data: RM BERMAN is a 52 year old Male who is Hospital Day # 3. No overnight events. KUB yesterday with stool burden. Patient is still nauseated and endorses headache. Tolerating little PO intake. Overnight Events: Patient had an uneventful night. Objective Data: Objective Information: T PRBPMAPSpO2 Value36.18771252/7296% Date/Time06/03 16: 16: 16: 16: 16:00 Range(35.5C - 36.8C ) (65 - 85 ) (18 - 22 ) (108 - 131 )/ (67 - 83 ) (94% - 98% ) Pain reported at 06/03 15:13: 8 = Severe Intake Output Enteral - Oral 960 mL Urine 400 mL IV Fluids 1375 mL Physical Exam by System: Constitutional: Calm, cooperative, conversational Eyes: EOMI, able to open eyes, periorbital edema and bruising bilaterally ENMT: Moist mucus membranes Head/Neck: Normocephalic Respiratory/Thorax: Nonlabored respirations on room air Genitourinary: No lafleur Extremities: Moves all extremities Neurological: No focal neurological deficits Psychological: Appropriate mood and behavior Medication: Medications: Continuous Medications ------- 1. Lactated Ringers Infusion: 1000 mL IntraVenous Scheduled Medications ------- 1. cefTRIAXone 2 gram/Dextrose 5% IVPB Premixed Soln 50 mL: 50 mL IntraVenous Piggyback Every 12 Hours 2. Docusate: 100 mg Oral 2 Times a Day 3. Enoxaparin SubCutaneous: 30 mg SubCutaneous Every 12 Hours 4. Gabapentin: 300 mg Oral 3 Times a Day 5. Insulin Regular Moderate Corrective Scale: unit(s) SubCutaneous Every 6 Hours 6. Sennosides: 2 tablet(s) Oral At Bedtime PRN Medications ------- 1. Acetaminophen: 650 mg Oral Every 4 Hours 2. Bisacodyl Rectal: 10 mg Rectal Daily 3. Dextrose 50% in Water Injectable: 25 gram(s) IntraVenous Push Every 15 Minutes 4. Glucagon Injectable: 1 mg IntraMuscular Every 15 Minutes 5. HYDROmorphone Injectable: 0.2 mg IntraVenous Push Every 4 Hours 6. oxyCODONE Immediate Release: 5 mg Oral Every 4 Hours 7. oxyCODONE Immediate Release: 10 mg Oral Every 4 Hours 8. Polyethylene Glycol: 17 gram(s) Oral Daily 9. Promethazine IV Piggy Back: 12.5 mg IntraVenous Piggyback Every 6 Hours Recent Lab Results: Results: I have reviewed these laboratory results: Glucose_POCT Trending View [id number] 14:36:00 03-Jun-2022 06:00:00 03-Jun-2022 02:39:00 Glucose-POCT97 116 H 112 H Radiology Results: Results: Impression: 1. Moderate stool burden nonobstructive bowel gas pattern. Otherwise no acute abdominopelvic process. Xray Abdomen AP View [Jun 02 2022 3:12PM] Assessment and Plan: Code Status: Code StatusFull Code Assessment: 52 YOM s/p fall with ladder 05/28. TR from [employer] in [place]. List of clinically significant injuries/problems - pneumocephalus - comminuted frontal sinus fx involving anterior and posterior ceballos, ext to nola roney and cribiform plate - comminuted nasal bone fx - b/l medial and inferior orbital wall fx - nasal septum fx - anterior ceballos of b/l maxillary sinuses - suspicion of epidural blood products posteriorly at cranial/cervical junction - Bifrontal cerebral parenchymal contusions Plan: - OR with plastic surgery and neurosurgery - 06/07/22 - Soft diet - Multimodal pain control with PRN Dilaudid for breakthrough - LR@125 while PO intake is poor - moderate SSI while PO intake is poor - continuous cardiac monitoring - Bowel regimen, added Miralax PRN per patient request - KUB: Moderate stool burden - Daily EKGs while on antiemetics - Discontinued Zofran, added PRN Phenergan Pt seen and discussed with attending, Dr. Oral Mata MD General Surgery, PGY-1 Trauma Surgery, Phone [phone] Attestation: Note Completion: I am a: Resident/Fellow Attending AttestationI saw and evaluated the patient. I personally obtained the delvalle and critical portions of the history and physical exam or was physically present for delvalle and critical portions performed by the resident/fellow. I reviewed the resident/fellows documentation and discussed the patient with the resident/fellow. I agree with the resident/fellows medical decision making as documented in the note. I personally evaluated the patient [id number] Comments/ Additional Findings I evaluated and examined the patient with the surgical team. I agree with the above findings, assessment and plan. Electronic Signatures: Yun Mata (Resident)) (Signed 03-Jun-2022 19:59) Authored: Service, Subjective Data, Objective Data, Assessment and Plan, Note Completion Morgan Mixon) (Signed 04-Jun-2022 16:56) Authored: Note Completion Co-Signer: Service, Subjective Data, Objective Data, Assessment and Plan, Note Completion Last Updated: 04-Jun-2022 16:56 by Morgan Mixon) Normal [facility] GLUCOSE-POCTon 06-03-2022 Glucose [Mass/Vol] 89 mg/dL Normal 74 - 99 [facility] Comment on above: Performed By: #### G CARLIN #### [facility] [address] [place] [address] Glucose [Mass/Vol] 97 mg/dL Normal 74 - 99 [facility] Comment on above: Performed By: #### G CARLIN #### [facility] [address] [place] [address] Glucose [Mass/Vol] 116 mg/dL High 74 - 99 [facility] Comment on above: Performed By: #### G CARLIN #### [facility] [address] [place] [address] Glucose [Mass/Vol] 112 mg/dL High 74 - 99 [facility] Comment on above: Performed By: #### G CARLIN #### [facility] [address] [place] [address] Glucose [Mass/Vol] 114 mg/dL High 74 - 99 [facility] Comment on above: Performed By: #### G CARLIN #### [facility] [address] [place] [address] CT IMAGE RECONSTRUCTION 3D V OLUME and MIPon 06-02-2022 CT IMAGE RECONSTRUCTION 3D VOLUME and MIP Patient Name: RM BERMAN STUDY: CT HEAD WITHOUT CONTRAST VOLUMETRIC SURGICAL PLANNING; CT CORONAL/SAGITTAL/OBLIQUE RECON; 06/02/2022 10:39 am; 06/02/2022 10:25 am INDICATION: preparation for surgery on 06/08, Lie Flat: Yes . Plan for or Monday for ORIF of and of the fracture, outside imaging reviewed. COMPARISON: None. ACCESSION NUMBER(S): [id number]; [id number] ORDERING CLINICIAN: MAKENNA CARVER TECHNIQUE: Noncontrast volumetric CT scan of the head was performed. Coronal and sagittal reformats in brain and bone windows were generated. The images were reviewed in bone, brain, blood and soft tissue windows. FINDINGS: CSF Spaces: Small focus of pneumocephalus within the quadrigeminal cistern. Ventricular size is within normal limits. The basal cisterns are patent. No abnormal extra-axial collection. Parenchyma: The monson-white differentiation is intact. There is no mass effect or midline shift. No acute intracranial hemorrhage. Calvarium: Extensive comminuted fractures of the mid face with involvement of the anterior maxilla and nasal bones bilaterally, the nasal septum, the medial and inferior ceballos of the orbits, left greater than right. The fractures extend to the ceballos of the frontal sinuses with involvement of the inner table of the frontal bone. The pterygoid plates are intact. The calvarium is otherwise unremarkable. Paranasal sinuses/mastoids: Near complete opacification of the frontal sinuses by heterogeneous material and layering high attenuation material in the right maxillary sinus, likely blood products. Additional areas of mucosal thickening are noted bilaterally. The mastoid air cells are clear. Orbits: The soft tissues of the orbits are unremarkable. No intraorbital mass or collection. IMPRESSION: Imaging for the purposes of preoperative planning demonstrates complex facial bone fractures extending to the frontal sinuses with associated pneumocephalus. I personally reviewed the images/study and I agree with the findings as stated. This study was interpreted at [facility], [place], [place]. Electronically signed by: STACEY HAMMOND MD, PHD [facility] Daily Progress Note-Samy anand 06-02-2022 Daily Progress Note-Neurosurgery Service: Neurosurgery Subjective Data: RM BERMAN is a 52 year old Male who is Hospital Day # 1. Objective Data: Objective Information: T PRBPMAPSpO2 [id number]/7695% Date/Time06/01 20: 20: 16:0906/01 20: 20:00 Range(36.7C - 37.5C ) (75 - 84 ) (16 - 20 ) (107 - 146 )/ (71 - 79 ) (94% - 98% ) Highest temp of 37.5 C was recorded at 06/01 16:09 Pain reported at 06/01 22:36: 8 = Severe ---- Intake and Output ----- Mn/Dy/Year TimeIntakeOutputNet Jun 01, 2022 10:00 [id number] Jun 01, 2022 2:00 [id number] Jun 01, 2022 6:00 [id number] The Intake and Output Totals for the last 24 hours are: IntakeOutputNet [id number] Physical Exam by System: Neurological: Ox3 no drift 5/5 strength SILT Recent Lab Results: Results: CBC: 06/01/2022 05:39 \ Hgb / \ 14.0 / WBC Plt 8.7 200 / Hct \ / 39.4 L \ RBC: 4.21 L MCV: 94 RFP: 06/01/2022 05:39 NA+ Cl- BUN / 138 99 9 / ------- Glucose -- 70 L K+ HCO3- Creat \ 3.8 25 0.91 \ Calcium : 9.0Anion Gap : 18 Albumin : 3.2 L Phos : 3.2 Coagulation: 06/01/2022 05:39 PT / Canceled / -------< INR < Canceled PTT\ Canceled THE APTT IS NO LONGER USED FOR MONITORING UNFRACTIONATED HEPARIN THERAPY. FOR MONITORING HEPARIN THERAPY, USE THE HEPARIN ASSAY. \ Assessment and Plan: Code Status: Code StatusFull Code Assessment: 52 year old with no sig pmhx, 05/28 s/p 14ft fall from ladder, CTH diffuse comminuted facial fx/frontal sinus fx w/intracranial extension and diffuse pneumocephalus. Patient was transferred to [facility] under trauma and neurosurgery was consulted for findings above. Plan: keep patient on CTX will coordinate with plastic surgery for OR for reconstruction HOB 30 avoid straining Attestation: Note Completion: I am a: Resident/Fellow Attending AttestationI saw and evaluated the patient. I personally obtained the delvalle and critical portions of the history and physical exam or was physically present for delvalle and critical portions performed by the resident/fellow. I reviewed the resident/fellows documentation and discussed the patient with the resident/fellow. I agree with the resident/fellows medical decision making as documented in the note. I personally evaluated the patient [id number] Electronic Signatures: Barber Castañeda () (Signed 05-Jun-2022 08:43) Authored: Note Completion Co-Signer: Service, Subjective Data, Objective Data, Assessment and Plan, Note Completion Ravinder Garcia (Resident)) (Signed 01-Jun-2022 23:32) Authored: Service, Subjective Data, Objective Data, Assessment and Plan, Note Completion Last Updated: 05-Jun-2022 08:43 by Barber Castañeda) Normal [facility] Daily Progress Note-Plastic Surgeryon 06-02-2022 Daily Progress Note-Plastic Surgery Service: Plastic Surgery Subjective Data: RM BERMAN is a 52 year old Male who is Hospital Day # 2. Notes he did not sleep well OVN due to 1 episode of emesis and awakens frequently 2/2 to sleep apnea. Additionally notes pressure/pain behind his eyes and will intermittently experience a mix of bloody/clear post nasal drip if bears down or tilts his head. Objective Data: Objective Information: T PRBPMAPSpO2 Value36.14196459/7897% Date/Time06/02 7: 7: 7: 7: 7:53 Range(36.1C - 37.5C ) (67 - 84 ) (16 - 22 ) (107 - 146 )/ (71 - 83 ) (94% - 98% ) Highest temp of 37.5 C was recorded at 06/01 16:09 Pain reported at 06/02 5:11: 8 = Severe ---- Intake and Output ----- Mn/Dy/Year TimeIntakeOutputNet Jun 02, 2022 6:00 am000 Jun 01, 2022 10:00 [id number] Jun 01, 2022 2:00 [id number] The Intake and Output Totals for the last 24 hours are: IntakeOutputNet [id number] Physical Exam by System: Constitutional: NAD Eyes: EOMI, bilateral periorbital ecchymosis and edema ENMT: MMM. Closed lac to bridge of nose. No nasal drainage noted on exam Head/Neck: Scattered abrasions throughout face Respiratory/Thorax: Unlabored respirations on RA Musculoskeletal: ROM intact, no joint swelling Extremities: normal extremities, no edema, wounds, clubbing Neurological: alert and oriented x3 Psychological: Appropriate mood and behavior Skin: Warm and dry with no lesions or rashes Assessment and Plan: Code Status: Code StatusFull Code Assessment: 52 year old Male with no significant PMH who fell on 05/28 14 ft from a ladder while he was at work and presented to [facility] in [place], [place] and was transferred to [facility] as a trauma. CTH at OSH indicates diffuse comminuted facial fx/frontal sinus fx w/intracranial extension and diffuse pneumocephalus. Plastic Surgery (face) consulted for facial fx. Plan: - Plan for OR on Thursday 06/07 for ORIF of ARI fx (case submitted) - Joint case with NSGY due to nature of intracranial injury - Follow up CT head for surgical planning - Continue sinus precautions - Continue IV ceftriaxone - Pain management per primary - Plastics will follow Patient and plan discussed with Dr. Divine Carver PAZachariahC Plastic and Reconstructive Surgery Doc Halo, Pager #[phone], Team phones: [phone] Time spent on the assessment of patient, gathering and interpreting data, review of medical record/patient history, personally reviewing radiographic imaging and formulation of this note 30 minutes. With greater than 50% spent in personal discussion with patient. Electronic Signatures: Makenna Carver (PAC) (Signed 02-Jun-2022 08:51) Authored: Service, Subjective Data, Objective Data, Assessment and Plan, Note Completion Last Updated: 02-Jun-2022 08:51 by Makenna Carver (PAC) Normal [facility] Electrocardiogram 12 Leadon 06-02-2022 Electrocardiogram 12 Lead Ventricular Rate 63 Atrial Rate 63 P-R Interval 132 QRS Duration 92 Q-T Interval 398 QTC Calculation(Bazett) 407 P [place] 62 R [place] 14 T [place] 34 QRS Count 10 Q Onset 225 P Onset 159 P Offset 210 T Offset 424 QTC Fredericia 404 Diagnosis Class Normal Diagnosis Normal sinus rhythm Normal ECG No previous ECGs available Confirmed by Fabian Starks ([id number]) on 07/01/2022 7:55:50 PM Normal [facility] GLUCOSE-POCTon 06-02-2022 Glucose [Mass/Vol] 114 mg/dL High 74 - 99 [facility] Comment on above: Performed By: #### G CARLIN #### [facility] [address] [place] [address] Glucose [Mass/Vol] 95 mg/dL Normal 74 - 99 [facility] Comment on above: Performed By: #### G CARLIN #### [facility] [address] [place] [address] Glucose [Mass/Vol] 107 mg/dL High 74 - 99 [facility] Comment on above: Performed By: #### G CARLIN #### [facility] [address] [place] [address] Glucose [Mass/Vol] 103 mg/dL High 74 - 99 [facility] Comment on above: Performed By: #### G CARLIN #### [facility] [address] [place] [address] HEAD WITHOUT CONTRAST VOLUMETRIC SURGICAL PLANNINGon 06-02-[address] HEAD WITHOUT CONTRAST VOLUMETRIC SURGICAL PLANNING Patient Name: RM BERMAN STUDY: CT HEAD WITHOUT CONTRAST VOLUMETRIC SURGICAL PLANNING; CT CORONAL/SAGITTAL/OBLIQUE RECON; 06/02/2022 10:39 am; 06/02/2022 10:25 am INDICATION: preparation for surgery on 06/08, Lie Flat: Yes . Plan for or Monday for ORIF of and of the fracture, outside imaging reviewed. COMPARISON: None. ACCESSION NUMBER(S): [id number]; [id number] ORDERING CLINICIAN: MAKENNA CARVER TECHNIQUE: Noncontrast volumetric CT scan of the head was performed. Coronal and sagittal reformats in brain and bone windows were generated. The images were reviewed in bone, brain, blood and soft tissue windows. FINDINGS: CSF Spaces: Small focus of pneumocephalus within the quadrigeminal cistern. Ventricular size is within normal limits. The basal cisterns are patent. No abnormal extra-axial collection. Parenchyma: The monson-white differentiation is intact. There is no mass effect or midline shift. No acute intracranial hemorrhage. Calvarium: Extensive comminuted fractures of the mid face with involvement of the anterior maxilla and nasal bones bilaterally, the nasal septum, the medial and inferior ceballos of the orbits, left greater than right. The fractures extend to the ceballos of the frontal sinuses with involvement of the inner table of the frontal bone. The pterygoid plates are intact. The calvarium is otherwise unremarkable. Paranasal sinuses/mastoids: Near complete opacification of the frontal sinuses by heterogeneous material and layering high attenuation material in the right maxillary sinus, likely blood products. Additional areas of mucosal thickening are noted bilaterally. The mastoid air cells are clear. Orbits: The soft tissues of the orbits are unremarkable. No intraorbital mass or collection. IMPRESSION: Imaging for the purposes of preoperative planning demonstrates complex facial bone fractures extending to the frontal sinuses with associated pneumocephalus. I personally reviewed the images/study and I agree with the findings as stated. This study was interpreted at [facility], [place], [place]. Electronically signed by: STACEY HAMMOND MD, PHD Normal [facility] No Panel Informationon 06-02 [email or web address] ?[email or web address]=[id number]&Date =02-06-2022&Time=14%3a38% 3a02%3a00&TestType=ECG&Si te=1&OutputType=PDF&Ext=P DF [facility] [address] Work Phone: Normal sinus rhythm [facility] [address] Work Phone: Normal [facility] [address] Work Phone: [phone] [facility] Work Phone: [phone] [facility] Work Phone: [phone] [facility] Work Phone: [phone] [facility] Work Phone: [phone] [facility] Work Phone: 10 1 [facility] Work Phone: 34 1 [facility] Work Phone: 14 1 [facility] Work Phone: 62 1 [facility] Work Phone: [phone] [facility] Work Phone: [phone] [facility] Work Phone: [phone] [facility] Work Phone: [phone] [facility] Work Phone: 63 1 [facility] Work Phone: TH ABDOMEN AP VIEWon 022 TH ABDOMEN AP VIEW Patient Name: RM BERMAN STUDY: ABDOMEN AP VIEW; 06/02/2022 2:17 pm INDICATION: Worsening nausea/vomiting . COMPARISON: None. ACCESSION NUMBER(S): [id number] ORDERING CLINICIAN: YUN MATA FINDINGS: Moderate stool burden with nonobstructive bowel gas pattern. Limited evaluation of pneumoperitoneum on supine imaging, however no gross evidence of free air is noted. Visualized lungs are clear. Osseous structures demonstrate no acute bony changes. IMPRESSION: 1. Moderate stool burden nonobstructive bowel gas pattern. Otherwise no acute abdominopelvic process. I personally reviewed the images/study and I agree with the findings as stated. This study was interpreted at [facility], [place], [place]. Electronically signed by: JOIE COLBY MD Normal [facility] Admission Risk Screen - Adul ton 06-01-2022 Admission Risk Screen - Adult Allergies: Allergies: No Known Allergies: Patient Verification: New W ID Band Applied in my Departmentyes Patient Identity Verified Bypatient ID Band FULL Name, include Middle, spelling matches patient's ID used for verificationyes ID Band Matches Patient ID used for Verficationyes ID Band MRN Matches EMR MRNyes Visitor Restriction: Coronavirus Visitor Restriction: Reasonable restrictions to in-person visitors will be observed due to current coronavirus pandemic. Travel History: COVID-19 Screening Completedno exposure or symptoms Travel or Exposure Past 30 DaysNO travel to International locations in the past 30 days Ebola AlertFor Ebola-like Symptoms: Isolate Patient and Notify Provider/Refrigerator Glazier For Contact: Notify Provider/Refrigerator Glazier Advance Directive: Advance Directive/DNRno Advance Directive Information Givenpatient/family declined Clarke Fall Screen: History of falling (immediate or previous)yes (25) Secondary Diagnosisno (0) Intravenous Therapy/ Heparin/Saline Lockno (0) Gait/Transferringnormal/b edrest/wheelchair (0) Ambulatory Aidsnone/bedrest/nurse assist (0) Mental Statusoriented to own ability (0) Score: Low risk (<25). Moderate risk (25-44). High risk (>44).25 Clarke InterventionsHIGH INTERVENTIONS *Low and Moderate Interventions Plus: * supervised toileting at all times Family Violence Screen: Are you or have you been threatened or abused physically, emotionally, or sexually by anyoneno Has anyone ever threatened to hurt your family or your petsno Does anyone try to keep you from having/contacting other friends or doing things outside your homeno Do you feel UNSAFE going back to the place where you are livingno Do you feel anyone has exploited or taken advantage of you financially or of your personal propertyno Clinical assessment: Are there any apparent signs of injuries/behaviors that could be related to abuse/neglectno Social Service Consult for abuse/neglect needed this visitno Functional Screen: Functional Screen: In the recent/past 2-4 weeks, patient or family have noticedno issues that require a speech/language consult at this time AM-PAC- Basic Mobility/Daily Activity: Patient baseline bedboundno Learning Assessment (Patient): Patient is Able to be Assessed for Learningyes Factors Influencing Readiness to Learnacuteness of illness Factors that Impact Ability to Learnnone Devices/Methods Used to Communicatenone Learning Preferencesverbal instruction Cultural Considerationsnone Developmental Considerationsnone Jew Considerationsnone Learning Assessment (Other Learner): Other learner availableno Depression Screen: During the past month, have you often been bothered by feeling down, depressed or hopelessno During the past month, have you often had little interest or pleasure in doing thingsno Have you had any thoughts of harming anyone elseno [place] Suicide: Risk Screen Not Applicable/Able to Answerable to be screened In the Past Month: Have you wished you were or could go to sleep and not wake upno In the Past Month: Have you had any actual thoughts of killing yourselfno Lifetime: Have you ever done, started to do, or prepared to do anything to end your lifeno [place] Suicide Risknegative Adult Nutrition Screen: Have you recently lost weight without tryingno Have you been eating poorly because of a decreased appetiteno Malnutrition Screening Tool Score0 Malnutrition Screening Tool RiskMST = 0 or 1 Not at risk. Eating well with little or no weight loss Nutrition Consult needed this visitno Can Patient Participate in Room Serviceyes Patient requires Paper Dishes/Plastic Utensilsno Pain Screen: Pain Scalenumerical 0-10 Pain Scale Educationteaching provided Current Pain Level0 = None Acceptable Pain Level1 = Mild Expression of Pain (nonverbal)none Lifestyle Changes/Adaptations in Response to Painno change Barriers to Reporting Painnone Chronic Painno Spiritual Screen: Are there any cultural, spiritual, evangelical practices/values/needs that are important for us to knowno Do you want a visit/item from Pastoral [facility] Would you like your Software Licensing Specialist/Strap Buckler Machine notifiedno CAGE: Is this an injured patient at a Trauma Center ([facility]/[place]/ [place]): yes C: Have you ever felt you needed to Cut down on your drinking: no A: Have people Annoyed you by criticizing your drinking: no G: Have you ever felt Guilty about drinking: no E: Have you ever felt you needed a drink first thing in the morning (Eye-script girl) to steady your nerves or to get rid of hangover: no Vaccinations: Vaccination - Influenza Vaccination Screen: Is it flu season (between and November 04)Yes Screening for identified contraindications to influenza vaccination patient/caregiver refusal Vaccination - Pneumonia Vacc (more content not included)... Normal [facility] CBCon 06-01-2022 Erythrocyte distribution width (RBC) [Ratio] 11.3 % Low 11.5 - 14.5 [facility] Comment on above: Performed By: #### G CARLIN #### [facility] [address] [place] [address] Hematocrit (Bld) [Volume fraction] 39.4 % Low 41.0 - 52.0 [facility] Comment on above: Performed By: #### G CARLIN #### [facility] [address] [place] [address] Hemoglobin (Bld) [Mass/Vol] 14.0 g/dL Normal 13.5 - 17.5 [facility] Comment on above: Performed By: #### G CARLIN #### [facility] [address] [place] [address] MCHC (RBC) [Mass/Vol] 35.5 g/dL Normal 32.0 - 36.0 [facility] Comment on above: Performed By: #### G CARLIN #### [facility] [address] [place] [address] MCV (RBC) [Entitic vol] 94 fL Normal 80 - 100 [facility] Comment on above: Performed By: #### G CARLIN #### [facility] [address] [place] [address] NUCLEATED RBC 0.0 /100 WBC Normal 0.0-0.0 [facility] Comment on above: Performed By: #### G CARLIN #### [facility] [address] [place] [address] Platelets (Bld) [#/Vol] 200 10*3/uL Normal 150 - 450 [facility] Comment on above: Performed By: #### G CARLIN #### [facility] [address] [place] [address] RBC 4.21 x10E12/L Low 4.50 - 5.90 [facility] Comment on above: Performed By: #### G CARLIN #### [facility] [address] [place] [address] WBC (Bld) [#/Vol] 8.7 10*3/uL Normal 4.4 - 11.3 [facility] Comment on above: Performed By: #### G CARLIN #### [facility] [address] [place] [address] COAGULATION SCREENon 022 APTT Canceled Normal [facility] Comment on above: Order Comment: TEST COAGULATION SCREEN WAS CANCELLED, 06/01/2022 07:33 CLOTTED. Result Comment: THE APTT IS NO LONGER USED FOR MONITORING UNFRACTIONATED HEPARIN THERAPY. FOR MONITORING HEPARIN THERAPY, USE THE HEPARIN ASSAY. Performed By: #### R ENAL #### [facility] [address] [place] [address] PROTHROMBIN TIME Canceled Normal [facility] Comment on above: Order Comment: TEST COAGULATION SCREEN WAS CANCELLED, 06/01/2022 07:33 CLOTTED. Performed By: #### R ENAL #### [facility] [address] [place] [address] PT, INR Canceled Normal [facility] Comment on above: Order Comment: TEST COAGULATION SCREEN WAS CANCELLED, 06/01/2022 07:33 CLOTTED. Performed By: #### R ENAL #### [facility] [address] [place] [address] CORONAVIRUS 2019, SCREEN ASY MPTOMATICon 06-01-2022 SARS-CoV-2 (COVID-19) RNA JASPAL+probe Ql (Unsp spec) Not detected Normal Not Detected [facility] Comment on above: Result Comment: . This test has received FDA Emergency Use Authorization (EUA) and has been verified by [facility] ([facility]). This test is only authorized for the duration of time that circumstances exist to justify the authorization of the emergency use of in vitro diagnostic tests for the detection of SARS-CoV-2 virus and/or diagnosis of COVID-19 infection under section 564(b)(1) of the Act, 21 U.S.C. 360bbb-3(b)(1), unless the authorization is terminated or revoked sooner. [facility] is certified under CLIA-88 as qualified to perform high complexity testing. Testing is performed in the [facility] located at [address] [place] [address]. SARS-CoV-2/Flu/RSV Multiplex Test: Fact sheet for providers: https://www.fda.gov/media/441949/download Fact sheet for patients: https://www.fda.gov/media/299295/download Performed By: #### G CARLIN #### [address] [place] [address] Lab Specimen Source Nasal, Nasopharyngeal Normal [facility] Comment on above: Performed By: #### G CARLIN #### [address] [place] [address] Consult - Neuro-Surgeryon Consult - Neuro-Surgery Service: Service: Service: Surgery Consult: Consult requested by (Attending Name): Rm Parks Reason: facial fracture History of Present Illness: History Present Illness: HPI: 52 year old with no sig pmhx, 05/28 s/p 14ft fall from ladder, CTH diffuse comminuted facial fx/frontal sinus fx w/intracranial extension and diffuse pneumocephalus. Patient was transferred to [facility] under trauma and neurosurgery was consulted for findings above. Patient does endorse rhinorrhea at this time but denies any PEDRAZA, fever, N/V. Imaging was personally reviewed and demonstrates the following: as above Past medical history: as above Past surgical history: as above Home medications: reviewed and as listed in electronic health record Allergies: reviewed and as listed in electronic health record Social history: lives at home Family history: Not pertinent to current presentation Allergies: No Known Allergies: Objective: Physical Exam by System: Constitutional: Well developed, awake/alert/oriented x3 Respiratory/Thorax: breathing comfortably Cardiovascular: extremities well perfused Gastrointestinal: ND/NT Neurological: Ox3 no drift 5/5 strength SILT Psychological: Appropriate mood and behavior Skin: facial lacs closed with non absorbable sutures Assessment/Recommendation s: Assessment: 52 year old with no sig pmhx, 05/28 s/p 14ft fall from ladder, CTH diffuse comminuted facial fx/frontal sinus fx w/intracranial extension and diffuse pneumocephalus. Patient was transferred to [facility] under trauma and neurosurgery was consulted for findings above. Recs: please consult ENT and face team to help with management keep HOB at 30 CBC/RFP/coag/T&S/UA/UPT (if applicable)/EKG/CXR/COVID -19 PCR no further imaging at this time Attestation: Note Completion: I am a: Resident/Fellow Attending AttestationI saw and evaluated the patient. I personally obtained the delvalle and critical portions of the history and physical exam or was physically present for delvalle and critical portions performed by the resident/fellow. I reviewed the resident/fellows documentation and discussed the patient with the resident/fellow. I agree with the resident/fellows medical decision making as documented in the note. I personally evaluated the patient [id number] Electronic Signatures: Barber Castañeda () (Signed 01-Jun-2022 14:02) Authored: Note Completion Co-Signer: Service, History of Present Illness, Allergies, Objective, Assessment/Recommendation s, Note Completion Ravinder Garcia (Resident)) (Signed 01-Jun-2022 03:06) Authored: Service, History of Present Illness, Allergies, Objective, Assessment/Recommendation s, Note Completion Last Updated: 01-Jun-2022 14:02 by Barber Castañeda) Normal [facility] Consult-Plastic Surgeryon Consult-Plastic Surgery Service: Service: Plastic Surgery History of Present Illness: Admission Reason: facial fracture HPI: RM BERMAN is a 52 year old Male with no significant PMH who fell on 05/28 14 ft from a ladder while he was at work and presented to [facility] in [place], [place] and was transferred to [facility] as a trauma. CTH at OSH indicates diffuse comminuted facial fx/frontal sinus fx w/intracranial extension and diffuse pneumocephalus. Neurosurgery consulted for pneumocephalus. He did not have any loss of consciousness. Rates pain as a 4/10, c/o headache, constant, dull achy pain. Denies any fever, chills, night sweats, CP, SOB, palpitations, nausea, vomiting, diarrhea, constipation, dysuria, hematuria, hematochezia, hematemesis, flank pain. Plastic Surgery (face) consulted for facial fx. PMH: see HPI PSH: see HPI Family hx: not pertinent to chief complaint Social hx: + tobacco, Denies EtOH, or illicit drugs ROS: All 10 systems were reviewed and are unremarkable except for those mentioned in HPI. Review Family/Social History and ROS: Social History: Smoking Status: moderate user (uses 11-30 cig/day, OR 0.5-1.5 ppd, OR 2-3 cans/pouches loose leaf tobacco per week, OR 0.5-1.5 vape pods per day) (1) Alcohol Use: denies(1) Drug Use: denies (1) Drug 2 Use: denies (1) Allergies: No Known Allergies: Objective: Objective Information: T PRBPMAPSpO2 Value37.05124589/7194% Date/Time06/01 4: 4: 4: 4: 4:21 Range(36.7C - 37.4C ) (75 - 77 ) (16 - 20 ) (107 - 146 )/ (71 - 77 ) (94% - 98% ) Highest temp of 37.4 C was recorded at 06/01 4:21 Pain reported at 06/01 1:15: 3 = Mild Physical Exam by System: Constitutional: A&Ox3, male, sitting upright in bed in NAD, calm and cooperative Eyes: EOMI, bilateral ecchymosis to eyes ENMT: mucous membranes moist, laceration to bridge of nose, closely approximated with simple interrupted suture. other scattered abrasions about face w/ associated ecchymosis. Head/Neck: Neck supple, no apparent injury, No JVD, trachea midline Respiratory/Thorax: Patent airways, CTAB, clear in uppers, diminished in bases, good chest expansion, thorax symmetric, on RA Cardiovascular: Regular, rate and rhythm, no murmurs, 2+ equal pulses of the extremities, normal S 1and S 2 Gastrointestinal: abdomen soft, NTND, +BS x 4 Genitourinary: voiding independently Musculoskeletal: ROM intact, no joint swelling, normal strength Extremities: normal extremities, no cyanosis edema, contusions or wounds, no clubbing Neurological: Alert and oriented x 3, intact sense, motor, response and reflexes, normal strength Psychological: Appropriate mood and behavior Skin: warm and dry Medications: Medications: Continuous Medications ------- 1. Lactated Ringers Infusion: 1000 mL IntraVenous Scheduled Medications ------- 1. Docusate: 100 mg Oral 2 Times a Day 2. Enoxaparin SubCutaneous: 30 mg SubCutaneous Every 12 Hours 3. Gabapentin: 300 mg Oral 3 Times a Day 4. Insulin Regular Moderate Corrective Scale: unit(s) SubCutaneous Every 6 Hours 5. Sennosides: 2 tablet(s) Oral At Bedtime PRN Medications ------- 1. Acetaminophen: 650 mg Oral Every 4 Hours 2. Bisacodyl Rectal: 10 mg Rectal Daily 3. Dextrose 50% in Water Injectable: 25 gram(s) IntraVenous Push Every 15 Minutes 4. Glucagon Injectable: 1 mg IntraMuscular Every 15 Minutes 5. HYDROmorphone Injectable: 0.2 mg IntraVenous Push Every 4 Hours 6. Ondansetron Injectable: 4 mg IntraVenous Push Every 4 Hours 7. oxyCODONE Immediate Release: 5 mg Oral Every 4 Hours 8. oxyCODONE Immediate Release: 10 mg Oral Every 4 Hours Assessment: RM BERMAN is a 52 year old Male with no significant PMH who fell on 05/28 14 ft from a ladder while he was at work and presented to [facility] in [place], [place] and was transferred to [facility] as a trauma. CTH at OSH indicates diffuse comminuted facial fx/frontal sinus fx w/intracranial extension and diffuse pneumocephalus. Neurosurgery consulted for pneumocephalus. He did not have any loss of consciousness. Rates pain as a 4/10, c/o headache, constant, dull achy pain. Denies any fever, chills, night sweats, CP, SOB, palpitations, nausea, vomiting, diarrhea, constipation, dysuria, hematuria, hematochezia, hematemesis, flank pain. Plastic Surgery (face) consulted for facial fx. A/P: - will need operative management, timing to be determined based on availability of surgeon likely this week - as needed pain management per primary - ok to eat from plastics standpoint - Sinus Precautions: - Keep head of bed elevated at all times, greater than 30 degrees - Do not blow your nose for at least two weeks - Keep head above heart level at all times - Do not forcibly spit - Avoid holding sneezes - Do not use a straw to drink - K (more content not included)... Normal [facility] Covid 19 Resultson 2 SARS-CoV-2 (COVID-19) RNA JASPAL+probe Ql (Unsp spec) NEGATIVE COVID-19 Test Coronaviruses are common world-wide and are the cause of many common colds. SARS-COV2 is a new coronavirus that began circulating worldwide in 2019 so we are calling it COVID-19. It has been estimated that four out of five patients with COVID-19 will recover at home without the need for medical attention. Symptoms of COVID-19 may include cough, fever, shortness of breath, loss of taste or smell and other flu-like symptoms including chills, sore muscles, sore throat, and headache. Severe illness is more common in older people and people with other health problems such as high blood pressure, obesity, and immune system problems. If the test is positive, you have COVID-19. You will be contacted by the ordering physicians office and instructed to remain on home isolation, in accordance with CDC guidelines. You may also be contacted by the [facility] to see if any of your close contacts may have been exposed to the virus and need to quarantine. If the test is negative, you likely do not have COVID-19 at this time, but you still may have a different illness that can spread to other people (like Influenza, or the Flu) and could still be at risk for getting COVID-19. We recommend that you stay away from other people to limit the spread of illness until your symptoms are improving and you are fever-free for 24 hours without the use of fever lowering medications such as acetaminophen or ibuprofen. No test is 100% accurate so if you are still concerned you may have COVID-19, talk to your doctor about the need to continue to stay away from others. Medicines Unless your provider told you not to use the following: Acetaminophen (Tylenol and others) is generally safe. Anti-inflammatory medications, such as Ibuprofen (Advil or Motrin) or Naproxen (Aleve) can also be used. Ngqw-xkx-jthefsr cough and cold medicines can be used according to the instructions on the package. Some rudu-vou-yvfdrzo medicines also contain acetaminophen. Make sure you are not taking more than your recommended dose. For those not hospitalized, there is no specific treatment available for this illness. Antibiotics do not treat Coronaviruses. Follow-Up Follow up with your doctor by scheduling a virtual visit or consider follow-up at one of our urgent care fever clinics. If you are having difficulty breathing, or are very weak and having difficulty standing, this is a medical emergency. Call 911 or have someone take you to the nearest emergency room immediately. If possible, wear a facemask. Additional guidance from the CDC for patients who tested POSITIVE for COVID-19 How to isolate: Isolate yourself in a specific room at home and limit your contact with others. Use a separate bathroom from other members of the household, when possible. Leave home only to get essential medical care. Do not go to work, school or public areas. Avoid using public transportation, ride-sharing, or taxis. Restrict contact with pets and other animals. If you must care for your pet or be around animals while you are sick, wash your hands before and after your interaction and wear a facemask. Make sure that shared spaces in the home have good airflow, such as by an air conditioner or an opened window, weather permitting. Personal Hygiene Procedures: Wear a face mask when in the same room as other people or pets. If a face mask interferes with your breathing, others should wear a mask when sharing space with you. Frequent hand-washing: wash your hands with soap and water for at least 20 seconds. If soap and water are not available, use alcohol-based hand coal briquette machine operator. Avoid touching your eyes, nose, and mouth with unwashed hands. Household Hygiene Procedures: Avoid sharing personal household items such as dishes, glassware, cups, eating utensils, towels or bedding with other people or pets in your home. After use, these items should be washed with soap and hot water. Disinfect all high-touch surfaces every day with antibacterial cleaning solutions such as Lysol wipes, bleach, cleansers, etc. High-touch surfaces include tabletops, doorknobs, bathroom fixtures, toilets, phones, keyboards, tablets and bedside tables. Immediately clean any surfaces that may have blood, poop or body fluids on them, using antibacterial cleaning solutions such as Lysol wipes, bleach, cleansers, etc. If clothing or bedding come into contact with blood, poop or body fluids, they should be washed immediately. Follow the directions on the laundry detergent and clothing labels but hot water is recommended when possible. Stopping home isolation precautions: If possible, consult your doctor before stopping home isolation precautions. According to the CDC, you can discontinue home isolation precautions when you have met both of these criteria: Your fever and respiratory symptoms have been gone for 24 felipa (more content not included)... Normal [facility] Daily Progress Note-Plastic Surgeryon 06-01-2022 Daily Progress Note-Plastic Surgery Service: Plastic Surgery Subjective Data: RM BERMAN is a 52 year old Male who is Hospital Day # 1. No acute concerns. States pain is well-controlled. Objective Data: Objective Information: T PRBPMAPSpO2 [id number]/7997% Date/Time06/01 8: 8: 8: 8: 8:53 Range(36.7C - 37.4C ) (75 - 78 ) (16 - 20 ) (107 - 146 )/ (71 - 79 ) (94% - 98% ) Highest temp of 37.4 C was recorded at 06/01 4:21 Pain reported at 06/01 1:15: 3 = Mild ---- Intake and Output ----- Mn/Dy/Year TimeIntakeOutputNet Jun 01, 2022 6:00 [id number] The Intake and Output Totals for the last 24 hours are: IntakeOutputNet [id number] Physical Exam by System: Constitutional: NAD Eyes: EOMI, bilateral periorbital ecchymosis and edema ENMT: MMM. Closed lac to bridge of nose Head/Neck: Scattered abrasions throughout face Respiratory/Thorax: Unlabored respirations on RA Musculoskeletal: ROM intact, no joint swelling Extremities: normal extremities, no edema, wounds, clubbing Neurological: alert and oriented x3 Psychological: Appropriate mood and behavior Skin: Warm and dry with no lesions or rashes Recent Lab Results: Results: CBC: 06/01/2022 05:39 \ Hgb / \ 14.0 / WBC Plt 8.7 200 / Hct \ / 39.4 L \ RBC: 4.21 L MCV: 94 RFP: 06/01/2022 05:39 NA+ Cl- BUN / 138 99 9 / ------- Glucose -- 70 L K+ HCO3- Creat \ 3.8 25 0.91 \ Calcium : 9.0Anion Gap : 18 Albumin : 3.2 L Phos : 3.2 Coagulation: 06/01/2022 05:39 PT / Canceled / -------< INR < Canceled PTT\ Canceled THE APTT IS NO LONGER USED FOR MONITORING UNFRACTIONATED HEPARIN THERAPY. FOR MONITORING HEPARIN THERAPY, USE THE HEPARIN ASSAY. \ Assessment and Plan: Code Status: Code StatusFull Code Assessment: 52 year old Male with no significant PMH who fell on 05/28 14 ft from a ladder while he was at work and presented to [facility] in [place], [place] and was transferred to [facility] as a trauma. CTH at OSH indicates diffuse comminuted facial fx/frontal sinus fx w/intracranial extension and diffuse pneumocephalus. Plastic Surgery (face) consulted for facial fx. Plan: - Plan for OR on Thursday 06/07 for ORIF of ARI fx (case submitted) - Joint case with NSGY due to nature of intracranial injury - Continue sinus precautions - Recommend broad-spectrum abx (i.e. cefepime) - Pain management per primary - Plastics will follow Patient and plan discussed with Dr. Divine Carver PA-C Plastic and Reconstructive Surgery Doc Mike, Pager #[phone], Team phones: [phone] Time spent on the assessment of patient, gathering and interpreting data, review of medical record/patient history, personally reviewing radiographic imaging and formulation of this note 30 minutes. With greater than 50% spent in personal discussion with patient. Electronic Signatures: Makenna Carver (PAC) (Signed 01-Jun-2022 11:50) Authored: Service, Subjective Data, Objective Data, Assessment and Plan, Note Completion Last Updated: 01-Jun-2022 11:50 by Makenna Carver (PAC) Normal [facility] Discharge Planning [id number] 1 Discharge Planning Note2 Discharge Planning: Discharge Barriersnone Anticipated Discharge [id number] Discharge Planning 06/01/2022 12:24 SWN This Pt. admitted to [facility] ED after falling from a ladder. Pt. injuries include b/l medial and inferior orbital wall fx. He was admitted to [facility] under trauma service. He is pending OR this week and will likely need PT/OT post op. Pt. is not medically ready for discharge. SW will continue to follow to assist with discharge plan. Skylar Acharya LONGSHORE EQUIPMENT OPERATOR, NUCLEAR AUXILIARY OPERATOR [id number] Arben Mckeon 06/02/2022 Transitional Hot Top Liner Note 1326 Patient discussed during interdisciplinary rounds. Team members present: TCC;PCN;MD;LORRAINE Plan per Medical team: ORIF on 06/07 orbital wall fx ; nasal septum fx. Status: inpatient Insurance: Commercial Discharge disposition: TBD: After completion of medical workup, subsequent identified skilled services and therapy recommendations TCC to discuss with patient/ family their preference at discharge for the goal of the safest least restrictive disposition. Potential Barriers: none adod: 7days Jacy Savage RN TCC doc mike..[phone] 06/07/2022 SOCIAL WORK DISCHARGE PLANNING NOTE Discussed patient with team. Patient pending OR with Neurosurgery. Patient not medically ready for discharge. SW will continue to follow to assist with safe discharge plan. Lizbeth Copeland LONGSHORE EQUIPMENT OPERATOR, NUCLEAR AUXILIARY OPERATOR DOC MIKE 06/09/2022 SOCIAL WORK DISCHARGE PLANNING NOTE Discussed patient with team. Patient extubated today. Pending RNF. DC HHC vs no needs. Patient not medically ready for discharge. SW will continue to follow to assist with safe discharge plan. 06/11/2022 10:45 SWN Pt. pending discharge home with no needs, once medically cleared. SW will continue to follow to assist with the discharge plan. Skylar Acharya, LONGSHORE EQUIPMENT OPERATOR, NUCLEAR AUXILIARY OPERATOR [id number] Doc Halo 06/13/2022 14:50 Hot Top Liner Note: Per medical team patient is not medically ready for discharge. Plan for patient to discharge home with no additional needs. Per patient feels comfortable completing wound care at home and has and son to assist. Will continue to follow patient for all home going and discharge needs. Gisel ALCARAZ RN, [facility] [phone] 06/14/2022 09:29 Hot Top Liner Note: Per medical team patient is medically ready for discharge, patient to have nasal packing removed today. Plan for patient to discharge home with no needs. Patient's to assist with transportation. Gisel ALCARAZ RN, [facility] [phone] 06/15/2022 12:31 Hot Top Liner Note: Per medical team patient is medically ready for discharge. Nasal packing removed. Patient to discharge home with no needs. Patient's at bedside to assist with transportation. Gisel ALCARAZ RN, [facility] [phone] 06/15/2022 @1500 Nursing discharge note: Pt. discharged to home in stable condition. Discharge education completed with at the bedside. All meds were sent to [facility] pharmacy where he will tile picker upon d/c. Pt transported [facility] via wheelchair. JONATHAN YOUNG RN, BSN, PCCN Assessment: Discharge Planning Assessment [id number] Discharge Planning Assessment Completed byJacy Savage RN [facility] doc halo..[phone] Primary Contact Name and NumberMihaela Berman - [phone](1) Prior Level of Functioningindependent Lives Withspouse(1) Living Arrangementshouse(1) Stated Reason for AdmissionFall(1) Arrived [facility] (1) PCPDr. Stacey Morocho Preferred Pharmacy Name/LocationDDD in [place] Recent Falls/ Injury/ Need Assist with Ambulationyes / orbital and nasal fx Resource/Environmental Concernsnone(1) InsuranceCommercial Discharge Documentation: Discharge/Transfer Date/[id number] 12:00 Discharged Accompanied Byspouse Transportation Methodprivate car Discharge Modewheelchair Code StatusCode Status order at time of discharge: Full Code Discharge Order Writtenyes [place] DNR Form Sent with Patient and/or Familyn/a Final Disposition.Home Electronic Signatures: Jonathan Young (EASTON) (Signed 15-Jun-2022 15:44) Authored: Discharge Planning, Discharge Documentation Lizbeth Copeland (SW) (Signed 09-Jun-2022 19:03) Authored: Discharge Planning, Discharge Documentation Gisel Horowitz (RN) (Signed 15-Jun-2022 12:32) Authored: Discharge Planning, Discharge Documentation Skylar Acharya (LORRAINE) (Signed 11-Jun-2022 10:46) Authored: Discharge Planning, Assessment Jacy Savage (CLIN COOR) (Signed 02-Jun-2022 15:22) Authored: Discharge Planning, Assessment Last Updated: 15-Jun-2022 15:44 by Jonathan Young (EASTON) References: 1. Data Referenced From Patient Profile - Adult v2 01-Jun-2022 03:37 Normal [facility] GLUCOSE-POCTon 06-01-2022 Glucose [Mass/Vol] 104 mg/dL High 74 - 99 [facility] Comment on above: Performed By: #### G CARLIN #### [facility] [address] [place] [address] MAGNESIUMon 06-01-2022 Magnesium [Mass/Vol] 1.73 mg/dL Normal 1.60 - 2.40 [facility] Comment on above: Performed By: #### G CARLIN #### [facility] [address] [place] [address] Patient Profile - Adult v2on 06-01-2022 Patient Profile - Adult v2 Profile: Initial Info: How to be AddressedJeffrey Spoken Language PreferredEnglish Source of Informationpatient Stated Reason for AdmissionFall Primary Contact Name and NumberMelissa Antonella - [phone] Other Contact Names and NumbersHome phone number [phone] Wants Family/Rep Notified of Admissionno Notify PCPnotify PCP Informed of Patient Visiting Rightsyes Limitations on Visitors/Phone Callsnone Temporary Family Living Arrangements (While Hospitalized)none needed Arrived Fromhospital Was Admitted To in Past 90 Daysnone Employment Statusemployed Current or Previous Servicenone Patient Belongingsremains with patient Patient Belongings Remaining with Patientclothing Medications Brought to Hospitalno History of MDROno General Health: Blood Avoidance/Restrictionsnon e Previous Transfusion Reactionno Sleep Aids/Routinesleep mask Feel Rested Upon Awakeningyes Weight in kg75.8 kilogram(s) Weight in vai022.1 pound(s) Weight Methodstated Scale Typebed Height in cm172.5 centimeter(s) Height in feet5 feet Height in inches7.95 inch(es) Height Methodstated BMI (kg/m2)25.473 square meter RSP Based Care: Recent Change in Mood/Behaviordenies Major Change/Loss/Stressor/Fear sdenies Techniques to [place] with Loss/Stress/Changediversi onal activities How would you like to participate in your careinformation What is the number one concern for you during this hospitalizationsafety What is the most important thing we can do to support you during this hospitalizationkeep me informed Is there anything we need to know to best care for youno Substance: Smoking Statusmoderate user (uses 11-30 cig/day, OR 0.5-1.5 ppd, OR 2-3 cans/pouches loose leaf tobacco per week, OR 0.5-1.5 vape pods per day) Tobacco Cessation Education (provide if tobacco use within the last 12 mos) patient declined Alcohol Usedenies Drug Usedenies Drug 2 Usedenies Health Mgmt: Symptoms/Conditions Managed at Homenone Barriers to Managing Healthnone Relationship/Environ: Significant Exposurenone Resource/Environmental Concernsnone Primary Source of Support/Comfortspouse Lives Withspouse Living Arrangementshouse Services Anticipated at Transitionnone Anticipated Transition Tohome Significant IndicatorsComplete Information Review: Allergies, Home Meds and Significant Events have been Reviewed and Verified with Patient/Familyyes ALLERGY, INTOLERANCE, ADVERSE EVENT: Allergies: No Known Allergies: Active Electronic Signatures: Yaw Damon) (Signed 08-Jun-2022 21:52) Authored: General Health, Relationship/Environ, Additional Information JONATHAN CLEMONS) (Signed 01-Jun-2022 04:00) Authored: Initial Info, General Health, [facility] Based Care, Substance, Health Mgmt, Relationship/Environ, Additional Information Last Updated: 08-Jun-2022 21:52 by Yaw Damon (THADDEUS) Normal [facility] RENAL FUNCTION PANELon 06-01 Albumin [Mass/Vol] 3.2 g/dL Low 3.4 - 5.0 [facility] Comment on above: Performed By: #### R ENAL #### [facility] [address] [place] [address] Anion gap [Moles/Vol] 18 mmol/L Normal 10 - 20 [facility] Comment on above: Performed By: #### R ENAL #### [facility] [address] [place] [address] Calcium [Mass/Vol] 9.0 mg/dL Normal 8.6 - 10.6 [facility] Comment on above: Performed By: #### R ENAL #### [facility] [address] [place] [address] Chloride [Moles/Vol] 99 mmol/L Normal 98 - 107 [facility] Comment on above: Performed By: #### R ENAL #### [facility] [address] [place] [address] Creatinine [Mass/Vol] 0.91 mg/dL Normal 0.50 - 1.30 [facility] Comment on above: Performed By: #### R ENAL #### [facility] [address] [place] [address] eGFR MALE >90 Normal >90 [facility] Comment on above: Result Comment: CALC ULATIONS OF ESTIMATED GFR ARE PERFORMED USING THE 2020 CKD-EPI STUDY REFIT EQUATION WITHOUT THE RACE VARIABLE FOR THE IDMS-TRACEABLE CREATININE METHODS. https://jasn.asnjournals.org/content/early/ASN.8635596 988 Performed By: #### R ENAL #### [facility] [address] [place] [address] Glucose [Mass/Vol] 70 mg/dL Low 74 - 99 [facility] Comment on above: Performed By: #### R ENAL #### [facility] [address] [place] [address] HCO3 (Bld) [Moles/Vol] 25 mmol/L Normal 21 - 32 [facility] Comment on above: Performed By: #### R ENAL #### [facility] [address] [place] [address] Phosphate [Mass/Vol] 3.2 mg/dL Normal 2.5 - 4.9 [facility] Comment on above: Result Comment: The performance characteristics of phosphorus testing in heparinized plasma have been validated by the individual laboratory site where testing is performed. Testing on heparinized plasma is not approved by the FDA; however, such approval is not necessary. Performed By: #### R ENAL #### [facility] [address] [place] [address] Potassium [Moles/Vol] 3.8 mmol/L Normal 3.5 - 5.3 [facility] Comment on above: Performed By: #### R ENAL #### [facility] [address] [place] [address] Sodium [Moles/Vol] 138 mmol/L Normal 136 - 145 [facility] Comment on above: Performed By: #### R ENAL #### [facility] [address] [place] [address] Urea nitrogen [Mass/Vol] 9 mg/dL Normal 6 - 23 [facility] Comment on above: Performed By: #### R ENAL #### [facility] [address] [place] [address] TYPE + SCREENon 06-01-2022 ABO TYPE A Normal [facility] Comment on above: Performed By: #### G CARLIN #### [facility] [address] [place] [address] RH TYPE Positive Normal [facility] Comment on above: Performed By: #### G CARLIN #### [facility] [address] [place] [address] Covid-19 PCR (CVDTB[facility])on SARS-CoV-2 (COVID-19) RNA JASPAL+probe Ql (Unsp spec) Not detected Normal NOT DETECTED [facility] Comment on above: Result Comment: This test is not yet approved or cleared by the [place] FDA. When there are no FDA-approved or cleared tests available, and other criteria are met, FDA can make tests available under an emergency access mechanism called an Emergency Use Authorization (EUA). The EUA for this test is supported by the Corduroy Brusher Operator of Health and Human Service's (HHS's) declaration that circumstances exist to justify the emergency use of in vitro diagnostics for the detection and/or diagnosis of the virus that causes COVID-19. This EUA will remain in effect (meaning this test can be used) for the duration of the COVID-19 declaration justifying emergency of IVDs, unless it is terminated or revoked by FDA (after which the test may no longer be used). When diagnostic testing is negative, the possibility of a false negative should be considered in the context of a patient's recent exposures and the presence of clinical signs and symptoms consistent with SARS-CoV-2. Performed By: #### C [facility] #### [facility] [address] [place] [address] Dr. Sade Martínez Covid-19 PCR ([facility])on 07-08 SARS-CoV-2 (COVID-19) RNA JASPAL+probe Ql (Unsp spec) Not detected Normal NOT DETECTED [facility] Comment on above: Result Comment: This test is not yet approved or cleared by the [place] FDA. When there are no FDA-approved or cleared tests available, and other criteria are met, FDA can make tests available under an emergency access mechanism called an Emergency Use Authorization (EUA). The EUA for this test is supported by the [place] of Health and Human Service's (HHS's) declaration that circumstances exist to justify the emergency use of in vitro diagnostics for the detection and/or diagnosis of the virus that causes COVID-19. This EUA will remain in effect (meaning this test can be used) for the duration of the COVID-19 declaration justifying emergency of IVDs, unless it is terminated or revoked by FDA (after which the test may no longer be used). When diagnostic testing is negative, the possibility of a false negative should be considered in the context of a patient's recent exposures and the presence of clinical signs and symptoms consistent with SARS-CoV-2. Performed By: #### C VDTB #### [facility] [address] [place], [place] [id number] Dr. Sade Martínez Covid-19 PCR ([facility])on 08-08 EUA Statement SEE BELOW Normal [facility] Comment on above: Result Comment: This test is not yet approved or cleared by the [place] FDA. When there are no FDA-approved or cleared tests available, and other criteria are met, FDA can make tests available under an emergency access mechanism called an Emergency Use Authorization (EUA). The EUA for this test is supported by the Corduroy Brusher Operator of Health and Human Service?s (HHS?s) declaration that circumstances exist to justify the emergency use of in vitro diagnostics for the detection and/or diagnosis of the virus that causes COVID-19. This EUA will remain in effect (meaning this test can be used) for the duration of the COVID-19 declaration justifying emergency of IVDs, unless it is terminated or revoked by FDA (after which the test may no longer be used). When diagnostic testing is negative, the possibility of a false negative should be considered in the context of a patients recent exposures and the presence of clinical signs and symptoms consistent with SARS-CoV-2. Performed By: #### C VDTB #### [facility] [address] [place] [id number] Grisel Deluca SARS-CoV-2 (COVID-19) RNA JASPAL+probe Ql (Unsp spec) Not detected Normal NOT DETECTED [facility] Comment on above: Result Comment: This test is not yet approved or cleared by the [place] FDA. When there are no FDA-approved or cleared tests available, and other criteria are met, FDA can make tests available under an emergency access mechanism called an Emergency Use Authorization (EUA). The EUA for this test is supported by the [place] of Health and Human Service's (HHS's) declaration that circumstances exist to justify the emergency use of in vitro diagnostics for the detection and/or diagnosis of the virus that causes COVID-19. This EUA will remain in effect (meaning this test can be used) for the duration of the COVID-19 declaration justifying emergency of IVDs, unless it is terminated or revoked by FDA (after which the test may no longer be used). Performed By: #### C [facility] #### [facility] [address] [place], [place] [id number] Grisel Deluca Vital Signs Date Time Vital Sign Value Performing Clinician Facility 05-08-2024 15:42-0400 Blood Pressure Location Pola ARCINIEGALiz [facility] 05-08-2024 15:42-0400 Diastolic blood pressure 78 mm[Hg] Pola ARCINIEGALiz [facility] 05-08-2024 15:42-0400 Heart rate 76 /min Pola ARCINIEGALiz [facility] 05-08-2024 15:42-0400 Respiratory rate 16 /min Pola ARCINIEGALiz [facility] 05-08-2024 15:42-0400 Systolic blood pressure 126 mm[Hg] Pola ARCINIEGALiz [facility] 01-04-2024 14:29-0400 Body height 175.3 cm Pac 9 Work Phone: [facility] 01-04-2024 14:29-0400 Body mass index (BMI) [Ratio] 27.18 kg/m2 Pac 9 Work Phone: [facility] 01-04-2024 14:29-0400 Body temperature 97.11 [degF] Pac 9 Work Phone: [facility] 01-04-2024 14:29-0400 Body weight 83.5 kg Pac 9 Work Phone: [facility] 01-04-2024 14:29-0400 Diastolic blood pressure 84 mm[Hg] Pac 9 Work Phone: [facility] 01-04-2024 14:29-0400 Heart rate 64 /min Pacc 9 Work Phone: [facility] 01-04-2024 14:29-0400 SaO2% (BldA) [Mass fraction] 99 % [facility] 9 Work Phone: [facility] 01-04-2024 14:29-0400 Systolic blood pressure 126 mm[Hg] [facility] 9 Work Phone: [facility] 09-05-2023 09:18-0500 Body height 176.5 cm Christopher Mcgregor MD Work Phone: [facility] 09-05-2023 09:18-0500 Body temperature 97 [degF] Christopher Mcgregor MD Work Phone: [facility] 09-05-2023 09:18-0500 Body weight 81.19 kg Christopher Mcgregor MD Work Phone: [facility] 09-05-2023 09:18-0500 Diastolic blood pressure 86 mm[Hg] Christopher Mcgregor MD Work Phone: [facility] 09-05-2023 09:18-0500 Heart rate 68 /min Christopher Mcgregor MD Work Phone: [facility] 09-05-2023 09:18-0500 Systolic blood pressure 118 mm[Hg] Christopher Mcgregor MD Work Phone: [facility] 04-12-2023 10:21-0400 Body temperature 97.5 [degF] Michael Vanegas MD Work Phone: [facility] 04-12-2023 10:21-0400 Diastolic blood pressure 84 mm[Hg] Michael Vanegas MD Work Phone: [facility] 04-12-2023 10:21-0400 Heart rate 68 /min Michael Vanegas MD Work Phone: [facility] 04-12-2023 10:21-0400 Respiratory rate 20 /min Michael Vanegas MD Work Phone: [facility] 04-12-2023 10:21-0400 SaO2% (BldA) [Mass fraction] 99 % Michael Vanegas MD Work Phone: [facility] 04-12-2023 10:21-0400 Systolic blood pressure 121 mm[Hg] Michael Vanegas MD Work Phone: [facility] 09-05-2022 11:28-0500 Body height 173.99 cm Eveline Acunaa PA-C Work Phone: FW-Otpzxyq-Wfnbdd l 2099 Work Phone: 09-05-2022 11:28-0500 Body mass index (BMI) [Ratio] 26.07 kg/m2 Eveline Acunaa PA-C Work Phone: JK-Fwwomhg-Ayengy l 2099 Work Phone: 09-05-2022 11:28-0500 Body surface area Derived from formula 1.94 m2 Eveline Acunaa PA-C Work Phone: CP-Rydlhzt-Qaifuu l 2099 Work Phone: 09-05-2022 11:28-0500 Body temperature 97.3 [degF] Eveline Acunaa PA-C Work Phone: DZ-Jbogylw-Wlnevr l 2099 Work Phone: 09-05-2022 11:28-0500 Body weight 78.93 kg Eveline Acunaa PA-C Work Phone: LB-Gnnlvcy-Iykmqo l 2099 Work Phone: 09-05-2022 11:28-0500 Diastolic blood pressure 76 mm[Hg] Eveline Acunaa PA-C Work Phone: YT-Cncqijy-Enmqhn l 2099 Work Phone: 09-05-2022 11:28-0500 Heart rate 73 /min Eveline Acunaa PA-C Work Phone: XE-Eauiboq-Iyqpnt l 2099 Work Phone: 09-05-2022 11:28-0500 Systolic blood pressure 108 mm[Hg] Eveline Acunaa PA-C Work Phone: ME-Dkwgowy-Bshznp l 2099 Work Phone: 09-05-2022 11:28-0500 0 1 Eveline Pesa PA-C Work Phone: DL-Iirqyzo-Ubtvtu l 2099 Work Phone: Comment on above: [employer] 07-04-2022 13:34-0500 Body height 173.99 cm Eveline Pesa PA-C Work Phone: [facility] 2099 Work Phone: 07-04-2022 13:34-0500 Body mass index (BMI) [Ratio] 23.23 kg/m2 Veeline Pesa PA-C Work Phone: [facility] 2099 Work Phone: 07-04-2022 13:34-0500 Body surface area Derived from formula 1.84 m2 Eveline Pesa PA-C Work Phone: [facility] 2099 Work Phone: 07-04-2022 13:34-0500 Body weight 70.31 kg Eveline Pesa PA-C Work Phone: [facility] 2099 Work Phone: 07-04-2022 13:34-0500 Diastolic blood pressure 78 mm[Hg] Eveline Pesa PA-C Work Phone: [facility] 2099 Work Phone: 07-04-2022 13:34-0500 Heart rate 84 /min Eveline Pesa PA-C Work Phone: [facility] 2100 Work Phone: 11-28-2022 13:34-0500 Systolic blood pressure 109 mm[Hg] Eveline Dai PA-C Work Phone: -Plastic Surgery-[facility] 2100 Work Phone: 06-15-2022 14:45-0500 Body temperature 98.06 [degF] Text Entry Free [facility] 06-15-2022 14:45-0500 Diastolic blood pressure 76 mm[Hg] Text Entry Free [facility] 06-15-2022 14:45-0500 Heart rate 117 /min Text Entry Free [facility] 06-15-2022 14:45-0500 Respiratory rate 18 /min Text Entry Free [facility] 06-15-2022 14:45-0500 SaO2% (BldA) [Mass fraction] 99 % Text Entry Free [facility] 06-15-2022 14:45-0500 Systolic blood pressure 104 mm[Hg] Text Entry Free [facility] Encounters Encounter Date Encounter Type Care Provider Facility Start: 05-17-2024 End: 05-17-2024 ambulatory [facility] Facility:[facility] Start: 05-17-2024 End: 05-17-2024 Patient encounter procedure Christopher Mcgregor MD Work Phone: Plastic Surgery Comment on above: Rosacea (Primary Dx) ; Post-operative state; H/O closed fracture of nasal bones Start: 05-08-2024 End: 05-08-2024 ambulatory Pola GARCIA Facility:[facility] Start: 05-08-2024 End: 05-08-2024 [facility] Start: 04-15-2024 ambulatory Pola GARCIA Facility: [facility] Start: 02-14-2024 End: 02-14-2024 ambulatory [facility] Facility:[facility] Start: 02-14-2024 End: 02-14-2024 Patient encounter procedure Christopher Mcgregor MD Work Phone: Plastic Surgery Comment on above: Post-operative state (Primary Dx) Start: 01-23-2024 Admission to same da y surgery center Christopher Mcgregor MD Work Phone: Plastic Surgery Comment on above: [employer] Start: 01-23-2024 ambulatory Christopher genao MD Work Phone: Plastic Surgery Start: 01-16-2024 End: 01-16-2024 Patient encounter procedure Nancy Cheng PA-C Work Phone: Plastic Surgery Comment on above: Post-operative state (Primary Dx) Start: 01-16-2024 End: 01-16-2024 ambulatory NANCY CHENG Facility:[facility] Start: 01-08-2024 End: 01-08-2024 ambulatory CHRISTOPHER MCGREGOR Facility:[facility] Start: 01-04-2024 Encounter for other preprocedural examination JENNIFER GUZMAN [facility] Start: 01-04-2024 End: 01-04-2024 Admission to establishment Pac Main Work Phone: Pre Anesthesia Start: 01-04-2024 End: 01-04-2024 Anesthesia consultation [facility] Main Work Phone: Pre Anesthesia Comment on above: Pre-op evaluation (P rimary Dx); Headaches due to old head injury; Acute sinusitis, recurrence not specified, unspecified location; Gastroesophageal reflux disease without esophagitis; CELAYA (dyspnea on exertion); Overweight Start: 01-04-2024 End: 01-04-2024 Preprocedural examination [place] [address] Work Phone: [facility] Work Phone: Start: 01-04-2024 End: 01-04-2024 ambulatory JENNIFER L GUZMAN Facility:[facility] Start: 12-29-2023 End: 12-29-2023 Admission to same day surgery center Christopher Mcgregor MD Work Phone: Plastic Surgery Comment on above: Difficulty breathing (Primary Dx); H/O closed fracture of nasal bones Start: 12-29-2023 End: 12-29-2023 Telemedicine consultation with patient Christopher Mcgregor MD Work Phone: Plastic Surgery Start: 12-29-2023 End: 12-29-2023 ambulatory MICHAEL VANEGAS Facility:[facility] Start: 12-21-2023 Admission to [facility] Christopher Mcgregor MD Work Phone: Plastic Surgery Comment on above: FMLA paperwork for Neno Berman Start: 12-21-2023 ambulatory Christopher genao MD Work Phone: Plastic Surgery Start: 12-15-2023 Admission to [facility] Christopher Mcgregor MD Work Phone: Plastic Surgery Comment on above: FMLA papers for Karen Berman () Start: 12-15-2023 ambulatory Christopher genao MD Work Phone: Plastic Surgery Start: 11-30-2023 Telephone encounter Christopher Mcgregor MD Work Phone: Plastic Surgery Comment on above: [employer] Start: 09-05-2023 End: 09-05-2023 Patient encounter procedure Christopher Mcgregor MD Work Phone: Plastic Surgery Comment on above: Difficulty breathing (Primary Dx); H/O closed fracture of nasal bones; Facial injury, subsequent encounter Start: 09-05-2023 End: 09-05-2023 ambulatory STACEY MOROCHO Facility:[facility] Start: 07-20-2023 Telephone encounter Michael mora MD Work Phone: [facility] [place] Comment on above: [employer] and [employer] Start: 07-18-2023 Telephone encounter Michael mora MD Work Phone: [facility] [place] Start: 06-16-2023 Telephone encounter Michael mora MD Work Phone: [facility] [place] Comment on above: [employer] Start: 06-02-2023 Telephone encounter Michael mora MD Work Phone: [facility] [place] Comment on above: [employer] paperwork Start: 05-17-2023 Telephone encounter Michael mora MD Work Phone: [facility] [place] Comment on above: Patient Update Start: 04-12-2023 End: 04-12-2023 ambulatory Michael Vanegas MD Work Phone: Plastic Surgery Comment on above: Multiple closed frac tures of facial bone, sequela (HCC) (Primary Dx); Open skull base fracture with cerebral laceration and contusion, without coma, with routine healing Start: 04-12-2023 End: 04-12-2023 Patient encounter procedure Michael Vanegas MD Work Phone: [facility] Start: 2023 End: 2023 Subsequent hospital visit by physician Ct Main F30 (I-Stat) Work Phone: Radiology Comment on above: Multiple closed frac tures of facial bone, sequela (HCC) [S02.92XS] Start: 12-22-2022 ambulatory Jami Pate Facil ity:[id number] Start: 11-28-2022 ambulatory Provider Pending Facili ty:[id number] Start: 10-04-2022 NPV, Provider: Jami Pate, Status: Pen, Time: 2:15 PM Michael Vanegas MD Work Phone: [facility] 2100 Work Phone: Start: 10-04-2022 ambulatory Jami Pate Facil ity:[id number] Start: 10-03-[address] Michael Vanegas Facility:[id number] Start: 10-03-2022 Patient encounter procedure Michael Vanegas MD Work Phone: [facility] 2100 Work Phone: Start: 09-05-2022 Postop follow up vis it related to original px Eveline Dai PA-C Work Phone: [facility] 2100 Work Phone: Start: 09-05-2022 ambulatory Provider Pending Facili ty:[id number] Start: 07-25-2022 Postop follow up vis it related to original px Provider AMAProvider Work Phone: [facility] Work Phone: Start: 07-25-[address] Michael Vanegas Facility:[id number] Start: 07-25-2022 ambulatory Provider Pending Facili ty:[facility] Start: 07-04-2022 Postop follow up vis it related to original px Eveline Dai PA-C Work Phone: [facility] 2[facility] Work Phone: Start: 07-04-2022 ambulatory Provider Pending Facili ty:[id number] Start: 06-01-2022 End: 06-15-2022 Evaluation and management of inpatient Nitesh Yousif [facility] TT08 Rm [id number] Start: 08-10-2021 End: 08-10-[address] STACEY MOROCHO Facility:H1 Start: 08-04-2021 End: 08-04-[address] STACEY MOROCHO Facility:[facility]1 Start: 08-29-2020 End: 08-30-[address] STACEY MOROCHO Facility:[facility]1 Procedures Date Procedure Procedure Detail Performing Clinician Start: 2023 Ct maxillofacial w/o contrast material Michael Vanegas MD Work Phone: Start: 06-06-2022 Antibody screen Jami Mc Comment on above: Performed By: #### G CARLIN #### [facility] [address] [place] [address] Start: 06-01-2022 Antibody screen Jami Mc Comment on above: Performed By: #### G CARLIN #### [facility] [address] [place] [address] Reconstruction of fa cial bones Pola GARCIA Reconstruction of nose Zenon pedro GARCIA Plan of Treatment Date Care Activity Detail Author Start: 05-28-2032 Urine microalbumin profile DTaP,Tdap,Td Vaccine (2 - Td or Tdap) [facility] Start: 01-03-2027 Diabetes Screening Diabetes Screenin g [facility] Start: 05-31-2025 Diabetes Screening Diabetes Screenin g [facility] Start: 08-29-2024 End: 08-29-2024 Patient encounter procedure 08/29/2024 1:00 PM EST Office Visit [facility] [place] [address] [place] [id number] Miheala Iniguez APRN.PRODUCTION PLANNING MANAGER [address] [place] [address] Rosacea [L71.9] [facility] [place] Comment on above: Rosacea [L71.9] Start: 05-17-2024 End: 05-17-2024 Patient encounter procedure 05/17/2024 1:45 PM EDT Office Visit Plastic Surgery [address] [place] [address] Christopher Mcgregor MD [address] [place], [place] [id number] Return in about 3 months (around 05/16/2024) for Follow up Plastic Surgery Comment on above: Return in about 3 mo nths (around 05/16/2024) for Follow up Start: 04-07-2024 Covid-19 Vaccine ( season) Covid-19 Vaccine ( season) [facility] Start: 04-07-2024 Influenza vaccination [facility] Start: 02-14-2024 End: 02-14-2024 Patient encounter procedure 02/14/2024 2:00 PM EDT Office Visit Plastic Surgery [address] [place] [address] Christopher Mcgregor MD [address] [place], [place] [id number] 02/[address] Mcgregor for post op appointment Plastic Surgery Comment on above: 02/[address] Mcgregor for post op appointment Start: 01-16-2024 End: 01-16-2024 Patient encounter procedure 01/16/2024 4:00 PM EDT Office Visit Plastic Surgery [address] [address] Nancy Cheng PA-C [address] [place] [address] Post op Plastic Surgery Comment on above: Post op Start: 01-08-2024 End: 01-08-2024 Admission to same day surgery center 01/08/2024 10:15 AM EDT - 01/08/2024 2:15 PM EDT Surgery Admitting [address] [place] [address] Christopher Mcgregor MD [address] [place] [address] REVISION RHINOPLASTY - using donor cartilage Admitting Comment on above: REVISION RHINOPLASTY - using donor cartilage Start: 01-08-2024 End: 01-08-2024 Excision inferior turbinate partial/complete RESECTION TURBINATE Difficulty breathing H/O closed fracture of nasal bones Facial injury, subsequent encounter 01/08/2024 10:15 AM EDT [facility] Start: 01-08-2024 End: 01-08-2024 Rhinoplasty secondary minor revision REVISION RHINOPLASTY Difficulty breathing H/O closed fracture of nasal bones Facial injury, subsequent encounter 01/08/2024 10:15 AM EDT [facility] Start: 01-08-2024 End: 01-08-2024 Septoplasty/submucous resecj w/wo cartilage grf SEPTOPLASTY Difficulty breathing H/O closed fracture of nasal bones Facial injury, subsequent encounter 01/08/2024 10:15 AM EDT [facility] Start: 01-08-2024 Subsequent hospital visit by physician 01/08/2024 10:15 AM EDT Hospital Encounter Admitting [address] [place] [address] Christopher Mcgregor MD [address] [facility] [place] [address] Difficulty breathing [R06.89], H/O closed fracture of nasal bones [Z87.81], Facial injury, subsequent encounter [S09.93XD] Admitting Comment on above: Difficulty breathing [R06.89], H/O closed fracture of nasal bones [Z87.81], Facial injury, subsequent encounter [S09.93XD] Start: 01-04-2024 End: 01-04-2024 Anesthesia consultation 01/04/2024 2:40 PM EDT PAT Pre Anesthesia [address] [place] [address] 9, Pacc Main [address] [place], [place] [id number] [facility] Pre Anesthesia Comment on above: PACC Start: 12-29-2023 End: 12-29-2023 Admission to same day surgery center 12/29/2023 3:45 PM EDT [facility] Plastic Surgery [address] [place] [address] Christopher Mcgregor MD [address] [place] [address] Virtual Discussion of Upcoming Procedure Plastic Surgery Comment on above: Virtual Discussion o f Upcoming Procedure Start: 08-07-2023 Behavioral Health Screening Behavioral Health Screening [facility] Start: 08-07-2023 Depression Assessment Depression Ass essment [facility] Start: 05-28-2023 Screening for malign ant neoplasm of lung Lung Cancer Screening [facility] Start: 04-07-2023 Covid-19 Vaccine ( season) Covid-19 Vaccine ( season) [facility] Start: 04-07-2023 Influenza vaccination [facility] Start: 10-03-2022 DEMAR, Provider : Michael Vanegas, Status: Pen, Time: 11:30 AM DEMAR, Provider: Michael Vanegas, Status: Pen, Time: 11:30 AM [facility] 2100 Work Phone: Start: 09-05-2022 FUV, Provider: Eveline Dai, Status: Pen, Time: 11:00 AM FUV, Provider: Eveline Dai, Status: Pen, Time: 11:00 AM [facility] Work Phone: Start: 08-07-2022 DEPRESSION ASSESSMENT DEPRESSION ASS ESSMENT [facility] Start: 07-25-2022 FUV, Provider: Michael Vanegas, Status: Pen, Time: 3:00 PM FUV, Provider: Michael Vanegas, Status: Pen, Time: 3:00 PM [facility] Work Phone: Start: 07-04-2022 Patient encounter procedure [facility] Start: 06-15-2022 End: 06-16-2023 Hydrogen Peroxide 3% Topical 1 application Solution Once ; SolutionDOSE = 1 application(s) Topical OnceApply to scalpClinician Notes: Please place at bedside, Plastic surgery team to return to clean dry blood from incision. Start: 15-Jun-2022 End: 15-Jun-2023 Ordered: 15-Jun-2022 Michael Lee Intent Comments: Please place at bedside, Plastic surgery team to return to clean dry blood from incision. [facility] Comment on above: Please place at beds calli, Plastic surgery team to return to clean dry blood from incision. Start: 06-08-2022 End: 06-09-2023 [facility] Comment on above: IF patient HAS a sec ure IV access & is Unconscious, Conscious, NPO or Unable to Eat or Drink. Repeat until BG reaches 100 mg/dL or greater. Push 2-3 mL/minute. Discontinue Once BG reaches 100 mg/dL or greater. IF patient DOES NOT have secure IV access & is Unconscious, Conscious, NPO or Unable to Eat or Drink. Repeat until BG reaches 100 mg/dL or greater. Discontinue Once BG reaches 100 mg/dL or greater. Start: 07-30-2021 COVID-19 VACCINE (4 - Pfizer series) COVID-19 VACCINE (4 - Pfizer series) [facility] Start: 2020 SHINGRIX VACCINE (1 of 2) SHINGRIX VACCINE (1 of 2) [facility] Start: 2015 COLOGUARD (FIT-DNA) COLOGUARD (FIT-D NA) [facility] Start: 2015 Colonoscopy COLONOSCOPY [facility] Start: 2015 COLORECTAL CANCER SCREENING COLORECTAL CANCER SCREENING [facility] Start: [address] COLONOGRAPHY [facility] Start: 2015 DIABETES SCREEN DIABETES SCREEN [facility] Start: 2015 Diabetes Screening Diabetes Screenin g [facility] Start: 2015 FECAL OCCULT BLOOD FECAL OCCULT BLOO D [facility] Start: 2015 Screening for malign ant neoplasm of colon [facility] Start: 2015 SIGMOIDOSCOPY SIGMOIDOSCOPY [facility] Start: 2005 Lipid 1996 panel - Serum or Plasma Lipid Screening [facility] Start: 2005 Lipid panel Lipid Screening [facility] Start: 2005 LIPID SCREEN LIPID SCREEN [facility] Start: 1989 Hepatitis B Vaccine (1 of 3 - 19+ 3-dose series) Hepatitis B Vaccine (1 of 3 - 19+ 3-dose series) [facility] Start: 1989 Urine microalbumin profile [facility] Start: 1988 Anxiety Screening Anxiety Screening [facility] Start: 1988 Depression Screening Depression Scre ening [facility] Start: 1988 HEPATITIS C SCREENING HEPATITIS C [facility] Start: 1988 Hepatitis C screening Hepatitis C [facility] Start: 1988 HIV SCREENING HIV SCREENING [facility] Start: 1988 HIV screening HIV Screening [facility] Start: 1970 HEPATITIS B (1 of 3 - 3-dose series) HEPATITIS B (1 of 3 - 3-dose series) [facility] Start: 1970 Hepatitis B Vaccine (1 of 3 - 3-dose series) Hepatitis B Vaccine (1 of 3 - 3-dose series) [facility] PLASTICS A60 Immunizations Immunization Date Immunization Notes Care Provider Fa cili 05-28-2022 tetanus toxoid, redu jaz diphtheria toxoid, and acellular pertussis vaccine, adsorbed Eveline Dai PA-C Work Phone: -Plastic Surgery-[facility] 2100 Work Phone: 06-04-2021 Pfizer-BioNTech COVI D-19 Vacc 30 MCG/0.3ML Intramuscular Suspension Eveline Dai PA-C Work Phone: [facility] 11-21-2020 Pfizer-BioNTech COVI D-19 Vacc 30 MCG/0.3ML Intramuscular Suspension Eveline Dai PA-C Work Phone: [facility] 10-29-2020 Pfizer-BioNTech COVI D-19 Vacc 30 MCG/0.3ML Intramuscular Suspension Eveline Dai PA-C Work Phone: [facility] Payers Date Payer Category Payer Unknown 2022 Unknown 1970 Unknown [id number] 2.16.84 [id number] 1970 Unknown [id number] 1970 Unknown [id number] 2.16.84 [id number] 1970 Unknown [id number] 2. [id number] 1970 Unknown [id number] 2. [id number] 1970 Unknown [id number] 2. [id number] 1970 Unknown [id number] 2. [id number] 1970 Unknown [id number] 2. [id number] 1970 Unknown [id number] 2. [id number] 1970 Unknown [id number] 2. [id number] 1970 Unknown [id number] 2. [id number] 1970 Unknown [id number] 2.16. [id number] 1970 Unknown [id number] 2.16.8 [id number] 1959 Unknown [id number] Social History Date Type Detail Facility [facility] Tobacco smoking consumption unknown [facility] Start: 2023 End: 01-08-2024 History of Social function [facility] Start: 2023 End: 01-08-2024 Area Deprivation Index [facility] National Score (1-10 0), lower number is lower risk [address] [facility] Start: 1970 Sex Assigned At Not on file [facility] Start: 01-04-2024 End: 05-08-2024 Tobacco smoking status NHIS Ex-smoker [facility] Start: 05-07-1987 End: 05-07-2022 History of tobacco use Current smoker [facility] Start: 05-07-1987 End: 05-07-2022 History of tobacco use Cigarette Smoker [facility] Start: 01-04-2024 Tobacco use and exposure Smoke less tobacco non-user [facility] Start: 01-04-2024 End: 01-08-2024 Alcohol intake Ex-drinker (finding) [facility] Medical Equipment Procedure Code Equipment Code Equipment Origin al Text Equipment Identifier Dates Graft Costal Cartilage 3.5cm Bone Frozen - [id number] Start: 01-08-2024 Cortiva Allograf t Dermis 2cm X 4cm - [id number] Start: 01-08-2024 Functional Status Date Assessment Result Facility 05-08-2024 Functional Status N/A [facility] Functional observable [facility] Mental Status Date Assessment Result Facility 06-06-2022 Cognitive functi ons [id number] [facility] Clinical Notes 06-01-2022 to 05-17-2024 Christopher Mcgregor MD - 05/17/2024 2:08 PM Christopher Holt MD - 02/14/2024 2:00 PM Nancy Sanchez PA-C - 01/25/2024 1:34 PM EDTPatient Instructions<item> Note Date & Type Note Facility 05-17-2024 Note HNO ID: [id number] Author: CHRISTOPHER MCGREGOR MD Service: ? Author Type: Physician Type: Progress Notes Filed: 05/22/2024 07:42 Note Text: Plastic Surgery Follow Up Note CC: post-op HPI: Rm Berman is 4 months s/p open revision septorhinoplasty. No symptoms or signs of infection (no N/V/F/C, no wound drainage and no new redness) Meds and allergies reviewed in EPIC. ALLERGIES: ALLERGIES No Known Allergies PHYSICAL EXAM: Awake, alert, oriented x3 NAD, NC/AT VSS Septum supported well Structure is good ASSESSMENT: Expected post operative course s/p revision rhinopseptoplasty PLAN: Healed well Recommend to follow with Dermatology HIPAA: Patient acknowledged and consented to discussion of HPI/PE/medical care/dispo with family/friends in room. The patient is seen and examined by Dr. Mcgregor and the following reflects their service. Scribed by Nancy Cheng PA-C Attending Note I have personally performed a face to face assessment of the patient and have reviewed the ARLYN note. I performed a substantive portion of the visit including all aspects of the following. My delvalle findings include: agree with above for history, physical and medical decision making. Other additions or changes: None Signature: Fransisca Mcgregor MD Date: May 22, 2024 Time: 7:42 AM [facility] 05-17-2024 History of Present illness Narrative Images from the original note were not included. Plastic Surgery Follow Up Note CC: post-op HPI: Rm Berman is 4 months s/p open revision septorhinoplasty. No symptoms or signs of infection (no N/V/F/C, no wound drainage and no new redness) Meds and allergies reviewed in EPIC. ALLERGIES: ALLERGIES No Known Allergies PHYSICAL EXAM: Awake, alert, oriented x3 NAD, NC/AT VSS Septum supported well Structure is good ASSESSMENT: Expected post operative course s/p revision rhinopseptoplasty PLAN: Healed well Recommend to follow with Dermatology HIPAA: Patient acknowledged and consented to discussion of HPI/PE/medical care/dispo with family/friends in room. The patient is seen and examined by Dr. Mcgregor and the following reflects their service. Scribed by Nancy Cheng PA-C Attending Note I have personally performed a face to face assessment of the patient and have reviewed the ARLYN note. I performed a substantive portion of the visit including all aspects of the following. My delvalle findings include: agree with above for history, physical and medical decision making. Other additions or changes: None Signature: Fransisca Mcgregor MD Date: May 22, 2024 Time: 7:42 AM documented in this encounter [facility] 05-08-2024 Note General Surgery Offi ce/Clinic Note Chief Complaint consultation for colonoscopy HPI Staff 54 year old male presents on consultation from Dr. Morocho for screening colonoscopy. Denies abdominal or rectal pain. No rectal bleeding or change in bowel habits. Denies nausea or vomiting. No unexplained weight loss. Never had colonoscopy in the past. Grandfather with history of colon cancer, age late 60's or early 70's. History of Present Illness 54 yo male with h/o migraines, GERD, referred for colorectal screening; denies change in bms or blood in stools, no abd complaints; no abd operations or previous colonoscopy; no asa or NSAID use; no tobacco use; no fmhx of GI malignancy or IBD. Review of Systems PHQ Score Initial Depression Screen Score: 0 SCORE ROS - Provider Constitutional: no fever, no sweats, no weight loss. Eyes: no glasses, no blurred vision, no visual loss. ENMT: no dentures, no hoarseness, no swallowing difficulties, no hearing loss, no ear infection(s), no nose bleeds. Cardiovascular: normal blood pressure, no chest pain, regular heartbeat, no heart murmur. Respiratory: no shortness of breath, no cough, no asthma, no wheezing. Gastrointestinal: no nausea, no vomiting, no diarrhea, no constipation, no blood in stool, no change in bowel habits, no abdominal pain, no hepatitis. Genitourinary: no kidney stones, no urine infection, no dysuria. Musculoskeletal: no pain, no weakness. Skin: no changing moles, no rash, no skin lumps. Neurologic: no seizures, no epilepsy, no headache. Psychiatric: no emotional or psychiatric problem. Heme/Lymph: no bleeding problems, no anemia, no blood clots, no transfusions. Allergy/Immunologic: no swollen lymph nodes/glands, no IV drug abuse. Other: Additional ROS info: Except as noted in the above Review of Systems and in the History of Present Illness, all other systems have been reviewed and are negative or noncontributory. Physical Exam Vitals & Measurements HR: 76(Peripheral) RR: 16 BP: 126/78 HT: 69 in HT: 175.2 cm WT: 84.3 kg WT: 185.46 lb BMI: 27.46 ROS - Provider Constitutional: no fever, no sweats, no weight loss. Eyes: no glasses, no blurred vision, no visual loss. ENMT: no dentures, no hoarseness, no swallowing difficulties, no hearing loss, no ear infection(s), no nose bleeds. Cardiovascular: normal blood pressure, no chest pain, regular heartbeat, no heart murmur. Respiratory: no shortness of breath, no cough, no asthma, no wheezing. Gastrointestinal: no nausea, no vomiting, no diarrhea, no constipation, no blood in stool, no change in bowel habits, no abdominal pain, no hepatitis. Genitourinary: no kidney stones, no urine infection, no dysuria. Musculoskeletal: no pain, no weakness. Skin: no changing moles, no rash, no skin lumps. Neurologic: no seizures, no epilepsy, no headache. Psychiatric: no emotional or psychiatric problem. Heme/Lymph: no bleeding problems, no anemia, no blood clots, no transfusions. Allergy/Immunologic: no swollen lymph nodes/glands, no IV drug abuse. Other: Additional ROS info: Except as noted in the above Review of Systems and in the History of Present Illness, all other systems have been reviewed and are negative or noncontributory. Assessment/Plan 1. Screening for malignant neoplasm of colon (Z12.11: Encounter for screening for malignant neoplasm of colon) plan colonoscopy under anesthesia, informed consent obtained. Follow-up No qualifying data available Problem List/Past Medical History Ongoing BMI 27.0-27.9,adult Gastroesophageal reflux disease without esophagitis History of facial trauma Migraine Overweight Screening for malignant neoplasm of colon Historical No qualifying data Procedure/Surgical History Nose reconstruction, Reconstruction of facial bones. Medications Imitrex 100 mg Tab, 100 mg= 1 tab(s), Oral, Once Allergies No Known Allergies No Known Medication Allergies Social History Alcohol - Denies Alcohol Use, 05/08/2024 Substance Abuse - Denies Substance Abuse, 05/08/2024 Tobacco Former smoker, quit more than 30 days ago Tobacco Use:. Never Smokeless Tobacco Use:. Cigarettes, 1 per day. Started age 18.0 Years. Stopped age 53 Years., 05/08/2024 Family History Diabetes mellitus type 2: Mother and Sister. Heart disease: Mother. Primary malignant neoplasm of skin: Mother. Immunizations Vaccine Date Status SARS-CoV-2 (COVID-19) mRNA BNT-162b2 vax 06/04/2021 Recorded SARS-CoV-2 (COVID-19) mRNA BNT-162b2 vax 11/21/2020 Recorded SARS-CoV-2 (COVID-19) mRNA BNT-162b2 vax 10/29/2020 Recorded [facility] Comment on above: Result Comment: Elec tronically Signed By: RADHA SIMPSON, Pola Villalta.[email or web address]\Date and Time Signed: 05/08/24 16:10 EDT 02-14-2024 History of Present illness Narrative Images from the original note were not included. Plastic Surgery Follow Up Note CC: post-op HPI: Rm Berman is 5.5 weeks s/p open revision septorhinoplasty. No symptoms or signs of infection (no N/V/F/C, no wound drainage and no new redness) Meds and allergies reviewed in EPIC. ALLERGIES: ALLERGIES No Known Allergies PHYSICAL EXAM: Awake, alert, oriented x3 NAD, NC/AT VSS No septal hematoma. Supratip swelling Profile much improved ASSESSMENT: Expected post operative course PLAN: Okay to return to full activity Follow up in 3 months HIPAA: Patient acknowledged and consented to discussion of HPI/PE/medical care/dispo with family/friends in room. The patient is seen and examined by Dr. Mcgregor and the following reflects their service. Scribed by Nancy Cheng PA-C Attending Note I have personally performed a face to face assessment of the patient and have reviewed the ARLYN note. I performed a substantive portion of the visit including all aspects of the following. My delvalle findings include: agree with above for history, physical and medical decision making. Other additions or changes: None Signature: Fransisca Mcgregor MD Date: February 16, 2024 Time: 9:46 AM documented in this encounter [facility] 02-14-2024 Note HNO ID: [id number] Author: CHRISTOPHER MCGREGOR MD Service: ? Author Type: Physician Type: Progress Notes Filed: 02/16/2024 09:46 Note Text: Plastic Surgery Follow Up Note CC: post-op HPI: Rm Berman is 5.5 weeks s/p open revision septorhinoplasty. No symptoms or signs of infection (no N/V/F/C, no wound drainage and no new redness) Meds and allergies reviewed in EPIC. ALLERGIES: ALLERGIES No Known Allergies PHYSICAL EXAM: Awake, alert, oriented x3 NAD, NC/AT VSS No septal hematoma. Supratip swelling Profile much improved ASSESSMENT: Expected post operative course PLAN: Okay to return to full activity Follow up in 3 months HIPAA: Patient acknowledged and consented to discussion of HPI/PE/medical care/dispo with family/friends in room. The patient is seen and examined by Dr. Mcgregor and the following reflects their service. Scribed by Nancy Cheng PA-C Attending Note I have personally performed a face to face assessment of the patient and have reviewed the ARLYN note. I performed a substantive portion of the visit including all aspects of the following. My delvalle findings include: agree with above for history, physical and medical decision making. Other additions or changes: None Signature: Fransisca Mcgregor MD Date: February 16, 2024 Time: 9:46 AM [facility] 01-25-2024 Note HNO ID: [id number] Author: NANCY CHENG PA-C Service: ? Author Type: Physician Final Inspector Motorcyles Type: Progress Notes Filed: 01/25/2024 13:35 Note Text: Plastic Surgery Follow Up Note CC: post-op HPI: Rm Berman is 7 day s/p open revision septorhinoplasty. No symptoms or signs of infection (no N/V/F/C, no wound drainage and no new redness) Meds and allergies reviewed in EPIC. ALLERGIES: ALLERGIES No Known Allergies PHYSICAL EXAM: Awake, alert, oriented x3 NAD, NC/AT VSS No septal hematoma. Nasal stents, and splints in tact. Incision(s) c/d/i, no s/s of infection. ASSESSMENT: Expected post operative course PLAN: Nasal stents/splints removed, minimal bleeding. Patient tolerated the above well and left in good condition. Care including nasal cleaning regimen reviewed. Discussed to continue sleeping on back for 5 weeks, limiting physical activity for 5 weeks Reviewed nasal exercises with patient HIPAA: Patient acknowledged and consented to discussion of HPI/PE/medical care/dispo with family/friends in room. Nancy Cheng PA-C January 16, 2024 [facility] 01-25-2024 History of Present illness Narrative Images from the original note were not included. Plastic Surgery Follow Up Note CC: post-op HPI: Rm Berman is 7 day s/p open revision septorhinoplasty. No symptoms or signs of infection (no N/V/F/C, no wound drainage and no new redness) Meds and allergies reviewed in EPIC. ALLERGIES: ALLERGIES No Known Allergies PHYSICAL EXAM: Awake, alert, oriented x3 NAD, NC/AT VSS No septal hematoma. Nasal stents, and splints in tact. Incision(s) c/d/i, no s/s of infection. ASSESSMENT: Expected post operative course PLAN: Nasal stents/splints removed, minimal bleeding. Patient tolerated the above well and left in good condition. Care including nasal cleaning regimen reviewed. Discussed to continue sleeping on back for 5 weeks, limiting physical activity for 5 weeks Reviewed nasal exercises with patient HIPAA: Patient acknowledged and consented to discussion of HPI/PE/medical care/dispo with family/friends in room. Nancy Cheng PA-C January 16, 2024 documented in this encounter [facility] 01-08-2024 Note HNO ID: [id number] Author: JOELLEN RIBEIRO APRN.CAMP COORDINATOR Service: ? Author Type: Nurse Clinical Microbiologist Type: Anesthesia Procedure Notes Filed: 01/08/2024 12:05 Note Text: ANESTHESIOLOGY PROCEDURE NOTE PIV General Information Procedure Start Time/Medication Administration: 01/08/2024 11:45 AM Procedure End Time: 01/08/2024 11:50 AM Staffing Anesthesiologist: Yun Liu MD Performed by: anesthesiologist Preparation Sterility Preparation: hand hygiene performed prior to procedure, skin prep agent completely dried prior to procedure Site Prep: alcohol Procedure Details Indication: need for IV access Needle Size/Type: 18 gauge angiocath Orientation: Right Location: Hand Imaging Guidance Used: No SIGNATURE: Joellen Ribeiro APRN.CRNA PATIENT NAME: Rm Berman DATE: January 08, 2024 TIME: 12:05 PM CSN: [id number] [facility] 01-08-2024 Note HNO ID: [id number] Author: JOELLEN RIBEIRO APRN.CRNA Service: ? Author Type: Nurse Clinical Microbiologist Type: Anesthesia Procedure Notes Filed: 01/08/2024 12:05 Note Text: ANESTHESIOLOGY PROCEDURE NOTE Airway General Information Procedure Start Time/Medication Administration: 01/08/2024 11:39 AM Procedure End Time: 01/08/2024 11:40 AM Patient location during procedure: OR Timeout Performed Pre-procedure: timeout performed Consent Obtained: Yes Patient identity confirmed: arm band and patient Staffing CAMP COORDINATOR: Joellen Ribeiro APRN.CRNA Performed by: ROHAN Indications and Patient Condition Indications for airway management: anesthesia Preoxygenated: yes anesthesia circuit Patient position: sniffing Method: asleep Cricoid Pressure: No Manual In-Line Stabilization: No Difficult Mask: No Final Airway Details Final airway type: endotracheal airway Final Endotracheal Airway: reinforced tube Cuffed: yes Successful intubation technique: video laryngoscopy Devices used: Mejía and intubating stylet Endotracheal tube insertion site: oral Blade: Afsaneh Blade size: #4 ETT size (mm): 7.5 Measured from: lips Measurement (cm): 23 Placement verified by: capnometry Cormack-Lehane Classification: grade I - full view of glottis Number of attempts at approach: 1 Failed airway: no Unrecognized esophageal intubation: no Airway not difficult SIGNATURE: Joellen Ribeiro APRN.CRNA PATIENT NAME: Rm Berman DATE: January 08, 2024 TIME: 12:04 PM CSN: [id number] [facility] 01-04-2024 Instructions Jennifer Guzman APRN.PRODUCTION PLANNING MANAGER - 01/04/2024 3:00 PM EDT PATIENT PREOPERATIVE INSTRUCTIONS Christopher Mcgregor MD has scheduled you for your procedure at this surgery center: If no call by 4pm the day before surgery, please call this number. [facility] Scheduling Office: [phone] --[address] [place] [address]. Please read below carefully for your personalized instructions. Dietary Restrictions: - No solid food after midnight. - You may have 12 ounces of clear liquids (water, clear juices such as apple juice or gatorade, carbonated beverages, clear tea, black coffee, jello) until 2 hours before scheduled arrival at facility. - Do not drink any alcohol after midnight the night before your surgery. Medications: Unless instructed differently below, stay on all of your medications until your surgery. If you start any new medications after today's visit, please contact your surgeon. Pre-Surgery Med Instructions Medication Instructions oxymetazoline (AFRIN, OXYMETAZOLINE,) 0.05 % nasal spray Ok to take morning of surgery if needed DM/p-ephed/acetaminoph/doxylam (NYQUIL D ORAL) Okay to take the night before surgery if needed If you take any medications for erectile dysfunction-Cialis (Tadalafil), Levitra, Staxyn (Vardenafil) Viagra (Sildenenafil please do not take these for 48 hours before surgery. If you start any new medications after today's visit, please contact the surgeon's office. Blood Thinning Medications: - Stop NSAIDS (Ibuprofen, Advil, Aleve, Motrin, Celebrex, Mobic, etc.) 7 days before surgery, as directed by your surgeon. - Stop Aspirin 7 days before surgery, as directed by your surgeon. - Stop Vitamin E, ALL multi-vitamins, herbals and dietary supplements 7 days before surgery. - You may take Tylenol (Acetaminophen) or any of your pain medications that do not contain aspirin or NSAIDS as needed. Important Reminders: - If you use CPAP/BIPAP, bring the machine with you to the surgery center. - If you are prescribed inhalers for breathing, continue using them. - Candy, mints, and tobacco products are NOT permitted the morning of surgery. - Hearing aids, dentures and glasses may be worn the morning of surgery. - NO jewelry, body piercings, makeup, hairpins or contacts are to be worn the day of surgery. If you develop symptoms such as a fever, cold, or flu, or have other changes to your health within TWO DAYS of scheduled surgery or the morning of surgery, please contact the surgery center above. Personal Belongings: -Please have photo ID and insurance cards. -If you do not have a copy of advance directives on file with us, please bring a copy with you on the day of surgery. - Leave ALL valuables and money at home or with family members. For Outpatient Procedures: - YOU MUST HAVE A RESPONSIBLE VOCATIONAL PSYCHOLOGIST TAKE YOU HOME. A ACCOUNTING ASSOCIATE OR PRODUCTION SUPPORT ENGINEER CANNOT BE MADE A RESPONSIBLE VOCATIONAL PSYCHOLOGIST. - We recommend that a responsible person stays with you overnight to take care of you. - You cannot stay in a hotel alone after outpatient surgery. You will not be permitted to have your surgery, if you do not have someone to take care of you. Arrival Time for Surgery: - To obtain your arrival time for surgery, call your physician's office the day before your surgery. - If your surgery is scheduled for Monday, call the Monday before. Your surgeon s medical transcription editor will tell you what time to call the office. - If you have not reached the departmental medical transcription editor by 5 P.M., call [phone] after 5 P.M. the day before your surgery. Please be aware that emergency situations arise, which may delay or change your surgical time. If this happens, we will notify you as soon as possible and regret any inconvenience. If you already have an Advance Directive, please fax a copy to [phone] or email to for it to be added to your chart. If you do not have an Advance Directive, you can find the appropriate form and more information at [email or web address]. We recommend that you complete the Advance Directive form found on the website and bring it with you the day of your surgery. It can be witnessed and scanned into your chart that day. Jennifer Guzman APRN.FE documented in this encounter [facility] 01-04-2024 History and physical note Images from the original note were not included. HISTORY AND PHYSICAL EXAMINATION SERVICE DATE: 01/04/2024 SERVICE TIME: 2:40 PM PRIMARY CARE PHYSICIAN: Stacey Morocho MD Assessment Patient has the following medical conditions which may affect tess-operative course: Headaches due to old head injury recurrent headaches, and migraines related to head injury Fall 2021 Endorses sensitivity to light Acute sinusitis, unspecified Managed with afrin and nyquil nightly Inability to breathe through nose Gastroesophageal reflux disease without esophagitis Managed with TUMS PRN CELAYA (dyspnea on exertion) Endorses CELAYA due to lack of oxygenation through nose Mets 5.5 Overweight BMI 27.18 [place] Activity Status Index: METS: Do yardwork, such as raking leaves, weeding, or pushing a power mower (4.50 METs) DASI Score: 4.5 Patient denies any chest pain or undue shortness of breath with the above physical activity. Clinical Frailty Scale: 3. Well, with treated comorbid disease STOP-Bang Score: Patient over 50 years old Male patient BMI less than or equal to 35 kg/m^2 STOP-Bang Score: 2 (+NAUN non-compliant with cpap/bipap +severe) ANESTHESIA FINDINGS: Intubation History: No history of difficult intubation. No abnormal airway history Significant Anesthesia Considerations: potential postop nausea/vomiting Airway History: Hx of facial fracture with CSF leak - sp extensive repair and rhinoplasty No history of difficult airway No abnormal airway history I - PHYSICAL EVALUATION AIRWAY Patient intubated: No. Tracheostomy tube not present Mallampati: I. TM distance: >3 FB. Neck ROM: full ROM without neurological symptoms. Mouth opening: adequate. Short neck: no. Thick neck: no Rodriguez present: no Lip Bite Test: II Microretrognathia/Micronagthia/Re cessed Chin: No DENTAL Dental findings: teeth intact. Additional comments: Crowns Left upper rear endorses dental pain - ongoing for the last week . II - ANESTHESIA PLAN Anesthetic plan additional comments: *PACC/TCI - anesthesia choice. Beta Pedro Pablo Monitoring Plan Post Procedure Analgesic Plan Prepared for Surgery: optimally prepared for surgery, pending [see comment]. CMP, CBC ordered by me CONSULTS: Patient does not require consults for optimization at this time Planned Anesthetic: anesthesia choice The Following Tests/Procedures Have Been Initiated: Orders Placed This Encounter CMP Standing Status: Future Standing Expiration Date: 04/04/2024 Complete Blood Count and Differential Standing Status: Future Standing Expiration Date: 04/04/2024 oxymetazoline (AFRIN, OXYMETAZOLINE,) 0.05 % nasal spray Sig: Use 2 Sprays in the nose daily at bedtime. DM/p-ephed/acetaminoph/doxylam (NYQUIL D ORAL) Sig: Take by mouth daily at bedtime. REASON FOR VISIT: Rm Berman is a 53 year old male who is scheduled for Procedure(s): REVISION RHINOPLASTY - using donor cartilage (Bilateral) SEPTOPLASTY (Bilateral) RESECTION TURBINATE (Bilateral) at the request of Christopher Vital MD for consultation. My final recommendation will be communicated back to the requesting physician by way of shared medical record or letter. Subjective The patient has the following: ACTIVE PROBLEM LIST Abnormal Findings On Diagnostic Imaging of Other Specified Body Structures Acute Sinusitis, Unspecified Facial Fracture (Hcc) Closed Fracture of Orbit (Hcc) Fall On and From Ladder, Initial Encounter Headaches Due to Old Head Injury Gastroesophageal Reflux Disease Without Esophagitis Celaya (Dyspnea On Exertion) Overweight COVID-19 Immunization Status Covid-19 Vaccine (Series Information) Completed 04/27/2023 Imm Admin: COVID-19 vaccine, age 12+ yr, 2022- season (PFIZER-BIONTECH) 06/04/2021 Imm Admin: COVID-19 original vaccine, age 12+ yr, monovalent (PFIZER-BIONTECH - PURPLE TOP) 11/21/2020 Imm Admin: COVID-19 original vaccine, age 12+ yr, monovalent (PFIZER-BIONTECH - PURPLE TOP) Only the first 3 history entries have been loaded, but more history exists. CHIEF COMPLAINT: Preop exam HPI: Rm Berman is a 53 year old male with PMHx facial fracture. Presents to PACC today for preop exam. Patient is scheduled for the above procedure on 01/08/24. Patient with history of facial fracture from fall with prior repair, endorses persistent difficulty with breathing. Plan for revision rhinoplasty, septoplasty and turbinate reduction. Denies fevers, chills, chest pain, and SOB. REVIEW OF SYSTEMS: General: Negative for: weight loss >10% of BW in last 6 months, malaise and fever. Neurological: +sensitivity to light + endorses chronic facial discomfort and tightness related to injury Positive for: headaches (migraines). Negative for: OIL SPREADER OPERATOR tumor, delirium, dementia, multiple sclerosis, peripheral neuropathy, seizures, TIA and strokes. Respiratory: See HPI. +difficulties breathing - afrin, nyquil, lack of oxygenation through nose Endorses CELAYA Positive for: dyspnea. Negative for: asthma, COPD, current cough, home oxygen, pneumonia within 6 weeks, tobacco use, URI < 2 weeks and obstructive sleep apnea. Cardiovascular: Negative for: angina, arrhythmia, CAD, chest pain, CHF, DVT/PE, hyperlipidemia, hypertension, recent NC, murmur/valvular heart disease and open heart surgery. GI: Positive for: GERD Negative for: abdominal pain, colon cancer, dysphagia, heartburn, irritable bowel syndrome, inflammatory bowel disease, liver disease, pancreatitis, rectal cancer and vomiting. : Negative for: BPH, dysuria, hematuria, urinary incontinence, nephrolithiasis, renal failure and urinary tract infection. Endocrine: Negative for: diabetes mellitus, diabetic neuropathy, hyperthyroidism, hypothyroidism, hyperparathyroidism and steroid for chronic problem. Hematology: Negative for: anemia, bruises/bleeds easily and chronic anti-coagulation/platelet meds. Oncology: Negative for: CA metastasis and chemo within 30 days. Psych: Negative for: anxiety, bipolar disorder, depression and drug dependency (oxycodone). Musculoskeletal: Negative for: back pain and joint pain. Skin: Negative for: lesions, itching and rash. History reviewed. No pertinent past medical history. PAST SURGICAL HISTORY Procedure Laterality Date PAST SURGICAL HISTORY OF 06/2022 rhinoplasty related to fracture FAMILY HISTORY Problem Relation Age of Onset Anesthesia Problems No Family History Social History Tobacco Use Smoking status: Former Packs/day: 1.00 Years: 35.00 Additional pack years: 0.00 Total pack years: 35.00 Types: Cigarettes Quit date: 05/2022 Years since quittin.6 Smokeless tobacco: Never Substance Use Topics Alcohol use: Not Currently Drug use: Never Prior to Admission medications as of 01/04/24 3558 Medication Sig Last Dose Taking oxymetazoline (AFRIN, OXYMETAZOLINE,) 0.05 % nasal spray Use 2 Sprays in the nose daily at bedtime. Taking Yes DM/p-ephed/acetaminoph/doxylam (NYQUIL D ORAL) Take by mouth daily at bedtime. Taking Yes No medication comments found. ALLERGIES Not on File Objective PHYSICAL EXAM: General: alert and oriented and healthy appearance. Pertinent negatives noted - not distressed. Skin: normal color, no rash or lesions. HEENT: EOM intact and pupils equal round. Cardiovascular: regular rate and rhythm, normal S1 and S2, no rub, murmurs, or gallop. Respiratory: normal breath sounds, no wheezes or crackles. No chest wall deformity or tenderness. Abdomen: bowel sounds present and soft. Pertinent negatives noted - not tender. Extremities: no deformity, no edema or tenderness, no joint swelling or clubbing. Neurological: normal cognition and motor skills. Gait normal. No weakness or sensory deficit. PAIN ASSESSMENT: VITALS: BP 126/84 Pulse 64 Temp (Src) 97.1 (Temporal) Ht 5' 9 (1.75m) Wt 184 lb 1.4 oz (83.5kg) SpO2 99% BMI 27.17 kg/(m^2). Diagnostic tests reviewed for today's visit: Lab Value Units Date High Low HB No results within date range. HCT No results within date range. WBC No results within date range. PLT No results within date range. NA No results within date range. K No results within date range. GLUC No results within date range. BUN No results within date range. CREAT No results within date range. PTSEC No results within date range. INR No results within date range. APTT No results within date range. ALT No results within date range. AST No results within date range. TBILI No results within date range. TSH No results within date range. Lab Value Units Date High Low HCGQT No results within date range. UHCG No results within date range. HCG, BODY* No results within date range. Lab Value Units Date High Low ABORHD No results within date range. ABSCREEN No results within date range. No results found for: HBA1C No results found for this or any previous visit (from the past 8760 hour(s)). No results found for this or any previous visit (from the past 32200 hour(s)). Instructions Given to Patient: Instructions located in the after visit summary. Patient given verbal and written preop instructions and voices comprehension and compliance. SIGNATURE: Jennifer Guzman APRN.CNP PATIENT NAME: Rm Berman DATE: January 04, 2024 TIME: 3:13 PM PAGER/CONTACT #: [facility] 01-04-2024 History and physical note Images from the original note were not included. HISTORY AND PHYSICAL EXAMINATION SERVICE DATE: 01/04/2024 SERVICE TIME: 2:40 PM PRIMARY CARE PHYSICIAN: Stacey Morocho MD Assessment Patient has the following medical conditions which may affect tess-operative course: Headaches due to old head injury recurrent headaches, and migraines related to head injury Fall 2021 Endorses sensitivity to light Acute sinusitis, unspecified Managed with afrin and nyquil nightly Inability to breathe through nose Gastroesophageal reflux disease without esophagitis Managed with TUMS PRN CELAYA (dyspnea on exertion) Endorses CELAYA due to lack of oxygenation through nose Mets 5.5 Overweight BMI 27.18 [place] Activity Status Index: METS: Do yardwork, such as raking leaves, weeding, or pushing a power mower (4.50 METs) DASI Score: 4.5 Patient denies any chest pain or undue shortness of breath with the above physical activity. Clinical Frailty Scale: 3. Well, with treated comorbid disease STOP-Bang Score: Patient over 50 years old Male patient BMI less than or equal to 35 kg/m^2 STOP-Bang Score: 2 (+NAUN non-compliant with cpap/bipap +severe) ANESTHESIA FINDINGS: Intubation History: No history of difficult intubation. No abnormal airway history Significant Anesthesia Considerations: potential postop nausea/vomiting Airway History: Hx of facial fracture with CSF leak - sp extensive repair and rhinoplasty No history of difficult airway No abnormal airway history I - PHYSICAL EVALUATION AIRWAY Patient intubated: No. Tracheostomy tube not present Mallampati: I. TM distance: >3 FB. Neck ROM: full ROM without neurological symptoms. Mouth opening: adequate. Short neck: no. Thick neck: no Rodriguez present: no Lip Bite Test: II Microretrognathia/Micronagthia/Re cessed Chin: No DENTAL Dental findings: teeth intact. Additional comments: Crowns Left upper rear endorses dental pain - ongoing for the last week . II - ANESTHESIA PLAN Anesthetic plan additional comments: *PACC/TCI - anesthesia choice. Beta Pedro Pablo Monitoring Plan Post Procedure Analgesic Plan Prepared for Surgery: optimally prepared for surgery, pending [see comment]. CMP, CBC ordered by me CONSULTS: Patient does not require consults for optimization at this time Planned Anesthetic: anesthesia choice The Following Tests/Procedures Have Been Initiated: Orders Placed This Encounter CMP Standing Status: Future Standing Expiration Date: 04/04/2024 Complete Blood Count and Differential Standing Status: Future Standing Expiration Date: 04/04/2024 oxymetazoline (AFRIN, OXYMETAZOLINE,) 0.05 % nasal spray Sig: Use 2 Sprays in the nose daily at bedtime. DM/p-ephed/acetaminoph/doxylam (NYQUIL D ORAL) Sig: Take by mouth daily at bedtime. REASON FOR VISIT: Rm Berman is a 53 year old male who is scheduled for Procedure(s): REVISION RHINOPLASTY - using donor cartilage (Bilateral) SEPTOPLASTY (Bilateral) RESECTION TURBINATE (Bilateral) at the request of Dr. Mcgregor, Christopher Haines MD for consultation. My final recommendation will be communicated back to the requesting physician by way of shared medical record or letter. Subjective The patient has the following: ACTIVE PROBLEM LIST Abnormal Findings On Diagnostic Imaging of Other Specified Body Structures Acute Sinusitis, Unspecified Facial Fracture (Hcc) Closed Fracture of Orbit (Hcc) Fall On and From Ladder, Initial Encounter Headaches Due to Old Head Injury Gastroesophageal Reflux Disease Without Esophagitis Celaya (Dyspnea On Exertion) Overweight COVID-19 Immunization Status Covid-19 Vaccine (Series Information) Completed 04/27/2023 Imm Admin: COVID-19 vaccine, age 12+ yr, 2022- season ([employer]) 06/04/2021 Imm Admin: COVID-19 original vaccine, age 12+ yr, monovalent ([employer]PLE [employer]) 11/21/2020 Imm Admin: COVID-19 original vaccine, age 12+ yr, monovalent ([employer] - PURPLE TOP) Only the first 3 history entries have been loaded, but more history exists. CHIEF COMPLAINT: Preop exam HPI: Rm Berman is a 53 year old male with PMHx facial fracture. Presents to PACC today for preop exam. Patient is scheduled for the above procedure on 01/08/24. Patient with history of facial fracture from fall with prior repair, endorses persistent difficulty with breathing. Plan for revision rhinoplasty, septoplasty and turbinate reduction. Denies fevers, chills, chest pain, and SOB. REVIEW OF SYSTEMS: General: Negative for: weight loss >10% of BW in last 6 months, malaise and fever. Neurological: +sensitivity to light + endorses chronic facial discomfort and tightness related to injury Positive for: headaches (migraines). Negative for: OIL SPREADER OPERATOR tumor, delirium, dementia, multiple sclerosis, peripheral neuropathy, seizures, TIA and strokes. Respiratory: See HPI. +difficulties breathing - afrin, nyquil, lack of oxygenation through nose Endorses CELAYA Positive for: dyspnea. Negative for: asthma, COPD, current cough, home oxygen, pneumonia within 6 weeks, tobacco use, URI < 2 weeks and obstructive sleep apnea. Cardiovascular: Negative for: angina, arrhythmia, CAD, chest pain, CHF, DVT/PE, hyperlipidemia, hypertension, recent NC, murmur/valvular heart disease and open heart surgery. GI: Positive for: GERD Negative for: abdominal pain, colon cancer, dysphagia, heartburn, irritable bowel syndrome, inflammatory bowel disease, liver disease, pancreatitis, rectal cancer and vomiting. : Negative for: BPH, dysuria, hematuria, urinary incontinence, nephrolithiasis, renal failure and urinary tract infection. Endocrine: Negative for: diabetes mellitus, diabetic neuropathy, hyperthyroidism, hypothyroidism, hyperparathyroidism and steroid for chronic problem. Hematology: Negative for: anemia, bruises/bleeds easily and chronic anti-coagulation/platelet meds. Oncology: Negative for: CA metastasis and chemo within 30 days. Psych: Negative for: anxiety, bipolar disorder, depression and drug dependency (oxycodone). Musculoskeletal: Negative for: back pain and joint pain. Skin: Negative for: lesions, itching and rash. History reviewed. No pertinent past medical history. PAST SURGICAL HISTORY Procedure Laterality Date PAST SURGICAL HISTORY OF 06/2022 rhinoplasty related to fracture FAMILY HISTORY Problem Relation Age of Onset Anesthesia Problems No Family History Social History Tobacco Use Smoking status: Former Packs/day: 1.00 Years: 35.00 Additional pack years: 0.00 Total pack years: 35.00 Types: Cigarettes Quit date: 05/2022 Years since quittin.6 Smokeless tobacco: Never Substance Use Topics Alcohol use: Not Currently Drug use: Never Prior to Admission medications as of 01/04/24 1448 Medication Sig Last Dose Taking oxymetazoline (AFRIN, OXYMETAZOLINE,) 0.05 % nasal spray Use 2 Sprays in the nose daily at bedtime. Taking Yes DM/p-ephed/acetaminoph/doxylam (NYQUIL D ORAL) Take by mouth daily at bedtime. Taking Yes No medication comments found. ALLERGIES Not on File Objective PHYSICAL EXAM: General: alert and oriented and healthy appearance. Pertinent negatives noted - not distressed. Skin: normal color, no rash or lesions. HEENT: EOM intact and pupils equal round. Cardiovascular: regular rate and rhythm, normal S1 and S2, no rub, murmurs, or gallop. Respiratory: normal breath sounds, no wheezes or crackles. No chest wall deformity or tenderness. Abdomen: bowel sounds present and soft. Pertinent negatives noted - not tender. Extremities: no deformity, no edema or tenderness, no joint swelling or clubbing. Neurological: normal cognition and motor skills. Gait normal. No weakness or sensory deficit. PAIN ASSESSMENT: VITALS: BP 126/84 Pulse 64 Temp (Src) 97.1 (Temporal) Ht 5' 9 (1.75m) Wt 184 lb 1.4 oz (83.5kg) SpO2 99% BMI 27.17 kg/(m^2). Diagnostic tests reviewed for today's visit: Lab Value Units Date High Low HB No results within date range. HCT No results within date range. WBC No results within date range. PLT No results within date range. NA No results within date range. K No results within date range. GLUC No results within date range. BUN No results within date range. CREAT No results within date range. PTSEC No results within date range. INR No results within date range. APTT No results within date range. ALT No results within date range. AST No results within date range. TBILI No results within date range. TSH No results within date range. Lab Value Units Date High Low HCGQT No results within date range. CG No results within date range. HCG, BODY* No results within date range. Lab Value Units Date High Low ABORHD No results within date range. ABSCREEN No results within date range. No results found for: HBA1C No results found for this or any previous visit (from the past 8760 hour(s)). No results found for this or any previous visit (from the past 20911 hour(s)). Instructions Given to Patient: Instructions located in the after visit summary. Patient given verbal and written preop instructions and voices comprehension and compliance. SIGNATURE: Jennifer Guzman APRN.CNP PATIENT NAME: Rm Berman DATE: January 04, 2024 TIME: 3:13 PM PAGER/CONTACT #: documented in this encounter [facility] 12-29-2023 History of Present illness Narrative VIRTUAL VISIT PROGRESS NOTE This is a virtual visit using [employer] Video Visit. It required patient-provider interaction for the medical decision making as documented below. I have communicated my name and active licensure. The patient's identity and physical location were verified at the time of this visit. Either the patient or their legal regional sales representative has been informed of the risks and benefits of -- and alternatives to -- treatment through a remote evaluation and consents to proceed with the evaluation remotely. Rm Berman is a 53 year old male seen for pre-op prior to surgery on January 07 for revision rhinoplasty, septoplasty and turbinate reduction. HISTORY REVIEWED (electronic chart updated): No past medical history on file. No past surgical history on file. No family history on file. Current Outpatient Medications Medication Sig tobramycin (TOBREX) 0.3 % ophthalmic solution Use in eyes. (Patient not taking: Reported on 09/05/2023) oxyCODONE IR (ROXICODONE) 5 mg immediate release tablet Take by mouth q 6 HR. (Patient not taking: Reported on 09/05/2023) loratadine 10 mg dissolvable tablet Take by mouth. (Patient not taking: Reported on 09/05/2023) gabapentin (NEURONTIN) 300 mg capsule Take 300 mg by mouth. (Patient not taking: Reported on 09/05/2023) cyclobenzaprine (FLEXERIL) 5 mg tablet Take 5 mg by mouth three times daily as needed. (Patient not taking: Reported on 09/05/2023) No current facility-administered medications for this visit. ALLERGIES Not on File PHYSICAL EXAMINATION: VIDEO EXAM: (if completed, performed via video enabled technology) No exam performed ASSESSMENT: Pre-op visit PLAN: Patient scheduled for 01/07 for revision rhinoplasty, septoplasty and turbinate reduction -packing will be removed the next day -nasal stents/splints to be removed 7 days after procedure -can call office to ask any questions prior to surgery The patient is seen and examined by Dr. Mcgregor and the following reflects their service. Scribed by Nancy Cheng PA-C Attending Note I have personally performed a face to face assessment of the patient and have reviewed the ARLYN note. I performed a substantive portion of the visit including all aspects of the following. My delvalle findings include: agree with above for history, physical and medical decision making. Other additions or changes: None Signature: Fransisca Mcgregor MD Date: January 05, 2024 Time: 1:03 PM documented in this encounter [facility] 12-29-2023 Note HNO ID: [id number] Author: CHRISTOPHER MCGREGOR MD Service: ? Author Type: Physician Type: Progress Notes Filed: 01/05/2024 13:04 Note Text: VIRTUAL VISIT PROGRESS NOTE This is a virtual visit using [employer] Video Visit. It required patient-provider interaction for the medical decision making as documented below. I have communicated my name and active licensure. The patient's identity and physical location were verified at the time of this visit. Either the patient or their legal regional sales representative has been informed of the risks and benefits of -- and alternatives to -- treatment through a remote evaluation and consents to proceed with the evaluation remotely. Rm Berman is a 53 year old male seen for pre-op prior to surgery on January 07 for revision rhinoplasty, septoplasty and turbinate reduction. HISTORY REVIEWED (electronic chart updated): No past medical history on file. No past surgical history on file. No family history on file. Current Outpatient Medications Medication Sig tobramycin (TOBREX) 0.3 % ophthalmic solution Use in eyes. (Patient not taking: Reported on 09/05/2023) oxyCODONE IR (ROXICODONE) 5 mg immediate release tablet Take by mouth q 6 HR. (Patient not taking: Reported on 09/05/2023) loratadine 10 mg dissolvable tablet Take by mouth. (Patient not taking: Reported on 09/05/2023) gabapentin (NEURONTIN) 300 mg capsule Take 300 mg by mouth. (Patient not taking: Reported on 09/05/2023) cyclobenzaprine (FLEXERIL) 5 mg tablet Take 5 mg by mouth three times daily as needed. (Patient not taking: Reported on 09/05/2023) No current facility-administered medications for this visit. ALLERGIES Not on File PHYSICAL EXAMINATION: VIDEO EXAM: (if completed, performed via video enabled technology) No exam performed ASSESSMENT: Pre-op visit PLAN: Patient scheduled for 01/07 for revision rhinoplasty, septoplasty and turbinate reduction -packing will be removed the next day -nasal stents/splints to be removed 7 days after procedure -can call office to ask any questions prior to surgery The patient is seen and examined by Dr. Mcgregor and the following reflects their service. Scribed by Nancy Cheng PA-C Attending Note I have personally performed a face to face assessment of the patient and have reviewed the ARLYN note. I performed a substantive portion of the visit including all aspects of the following. My delvalle findings include: agree with above for history, physical and medical decision making. Other additions or changes: None Signature: Fransisca Mcgregor MD Date: January 05, 2024 Time: 1:03 PM [facility] 11-30-2023 Telephone encounter Note Yoon from [facility] called she has not heard from . Yoon has tried [facility] at [phone], no luck. She's faxed, ,called no one is returning her call. Yoon is working w the pt to get him scheduled for surgery. Sent staff message to Laura. Yoon #[phone] Thanks [facility] 11-30-2023 Miscellaneous Notes Yoon from [facility] called she has not heard from CC. Yoon has tried [facility] at [phone], no luck. She's faxed, ,called CC no one is returning her call. Yoon is working w the pt to get him scheduled for surgery. Sent staff message to LauraEric Nettles #[phone] Thanks documented in this encounter [facility] 09-05-2023 Note HNO ID: [id number] Author: ANA SMITH ST Service: ? Author Type: Surg Director Medical Affairs Type: Progress Notes Filed: 09/05/2023 12:23 Note Text: DATE OF PHOTOS: 09/05/2023 Body Part: Full Face ST Annalisa September 05, 2023 12:23 PM [facility] 09-05-2023 History of Present illness Narrative CC: trouble breathing HPI: Rm Berman is a 53 year old male here to discuss craniofacial crush injury. Injury first occurred 05/2022 after falling 20 feet. LV was 04/12/[address] Vanegas. 06/08/2022: H/O open reduction and internal fixation of naso-orbital ethmoidal injuries, nasal bone reconstruction, ORIF maxillay bone fractures and pericranial flap for skull base floor reconstruction Patient has numbness/tingling in forehead. No sense of smell. Pt reports difficulty breathing, Current Outpatient Medications on File Prior to Visit Medication Sig tobramycin (TOBREX) 0.3 % ophthalmic solution Use in eyes. oxyCODONE IR (ROXICODONE) 5 mg immediate release tablet Take by mouth q 6 HR. loratadine 10 mg dissolvable tablet Take by mouth. gabapentin (NEURONTIN) 300 mg capsule Take 300 mg by mouth. cyclobenzaprine (FLEXERIL) 5 mg tablet Take 5 mg by mouth three times daily as needed. No current facility-administered medications on file prior to visit. EXAM: There were no vitals taken for this visit. A+O x 3, NC/AT. NAD. Left internal exam: severe septal deviation to the right with scar band against the middle turbinate Right internal nasal exam: Subluxation of the septum of the left side Turbinate hypertrophy bilaterally ASSESSMENT/PLAN: Patient would benefit from: -septoplasty revision, turbinate reduction -revision rhinoplasty of the bridge with donor cartilage Pre-d sent for functional portion. Soft tissue cephalometrics and photos today. The risks/benefits/alternatives/indic ations including but not limited to: cosmetic dissatisfaction along with possible need for revision surgery, bleeding, infection, breathing/functional difficulty, septal perforation, and skin necrosis, reviewed with patient who stated understanding and wishes to proceed. The patient is seen and examined by Dr. Mcgregor and the following reflects their service. Scribed by Nancy Cheng PA-C Attending Note I have personally performed a face to face assessment of the patient and have reviewed the ARLYN note. I performed a substantive portion of the visit including all aspects of the following. My delvalle findings include: agree with above for history, physical and medical decision making. Other additions or changes: None Signature: Fransisca Mcgregor MD Date: September 08, 2023 Time: 3:07 PM documented in this encounter [facility] 09-05-2023 Note HNO ID: [id number] Author: CHRISTOPHER MCGREGOR MD Service: ? Author Type: Physician Type: Progress Notes Filed: 09/08/2023 15:07 Note Text: CC: trouble breathing HPI: Rm Berman is a 53 year old male here to discuss craniofacial crush injury. Injury first occurred 05/2022 after falling 20 feet. LV was 04/12/[address] Vanegas. 06/08/2022: H/O open reduction and internal fixation of naso-orbital ethmoidal injuries, nasal bone reconstruction, ORIF maxillay bone fractures and pericranial flap for skull base floor reconstruction Patient has numbness/tingling in forehead. No sense of smell. Pt reports difficulty breathing, Current Outpatient Medications on File Prior to Visit Medication Sig tobramycin (TOBREX) 0.3 % ophthalmic solution Use in eyes. oxyCODONE IR (ROXICODONE) 5 mg immediate release tablet Take by mouth q 6 HR. loratadine 10 mg dissolvable tablet Take by mouth. gabapentin (NEURONTIN) 300 mg capsule Take 300 mg by mouth. cyclobenzaprine (FLEXERIL) 5 mg tablet Take 5 mg by mouth three times daily as needed. No current facility-administered medications on file prior to visit. EXAM: There were no vitals taken for this visit. A+O x 3, NC/AT. NAD. Left internal exam: severe septal deviation to the right with scar band against the middle turbinate Right internal nasal exam: Subluxation of the septum of the left side Turbinate hypertrophy bilaterally ASSESSMENT/PLAN: Patient would benefit from: -septoplasty revision, turbinate reduction -revision rhinoplasty of the bridge with donor cartilage Pre-d sent for functional portion. Soft tissue cephalometrics and photos today. The risks/benefits/alternatives/indic ations including but not limited to: cosmetic dissatisfaction along with possible need for revision surgery, bleeding, infection, breathing/functional difficulty, septal perforation, and skin necrosis, reviewed with patient who stated understanding and wishes to proceed. The patient is seen and examined by Dr. Mcgregor and the following reflects their service. Scribed by Nancy Cheng PA-C Attending Note I have personally performed a face to face assessment of the patient and have reviewed the ARLYN note. I performed a substantive portion of the visit including all aspects of the following. My delvalle findings include: agree with above for history, physical and medical decision making. Other additions or changes: None Signature: Fransisca Mcgregor MD Date: September 08, 2023 Time: 3:07 PM [facility] 07-20-2023 Miscellaneous Notes C9 and [employer] signed, faxed, and emailed to [facility]in. Scanned into chart documented in this encounter [facility] 07-18-2023 Telephone encounter Note Denice calling from dustin says pre acces sent us a fax last week for a c9 form. I have not received anything. Can this be sent over again please or scanned into the chart. Please advise. Thank you [facility] 07-18-2023 Miscellaneous Notes Denice calling from [facility]in says pre savannah sent us a fax last week for a c9 form. I have not received anything. Can this be sent over again please or scanned into the chart. Please advise. Thank you documented in this encounter [facility] 06-16-2023 Telephone encounter Note Received medco14 for office visit of 04/12/[address] Vanegas. Okay to sign? Please advise. Thank you [facility] 06-16-2023 Miscellaneous Notes Received medco14 for office visit of 04/12/[address] Vanegas. Okay to sign? Please advise. Thank you documented in this encounter [facility] 06-02-2023 Miscellaneous Notes Received [employer] [address] Vanegas desk documented in this encounter [facility] 05-17-2023 Miscellaneous Notes Called Harshil. Gave him the appointment line number- also let him know that the help desk specialist was given this information. They should be calling but if not the patient has the information to make the appointment himself. noted that she will call today regarding appointment, Emilee Lagos RN May 17, 2023 2:00 PM documented in this encounter [facility] 05-17-2023 Miscellaneous Notes Patient's is calling to let us know that the surgeon that Dr. Vanegas referred him to has not reached out to him yet. documented in this encounter [facility] 04-12-2023 History of Present illness Narrative Plastic Surgery Note CC: Facial fracture follow up HPI: Rm is a 52 year old male who presents for follow up of craniofacial crush injury sustained in 05/2022 after falling 20 feet onto concrete at work. Last visit took place 02/09/2023 where we recommended he obtain an updated CT scan of the facial bones. Patient presents today for review of imaging. Previously reported ongoing numbness and tightness in the forehead. Denies sense of smell. 06/08/2022: Patient had Facial Fractures; S/P Open Reduction and Internal Fixation of very complicated Naso-Orbital Ethmoidal Injuries Bilaterally, Nasal Bone Fractures w Cantilever bone Graft for Nasal Bone Reconstruction, Open Reduction and Internal Fixation of Maxillary Bone Fractures, Pericranial Flap for Anterior Skull Base Floor Reconstruction 06/08/22. Date of injury 05/28/2022 Review of Systems: GENERAL: No weight loss, malaise or fevers. MUSCULOSKELETAL: Negative for joint pain or swelling, back pain or muscle pain SKIN: See HPI HEMATOLOGY/LYMPHOLOGY: Negative for prolonged bleeding, bruising easily or swollen nodes. PAIN ASSESSMENT: None presently No past medical history on file. No past surgical history on file. Current Outpatient Medications Medication Sig Dispense Refill tobramycin (TOBREX) 0.3 % ophthalmic solution Use in eyes. oxyCODONE IR (ROXICODONE) 5 mg immediate release tablet Take by mouth q 6 HR. loratadine 10 mg dissolvable tablet Take by mouth. gabapentin (NEURONTIN) 300 mg capsule Take 300 mg by mouth. cyclobenzaprine (FLEXERIL) 5 mg tablet Take 5 mg by mouth three times daily as needed. No current facility-administered medications for this visit. ALLERGIES Not on File PE: BP 121/84 Pulse 68 Temp 36.4 C (97.5 F) (Oral) Resp 20 SpO2 99% A&O x 3; NAD; VSS Anosmia persists EOM appear to be intact with improvement of his left sided diplopia. Hardware palpable in infraorbital rim areas Left nasal cavity crusting much improved, improvement in nasal swelling Right nasal cavity crusting is much improved. Scar contracture over the area of craniotomy Makes the out line of the bifrontal craniotomy visible but does not trouble the patient. 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 There is some widening of the mid nasal area. I am able to palpate the nasal only bone graft. There is continued paraesthesias if the infraorbital nerve distribution. For the most past the caudal nasal cavity is clear with reduction of mucosal edema. On the cranial aspect of the left nasal cavity the septum has been displaced into the nasal airway. Over all he is much improved from his last visit. Imaging was reviewed with the patient and his spouse. No changes from previous examination. IMAGING: CT FACIAL BONE/ISIDRA WO IVCON - 2023: IMPRESSION: Postsurgical changes related to the previous complex with facial bone fractures with internal fixation as detailed. No hardware fracture or hardware loosening. Mild discontinuity/irregularity in the anterior portion of the cribriform plate with no discrete evidence of intracranial air. Please note that this examination is not sufficient for evaluating CSF leak/fistula. No prior imaging was available at the time of dictation. Comparison with the prior imaging is recommended to assess healing/stability. Assessment: Rm is a 52 year old male with a history of multiple complex facial fractures who presents today for follow up evaluation after obtaining updated imaging of the facial bones Plan: -Will refer patient to Dr. Mcgregor for possible rhinoplasty to correct nasal airway issues Follow up as needed The patient is seen and examined by Dr. Vanegas and the following reflects his service. Scribed by Ariana Lyons RN The patient looks very good considering his injuries. The new CT was reviewed with the patient cut by cut. The nasal obstruction was reviewed with him and I advised that I have discussed the case with Dr. Mcgregor and will send to him for management. documented in this encounter [facility] 2023 History of Present illness Narrative Radiology Service Progress Note PATIENT NAME: Rm Berman DATE OF SERVICE: 2023 TIME: 9:58 AM PATIENT IDENTITY VERIFICATION COMPLETED USING TWO (2) IDENTIFIERS: Name and Date of confirmed by patient verbally and Name and Date of confirmed by identification band. FALL SCREENING: Has the patient had 2 falls in the last year or 1 fall with injury or currently using an Ambulatory Assistive Device (Walker, Cane, Wheelchair, Crutches, etc.)? No PATIENT GENDER DATA: Male PATIENT RELEVANT IMPLANT DATA REVIEWED: Yes RADIOLOGY DEPARTMENT: CT; Exam(s) Completed: Face/Mandible PERIPHERAL IV DATA: Not applicable SIGNED BY: RT Darshana(R) 2023 9:58 AM documented in this encounter [facility] 06-15-2022 Note Send Summary: Discharge Summary Providers: Provider RoleProvider Name PatrickMiBarber garibay Jeffrey PrimaryFree, Text Entry Note Recipients: Barber Castañeda MD Ustin, Jeffrey, MD Williams, Chloe, MD Discharge: Summary: Admission Date: .01-Jun-2022 01:07:00 Discharge Date: 15-Jun-2022 Attending Physician at Discharge: Dr. Yousif Admission Reason: facial fracture(1) Final Discharge Diagnoses: Extensive facial fractures, Fall from ladder, Fracture of frontal sinus, Fracture of maxillary sinus, Fracture of orbital roof, Orbital wall fracture Procedures: Date: 08-Jun-2022 12:45:00 Procedure Name: 1. bifrontal approach for frontal sinus exenteration 2. duraplasty Date: 08-Jun-2022 18:11:00 Procedure Name: 1. Multiple nasal bone ORIFs 2. Calvarium bone harvest for nasal graft 3. Cribiform defect ORIF 4. Refer to neurosurg note 5. Condition at Discharge: stable Disposition at Discharge: home Vital Signs: T PRBPMAPSpO2 [id number]/7797% Date/Time06/15 8: 8: 8: 8: 8:35 Range(35.9C - 36.8C ) (76 - 91 ) (18 - 18 ) (98 - 110 )/ (68 - 77 ) (96% - 99% ) Date: Weight/Scale Type:Height: 10-Jun-2022 08:0077.2 kg / bed Physical Exam: Constitutional: A&O x3, sitting upright in bed. Eyes: Bilateral periorbital ecchymosis and edema. PERRLA, EOMI, clear sclera. Patient opens eyes spontaneously. Vision grossly intact bilaterally per patient. Eye drainage and tearing bilaterally. ENMT: MMM.Nasal edema noted. Incision across bridge well approximated. No epistaxis. Head/Neck: Midfacial improving postoperative edema and ecchymosis. Surgical incisions spanning across nasal bridge and inferior to R eye which are approximated with intact absorbable sutures, dressed with topical Bacitracin. No bleeding, drainage or dehiscence. Bicoronal scalp incision which is intact, approximated with sutures. Respiratory/Thorax: Breathing comfortably on RA with symmetric chest expansion, no tachypnea or increased work of breathing. Gastrointestinal: Nondistended, soft. Genitourinary: Voiding independently. Extremities: SAAVEDRA spontaneously. Neurological: A&Ox3, no gross neuro deficits. Psychological: Appropriate mood and behavior. Skin: Warm, dry. Hospital Course: Rm Berman is an otherwise healthy 52 year old male who was evaluated by the trauma team as a direct admit to RNF from OSH s/p fall from ladder. Pt states that he was working from a ladder last week when bottom of the ladder gave out and fell forward with the ladder to the ground striking head. Pt denies LOC, and is not currently taking any anticoagulation. Pt presented to OSH, imaging obtained that was notable for multiple facial bone fxs, frontal bone fx, pneumocephalus, and b/l frontal contusions. Pt then transferred from [place] to [facility] for facial trauma consult and possible surgical fixation of facial and frontal bone fx. The patient arrived hemodynamically stable and neurologically intact with GCS 15. Plastic surgery consulted for facial fractures with plan for operative fixation with NSG secondary to nature of intra-cranial involvement/extension. NSG recommended keeping patient on ceftriaxone and continued elevation of HOB > 30 degrees at all times. The patient was admitted to the regular floor with multi-modality pain control. The patient went to the OR on 06/08 for frontal sinus exenteration, pericranial flap, mesh cranioplasty, and LD with NSG/plastic surgery. Transferred to the ICU postoperatively, 06/09 extubated, started on CLD. Continued on IV Ceftriaxone 5 days postoperatively for infection ppx. He was advanced to FLD and IV medication transitioned to oral as diet advanced. His BROOKE drain output gradually downtrended and was removed per plastics on POD5 with removal of nasal packing on POD6. Patient kept inpatient for monitoring overnight following nasal packing removal. On the day of discharge, he was tolerating a full liquid diet, pain controlled on PO medications and able to ambulate independently. Upon discharge, patient provided with prescriptions, follow up appointments and discharge instructions. Discharge Information: and Continuing Care: Lab Results - Pending: None Radiology Results - Pending: None Discharge Instructions: Activity: activity as tolerated. May shower.. Upon discharge/arrival home May not return to school/work until follow-up visit with. with surgical teams May not drive while taking narcotics. No pushing, pulling, or lifting objects greater than 10 pounds until follow-up visit. Weight-bearing Instructions: weight-bearing as tolerated. Keep head elevated while at rest to alleviate facial swelling. Maintain sinus precautions with NO blowing nose or clearing sinus secretions until follow-up with plastics in 2-3 weeks. Nutrition/Diet: full liquids, until follow-up with plastics (more content not included)... [facility] 06-09-2022 Note Clinical Event: Clinical Event Note: TopicICU Attending Daily Progress Note Details 52 M, fall of ladder on 05/28 and sustained multiple facial fractures and skull fracture. Also sustained cerebral parenchymal contusions. Transferred from [place] for OR 06/08 with neurosurgery and PRS for coronal approach repair of facial fractures. Neuro: Post op CTH with no bleeding. Goal SBP <180. Monitor for CSF leak- no signs. Keep HOB elevated for swelling Pulm:- Intubated post op due to concerns for potential swelling. Doing well on CPAP. Will check cuff leak prior to extubation. CV: Goal SBP <180 and MAP >65. GI/Nutrition: Regular diet when extubated. Renal: LR at 75. HLIVF once taking po. D/c Lafleur once extubated Endocrine: Got decadron 20 mg in OR 06/08. Monitor FSBS, goal euglycemia Infectious: Ceftriaxone x5 days post op in setting of traumatic durotomy. PPx: Will start Lovenox on POD 2. I personally spent a total of 35 minutes during this patient encounter with over 50% of the time devoted to counseling the patient (or family) and coordination of care. This time does not include any time spent on bedside procedures. Please see resident/fellow/ARLYN note for further details. Electronic Signatures: Elsie Crfot) (Signed 09-Jun-2022 18:11) Authored: Clinical Event Note Last Updated: 09-Jun-2022 18:11 by Elsie Croft) [facility] 06-08-2022 Note Post Operative Note: PreOp Diagnosis: Frontal sinus fractures with intracranial involvement Post-Procedure Diagnosis: Frontal sinus fractures with intracranial involvement Procedure: 1. Multiple nasal bone ORIFs 2. Calvarium bone harvest for nasal graft 3. Cribiform defect ORIF 4. Refer to neurosurg note 5. Surgeon: Dr. Michael Vanegas Resident/Fellow/Other Final Inspector Motorcyles: Christiano Guzman APRN/Wandy CEDENO PGY-2 Anesthesia: General I.V. Fluids: 3 L Estimated Blood Loss (mL): 250 mL Specimen: no Findings: Multiple nasal bone fractures Patient Returned To/Condition: PACU then TICU/Intubated Urine Output: 1095 mL Drains and/or Catheters: 10 fr BROOKE Implants: Plates and screws Electronic Signatures: Christiano Guzman (FEED INSPECTION SUPERVISOR-PRODUCTION PLANNING MANAGER) (Signed 08-Jun-2022 18:39) Authored: Note Completion, Post Operative Note Michael Vanegas) (Signed 11-Jun-2022 12:35) Co-Signer: Note Completion, Post Operative Note Last Updated: 11-Jun-2022 12:35 by Michael Vanegas) [facility] 06-08-2022 Note PROCEDURE DETAILS Preoperative Diagnosis: frontal sinus fracture Postoperative Diagnosis: frontal sinus fracture Surgeon: Garry Resident/Fellow/Other Final Inspector Motorcyles: Ida Robert Procedure: 1. bifrontal approach for frontal sinus exenteration 2. duraplasty Estimated Blood Loss: 100 Findings: frontal sinus fracture, orbitofrontal durotomy (traumatic) Specimens(s) Collected: no, Complications: none Implants: DuraGen, DuraSeal Date of Dictation: 08-Jun-2022 Dictated By: Miguel A Robert MD Dictation Job Number: [id number] Attestation: Note Completion: Attending AttestationI was present for delvalle portions of the procedure and the procedure lasted longer than 5 minutes. I am a:Resident/Fellow Electronic Signatures: Miguel A Robert (Resident)) (Signed 08-Jun-2022 12:54) Authored: Post-Operative Note, Chart Review, Note Completion Barber Castañeda) (Signed 09-Jun-2022 15:47) Authored: Note Completion Co-Signer: Post-Operative Note, Chart Review, Note Completion Last Updated: 09-Jun-2022 15:47 by Barber Castañeda) [facility] 06-08-2022 History of Present illness Narrative Rm Berman is 52 year old male presenting for a post-op visit after being seen by trauma for a fall from a ladder. Patient required the OR on 06/08/22 Procedure: 1. Multiple nasal bone ORIFs 2. Calvarium bone harvest for nasal graft 3. Cribiform defect ORIF. Hospital course was uncomplicated and patient was discharged home. [employer] Work Phone: 06-08-2022 History of Present illness Narrative Rm Berman is 52 year old male presenting for a post-op visit after being seen by trauma for a fall from a ladder. Patient required the OR on 06/08/22 Procedure: 1. Multiple nasal bone ORIFs 2. Calvarium bone harvest for nasal graft 3. Cribiform defect ORIF. Hospital course was uncomplicated and patient was discharged home. [facility] Work Phone: 06-08-2022 History of Present illness Narrative Rm Berman is 52 year old male s/p 06/08/22 Multiple nasal bone ORIFs, calvarium bone harvest for nasal graft, cribiform defect ORIF. Patient presents for a post operative follow up. [employer] Work Phone: 06-08-2022 History of Present illness Narrative Rm Berman is 52 year old male s/p Multiple nasal bone ORIFs, calvarium bone harvest for nasal graft, cribiform defect ORIF on 06/08/22. Patient presents for a virtual visit follow up. [facility] Work Phone: 06-08-2022 Reason for referral (narrative) Reason for Referral: fall from ladder with injuries including: - pneumocephalus- comminuted frontal sinus fx involving anterior and posterior ceballos, ext to nola roney and cribiform plate- comminuted nasal bone fx- b/l medial and inferior orbital wall fx- nasal septum fx- anterior ceballos of b/l maxillary sinuses- suspicion of epidual blood products posteriorly at cranial/cervical junction - Bifrontal cerebral parenchymal contusionsOR-06/08 sp bifrontal approach for frontal sinus exenteration with NGY, nasal ORIF, cribiform ORIF and calvarial bone harvest with Plastics [facility] 06-08-2022 Note History & Physical R eviewed: I have reviewed the History and Physical dated: 01-Jun-2022 History and Physical reviewed and relevant findings noted. Patient examined to review pertinent physical findings.: No significant changes Home Medications Reviewed: no changes noted Allergies Reviewed: no changes noted ERAS (Enhanced Recovery After Surgery): ERAS Patient: no Consent: COVID-19 Consent: COVID-19 Risk ConsentSurgeon has reviewed delvalle risks related to the risk of candelaria COVID-19 and if they contract COVID-19 what the risks are. Attestation: Note Completion: I am a: Resident/Fellow Attending AttestationI saw and evaluated the patient. I personally obtained the delvalle and critical portions of the history and physical exam or was physically present for delvalle and critical portions performed by the resident/fellow. I reviewed the resident/fellows documentation and discussed the patient with the resident/fellow. I agree with the resident/fellows medical decision making as documented in the note. I personally evaluated the patient [id number] Electronic Signatures: Fito Ledezma (Resident)) (Signed 07-Jun-2022 18:48) Authored: History & Physical Reviewed, ERAS, Consent, Note Completion Barber Castañeda) (Signed 09-Jun-2022 15:27) Authored: Note Completion Co-Signer: History & Physical Reviewed, ERAS, Consent, Note Completion Last Updated: 09-Jun-2022 15:27 by Barber Castañeda) [facility] 06-07-2022 Note History & Physical R eviewed: I have reviewed the History and Physical dated: 01-Jun-2022 History and Physical reviewed and relevant findings noted. Patient examined to review pertinent physical findings.: No significant changes Home Medications Reviewed: no changes noted Allergies Reviewed: no changes noted ERAS (Enhanced Recovery After Surgery): ERAS Patient: no Consent: COVID-19 Consent: COVID-19 Risk ConsentSurgeon has reviewed delvalle risks related to the risk of candelaria COVID-19 and if they contract COVID-19 what the risks are. Attestation: Note Completion: I am a: Resident/Fellow Attending AttestationI saw and evaluated the patient. I personally obtained the delvalle and critical portions of the history and physical exam or was physically present for edlvalle and critical portions performed by the resident/fellow. I reviewed the resident/fellows documentation and discussed the patient with the resident/fellow. I agree with the resident/fellows medical decision making as documented in the note. I personally evaluated the patient [id number] Electronic Signatures: Barber Castañeda) (Signed 09-Jun-2022 15:25) Authored: Note Completion Co-Signer: History & Physical Reviewed, ERAS, Consent, Note Completion Yordan Wellington (Resident)) (Signed 06-Jun-2022 17:03) Authored: History & Physical Reviewed, ERAS, Consent, Note Completion Last Updated: 09-Jun-2022 15:25 by Barber Castañeda) [facility] 06-01-2022 Note Clinical Event: Clinical Event Note: TopicTrauma Surgery - Updated Plan of Care Details Patient seen today. at bedside. Patient experienced emesis x2 2/2 nausea. Little appetite. Neurologically intact. Feels as if his bite is off . Per Plastic Surgery and Neurosurgery, plan for combined OR case early next week. Antibiotics ordered, continue until surgery. Seen and discussed with attending, Dr. Oral Mata MD Trauma Surgery Objective Information T PRBPMAPSpO2 [id number]/7996% Date/Time06/01 16: 16: 16: 16: 16:09 Range(36.7C - 37.5C ) (75 - 84 ) (16 - 20 ) (107 - 146 )/ (71 - 79 ) (94% - 98% ) Highest temp of 37.5 C was recorded at 06/01 16:09 Pain reported at 06/01 15:47: 7 = Severe Intake Output Urine 700 mL Electronic Signatures: Yun Mata (Resident)) (Signed 01-Jun-2022 19:13) Authored: Clinical Event Note Last Updated: 01-Jun-2022 19:13 by Yun Mata (Resident)) [facility] 06-01-2022 Note Clinical Note - Phar ida v2: Education: Document TopicMedication Education MedicationSources used to confirm home medication list: H&P Note 06/01/22, Pharmacy Fill Hx (via [email or web address]), OAR[facility] Per H&P note, patient denies taking medications. Only medications on pharmacy fill history are from January 2022 for short courses azithromycin and dexamethasone. OARRS was also negative for any prescription medications. Medication reconciliation complete Please reach out via [employer] for questions Prashnat Man, PharmD, PGY1 Handbag Framer [facility] Is This Intervention Medication Reconciliation Relatedyes Time Required1 - 5 minutes Electronic Signatures: Prashant Man ([facility]) (Signed 01-Jun-2022 08:34) Authored: Education Nilson Reynoso ([facility]) (Signed 02-Jun-2022 09:00) Co-Signer: Education Last Updated: 02-Jun-2022 09:00 by Nilson Reynoso ([facility]) [facility] Chief complaint Narrative - Reported An interactive audio and video telecommunication system which permits real time communications between the patient (at the originating site) and provider (at the distant site) was utilized to provide this telehealth service.[facility] Work Phone: Evaluation + Plan note No data available for this section [facility] [place] Evaluation note Skin: Warm, dry. Hea led abrasions/lacerations to L anterior knee which are approximated with sutures.Eyes: Bilateral periorbital ecchymosis and edema. PERRLA, EOMI, clear sclera. Patient opens eyes spontaneously. Vision grossly intact bilaterally per patient. Eye drainage and tearing bilaterally.ENMT: MMM. Intraoral incision to inner, upper gingivae which is approximated with sutures. Improving nasal edema with incision spanning across nasal bridge which is approximated with intact absorbable sutures, dressed with topical Bacitracin. Bilateral nasal passages patent with small amount of residual dried blood but no active epistaxis or rhinorrhea.Head/Neck: Midfacial improving postoperative edema and ecchymosis. Surgical incisions spanning across nasal bridge and inferior to R eye which are approximated with intact absorbable sutures, dressed with topical Bacitracin. No bleeding, drainage or dehiscence. Bicoronal scalp incision which is intact, approximated with sutures.Genitourinary: Voiding independently.Gastrointestinal: Nondistended, soft.Extremities: SAAVEDRA spontaneously.Neurological: A&Ox3, no gross neuro deficits.Psychological: Appropriate mood and behavior.Respiratory/Thorax: Breathing comfortably on RA with symmetric chest expansion, no tachypnea or increased work of breathing.Constitutional: A&O x3, sitting upright in bed. [facility] Evaluation note Diagnosis Multiple closed fractures of facial bone, sequela (HCC) Open skull base fracture with cerebral laceration and contusion, without coma, with routine healing [facility] Multiple closed fractures of facial bone, sequela (HCC)- Primary Open skull base fracture with cerebral laceration and contusion, without coma, with routine healing [facility] Diagnosis Difficulty breathing- Primary Other dyspnea and respiratory abnormality H/O closed fracture of nasal bones Personal history of traumatic fracture Facial injury, subsequent encounter [facility] Diagnosis Pre-op evaluation- Primary Preoperative examination, unspecified Headaches due to old head injury Post-traumatic headache, unspecified Acute sinusitis, recurrence not specified, unspecified location Gastroesophageal reflux disease without esophagitis Esophageal reflux CELAYA (dyspnea on exertion) Other dyspnea and respiratory abnormality Overweight Difficulty breathing Other dyspnea and respiratory abnormality H/O closed fracture of nasal bones Personal history of traumatic fracture Facial injury, subsequent encounter * Assessment & Plan Note - Jennifer Guzman APRN.PRODUCTION PLANNING MANAGER - 01/04/2024 3:12 PM EDT Associated Problem(s): Overweight BMI 27.18 * Assessment & Plan Note - Jennifer Guzman APRN.CNP - 01/04/2024 3:12 PM EDT Associated Problem(s): CELAYA (dyspnea on exertion) Endorses CELAYA due to lack of oxygenation through nose Mets 5.5 * Assessment & Plan Note - Jennifer Guzman APRN.CNP - 01/04/2024 3:11 PM EDT Associated Problem(s): Gastroesophageal reflux disease without esophagitis Managed with TUMS PRN * Assessment & Plan Note - Jennifer Guzman APRN.CNP - 01/04/2024 3:11 PM EDT Associated Problem(s): Acute sinusitis, unspecified Managed with afrin and nyquil nightly Inability to breathe through nose * Assessment & Plan Note - Jennifer Guzman APRN.CNP - 01/04/2024 3:10 PM EDT Associated Problem(s): Headaches due to old head injury recurrent headaches, and migraines related to head injury Fall 2021 Endorses sensitivity to light [facility] Diagnosis Difficulty breathing- Primary Other dyspnea and respiratory abnormality H/O closed fracture of nasal bones Personal history of traumatic fracture Difficulty breathing Other dyspnea and respiratory abnormality H/O closed fracture of nasal bones Personal history of traumatic fracture Facial injury, subsequent encounter [facility] Diagnosis Post-operative state- Primary Other postprocedural status [facility] Diagnosis Post-operative state- Primary Other postprocedural status [facility] Diagnosis Pre-op evaluation- Primary Preoperative examination, unspecified Headaches due to old head injury Post-traumatic headache, unspecified Acute sinusitis, recurrence not specified, unspecified location Gastroesophageal reflux disease without esophagitis Esophageal reflux CELAYA (dyspnea on exertion) Other dyspnea and respiratory abnormality Overweight Rosacea- Primary Post-operative state Other postprocedural status H/O closed fracture of nasal bones Personal history of traumatic fracture documented in this encounter [facility] Discharge instructions* Activity:activity as tolerated. May shower. Upon discharge/arrival home. May not return to school/work until follow-up visit with with surgical teams Instructions:. May not drive while taking narcotics. No pushing, pulling, or lifting objects greater than 10 pounds until follow-up visit. Weight-bearing Instructions: weight-bearing as tolerated. Other activity instructions: Keep head elevated while at rest to alleviate facial swelling. Maintain sinus precautions with NO blowing nose or clearing sinus secretions until follow-up with plastics in 2-3 weeks. * Wound Care 1:Wound Site: Multiple facial surgical incisions, scalp surgical incisionWound Type: surgical incisionCleanse With: soap and waterApply: BacitracinCover With: no dressing, leave open to airInstructions: no lotions, creams, or tub soaksOther Instructions: Please apply thin layer of topical bacitracin to incision lines two times a day. May gently rinse and clean surgical incisions with gentle soap and water, avoid vigorously scrubbing, pat to dry. Monitor wound sites for developing signs of infection which may include increased redness, swelling, fever/chills, green/yellow drainage, or foul odor from wound. If these are to occur, you should notify your provider. * Additional Orders:Additional Instructions: From Plastic Surgery regarding facial fractures: You have broken (fractured) one or more bones in your face. Swelling and bruising from the injury are likely to get worse over the first couple of days. After that, the swelling should steadily improve untilit is gone. If you have bruises on your face, they may change as they heal. The skin may turn from black and blue to green to yellow or brown before it returns to its normal color. It may take several weeks for your injury to heal.It is important that you maintain strict adherence to sinus precautions until your follow up visit with plastic surgery which include: Keeping head of bed elevated (above level of heart) at all times, greater than 30 degrees Do NOT blow nose or clear sinus secretions Do NOT forcibly split Do NOT smoke Avoid holding sneezes, sneeze with mouth open Do not use a straw to drink Keep mouth open when coughing No lifting greater than 15-20 pounds Follow-up care is a delvalle part of your treatment and safety. It is very important that you get follow-up care as directed so that the injury heals properly and does not lead to problems. Be sure to maintain follow up with plastic surgery at your scheduled appointment. If you are unable to keep your appointment, or need to reschedule please contact our office at [phone]. * Call Provider If:Breathing harder than normal or having retractions. Temperature is greater than 102 degrees. Drinking less than normal. Urinating less than normal, over 1 day. Acting very sleepy anddifficult to awaken. Vomiting (throwing up) and not able to eat or drink for 12 hours. 3 or more loose, watery bowel movements in 24 hours (diarrhea). Any new concerning symptoms. * Follow Up Appointment 1:Physician/Dept/Service: Dr. Vanegas/Plastic and Reconstructive SurgeryReasonfor Referral: Postoperative Follow-up AppointmentScheduled Date/Time: 04-Jul-2022 02:00Location: [facility] [address] [facility] [address]Phone Number: [phone]: Please arrive 10-15 minutes early to your appointment. Please bring your photo ID, current list of medications and dosages, insurance card and any copays that may apply. If unable to keep this appointment, please call to cancel at least 24 hrs prior to appointment. * Follow Up Appointment 2:Physician/Dept/Service: Dr. Barber Castañeda, NeurosurgeryPhone Number: [phone]: Per Dr. Castañeda no appointment needed. [facility] No data available for this section [facility] [place] [facility] note No data available for this section [facility] [place] Summary Purpose Family History No Family History Records FoundNo Family History Records FoundNo Family History Records FoundNo Family History Records Found No data available for this section No Family History Records Found Advance Directives No Advanced Directives Records FoundNo Advanced Directives Records FoundNo Advanced Directives Records FoundNo Advanced Directives Records FoundNo Advanced Directives Records Found Chief Complaint Post operative visitPost operative visit after ORIF of facial fractures from fall.Post operative follow up visit Reason for Referral Specialty Diagnoses / Procedures Referred By Mingo leyva Referred To Contact CT IMAGING Diagnoses Multiple closed fractures of facial bone, sequela (HCC) Open skull base fracture with cerebral laceration and contusion, without coma, with routine healing Procedures CT FACIAL BONE/ISIDRA WO IVCON CT MAXILLOFACIAL W/O CONTRAST MATERIAL Michael Vanegas MD [address] [place] [address] Ct Imaging [place] [address] Referral ID Status Reason Start Date Expiration Date Visits Requested Visits Authorized [id number] Waiting for Response Auto-Genera janet Referral Patient Cleared - Admin/Chair man/Directo r advise to proceed or did not respond 02/09/2023 03/10/2024 1 1 Specialty Diagnoses / Procedures Referred By Mingo leyva Referred To Contact Plastic Surgery Diagnoses Multiple closed fractures of facial bone, sequela (HCC) Open skull base fracture with cerebral laceration and contusion, without coma, with routine healing Procedures CONSULT TO PLASTIC SURGERY OFFICE/OUTPATIENT [facility] 60-74 MINUTES Michael Vanegas MD [address] [place] [address] Referral ID Status Reason Start Date Expiration Date Visits Requested Visits Authorized [id number] Pending Review PCP Requested Referral 04/12/2023 04/11/2024 1 1 Specialty Diagnoses / Procedures Referred By Mingo leyva Referred To Contact Dermatology Diagnoses Rosacea Procedures CONSULT TO DERMATOLOGY OFFICE/OUTPATIENT [facility] 60 MINUTES Nancy Cheng PA-C [address] [place] [address] Referral ID Status Reason Start Date Expiration Date Visits Requested Visits Authorized [id number] Pending Review PCP Requested Referral 4 05/17/2025 1 1 Additional Source Comments (unrecognized sect ion and content) No Status Records FoundNo Status Records FoundNo Status Records FoundNo Status Records FoundNo Status Records Found INFORMATION SOURCE (unrecogn ized section and content) DATE CREATED AUTHOR 08/15/2021 [facility] DATE CREATED AUTHOR AUTHOR'S ORGANIZ ATION 11/29/2022 [facility] DATE CREATED AUTHOR AUTHOR'S ORGANIZ ATION 01/17/2023 [facility] DATE CREATED AUTHOR AUTHOR'S ORGANIZ ATION 05/10/2024 [facility] DATE CREATED AUTHOR AUTHOR'S ORGANIZ ATION 05/24/2024 [facility] <item> Privacy Markings (unrecogniz ed section and content) Section Author: Kaitlyn Posada PROHIBITION ON REDISCLOSURE OF CONFIDENTIAL INFORMATION This notice accompanies a disclosure of information concerning a client made to you with the consent of such client. Source Comments (unrecognize d section and content) In the event this informatio n is protected by the Federal Confidentiality of Alcohol and Drug Abuse Patient Records regulations: The Federal rules restrict any use of the information to criminally investigate or prosecute any alcohol or drug abuse patient.[facility] the event this information is protected by the Federal Confidentiality of Alcohol and Drug Abuse Patient Records regulations: The Federal rules restrict any use of the information to criminally investigate or prosecute any alcohol or drug abuse patient.[facility] the event this information is protected by the Federal Confidentiality of Alcohol and Drug Abuse Patient Records regulations: The Federal rules restrict any use of the information to criminally investigate or prosecute any alcohol or drug abuse patient.[facility] Hospital[facility] the event this information is protected by the Federal Confidentiality of Alcohol and Drug Abuse Patient Records regulations: The Federal rules restrict any use of the information to criminally investigate or prosecute any alcohol or drug abuse patient.[facility] the event this information is protected by the Federal Confidentiality of Alcohol and Drug Abuse Patient Records regulations: The Federal rules restrict any use of the information to criminally investigate or prosecute any alcohol or drug abuse patient.[facility] Hospital[facility] the event this information is protected by the Federal Confidentiality of Alcohol and Drug Abuse Patient Records regulations: The Federal rules restrict any use of the information to criminally investigate or prosecute any alcohol or drug abuse patient.[facility] Hospital[facility] the event this information is protected by the Federal Confidentiality of Alcohol and Drug Abuse Patient Records regulations: The Federal rules restrict any use of the information to criminally investigate or prosecute any alcohol or drug abuse patient.[facility] Hospital[facility] the event this information is protected by the Federal Confidentiality of Alcohol and Drug Abuse Patient Records regulations: The Federal rules restrict any use of the information to criminally investigate or prosecute any alcohol or drug abuse patient.[facility] Hospital[facility] the event this information is protected by the Federal Confidentiality of Alcohol and Drug Abuse Patient Records regulations: The Federal rules restrict any use of the information to criminally investigate or prosecute any alcohol or drug abuse patient.[facility] Hospital[facility] the event this information is protected by the Federal Confidentiality of Alcohol and Drug Abuse Patient Records regulations: The Federal rules restrict any use of the information to criminally investigate or prosecute any alcohol or drug abuse patient.[facility] Hospital[facility] the event this information is protected by the Federal Confidentiality of Alcohol and Drug Abuse Patient Records regulations: The Federal rules restrict any use of the information to criminally investigate or prosecute any alcohol or drug abuse patient.[facility] Hospital[facility] the event this information is protected by the Federal Confidentiality of Alcohol and Drug Abuse Patient Records regulations: The Federal rules restrict any use of the information to criminally investigate or prosecute any alcohol or drug abuse patient.[facility] Hospital[facility] the event this information is protected by the Federal Confidentiality of Alcohol and Drug Abuse Patient Records regulations: The Federal rules restrict any use of the information to criminally investigate or prosecute any alcohol or drug abuse patient.[facility] HospitalIn the event this information is protected by the Federal Confidentiality of Alcohol and Drug Abuse Patient Records regulations: The Federal rules restrict any use of the information to criminally investigate or prosecute any alcohol or drug abuse patient.[facility] HospitalIn the event this information is protected by the Federal Confidentiality of Alcohol and Drug Abuse Patient Records regulations: The Federal rules restrict any use of the information to criminally investigate or prosecute any alcohol or drug abuse patient.[facility] HospitalIn the event this information is protected by the Federal Confidentiality of Alcohol and Drug Abuse Patient Records regulations: The Federal rules restrict any use of the information to criminally investigate or prosecute any alcohol or drug abuse patient.[facility] Hospital[facility] the event this information is protected by the Federal Confidentiality of Alcohol and Drug Abuse Patient Records regulations: The Federal rules restrict any use of the information to criminally investigate or prosecute any alcohol or drug abuse patient.[facility] HospitalIn the event this information is protected by the Federal Confidentiality of Alcohol and Drug Abuse Patient Records regulations: The Federal rules restrict any use of the information to criminally investigate or prosecute any alcohol or drug abuse patient.[facility] Reason for Visit (unrecogniz ed section and content) Specialty Diagnoses / Procedures Referred By Contac t Referred To Contact CT IMAGING Diagnoses Multiple closed fractures of facial bone, sequela (HCC) Open skull base fracture with cerebral laceration and contusion, without coma, with routine healing Procedures CT FACIAL BONE/ISIDRA WO IVCON CT MAXILLOFACIAL W/O CONTRAST MATERIAL Michael Vanegas MD [address] [place] [address] Ct Imaging [place] [address] Referral ID Status Reason Start Date Expiration Date Visits Requested Visits Authorized [id number] Waiting for Response Auto-Genera janet Referral Patient Cleared - Admin/Chair man/Directo r advise to proceed or did not respond 02/09/2023 03/10/2024 1 1 Reason Comments Consult Specialty Diagnoses / Procedures Referred By Contac t Referred To Contact Plastic Surgery / HEMATOLOGY/ONCOLOGY Diagnoses facial surgery Procedures NEW DPSI GENERAL Self Michael Vanegas MD [address] [place] [address] Referral ID Status Reason Start Date Expiration Date Visits Re quested Visits Authorized [id number] Closed 03/30/2023 06/28/2023 1 1 Reason Comments Patient Update Reason Comments [employer]14 paperwork Reason Comments C9 and [employer]14 Reason Comments Consult Specialty Diagnoses / Procedures Referred By Contac t Referred To Contact Plastic Surgery / PLASTIC SURGERY Diagnoses 2nd opinion per Dr. Vanegas for face surgery Procedures EST DPSI GENERAL Stacey Morocho MD [address] [place] [address] Christopher Mcgregor MD [address] [place] [address] Referral ID Status Reason Start Date Expiration Date Visits Re quested Visits Authorized [id number] Closed 09/05/2023 09/05/2023 1 1 Reason Comments Dustin - workmans comp Specialty Diagnoses / Procedures Referred By Contact Referred To Contact Anesthesiology / ANESTHESIOLOGY Diagnoses PACC Procedures COMPLETE PACC Self [address] [place] [address] Referral ID Status Reason Start Date Expiration Date Visits Re quested Visits Authorized [id number] Closed 01/04/2024 01/04/2024 1 1 Reason Comments Pre-Op Visit Specialty Diagnoses / Procedures Referred By Contac t Referred To Contact Plastic Surgery / PLASTIC SURGERY Diagnoses Virtual Discussion of Upcoming Procedure Procedures VIDEO SPEC EST Michael Vanegas MD [address] [place] [address] Christopher Mcgregor MD [address] [place] [address] Referral ID Status Reason Start Date Expiration Date Visits Re quested Visits Authorized [id number] Closed 12/29/2023 12/29/2023 1 1 Reason Comments Post Op Specialty Diagnoses / Procedures Referred By Contac t Referred To Contact Plastic Surgery / PLASTIC SURGERY Diagnoses Post op Procedures POST OP Self Nancy Cheng PA-C [address] [address] Referral ID Status Reason Start Date Expiration Date Visits Re quested Visits Authorized [id number] Closed 01/16/2024 01/16/2024 1 1 Specialty Diagnoses / Procedures Referred By Contac t Referred To Contact Plastic Surgery / PLASTIC SURGERY Diagnoses 02/[address] Mcgregor for post op appointment Procedures POST OP Christopher Mcgregor MD [address] [place] [address] Christopher Mcgregor MD [address] [place] [address] Referral ID Status Reason Start Date Expiration Date Visits Re quested Visits Authorized [id number] Closed 02/14/2024 02/14/2024 1 1 Reason Comments medco14 Reason Comments Post Op Specialty Diagnoses / Procedures Referred By Contac t Referred To Contact Plastic Surgery / PLASTIC SURGERY Diagnoses Return in about 3 months (around 05/16/2024) for Follow up Procedures POST OP Christopher Mcgregor MD [address] [place] [address] [place] [address] [place] [id number] Referral ID Status Reason Start Date Expiration Date Visits Re quested Visits Authorized [id number] Closed 05/17/2024 05/17/2024 1 1 Care Teams (unrecognized sec tion and content) Mobility Architect Relationship Specialty Start Date End Date Stacey Morocho MD PCP - General Family Medicine 03/12/15 Stacey Morocho MD Family Medicine 03/12/15 Mobility Architect Relationship Specialty Start Date End Date Stacey Morocho MD PCP - General Family Medicine 03/12/15 Stacey Morocho MD Family Medicine 03/12/15 Mobility Architect Relationship Specialty Start Date End Date Stacey Morocho MD PCP - General Family Medicine 03/12/15 Stacey Morocho MD Family Medicine 03/12/15 Mobility Architect Relationship Specialty Start Date End Date Stacey Morocho MD PCP - General Family Medicine 03/12/15 Stacey Morocho MD Family Medicine 03/12/15 Mobility Architect Relationship Specialty Start Date End Date Stacey Morocho MD PCP - General Family Medicine 03/12/15 Stacey Morocho MD Family Medicine 03/12/15 Mobility Architect Relationship Specialty Start Date End Date Stacey Morocho MD PCP - General Family Medicine 03/12/15 Stacey Morocho MD Family Medicine 03/12/15 Mobility Architect Relationship Specialty Start Date End Date Stacey Morocho MD PCP - General Family Medicine 03/12/15 Stacey Morocho MD Family Medicine 03/12/15 Mobility Architect Relationship Specialty Start Date End Date Stacey Morocho MD PCP - General Family Medicine 03/12/15 Stacey Morocho MD Family Medicine 03/12/15 Mobility Architect Relationship Specialty Start Date End Date Stacey Morocho MD PCP - General Family Medicine 03/12/15 Stacey Morocho MD Family Medicine 03/12/15 Mobility Architect Relationship Specialty Start Date End Date Stacey Morocho MD PCP - General Family Medicine 03/12/15 Stacey Morocho MD Family Medicine 03/12/15 Mobility Architect Relationship Specialty Start Date End Date Stacey Morocho MD PCP - General Family Medicine 03/12/15 Stacey Morocho MD Family Medicine 03/12/15 Mobility Architect Relationship Specialty Start Date End Date Stacey Morocho MD PCP - General Family Medicine 03/12/15 Stacey Morocho MD Family Medicine 03/12/15 Mobility Architect Relationship Specialty Start Date End Date Stacey Morocho MD PCP - General Family Medicine 03/12/15 Stacey Morocho MD Family Medicine 03/12/15 Mobility Architect Relationship Specialty Start Date End Date Stacey Morocho MD PCP - General Family Medicine 03/12/15 Stacey Morocho MD Family Medicine 03/12/15 FOR RECORDS PERTAINING TO PATIENTS WHO ARE OR HAVE BEEN ENROLLED IN A CHEMICAL DEPENDENCY/SUBSTANCEABUSE PROGRAM, SOME INFORMATION MAY BE OMITTED. This clinical summary was aggregated from multiple sources. Caution should be exercised in using it in the provision of clinical care. This summary normalizes information from multiple sources, and as a consequence, information in this document may materially change the coding, format and clinical context of patient data. In addition, data may be omitted in some cases. CLINICAL DECISIONS SHOULD BE BASED ON THE PRIMARY CLINICAL RECORDS. [facility]. provides no warranty or guarantee of the accuracy or completeness of information in this document.
== END 2024-06-14 08:17 | disposition home or self-care (01) ==
LOC: PST 08:16
PROVIDERS: PCP Family Medicine; Visit Provider Surgery
DX: Z01.818 Encounter for other preprocedural examination (principal); Z12.11 Encounter for screening for malignant neoplasm of colon

== ENCOUNTER 2024-06-19 08:29 | Day surgery (SDC) | payer BC, SELFPAY ==
--- NOTE | 2024-06-19 | OP_ITS ---
OPERATION DATE: 06/19/2024 PREOPERATIVE DIAGNOSIS: Colorectal screening. POSTOPERATIVE DIAGNOSIS: Normal colonoscopy to cecum. PROCEDURE: Colonoscopy to cecum. SURGEON: Pola Campuzano M.D. ANESTHESIA: Monitored anesthesia care. ESTIMATED BLOOD LOSS: Zero. INDICATIONS AND CONSENT: Patient is a 54-year-old male presents for colorectal screening. Indications, risks, benefits, alternatives of proceeding with colonoscopy were explained extensively to the patient, including the risks of bleeding, colon perforation or anesthetic complications. All of his questions were answered. Informed consent was obtained. PROCEDURE: Patient brought to the operating room, placed in the left lateral decubitus position. Monitored anesthesia care was provided. Rectal exam was performed which showed no masses or blood. Scope was inserted into the anal canal. Under direct visualization was advanced. It was advanced to the cecum where cecal markings were clearly identified. There was noted to be a good prep. Upon withdrawal of the scope, mucosal surfaces were carefully examined. There were no mass lesions or polyps. No inflammatory changes or ulcerations. No significant diverticulosis. The scope was retroflexed in the anal canal. There was no significant hemorrhoidal disease. Scope was then withdrawn. Patient tolerated procedure well, was sent to recovery room in good condition. Follow up screening colonoscopy should be in 10 years. CC: Robbie Dobbs M.D. NELI
[2024-06-19 08:35] VITALS: BP 134/85; PULSE 82; TEMP 36.3; O2SAT 98; BMI 26.7; BMI 28.3
--- OUTSIDE RECORDS SUMMARY | 2024-06-19 08:51 | XMS_ITS | CCD ---
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 Name Role Phone RASHAWN, DR IBARRA Attending [...] Propensity to adverse reactions (disorder) [facility] Repository Medications Current Medications Medication Drug [...] Test Name Value Interpretation Reference Range Facility [facility] 05-17-2024 CNOV Office Visit (PLASAV ) ----- RM BERMAN ([id number]) 1970 M Date Time Provider Department 05/17/24 [...] Time: 7:42 AM Referring Provider: CHRISTOPHER MCGREGOR [[id number]] Allergies As of Date: 05/17/2024 (No Known [...] 1 CONSULT TO DERMATOLOGY [9006] Order #: [id number]: 1 FUTURE Prescriptions as of 05/22/2024 - [...] Status:Closed by CHRISTOPHER MCGREGOR on 05/22/24 [facility] Ambulatory Visit Summaryon 1 Ambulatory Visit Summary [...] us for your care. Patrick [facility] CNOVon 02-14-2024 CNOV Office Visit (PLASAV ) ----- RM BERMAN ([id number]) 1970 M Date Time Provider Department 02/14/24 [...] Time: 9:46 AM Referring Provider: CHRISTOPHER MCGREGOR [[id number]] Allergies As of Date: 02/14/2024 (No Known [...] for Encounter Date Provider Department Center 02/14/2024 [id number] MCGREGOR [facility] Encounter Status:Closed by CHRISTOPHER MCGREGOR on 02/16/24 [facility] CNCOon 01-16-2024 CNCO Letter Text [facility] CNOVon 01-16-2024 CNOV Office Visit (PLASMN ) ----- RM BERMAN ([id number]) 1970 M Date Time Provider Department 01/16/24 [...] new redness) Meds and allergies reviewed in PSYCHIATRIC. ALLERGIES: ALLERGIES No Known Allergies PHYSICAL EXAM: [...] Encounter Status:Closed by NANCY CHENG on 01/25/24 [facility] ANES POSTPROC EVALon 024 ANES POSTPROC EVAL HNO ID: [id number] Author: YUN LIU MD Service: ? Author Type: Anesthesiologist Type: Anesthesia Postprocedure Evaluation Filed: 01/10/2024 06:47 Note Text: POST ANESTHESIA EVALUATION NOTE : 1970 Procedure Summary Date: 01/08/24 Room / Location: [address] PEDIATRIC SURGERY Anesthesia Start: 1129 Anesthesia [...] January 10, 2024 TIME: 6:46 AM CSN: [id number] [facility] ANES PRE-OPon 01-08-2024 ANES PRE-OP HNO ID: [id number] Author: YUN LIU MD Service: ? Author Type: Anesthesiologist Type: Anesthesia Preprocedure Evaluation Filed: 01/08/2024 08:32 Note Text: ANESTHESIOLOGY DAY OF SURGERY NOTE : 1970 Procedure Information Date/Time: 01/08/24 1015 Procedures: REVISION RHINOPLASTY - using donor cartilage (Bilateral: Nose) SEPTOPLASTY (Bilateral: Nose) RESECTION TURBINATE (Bilateral: Nose) Location: [address] PEDIATRIC SURGERY Surgeons: Christopher Mcgregor MD [...] 0.4 01/04/2024 Abs Neut 3.32 01/04/2024 Abs [place] 0.63 01/04/2024 Abs Eosin 0.10 01/04/2024 Abs [...] and consent discussed: yes. Patient / Responsible Green Party agrees to proceed: yes Patient / [...] January 08, 2024 TIME: 8:20 AM CSN: [id number] [facility] BRIEF OP NOTon 01-08-2024 BRIEF OP NOT HNO ID: [id number] Author: HOOD IVEY MD Service: Plastic Surgery Author Type: Resident Type: Brief Op Note Filed: 01/08/2024 15:28 Note Text: BRIEF OPERATIVE NOTE PLASTIC AND RECONSTRUCTIVE SURGERY LOG ID: [id number] Surgery/Procedure Date: 01/08/2024 Incision/Procedure Start Time: 12:08 PM Incision Close/Procedure End Time: 3:09 PM Surgeon(s)/Proceduralist( s) and Asbestos Worker Helper(s): Surgeon(s) and Role: * Christopher Mcgregor MD - Primary * Hood Ivey MD - Resident - Assisting No Additional Staff Procedure(s): Revision of rhinoplasty/nose reconstruction with cadaveric cartilage and acellular dermal matrix. Septoplasty Implants: Implant Name Type Inv. Item Serial No. One Piece Expansion Maker Hand Lot No. LRB No. Used Action CORTIVA ALLOGRAFT DERMIS 2CM X 4CM - [id number] Tissue CORTIVA ALLOGRAFT DERMIS 2CM X 4CM [id number] [employer] N/A 1 Implanted GRAFT COSTAL CARTILAGE 3.5CM BONE FROZEN - [id number] Graft GRAFT COSTAL CARTILAGE 3.5CM BONE FROZEN [id number] [facility] N/A 1 Implanted Anesthesia: General Findings: reconstructed [...] After 6PM and on weekends, please page [phone] (Plastic Surgery on-call - [facility]), otherwise contact above provider. [facility] NURSING PROGon 01-08-2024 NURSING PROG HNO ID: [id number] Author: CARTER MOYA RN Service: Nursing Author Type: Registered Nurse Type: Nursing Progress Note Filed: 01/08/2024 08:35 Note Text: Other: [id number] Rm Berman informed consent, melissa ORTA Carter Claudio, Dr Mcgregor and plastic resident paged AND notified [facility] OPERATIVE NOon 01-08-2024 OPERATIVE NO HNO ID: [id number] Author: CHRISTOPHER MCGREGOR MD Service: Plastic Surgery Author Type: Physician Type: Operative Report Filed: 01/25/2024 14:02 Note Text: [facility] - Operative Report [address] [address] [place] ANTONELLA RM : 1970 AGE: 53. SEX: M PATIENT TYPE: A HOSP SVC: [facility] LOCATION: [place] [address] ATTENDING PHYSICIAN: Christopher Mcgregor M.D. CSN NUMBER: [id number] DATE OF SURGERY/PROCEDURE: 01/08/2024 INCISION/PROCEDURE START TIME: 12:08 PM INCISION CLOSE/PROCEDURE END TIME: 3:09 PM PREOPERATIVE DIAGNOSIS: 1. Status post multiple facial reconstructions, medial [place]hal reconstruction status post multiple facial traumas and craniofacial fractures - open. 2. Obstruction of breathing. 3. Nasal dorsal deformity. POSTOPERATIVE DIAGNOSIS: Same as above SURGEON: Christopher Mcgregor M.D. NUCLEAR WASTE MANAGEMENT ENGINEER: Hood Ivey MD - Resident - Assisting SURGERY/PROCEDURE: 1. Secondary open rhinoplasty with multiple cartilage grafts. 2. Bilateral project manager retail grafts. 3. Intercolumellar strut graft. 4. Bilateral [...] lateral cartilage. These were then and bilateral project manager retail grafts were then placed on either side [...] procedure including non-delvalle portions. Christopher Mcgregor M.D. FP:[id number] /[id number] [facility] CBC W Auto Differential pane l (Bld)on 01-04-2024 Basophils (Bld) [#/Vol] 0.03 10*3/uL [facility] Basophils/100 WBC (Bld) 0.4 % [facility] Differential cell count method Nom (Bld) Auto [facility] Eosinophils (Bld) [#/Vol] 0.10 10*3/uL [facility] Eosinophils/100 WBC (Bld) 1.5 % [facility] Erythrocyte distribution width (RBC) [Ratio] 11.9 % 11.5 - 15.0 % [facility] Hematocrit (Bld) [Volume fraction] 47.6 % 39.0 - 51.0 % [facility] Hemoglobin (Bld) [Mass/Vol] 16.2 g/dL 13.0 - 17.0 g/dL [facility] Immature granulocytes (Bld) [#/Vol] 0.03 10*3/uL [facility] Immature granulocytes/100 WBC (Bld) 0.4 % [facility] Lymphocytes (Bld) [#/Vol] 2.67 10*3/uL [facility] Lymphocytes/100 WBC (Bld) 39.4 % [facility] MCH (RBC) [Entitic mass] 31.2 pg 26.0 - 34.0 pg [facility] MCHC (RBC) [Mass/Vol] 34.0 g/dL 30.5 - 36.0 g/dL [facility] MCV (RBC) [Entitic vol] 91.7 fL 80.0 - 100.0 fL [facility] Monocytes (Bld) [#/Vol] 0.63 10*3/uL [facility] Monocytes/100 WBC (Bld) 9.3 % [facility] Neutrophils (Bld) [#/Vol] 3.32 10*3/uL [facility] Neutrophils/100 WBC (Bld) 49.0 % [facility] Nucleated RBC (Bld) [#/Vol] NINF [facility] Nucleated RBC/100 WBC (Bld) [Ratio] 0.0 % /100 WBC [facility] Platelet mean volume (Bld) [Entitic vol] 9.5 fL 9.0 - 12.7 fL [facility] Platelets (Bld) [#/Vol] 273 10*3/uL [facility] RBC (Bld) [#/Vol] 5.19 10*6/uL 4.20 - 6.0 0 m/uL [facility] WBC (Bld) [#/Vol] 6.78 10*3/uL [facility] Basophils (Bld) [#/Vol] 0.03 10*3/uL Normal <0.11 [facility] Comment on above: Order Comment: Speci men Type: BLOOD SPECIMENOrdering Facility: [facility] Address: [address] [place] [address] Performed By: #### 5 7021-8 ####[facility] [id number] [place] [address] [place] Basophils/100 WBC (Bld) 0.4 % [facility] Comment on above: Order Comment: Speci men Type: BLOOD SPECIMENOrdering Facility: [facility] Address: [address] [place] [address] Performed By: #### 5 7021-8 ####[facility] LABCL[facility] [id number] [place] [address] [place] Differential cell count method Nom (Bld) Auto [facility] Comment on above: Order Comment: Speci men Type: BLOOD SPECIMENOrdering Facility: [facility] Address: [address] [place] [address] Performed By: #### 5 7021-8 ####[facility]CL[facility] [id number] [place] [address] [place] Eosinophils (Bld) [#/Vol] 0.10 10*3/uL Normal <0.46 [facility] Comment on above: Order Comment: Speci men Type: BLOOD SPECIMENOrdering Facility: [facility] Address: [address] [place] [address] Performed By: #### 5 7021-8 ####[facility]CL[facility] [id number] [place] [address] [place] Eosinophils/100 WBC (Bld) 1.5 % [facility] Comment on above: Order Comment: Speci men Type: BLOOD SPECIMENOrdering Facility: [facility] Address: [address] [place] [address] Performed By: #### 5 7021-8 ####[facility] [id number] [place] [address] [place] Erythrocyte distribution width (RBC) [Ratio] 11.9 % Normal 11.5-15.0 [facility] Comment on above: Order Comment: Speci men Type: BLOOD SPECIMENOrdering Facility: [facility] Address: [address] [place] [address] Performed By: #### 5 7021-8 ####[facility] [id number] [place] [address] [place] Hematocrit (Bld) [Volume fraction] 47.6 % Normal 39.0-51.0 [facility] Comment on above: Order Comment: Speci men Type: BLOOD SPECIMENOrdering Facility: [facility] Address: [address] [place] [address] Performed By: #### 5 7021-8 ####[facility] [id number] [place] [address] [place] Hemoglobin (Bld) [Mass/Vol] 16.2 g/dL Normal 13.0-17.0 [facility] Comment on above: Order Comment: Speci men Type: BLOOD SPECIMENOrdering Facility: [facility] Address: [address] [place] [address] Performed By: #### 5 7021-8 ####[facility]CL[facility] [id number] [place] [address] [place] Immature granulocytes (Bld) [#/Vol] 0.03 10*3/uL Normal <0.10 [facility] Comment on above: Order Comment: Speci men Type: BLOOD SPECIMENOrdering Facility: [facility] Address: [address] [place] [address] Performed By: #### 5 7021-8 ####[facility]CL[facility] [id number] [place] [address] [place] Immature granulocytes/100 WBC (Bld) 0.4 % [facility] Comment on above: Order Comment: Speci men Type: BLOOD SPECIMENOrdering Facility: [facility] Address: [address] [place] [address] Performed By: #### 5 7021-8 ####[facility]CL[facility] [id number] [place] [address] [place] Lymphocytes (Bld) [#/Vol] 2.67 10*3/uL Normal 1.00-4.00 [facility] Comment on above: Order Comment: Speci men Type: BLOOD SPECIMENOrdering Facility: [facility] Address: [address] [place] [address] Performed By: #### 5 7021-8 ####[facility]CL[facility] [id number] [place] [address] [place] Lymphocytes/100 WBC (Bld) 39.4 % [facility] Comment on above: Order Comment: Speci men Type: BLOOD SPECIMENOrdering Facility: [facility] Address: [address] [place] [address] Performed By: #### 5 7021-8 ####[facility]CL[facility] [id number] [place] [address] [place] MCH (RBC) [Entitic mass] 31.2 pg Normal 26.0-34.0 [facility] Comment on above: Order Comment: Speci men Type: BLOOD SPECIMENOrdering Facility: [facility] Address: [address] [place] [address] Performed By: #### 5 7021-8 ####[facility]CL[facility] [id number] [place] [address] [place] MCHC (RBC) [Mass/Vol] 34.0 g/dL Normal 30.5-36.0 [facility] Comment on above: Order Comment: Speci men Type: BLOOD SPECIMENOrdering Facility: [facility] Address: [address] [place] [address] Performed By: #### 5 7021-8 ####[facility]CL[facility] [id number] [place] [address] [place] MCV (RBC) [Entitic vol] 91.7 fL Normal 80.0-100.0 [facility] Comment on above: Order Comment: Speci men Type: BLOOD SPECIMENOrdering Facility: [facility] Address: [address] [place] [address] Performed By: #### 5 7021-8 ####[facility]CL[facility] [id number] [place] [address] [place] Monocytes (Bld) [#/Vol] 0.63 10*3/uL Normal <0.87 [facility] Comment on above: Order Comment: Speci men Type: BLOOD SPECIMENOrdering Facility: [facility] Address: [address] [place] [address] Performed By: #### 5 7021-8 ####[facility]CL[facility] [id number] [place] [address] [place] Monocytes/100 WBC (Bld) 9.3 % [facility] Comment on above: Order Comment: Speci men Type: BLOOD SPECIMENOrdering Facility: [facility] Address: [address] [place] [address] Performed By: #### 5 7021-8 ####[facility]CL[facility] [id number] [place] [address] [place] Neutrophils (Bld) [#/Vol] 3.32 10*3/uL Normal 1.45-7.50 [facility] Comment on above: Order Comment: Speci men Type: BLOOD SPECIMENOrdering Facility: [facility] Address: [address] [place] [address] Performed By: #### 5 7021-8 ####[facility] [id number] [place] [address] [place] Neutrophils/100 WBC (Bld) 49.0 % [facility] Comment on above: Order Comment: Speci men Type: BLOOD SPECIMENOrdering Facility: [facility] Address: [address] [place] [address] Performed By: #### 5 7021-8 ####[facility]CL[facility] [id number] [place] [address] [place] Nucleated RBC (Bld) [#/Vol] 10*3/uL Normal <0.01 [facility] Comment on above: Order Comment: Speci men Type: BLOOD SPECIMENOrdering Facility: [facility] Address: [address] [place] [address] Performed By: #### 5 7021-8 ####[facility]CL[facility] [id number] [place] [address] [place] Nucleated RBC/100 WBC (Bld) [Ratio] 0.0 /100 WBC [facility] Comment on above: Order Comment: Speci men Type: BLOOD SPECIMENOrdering Facility: [facility] Address: [address] [place] [address] Performed By: #### 5 7021-8 ####[facility]CL[facility] [id number] [place] [address] [place] Platelet mean volume (Bld) [Entitic vol] 9.5 fL Normal 9.0-12.7 [facility] Comment on above: Order Comment: Speci men Type: BLOOD SPECIMENOrdering Facility: [facility] Address: [address] [place] [address] Performed By: #### 5 7021-8 ####[facility] [id number] [place] [address] [place] Platelets (Bld) [#/Vol] 273 10*3/uL Normal 150-400 [facility] Comment on above: Order Comment: Speci men Type: BLOOD SPECIMENOrdering Facility: [facility] Address: [address] [place] [address] Performed By: #### 5 7021-8 ####[facility]CL[facility] [id number] [place] [address] [place] RBC (Bld) [#/Vol] 5.19 10*6/uL Normal 4.20-6.00 [facility] Comment on above: Order Comment: Speci men Type: BLOOD SPECIMENOrdering Facility: [facility] Address: [address] [place] [address] Performed By: #### 5 7021-8 ####[facility] [id number] [place] [address] [place] WBC (Bld) [#/Vol] 6.78 10*3/uL Normal 3.70-11.00 [facility] Comment on above: Order Comment: Speci men Type: BLOOD SPECIMENOrdering Facility: [facility] Address: [address] [place] [address] Performed By: #### 5 7021-8 ####[facility]CL[facility] [id number] [place] [address] [place] Comprehensive metabolic 2000 panelon 01-04-2024 Albumin [Mass/Vol] 4.3 g/dL 3.9 - 4.9 g/dL [facility] ALP [Catalytic activity/Vol] 141 U/L High 38 - 113 U/L [facility] ALT [Catalytic activity/Vol] 21 U/L 10 - 54 U/L [facility] Anion gap [Moles/Vol] 12 mmol/L 9 - 18 mmol/L [facility] AST [Catalytic activity/Vol] 17 U/L 14 - 40 U/L [facility] Bilirubin [Mass/Vol] 0.4 mg/dL 0.2 - 1 .3 mg/dL [facility] Calcium [Mass/Vol] 9.6 mg/dL 8.5 - 10. 2 mg/dL [facility] Chloride [Moles/Vol] 102 mmol/L 97 - 10 5 mmol/L [facility] CO2 [Moles/Vol] 25 mmol/L 22 - 30 mmol/L [facility] Creatinine [Mass/Vol] 1.22 mg/dL 0.73 - 1.22 mg/dL [facility] GFR/1.73 sq M.predicted among non-blacks MDRD (S/P/Bld) [Vol rate/Area] 71 mL/min/{1.73_m2} - PINF [facility] Comment on above: Estimated Glomerular Filtration Rate [...] [Mass/Vol] 87 mg/dL 74 - 99 mg/dL [facility] Comment on above: The [place] Diabete s Association (ADA) provides guidance for [...] Standards of Medical Care in Diabetes 2016, [place] Diabetes Association. Diabetes Care. 2016.39(Suppl 1). Interpretation and review of laboratory results Abnormal [facility] Potassium [Moles/Vol] 4.2 mmol/L 3.7 - 5.1 mmol/L [facility] Protein [Mass/Vol] 6.7 g/dL 6.3 - 8.0 g/dL [facility] Sodium [Moles/Vol] 139 mmol/L 136 - 144 mmol/L [facility] Urea nitrogen [Mass/Vol] 18 mg/dL 9 - 24 mg/dL [facility] Albumin [Mass/Vol] 4.3 g/dL Normal 3.9-4.9 [facility] Comment on above: Order Comment: Speci men Type: BLOOD SPECIMENOrdering Facility: [facility] Address: [address] [place] [address] Performed By: #### 2 4323-8 ####[facility]CL[facility] [id number] [place] [address] [place] ALP [Catalytic activity/Vol] 141 U/L High 38-113 [facility] Comment on above: Order Comment: Speci men Type: BLOOD SPECIMENOrdering Facility: [facility] Address: [address] [place] [address] Performed By: #### 2 4323-8 ####[facility]CL[facility] [id number] [place] [address] [place] ALT [Catalytic activity/Vol] 21 U/L Normal 10-54 [facility] Comment on above: Order Comment: Speci men Type: BLOOD SPECIMENOrdering Facility: [facility] Address: [address] [place] [address] Performed By: #### 2 4323-8 ####[facility]CL[facility] [id number] [place] [address] [place] Anion gap [Moles/Vol] 12 mmol/L Normal 9-18 [facility] Comment on above: Order Comment: Speci men Type: BLOOD SPECIMENOrdering Facility: [facility] Address: [address] [place] [address] Performed By: #### 2 4323-8 ####[facility]CL[facility] [id number] [place] [address] [place] AST [Catalytic activity/Vol] 17 U/L Normal 14-40 [facility] Comment on above: Order Comment: Speci men Type: BLOOD SPECIMENOrdering Facility: [facility] Address: [address] [place] [address] Performed By: #### 2 4323-8 ####[facility]CL[facility] [id number] [place] [address] [place] Bilirubin [Mass/Vol] 0.4 mg/dL Normal 0.2-1.3 [facility] Comment on above: Order Comment: Speci men Type: BLOOD SPECIMENOrdering Facility: [facility] Address: [address] [place] [address] Performed By: #### 2 4323-8 ####[facility]CL[facility] [id number] [place] [address] [place] Calcium [Mass/Vol] 9.6 mg/dL Normal 8.5-10.2 [facility] Comment on above: Order Comment: Speci men Type: BLOOD SPECIMENOrdering Facility: [facility] Address: [address] [place] [address] Performed By: #### 2 4323-8 ####[facility]CL[facility] [id number] [place] [id number] [place] Chloride [Moles/Vol] 102 mmol/L Normal 97-105 [facility] Comment on above: Order Comment: Speci men Type: BLOOD SPECIMENOrdering Facility: [facility] Address: [address] [place] [address] Performed By: #### 2 4323-8 ####[facility]CL[facility] [id number] [place] [address] [place] CO2 [Moles/Vol] 25 mmol/L Normal 22-30 [facility] Comment on above: Order Comment: Speci men Type: BLOOD SPECIMENOrdering Facility: [facility] Address: [address] [place] [address] Performed By: #### 2 4323-8 ####[facility]CL[facility] [id number] [place] [address] [place] Creatinine [Mass/Vol] 1.22 mg/dL Normal 0.73-1.22 [facility] Comment on above: Order Comment: Speci men Type: BLOOD SPECIMENOrdering Facility: [facility] Address: [address] [place] [address] Performed By: #### 2 4323-8 ####[facility] [id number] [place] [address] [place] [facility] Creatinine and Glomerular filtration rate.predicted panel (S/P/Bld) 71 mL/min/1.73m??? Normal >=60 [facility] Comment on above: Order Comment: Speci men Type: BLOOD SPECIMENOrdering Facility: [facility] Address: [address] [place] [address] Result Comment: Chele mated Glomerular Filtration Rate [...] actual GFR. Performed By: #### 2 4323-8 ####[facility] [id number] [place] [address] [place] Glucose [Mass/Vol] 87 mg/dL Normal 74-99 [facility] Comment on above: Order Comment: Speci men Type: BLOOD SPECIMENOrdering Facility: [facility] Address: [address] [place] [address] Result Comment: The [place] Diabetes Association (ADA) provides guidance for cutoff [...] Standards of Medical Care in Diabetes 2016, [place] Diabetes Association. Diabetes Care. 2016.39(Suppl 1). Performed By: #### 2 4323-8 ####[facility] [id number] [place] [address] [place] Potassium [Moles/Vol] 4.2 mmol/L Normal 3.7-5.1 [facility] Comment on above: Order Comment: Speci men Type: BLOOD SPECIMENOrdering Facility: [facility] Address: [address] [place] [address] Performed By: #### 2 4323-8 ####[facility]CL[facility] [id number] [place] [address] [place] Protein [Mass/Vol] 6.7 g/dL Normal 6.3-8.0 [facility] Comment on above: Order Comment: Speci men Type: BLOOD SPECIMENOrdering Facility: [facility] Address: [address] [place] [address] Performed By: #### 2 4323-8 ####[facility]CL[facility] [id number] [place] [address] [place] Sodium [Moles/Vol] 139 mmol/L Normal 136-144 [facility] Comment on above: Order Comment: Speci men Type: BLOOD SPECIMENOrdering Facility: [facility] Address: [address] [place] [address] Performed By: #### 2 4323-8 ####[facility] [id number] [place] [address] [place] Urea nitrogen [Mass/Vol] 18 mg/dL Normal 9-24 [facility] Comment on above: Order Comment: Speci men Type: BLOOD SPECIMENOrdering Facility: [facility] Address: [address] [place] [address] Performed By: #### 2 4323-8 ####[facility] [id number] [place] [address] [place] HISTORY PHYSICALon HISTORY PHYSICAL HNO ID: [id number] Author: JENNIFER GUZMAN APRN.OCCUPATIONAL THERAPY INSTRUCTOR Service: ? Author Type: Nurse Practitioner Type: [...] pending [see comment]. CMP, CBC ordered by fl Addendum 01/05/24 Labs reviewed and accepted from [...] injury Posit (more content not included)... Normal [facility] Griselda 11-30-2023 CNPN Telephone (PLASMN) ----- RM BERMAN ([id number]) 1970 M Date Time Provider Department 11/30/23 CHRISTOPHER MCGREGOR During your visit today, we recorded the following information about you: Raya Bhatti 11/30/2023 1:53 PM Signed Yoon from [facility] called she has not heard from CC. Yoon has tried [facility] at [phone], no luck. She's faxed, ,called CC no one is returning her call. Yoon is working w the pt to get him scheduled for surgery. Sent staff message to Marie. Nettles #[phone] Thanks Allergies As of Date: 11/30/2023 (Not on File) Date Reviewed: 09/05/2023 Reviewed by: Sylvie Garrett MA - Fully Assessed Reason for Visit: [facility] - workmans comp [Other] Prescriptions as of [...] Encounter Status:Closed by RAYA BHATTI on 11/30/23 [facility] CNOVon 09-05-2023 CNOV Office Visit (PLASMN ) ----- ANTONELLARM ([id number]) 1970 M Date Time Provider Department 09/05/23 [...] Time: 3:07 PM Referring Provider: STACEY MOROCHO [[id number]] Allergies As of Date: 09/05/2023 (Not on File) Date Reviewed: 09/05/2023 Reviewed by: Sylvie Garrett MA - Fully Assessed Reason for Visit: Consult [173] Primary Visit Diagnosis:Difficulty breathing [R06.89] Other Visit Diagnoses:H/O closed fracture of nasal bones [Z87.81] Facial injury, subsequent encounter [S09.93XD] Order(s):SURGICAL REQUEST - ELECTIVE (03/2020) [8191028] Order #: [id number]: 1 Prescriptions as of 09/08/2023 - tobramycin [...] Encounter Status:Closed by CHRISTOPHER MCGREGOR on 09/08/23 [facility] Griselda 07-20-2023 BON Telephone (DPQ) ----- RM BERMAN ([id number]) 1970 M Date Time Provider Department 07/20/23 [...] Encounter Status:Closed by NIKKI IRBY on 07/20/23 [facility] 07-18-2023 [facility] Telephone (DPQ) ----- RM BERMAN ([id number]) 1970 M Date Time Provider Department 07/18/23 [...] Encounter Status:Closed by NIKKI IRBY on 02/27/24 [facility] 06-16-2023 [facility] Telephone (DPQ) ----- RM BERMAN ([id number]) 1970 M Date Time Provider Department 06/16/23 [...] Encounter Status:Closed by NIKKI IRBY on 02/27/24 [facility] 06-02-2023 CNPN Telephone (DPQ) ----- RM BERMAN ([id number]) 1970 M Date Time Provider Department 06/02/23 [...] Status:Closed by NIKKI IRBY on 06/02/23 [facility] CT FACIAL BONE/ISIDRA WO IVCON on 2023 [facility] Follow Up (Plastic Surgery)o n 11-28-2022 Follow [...] Medications *Vitals Vital Signs Recorded: 28Nov2022 01:59PM Cwajwkmzbaq38.8 F Heart Rate59 Djlprhlo986 Imuggdpbg12 Height5 ft 8.5 in Xvisxe588 lb BMI Tquflijvym20.22 kg/m2 BSA Calculated1.94 Tobacco Useb) No Physical [...] Nov 28 2022 4:10PM EST (Author) [facility] Ophthalmic Eye Examon 2022 Ophthalmic Eye Exam DOCUMENT REVIEWED BY : Jami Pate MD DOCUMENT SIGNED ELECTRONICALLY BY Jami Pate MD ON 10/04/2022 05:03:[address] [address] THIS DOCUMENT WAS CREATED ON: 10/04/2022 05:03:25 PM BY: MD Lulu Andres COT performed Refraction SHREYA Stephenson performed XNRSO-Exnr-oz Exam Date: Tuesday, October 04, 2022 PATIENT [...] 14 DATE-TIME: 10/04/2022 3:07:23 PM 10/04/2022 3:07:23 COLLISION REPAIRER: Lisa Dolan1 CONFRONTATION VF Full to count [...] CUP TO DISC: .3 .3 OPTIC DISC: [place] and sharp [place] and [place] VITREOUS: Clear Clear MACULA: Normal [...] nasal graft, cribiform defect ORIF on 06/08/22 ([facility] Plastic surgery) -CT head (06/02/22) - Extensive [...] PM *Vitals Vital Signs Recorded: 05Sep2022 11:28AM Zpvasnrdpyl34.3 F, Temporal Heart Rate73 Tuzneceq478 Egizqfoiq10 Height5 ft 8.5 in Rslcsy321 lb BMI Qnqxwrajli13.07 kg/m2 BSA Calculated1.94 Tobacco Useb) No PHQ-2 [...] Sep 05 2022 3:58PM EST (Author) Normal [employer] Tobacco Screening.on 023 Adult depression screening assessment No MG-Surgery- B ASOCS 2100 Work Phone: Fall risk assessment b) One or more fall s in the last year RM-Cyytedn-R [place] 2100 Work Phone: Tobacco use status CPHS b) No XQ-Njmdqoq-M [employer] 2100 Work Phone: CT IMAGE RECONSTRUCTION 3D V OLUME and MIPon 07-25-2022 CT IMAGE RECONSTRUCTION 3D VOLUME and MIP Patient Name: RM BERMAN STUDY: CT FACIAL BONES; CT HEAD WO CONTRAST; CT CORONAL/SAGITTAL/OBLIQUE RECON; 07/25/2022 7:57 am; 07/25/2022 7:55 am INDICATION: post op fracial fracture repair with plating S02.92XA: Facial fracture due to fall W19.XXXA:. COMPARISON: June 09. ACCESSION NUMBER(S): [id number]; [id number]; [id number] ORDERING CLINICIAN: EVELINE DAI TECHNIQUE: Noncontrast enhanced [...] fluid * THIS EXAMINATION WAS INTERPRETED [place] [facility] Electronically signed by: CHRISTEL DE LOS SANTOS MD [facility] Follow Up (Plastic Surgery)o n 07-25-2022 Follow Up (Plastic Surgery) *Diagnoses/Problems Facial fracture due to fall (802.8,E888.9) (S02.92XA,W19.XXXA) *Orders Dentistry Referral Evaluation and Treatment Evaluate AND Treat Bite is malaligned after facial fracture due to fall. Status: Hold For - Scheduling,Retrospective By Protocol Authorization Requested for: [id number] Ordered;For: Facial fracture due to fall; Ordered By: Michael Vanegas Performed: Due: 23Oct2022; Last Updated By: Kalyani Mcguire; 07/25/2022 11:25:13 AM Ophthalmology - General Referral Evaluation and Treatment Evaluate AND Treat Visual blurriness, right eye swollen post facial fractuers from fall. Status: Hold For - Scheduling,Retrospective By Protocol Authorization Requested for: [id number] Ordered;For: Facial fracture due to fall; Ordered [...] to be evaluated and examined by an network internship to examine his retina and eyesight. He [...] 500 MG TABS *Vitals Vital Signs Recorded: 23Bhl8491 10:19AM Hdpoeixeaip80.1 F, Temporal Heart Rate70 Lqfmviul572 Zbqmsbtrf69 Height5 ft 8.5 in Rzzbfd471 lb BMI Ukusueofeb69.27 kg/m2 BSA Calculated1.88 Tobacco Useb) No PHQ-2 [...] fall W19.XXXA:. COMPARISON: June 09. ACCESSION NUMBER(S): [id number]; [id number]; [id number] ORDERING CLINICIAN: EVELINE DAI TECHNIQUE: Noncontrast enhanced [...] fluid * THIS EXAMINATION WAS INTERPRETED AT [facility] Electronically signed by: CHRISTEL DE LOS SANTOS MD Normal [facility] NR CT HEAD WO CONTRASTon NR CT HEAD WO CONTRAST Patient Name: RM BERMAN STUDY: CT FACIAL BONES; CT HEAD WO CONTRAST; CT CORONAL/SAGITTAL/OBLIQUE RECON; 07/25/2022 7:57 am; 07/25/2022 7:55 am INDICATION: post op fracial fracture repair with plating S02.92XA: Facial fracture due to fall W19.XXXA:. COMPARISON: June 09. ACCESSION NUMBER(S): [id number]; [id number]; [id number] ORDERING CLINICIAN: EVELINE DAI TECHNIQUE: Noncontrast enhanced [...] fluid * THIS EXAMINATION WAS INTERPRETED AT [facility] Electronically signed by: CHRISTEL DE LOS SANTOS MD [facility] Post Op (Plastic Surgery)on 07-04-2022 Post Op [...] Vital Signs Recorded: 04Jul2022 01:34PM Heart Rate84 Gezewwnx011 Jthavfpmg20 Height5 ft 8.5 in Icrwdl893 lb BMI Khaszodvfr69.23 kg/m2 BSA Calculated1.84 Physical Exam The patient [...] Jul 04 2022 2:34PM EST (Author) [facility] Daily Progress Note-Plastic Surgeryon 06-15-2022 Daily Progress [...] night. Objective Data: Objective Information: T PRBPMAPSpO2 Value36.7183071/6896% Date/Time06/15 4: 4: 4: 4: 4:38 Range(35.9C - 36.6C ) (76 - 91 ) (18 - 18 ) (98 - 110 )/ (68 - 76 ) (96% - 99% ) Pain reported at 06/15 6:00: 4 = Moderate ---- Intake and Output ----- Mn/Dy/Year TimeIntakeOutputNet Jun 15, 2022 6:00 [id number] Jun 14, 2022 10:00 [id number] Jun 14, 2022 2:00 [id number] The Intake and Output Totals for the last 24 hours are: [facility] [id number] Physical Exam by System: Constitutional: A&O x3, [...] otherwise healthy male who initially presented to [facility] on 06/01/22 as a transfer from [facility] in [place], [place] for trauma evaluation s/p falling 14ft [...] for mon (more content not included)... Normal [facility] Daily Progress Note-Trauma S urgayeshaon 06-15-2022 Daily Progress Note-Trauma Surgery Service: Trauma Surgery Subjective Data: Additional Information: 52 yo male with complex facial fractures transferred from [place] s/p repair by NSGY and plastics. Doing well. Tolerating PO. Packing was removed yesterday. Drain removed 2 days ago. Care discussed at the bedside with his . On exam, NAD. Facial incisions and scalp incisions are healing well and without erythema or drainage. Nasal packing is not present. Plan for diet, Lovenox and OK for discharge today. Objective Data: Objective Information: T PRBPMAPSpO2 Value36.601413990/7699% Date/Time06/15 12: 12: 12: 12: 12:45 Range(35.9C - 36.8C ) (76 - 117 ) (18 - 18 ) (98 - 110 )/ (68 - 77 ) (96% - 99% ) Pain reported at 06/15 11:34: 3 = Mild ---- Intake and Output ----- Mn/Dy/Year TimeIntakeOutputNet Jun 15, 2022 6:00 [id number] Jun 14, 2022 10:00 [id number] Jun 14, 2022 2:00 [id number] The Intake and Output Totals for the last 24 hours are: IntakeOutputNet [id number] Assessment and Plan: Code Status: Code StatusFull Code Electronic Signatures: Nitesh Yousif) (Signed 15-Jun-2022 13:41) Authored: Service, Subjective Data, Objective Data, Assessment and Plan, Note Completion Last Updated: 15-Jun-2022 13:41 by Nitesh Yousif) Normal [facility] GLUCOSE-POCTon 06-15-2022 Glucose [Mass/Vol] 98 mg/dL Normal 74 - 99 [facility] Comment on above: Performed By: #### R ENAL #### [facility] [address] [place] [address] Glucose [Mass/Vol] 139 mg/dL High 74 - 99 [facility] Comment on above: Performed By: #### R ENAL #### [facility] [address] [place] [address] Laboratory - Chemistry and C hemistry - challengeon 06-15-2022 Glucose [Mass/Vol] 98 mg/dL 74 - 99 MG-Tomasa stic Surgery-[facility] 2100 Work Phone: Glucose [Mass/Vol] 139 mg/dL above high threshold 74 - 99 MG-Plastic Surgery-[facility] 2100 Work Phone: Order Reconciliationon 06-15 Order Reconciliation Page 1 Discharge Reconciliation Document Reconciliation Type: Discharge requested on behalf of Surekha Dee (Advanced Practice Nurse) done by Surekha Dee (GAS ADJUSTER-OCCUPATIONAL THERAPY INSTRUCTOR) Discharge - Reconciliation: 15-Jun-2022 12:09 by: Surekha Dee (GAS ADJUSTER-OCCUPATIONAL THERAPY INSTRUCTOR) Current OrdersDateHOME MEDICATIONS AT DISCHARGE DateReconciliation Comment/ [...] times a day -.Meds to Beds Normal [facility] Order Reconciliation Page 1 Admission Reconciliation Document Reconciliation Type: Admission requested on behalf of Surekha Dee (Advanced Practice Nurse) done by Surekha Dee (GAS ADJUSTER-OCCUPATIONAL THERAPY INSTRUCTOR) Admission - Reconciliation: 15-Jun-2022 12:01 by: Surekha Dee (GAS ADJUSTER-OCCUPATIONAL THERAPY INSTRUCTOR) No Current Medications. Additional Current Orders Acetaminophen [...] tablet(s) Oral 2 Times a Day Normal [facility] Daily Progress Note-Plastic Surgeryon 06-14-2022 Daily Progress [...] night. Objective Data: Objective Information: T PRBPMAPSpO2 Value36.87890786/6996% Date/Time06/14 7: 7: 7: 7: 7:37 Range(35.8C - 36.6C ) (76 - 102 ) (16 - 19 ) (100 - 129 )/ (69 - 83 ) (95% - 99% ) Pain reported at 06/14 6:00: 5 = Moderate ---- Intake and Output ----- Mn/Dy/Year TimeIntakeOutputNet Jun 14, 2022 6:00 [id number] Jun 13, 2022 2:00 [id number] The Intake and Output Totals for the last 24 hours are: IntakeOutputNet [id number] Physical Exam by System: Constitutional: A&O x3, [...] otherwise healthy male who initially presented to [facility] on 06/01/22 as a transfer from [facility] in [place], [place] for trauma evaluation s/p falling 14ft [...] lines daily, otherwise MARGARITA - BROOKE drain removed from L scalp (more content not included)... Normal [facility] Daily Progress Note-Trauma Wilbert ricks 06-14-2022 Daily [...] SOB. Objective Data: Objective Information: T PRBPMAPSpO2 Value36.97005854/6996% Date/Time06/14 7: 7: 7: 7: 7:37 Range(35.8C - 36.6C ) (76 - 102 ) (16 - 19 ) (100 - 129 )/ (69 - 83 ) (95% - 99% ) Pain reported at 06/14 6:00: 5 = Moderate ---- Intake and Output ----- Mn/Dy/Year TimeIntakeOutputNet Jun 14, 2022 6:00 [id number] Jun 13, 2022 2:00 [id number] The Intake and Output Totals for the last 24 hours are: IntakeOutputNet [id number] Physical Exam by System: Constitutional: NAD, awake, [...] Patient discussed with attending Dr. Nica Mchugh, GAS ADJUSTER-OCCUPATIONAL THERAPY INSTRUCTOR Trauma Surgery [address] I spent 20 minutes with patient today obtaining subjective information, reviewing vitals/ labs/ radiology reports, performing physical exam. Greater than 50% (more content not included)... Normal [facility] GLUCOSE-POCTon 06-14-2022 Glucose [Mass/Vol] 136 mg/dL High 74 - 99 [facility] Comment on above: Performed By: #### G CARLIN #### [facility] [address] [place] [address] Glucose [Mass/Vol] 99 mg/dL Normal 74 - 99 [facility] Comment on above: Performed By: #### R ENAL #### [facility] [address] [place] [address] Glucose [Mass/Vol] 101 mg/dL High 74 - 99 [facility] Comment on above: Performed By: #### G CARLIN #### [facility] [address] [place] [address] Glucose [Mass/Vol] 110 mg/dL High 74 - 99 [facility] Comment on above: Performed By: #### R ENAL #### [facility] [address] [place] [address] Laboratory - Chemistry and C hemistry - challengeon 06-14-2022 Glucose [Mass/Vol] 136 mg/dL above high threshold 74 - 99 MG-Plastic Surgery-[facility] 2099 Work Phone: Glucose [Mass/Vol] 99 mg/dL 74 - 99 MG-Tomasa stic Surgery-[place] [address] Work Phone: Glucose [Mass/Vol] 101 mg/dL above high threshold 74 - 99 MG-Plastic Surgery-[place] [address] Work Phone: Glucose [Mass/Vol] 110 mg/dL above high threshold 74 - 99 MG-Plastic Surgery-[facility] 2100 Work Phone: Clinical Event Note-Neurosur shauna Updateon 06-13-2022 Clinical Event Note-Neurosurgery Update Clinical Event: Clinical Event Note: TopicNeurosurgery Update Details Agree with prophylactic CTX for five days in setting of traumatic durotomy. Electronic Signatures: Radha Prieto ( (Resident)) (Signed 13-Jun-2022 07:45) Authored: Clinical Event Note Last Updated: 13-Jun-2022 07:45 by Radha Prieto ( (Resident)) Normal [facility] Daily Progress Note-Plastic Surgeryon 06-13-2022 Daily Progress [...] complication. Objective Data: Objective Information: T PRBPMAPSpO2 Value36.52887746/8399% Date/Time06/13 8: 8: 8: 8: 8:08 Range(36.2C [...] otherwise healthy male who initially presented to [facility] on 06/01/22 as a transfer from [facility] in [place], [place] for trauma evaluation s/p falling 14ft [...] - Mainta (more content not included)... Normal [facility] Daily Progress Note-Trauma Wilbert ricks 06-13-2022 Daily [...] diet. Objective Data: Objective Information: T PRBPMAPSpO2 Value36.267321102/7795% Date/Time06/13 16: 16: 16: 16: 16:25 Range(36.2C - 37.1C ) (75 - 102 ) (16 - 19 ) (109 - 130 )/ (74 - 83 ) (95% - 100% ) Highest temp of 37.1 C was recorded at 06/12 12:00 Pain reported at 06/13 11:13: 7 = Severe ---- Intake and Output ----- Mn/Dy/Year TimeIntakeOutputNet Jun 13, 2022 2:00 [id number] Jun 13, 2022 6:00 [id number] The Intake and Output Totals for the last 24 hours are: IntakeOutputNet [id number] Physical Exam by System: Constitutional: Awake, alert, [...] -> Bacitracin to incision lines daily, otherwise SHANK SORTER -> Peridex mouth wash TID -> FLD [...] attending Dr. Nica Pedraza MD Trauma Surgery 94983 Attestation: Note Completion: I am a: Resident/Fellow [...] the following: I personally evaluated the patient [id number] Comments/ Additional Findings I saw and examined the patient with the resident/ARLYN team. I agree with the note with the additions/clarifications below. Late entry for 06/13/2022 52 yo male with complex facial fractures transferred from [place] s/p repair by NSGY and plastics. Doing [...] Updated: 15-Jun-2022 13:39 by Nitesh Yousif) Normal [facility] GLUCOSE-POCTon 06-13-2022 Glucose [Mass/Vol] 85 mg/dL Normal 74 - 99 [facility] Comment on above: Performed By: #### I ONC1 #### [facility] [address] [place] [address] Glucose [Mass/Vol] 118 mg/dL High 74 - 99 [facility] Comment on above: Performed By: #### R ENAL #### [facility] [address] [place] [address] Glucose [Mass/Vol] 96 mg/dL Normal 74 - 99 [facility] Comment on above: Performed By: #### R ENAL #### [facility] [address] [place] [address] Glucose [Mass/Vol] 88 mg/dL Normal 74 - 99 [facility] Comment on above: Performed By: #### I ONC1 #### [facility] [address] [place] [address] Laboratory - Chemistry and C hemistry - challengeon 06-13-2022 Glucose [Mass/Vol] 85 mg/dL 74 - 99 [facility] Surgery-[facility] 2100 Work Phone: [phone] Glucose [Mass/Vol] 118 mg/dL above high threshold 74 - 99 MG-Plastic Surgery-[place] [address] Work Phone: [phone] Glucose [Mass/Vol] 96 mg/dL 74 - 99 [facility] Surgery-[facility] 2100 Work Phone: Glucose [Mass/Vol] 88 mg/dL 74 - 99 [facility] Surgery-[facility] 2100 Work Phone: [phone] Rehab Note-physical therapis ton 06-13-2022 Rehab Note-physical therapist Rehab: Info: Disciplinephysical therapist Mode of Treatmentphysical therapy; individual therapy Time IN13:40 Time OUT14:06 Total Treatment Taqzrtz76 Patient in ... at end of sessionbed, [...] Mobility/Tone: Bed Mobility Assessment/Interventionss upine to sit Hgpvgn-fd-Tik [place] (Bed Mobility)standby assist Assistive Device (Bed Mobility)bed rails; HOB elevated Transfer Assessment/Interventionss it to stand transfer; stand to sit transfer Sit-Stand [place] (Transfers)standby assist; verbal cues Stand-Sit [place] (Transfers)standby assist; verbal cues Gait/Stairs Locomotiongait/ambulation independence; distance ambulated; gait deviations Gait Locomotion (Gait)standby assist Distance in Feet (Gait Training)50' Gait Deviations Identified (Gait)decreased edgar Impairments Impacting Function (Mobility)pain; endurance/activity tolerance Motor: Sitting, Static (Balance)good balance Sitting, Dynamic (Balance)good balance Awv-bt-Lwjzf (Balance)good balance Standing, Static (Balance)good balance Standing, [...] Score18 Short Term Goals: Bed Mobility: Date Bcctmpfqwec58-Yxw-0834 Bed Mobility: [place] Level Goalindependent Bed Mobility: Time Frame for Goal2 wks Transfer: Established Transfer: Transfer Type Fpjkxeu-vb-ykjel/chair-to -bed; rxf-gg-ccckb/iwvrq-zu-iiu Transfer: [place] Level Goalindependent Transfer: Time Frame for Goal2 wks Gait: Established Gait: [place] Level Goalindependent Gait: Distance Fwalt427 ft Gait: Time Frame for Goal2 wks Balance: Established Balance: Goal DetailsFunctional balance assessment >/= 20/30 Balance: Time Frame for Goal2 wks Strength: Established Strength Train: Goal5x sit <> fisher sponge hooking <12 sec Strength Train: Time Frame for [...] by W (more content not included)... Normal [facility] Daily Progress Note-Plastic Surgeryon 06-12-2022 Daily Progress [...] night. Objective Data: Objective Information: T PRBPMAPSpO2 Value36.29317257/4662114% Date/Time06/12 8: 8: 8: 8: 21: 8:00 Range(36C - 36.7C ) (67 - 92 ) (16 - 18 ) (112 - 125 )/ (72 - 87 ) (93 - 93 ) (96% - 100% ) Pain reported at 06/12 9:29: 7 = Severe ---- Intake and Output ----- Mn/Dy/Year [facility]Int[facility]Out[facility] Jun 12, 2022 6:00 am000 Jun 11, 2022 10:00 [id number] Jun 11, 2022 2:00 [id number] The Intake and Output Totals for the last 24 hours are: IntakeOutsocorro [facility] hospitalNet [id number] Physical Exam by System: Constitutional: A&O x3, [...] otherwise healthy male who initially presented to [facility] on 06/01/22 as a transfer from [facility] in [place], [place] for trauma evaluation s/p falling 14ft from a ladder while a (more content not included)... Normal [facility] Daily Progress Note-Trauma S brandonon 06-12-2022 Daily [...] tolerable. Objective Data: Objective Information: T PRBPMAPSpO2 Value36.18213972/679166% Date/Time06/12 16: 16: 16: 16: 21:12116 16:06 [...] reviewed these laboratory results: Glucose_POCT Trending View Tdxmjv04-Xiy-0929 12:12:00 12-Jun-2022 06:09:00 12-Jun-2022 03:33:00 Glucose-POCT83 90 76 Assessment and Plan: Comorbidities: ComorbidityOther Code Status: Code StatusFull Code Assessment: 52 YOM s/p fall with ladder 05/28. TR from [facility] in [place] List of clinically significant injuries/problems - pneumocephalus [...] Dr. Tamir Mata MD Trauma Surgery, Phone [phone] Attestation: Note Completion: I am a: Resident/Fellow Attending AttestationI reviewed the resident/fellows documentation and discussed the patient with the resident/fellow. I agree with the resident/fellows medical decision making as documented in the note. Comments/ Additional Findings parish (more content not included)... Normal [facility] GLUCOSE-POCTon 06-12-2022 Glucose [Mass/Vol] 147 mg/dL High 74 - 99 [facility] Comment on above: Performed By: #### R ENAL #### [facility] [address] [place] [address] Glucose [Mass/Vol] 83 mg/dL Normal 74 - 99 [facility] Comment on above: Performed By: #### R ENAL #### [facility] [address] [place] [address] Glucose [Mass/Vol] 90 mg/dL Normal 74 - 99 [facility] Comment on above: Performed By: #### G CARLIN #### [facility] [address] [place] [address] Glucose [Mass/Vol] 76 mg/dL Normal 74 - 99 [facility] Comment on above: Performed By: #### G CARLIN #### [facility] [address] [place] [address] Laboratory - Chemistry and C hemistry - challengeon 06-12-2022 Glucose [Mass/Vol] 147 mg/dL above high threshold 74 - 99 MG-Plastic Surgery-[facility] 2100 Work Phone: [phone] Glucose [Mass/Vol] 83 mg/dL 74 - 99 [facility] Surgery-[facility] 2099 Work Phone: Glucose [Mass/Vol] 90 mg/dL 74 - 99 [facility] Surgery-[facility] 2099 Work Phone: [phone] Glucose [Mass/Vol] 76 mg/dL 74 - 99 [facility] Surgery-[facility] 2099 Work Phone: Daily Progress Note-Plastic Surgeryon [...] night. Objective Data: Objective Information: T PRBPMAPSpO2 Value36.08095845/037624% Date/Time06/11 7: 7: 7: 7: 9: 7:24 [...] ----- Mn/Dy/Year TimeIntakeOutputNet Jun 11, 2022 6:00 [id number] Jun 10, 2022 10:00 [id number] Jun 10, 2022 2:00 [id number] The Intake and Output Totals for the last 24 hours are: IntakeOutsocorro general hospitalNet 105.290.5046 Physical Exam by System: Constitutional: A&O x3, [...] otherwise healthy male who initially presented to [facility] on 06/01/22 as a transfer from [facility] in [place], [place] for trauma evaluation s/p falling 14ft from a ladder while at work on (more content not included)... Normal [facility] Daily Progress Note-Trauma Wilbert ricks 06-11-2022 Daily [...] jello. Objective Data: Objective Information: T PRBPMAPSpO2 [id number]/452968% Date/Time06/11 15: 15: 15: 15: 9: 15:45 [...] reviewed these laboratory results: Glucose_POCT Trending View [id number] 17:43:00 11-Jun-2022 11:19:00 11-Jun-2022 06:22:00 11-Jun-2022 00:53:00 Glucose-POCT78 93 86 106 H Assessment and Plan: Comorbidities: ComorbidityOther Code Status: Code StatusFull Code Assessment: 52 YOM s/p fall with ladder 05/28. TR from [employer] in [place] List of clinically significant injuries/problems - pneumocephalus [...] Dr. Tamir Mata MD Trauma Surgery, Phone [phone] Attestation: Note Completion: I am a: Resident/Fellow Attending AttestationI saw and evaluated the patient. I personally obtained the delvalle and critical portions of the history and physical exam or was physically present for delvalle and critical portions performed by the resident/fellow. I reviewed the resident/fellows documentation and discussed the patient with the resident/fellow. I agree with t (more content not included)... Normal [facility] GLUCOSE-POCTon 06-11-2022 Glucose [Mass/Vol] 78 mg/dL Normal 74 - 99 [facility] Comment on above: Performed By: #### G CARLIN #### [facility] [address] [place] [address] Glucose [Mass/Vol] 93 mg/dL Normal 74 - 99 [facility] Comment on above: Performed By: #### G CARLIN #### [facility] [address] [place] [address] Glucose [Mass/Vol] 86 mg/dL Normal 74 - 99 [facility] Comment on above: Performed By: #### G CARLIN #### [facility] [address] [place] [address] Glucose [Mass/Vol] 106 mg/dL High 74 - 99 [facility] Comment on above: Performed By: #### G CARLIN #### [facility] [address] [place] [address] Laboratory - Chemistry and C hemistry - challengeon 06-11-2022 Glucose [Mass/Vol] 78 mg/dL 74 - 99 MG-Tomasa stic Surgery-[facility] 2099 Work Phone: [phone] Glucose [Mass/Vol] 93 mg/dL 74 - 99 [facility] Surgery-[facility] 2099 Work Phone: Glucose [Mass/Vol] 86 mg/dL 74 - 99 MG-Tomasa stic Surgery-[facility] 2099 Work Phone: Glucose [Mass/Vol] 106 mg/dL above high threshold 74 - 99 MG-Plastic Surgery-[facility] 2099 Work Phone: [phone] CBCon 06-10-2022 Erythrocyte distribution width (RBC) [Ratio] 11.8 % Normal 11.5 - 14.5 [facility] Comment on above: Performed By: #### I ONC1 #### [facility] [address] [place] [address] Hematocrit (Bld) [Volume fraction] 33.8 % Low 41.0 - 52.0 [facility] Comment on above: Performed By: #### I ONC1 #### [facility] [address] [place] [address] Hemoglobin (Bld) [Mass/Vol] 11.9 g/dL Low 13.5 - 17.5 [facility] Comment on above: Performed By: #### I ONC1 #### [facility] [address] [place] [address] MCHC (RBC) [Mass/Vol] 35.2 g/dL Normal 32.0 - 36.0 [facility] Comment on above: Performed By: #### I ONC1 #### [facility] [address] [place] [address] MCV (RBC) [Entitic vol] 94 fL Normal 80 - 100 [facility] Comment on above: Performed By: #### I ONC1 #### [facility] [address] [place] [address] NUCLEATED RBC 0.0 /100 WBC Normal 0.0-0.0 [facility], [place], [facility] Comment on above: Performed By: #### I ONC1 #### [facility] [address] [place] [address] Platelets (Bld) [#/Vol] 283 10*3/uL Normal 150 - 450 [facility] Comment on above: Performed By: #### I ONC1 #### [facility] [address] [place] [address] RBC 3.58 x10E12/L Low 4.50 - 5.90 [facility] Comment on above: Performed By: #### I ONC1 #### [facility] [address] [place] [address] WBC (Bld) [#/Vol] 13.2 10*3/uL High 4.4 - 11.3 [facility] Comment on above: Performed By: #### I ONC1 #### [facility] [address] [place] [address] Daily Progress Note-Plastic Surgeryon 06-10-2022 Daily Progress [...] removed. Objective Data: Objective Information: T PRBPMAPSpO2 Value36.44804738/481162% Date/Time06/10 8: 9: 9: 9: 9: 9:00 [...] ----- Mn/Dy/Year TimeIntakeOutputNet Jun 10, 2022 6:00 [id number] Jun 09, 2022 10:00 [id number] Jun 09, 2022 2:00 [id number] The Intake and Output Totals for the last 24 hours are: IntakeOutputNet [id number] Physical Exam by System: Constitutional: A&O x3, [...] breathing. Cardiovascular: Regular rhythm and rate per speedometer mechanic. Gastrointestinal: Nondistended, soft. Genitourinary: Voiding independently. Extremities: [...] L Phosphor (more content not included)... Normal [facility] Daily Progress Note-Trauma S rambo 06-10-2022 Daily [...] well. Objective Data: Objective Information: T PRBPMAPSpO2 Value36.06140462/178429% Date/Time06/10 10: 10: 10: 10: 9: 10:00 [...] ----- Mn/Dy/Year TimeIntakeOutputNet Jun 10, 2022 6:00 [id number] Jun 09, 2022 10:00 [id number] Jun 09, 2022 2:00 [id number] The Intake and Output Totals for the last 24 hours are: IntakeOutputNet [id number] Physical Exam by System: Constitutional: Well developed, [...] or pneumothora (more content not included)... Normal [facility] GLUCOSE-POCTon 06-10-2022 Glucose [Mass/Vol] 104 mg/dL High 74 - 99 [facility] Comment on above: Performed By: #### G CARLIN ####[id number] [place] [address] Glucose [Mass/Vol] 119 mg/dL High 74 - 99 [facility] Comment on above: Performed By: #### G CARLIN #### [facility] [address] [place] [address] Laboratory - Chemistry and C hemistry - [...] {x10E12/L} below low threshold See Below MG-Plastic Surgery-[facility] 2099 Work Phone: Comment on above: Reference Range: 4.5 0 - 5.90 WBC (Bld) [#/Vol] 13.2 10*3/uL above high threshold 4.4 - 11.3 MG-Plastic Surgery-[facility] 2099 Work Phone: MAGNESIUMon 06-10-2022 Magnesium [Mass/Vol] 2.00 mg/dL Normal 1.60 - 2.40 [facility] Comment on above: Performed By: #### G CARLIN #### [facility] [address] [place] [address] Magnesium, Serumon Magnesium [Mass/Vol] 2.00 mg/dL See Below MG-P lastic Surgery-[facility] 2099 Work Phone: Comment on above: Reference Range: 1.6 0 - 2.40 No Panel Informationon 06-10 0.0 {/100_WBC} 0.0-0.0 MG-Plastic Surgery-[facility] 2099 Work Phone: RENAL FUNCTION PANELon 06-10 Albumin [Mass/Vol] 3.2 g/dL Low 3.4 - 5.0 [facility] Comment on above: Performed By: #### G CARLIN #### [facility] [address] [place] [address] Anion gap [Moles/Vol] 14 mmol/L Normal 10 - 20 [facility] Comment on above: Performed By: #### G CARLIN #### [facility] [address] [place] [address] Calcium [Mass/Vol] 8.1 mg/dL Low 8.6 - 10.6 [facility] Comment on above: Performed By: #### G CARLIN #### [facility] [address] [place] [address] Chloride [Moles/Vol] 100 mmol/L Normal 98 - 107 [facility] Comment on above: Performed By: #### G CARLIN #### [facility] [address] [place] [address] Creatinine [Mass/Vol] 0.98 mg/dL Normal 0.50 - 1.30 [facility] Comment on above: Performed By: #### G CARLIN #### [facility] [address] [place] [address] eGFR MALE >90 Normal >90 [facility] Comment on above: Result Comment: CALC ULATIONS OF ESTIMATED GFR ARE PERFORMED USING THE 2020 CKD-EPI STUDY REFIT EQUATION WITHOUT THE RACE VARIABLE FOR THE IDMS-TRACEABLE CREATININE METHODS. https://jasn.asnjournals.org/content/early//ASN.8129489 988 Performed By: #### G CARLIN #### [facility] [address] [place] [address] Glucose [Mass/Vol] 106 mg/dL High 74 - 99 [facility] Comment on above: Performed By: #### G CARLIN #### [facility] [address] [place] [address] HCO3 (Bld) [Moles/Vol] 27 mmol/L Normal 21 - 32 [facility] Comment on above: Performed By: #### G CARLIN #### [facility] [address] [place] [address] Phosphate [Mass/Vol] 2.7 mg/dL Normal 2.5 - 4.9 [facility] Comment on above: Result Comment: The performance characteristics of phosphorus testing in heparinized plasma have been validated by the individual laboratory site where testing is performed. Testing on heparinized plasma is not approved by the FDA; however, such approval is not necessary. Performed By: #### G CARLIN #### [facility] [address] [place] [address] Potassium [Moles/Vol] 3.8 mmol/L Normal 3.5 - 5.3 [facility] Comment on above: Performed By: #### G CARLIN #### [facility] [address] [place] [address] Sodium [Moles/Vol] 137 mmol/L Normal 136 - 145 [facility] Comment on above: Performed By: #### G CARLIN #### [facility] [address] [place] [address] Urea nitrogen [Mass/Vol] 12 mg/dL Normal 6 - 23 [facility] Comment on above: Performed By: #### G CARLIN #### [facility] [address] [place] [address] Renal Function Panelon 06-10 Albumin BCP dye [Mass/Vol] 3.2 g/dL below low threshold 3.4 - 5.0 MG-Plastic [facility] 2100 Work Phone: Anion gap [Moles/Vol] 14 mmol/L 10 - 20 [facility] 2099 Work Phone: Calcium [Mass/Vol] 8.1 mg/dL below low threshold 8.6 - 10.6 MG-Plastic Surgery-[facility] 2099 Work Phone: Chloride [Moles/Vol] 100 mmol/L 98 - 107 MG-P lastic Surgery-[facility] 2099 Work Phone: CO2 [Moles/Vol] 27 mmol/L 21 - 32 MG-Plasti c Surgery-[facility] 2099 Work Phone: Creatinine [Mass/Vol] 0.98 mg/dL See Below [facility] 2099 Work Phone: Comment on above: Reference Range: 0.5 0 - 1.30 Glucose [Mass/Vol] 106 mg/dL above high threshold 74 - 99 MG-Plastic Surgery-[facility] 2099 Work Phone: Phosphate [Mass/Vol] 2.7 mg/dL 2.5 - 4.9 MG-P lastic Surgery-[facility] 2099 Work Phone: Comment on above: The performance pauline acteristics of phosphorus testing in heparinized plasma have been validated by the individual laboratory site where testing is performed. Testing on heparinized plasma is not approved by the FDA; however, such approval is not necessary. Potassium [Moles/Vol] 3.8 mmol/L 3.5 - 5.3 MG-Plastic Surgery-[facility] 2099 Work Phone: Sodium [Moles/Vol] 137 mmol/L 136 - 145 MG-Tomasa stic Surgery-[facility] 2099 Work Phone: Urea nitrogen [Mass/Vol] 12 mg/dL 6 - 23 MG-Plastic Surgery-[facility] 2099 Work Phone: [phone] Renal Function Panel >90 >90 MG-P lastic Surgery-[facility] 2099 Work Phone: Comment on above: CALCULATIONS OF CHELE MATED GFR ARE PERFORMED USING THE 2020 CKD-EPI STUDY REFIT EQUATION WITHOUT THE RACE VARIABLE FOR THE IDMS-TRACEABLE CREATININE METHODS.https://jasn.asnjournals.org/content/early/ASN .8882318518 TRIGLYCERIDESon 06-10-2022 Triglyceride [Mass/Vol] 124 mg/dL Normal 0 - 149 [facility] Comment on above: Result Comment: . AGE [...] dosing. Performed By: #### I ONC1 #### [facility] [address] [place] [address] Triglycerides, Serumon 06-10 Triglyceride [Mass/Vol] 124 mg/dL 0 - 149 MG-Plastic Surgery-[facility] 2099 Work Phone: Comment on above: . [...] CALCIUM,IONIZED 1.08 mmol/L Low 1.10 - 1.33 [facility], [place], [facility] Comment on above: Result Comment: The performance characteristics of ionized calcium tested in heparinized plasma or serum have been validated by the individual laboratory site where testing is performed. Testing on heparinized plasma or serum is not approved by the FDA; however, such approval is not necessary. Performed By: #### G CARLIN #### [facility] [address] [place] [address] CBCon 06-09-2022 Erythrocyte distribution width (RBC) [Ratio] 11.8 % Normal 11.5 - 14.5 [facility] Comment on above: Performed By: #### C BC ####[id number] [place] [address] Hematocrit (Bld) [Volume fraction] 40.8 % Low 41.0 - 52.0 [facility] Comment on above: Performed By: #### C BC ####[id number] [place] [address] Hemoglobin (Bld) [Mass/Vol] 14.5 g/dL Normal 13.5 - 17.5 [facility] Comment on above: Performed By: #### C BC ####[id number] [place] [address] MCHC (RBC) [Mass/Vol] 35.5 g/dL Normal 32.0 - 36.0 [facility] Comment on above: Performed By: #### C BC ####[id number] [place] [address] MCV (RBC) [Entitic vol] 94 fL Normal 80 - 100 [facility] Comment on above: Performed By: #### C BC ####[id number] [place] [address] NUCLEATED RBC 0.0 /100 WBC Normal 0.0-0.0 [facility] [place], [facility] Comment on above: Performed By: #### C BC ####[id number] [place] [address] Platelets (Bld) [#/Vol] 359 10*3/uL Normal 150 - 450 [facility] Comment on above: Performed By: #### C BC ####[id number] [place] [address] RBC 4.33 x10E12/L Low 4.50 - 5.90 [facility] Comment on above: Performed By: #### C BC ####[id number] [place] [address] WBC (Bld) [#/Vol] 16.1 10*3/uL High 4.4 - 11.3 [facility] Comment on above: Performed By: #### C BC ####[id number] [place] [address] Erythrocyte distribution width (RBC) [Ratio] 11.8 % Normal 11.5 - 14.5 [facility] Comment on above: Performed By: #### G CARLIN #### [facility] [address] [place] [address] Hematocrit (Bld) [Volume fraction] 40.9 % Low 41.0 - 52.0 [facility] Comment on above: Performed By: #### G CARLIN #### [facility] [address] [place] [address] Hemoglobin (Bld) [Mass/Vol] 14.9 g/dL Normal 13.5 - 17.5 [facility] Comment on above: Performed By: #### G CARLIN #### [facility] [address] [place] [address] MCHC (RBC) [Mass/Vol] 36.4 g/dL High 32.0 - 36.0 [facility] Comment on above: Performed By: #### G CARLIN #### [facility] [address] [place] [address] MCV (RBC) [Entitic vol] 95 fL Normal 80 - 100 [facility] Comment on above: Performed By: #### G CARLIN #### [facility] [address] [place] [address] NUCLEATED RBC 0.0 /100 WBC Normal 0.0-0.0 [facility] [place], [facility] Comment on above: Performed By: #### G CARLIN #### [facility] [address] [place] [address] Platelets (Bld) [#/Vol] 322 10*3/uL Normal 150 - 450 [facility] Comment on above: Performed By: #### G CARLIN #### [facility] [address] [place] [address] RBC 4.30 x10E12/L Low 4.50 - 5.90 [facility] Comment on above: Performed By: #### Jsoue CARLIN #### [facility] [address] [place] [address] WBC (Bld) [#/Vol] 16.9 10*3/uL High 4.4 - 11.3 [facility] Comment on above: Performed By: #### Josue CARLIN #### [facility] [address] [place] [address] COAGULATION SCREENon 022 aPTT Coag (Bld) [Time] 23 s Low 26 - 39 [facility] Comment on above: Result Comment: THE APTT IS NO LONGER USED FOR MONITORING UNFRACTIONATED HEPARIN THERAPY. FOR MONITORING HEPARIN THERAPY, USE THE HEPARIN ASSAY. Performed By: #### G CARLIN #### [facility] [address] [place] [address] PT Coag (PPP) [Time] 13.4 s Normal 9.8 - 13.4 [facility] Comment on above: Performed By: #### G CARLIN #### [facility] [address] [place] [address] PT, INR 1.2 High 0.9 - 1.1 [facility] Comment on above: Performed By: #### G CARLIN #### [facility] [address] [place] [address] CT Facial Boneson 06-09-2022 CT Facial bones Normal MG-Plasti c Surgery-[facility] 2099 Work Phone: CT Head without Contraston 1 08-09-2021 CT Head limited WO contrast Normal MG-Plastic Surgery-[facility] 2100 Work Phone: CT IMAGE RECONSTRUCTION 3D V OLUME and MIPon 06-09-2022 CT IMAGE RECONSTRUCTION 3D VOLUME and MIP Patient Name: RM BERMAN STUDY: CT FACIAL BONES; CT HEAD WO CONTRAST; CT CORONAL/SAGITTAL/OBLIQUE RECON; 06/09/2022 12:50 am INDICATION: s/p cranial face recon, Lie Flat: Yes ; s/p bifrontal crani, frontal sinus exenteration, Lie Flat: Yes . COMPARISON: CT head on 06/02/2022 ACCESSION NUMBER(S): [id number]; [id number]; [id number] ORDERING CLINICIAN: MIGUEL A ROBERT TECHNIQUE: Axial [...] reviewed the images/study and I agree with radiology assistant Dr. Yvette Clinton's findings as stated. This study was interpreted at [facility], [place], [place]. Electronically signed by: CHRISTEL DE LOS SANTOS MD Normal [facility] CT Image Reconstruction 3D V olume and MIPon 06-09-2022 CT Image Reconstruction 3D Volume and MIP [facility] 2100 Work Phone: Calcium, Ionized Levelon Calcium, Ionized Level 1.08 mmol/L below low threshold See Below [facility] 2100 Work Phone: Comment on above: Reference [...] sign off at this time. Please page [phone] with any questions or concerns. Electronic Signatures: Garth Franco (Resident)) (Signed 09-Jun-2022 16:19) Authored: Clinical Event Note Last Updated: 09-Jun-2022 16:19 by aGrth Franco (Resident)) Normal [facility] Clinical Event Note-plastic surgery post op checkon [...] to incision lines daily, otherwise MARGARITA - x1 BROOKE drain per plastics - Peridex mouthwash TID following meals and PRN - Keep xeroform nasal packing in place until POD5 - Plastics will follow Makenna Carver PA-C Plastic and Reconstructive Surgery Doc [facility], Pager #[phone], Team phones: [phone] Electronic Signatures: Makenna Carver (PAC) (Signed 08-Jun-2022 23:34) Authored: Clinical Event Note Last Updated: 08-Jun-2022 23:34 by Makenna Carver (PAC) Normal [facility] Daily Progress Note - Critic al Care-TSICUon [...] note;5. Objective Data: Objective Information T PRBPMAPSpO2 [id number]/170118% Date/Time06/09 12: 13: 13: 12: 12: 13:00 [...] ----- Mn/Dy/Year TimeIntakeOutputNet Jun 09, 2022 2:00 [id number] Jun 09, 2022 6:00 am831.6930-99 Jun 08, 2022 10:00 [id number] The Intake and Output Totals for the last 24 hours are: IntakeOutputNet [id number] Drain and tube details (included in I&O [...] s/p fall with ladder 05/28[facility] [place] List of clinically significant injuries/problems - pneumocephalus [...] - Bacitracin to incision lines daily, otherwise SHANK SORTER - BROOKE drain care to x1 drain [...] GI pp (more content not included)... Normal [facility] Daily Progress Note-Samy anand 06-09-2022 Daily Progress Note-Neurosurgery Service: Neurosurgery Subjective Data: RM BERMAN is a 52 year old Male who is Hospital Day # 9 and POD #1 for 1. Multiple nasal bone ORIFs;2. Calvarium bone harvest for nasal graft;3. Cribiform defect ORIF;4. Refer to neurosurg note;5. Objective Data: Objective Information: T PRBPMAPSpO2 Value36.724140475/6359094 % Date/Time06/09 8: 8: 8: 8: 8: [...] 2022 6:00 am831.6930-99 Jun 08, 2022 10:00 [id number] The Intake and Output Totals for the last 24 hours are: IntakeOutputNet [id number] Physical Exam by System: Neurological: Awake, Ox3 [...] extubated for exam Please page Neurosurgery pager [phone]] with any questions or concerns during the day. Progress note authored by [facility] resident. Arben[employer]alo messages will have delayed responses. [...] the note. I personally evaluated the patient [id number] Electronic Signatures: Miguel A Robert (Resident)) (Signed 09-Jun-2022 08:34) Authored: Service, Subjective Data, Objective Data, Assessment and Plan, Note Completion Barber Castañeda) (Signed 09-Jun-2022 15:27) Authored: Note Completion Co-Signer: Service, Subjective Data, Objective Data, Assessment and Plan, Note Completion Last Updated: 09-Jun-2022 15:27 by Barber Castañeda) Normal [facility] Daily Progress Note-Plastic Surgeryon 06-09-2022 Daily Progress [...] overnight. Objective Data: Objective Information: T PRBPMAPSpO2 Value36.921549320/9657550 % Date/Time06/09 8: 8: 8: 8: 8: [...] 2022 6:00 am831.6930-99 Jun 08, 2022 10:00 [id number] The Intake and Output Totals for the last 24 hours are: IntakeOutputNet [id number] Physical Exam by System: Constitutional: Awake, following [...] Cardiovascular: Regular rhythm, marginally tachycardic rate per speedometer mechanic. Gastrointestinal: Nondistended, soft. +orogastric tube. Genitourinary: Voiding [...] projecting ov (more content not included)... Normal [facility] Daily Progress Note-Trauma S rambo 06-09-2022 Daily Progress Note-Trauma Surgery Service: Trauma Surgery Subjective Data: RM BERMAN is a 52 year old Male who is Hospital Day # 9 and POD #1 for 1. Multiple nasal bone ORIFs;2. Calvarium bone harvest for nasal graft;3. Cribiform defect ORIF;4. Refer to neurosurg note;5. Extubated this morning without issues. Objective Data: Objective Information: T PRBPMAPSpO2 Value36.086592342/145212% Date/Time06/09 8: 10: 10: 10: 10: 10:00 [...] 2022 6:00 am831.6930-99 Jun 08, 2022 10:00 [id number] The Intake and Output Totals for the last 24 hours are: IntakeOutputNet [id number] Physical Exam by System: Constitutional: Cooperative, conversational [...] Dr. Rojas (more content not included)... Normal [facility] Daily Progress Note-Trauma Surgery Service: Trauma Surgery [...] HDS. Objective Data: Objective Information: T PRBPMAPSpO2 Value36.44239297/375248% Date/Time06/08 21:0511 22: 22: 22:0012 22:001/ 22:00 [...] ----- Mn/Dy/Year TimeIntakeOutputNet Jun 08, 2022 10:00 [id number] The Intake and Output Totals for the last 24 hours are: IntakeOutputNet [id number] Physical Exam by System: Constitutional: Cooperative, conversational [...] s/p fall with ladder 05/28. Transfer from [facility] in [place]. List of clinically significant injuries/problems - Pneumocephalus [...] extubation in AM Dispo: tsu [place]a [place] [facility] Trauma Surgery [id number]/[place] Electronic Signatures: Joie Alvarado (PAC) (Signed 09-Jun-2022 06:04) Authored: Note Azalea Ornelas (GAS ADJUSTER-[facility]) (Signed 08-Jun-2022 23:00) Authored: Service, Subjective Data, Objective Data, Assessment and Plan Last Updated: 09-Jun-2022 06:04 by Joie Alvarado (PAC) Normal [facility] GLUCOSE-POCTon 06-09-2022 Glucose [Mass/Vol] 139 mg/dL High 74 - 99 [facility] Comment on above: Performed By: #### I ONC1 #### [facility] [address] [place] [address] Glucose [Mass/Vol] 127 mg/dL High 74 - 99 [facility] Comment on above: Performed By: #### I ONC1 #### [facility] [address] [place] [address] Glucose [Mass/Vol] 121 mg/dL High 74 - 99 [facility] Comment on above: Performed By: #### G CARLIN #### [facility] [address] [place] [address] Glucose [Mass/Vol] 131 mg/dL High 74 - 99 [facility] Comment on above: Performed By: #### G CARLIN #### [facility] [address] [place] [address] Laboratory - Chemistry and C hemistry - [...] 94 fL 80 - 100 [facility] 2099 Work Phone: Platelets (Bld) [#/Vol] 359 10*3/uL 150 - 450 MG-Plastic Surgery-[facility] 2099 Work Phone: RBC (Bld) [#/Vol] 4.33 {x10E12/L} below low threshold See Below MG-Plastic Surgery-[facility] 2099 Work Phone: Comment on above: Reference Range: 4.5 0 - 5.90 WBC (Bld) [#/Vol] 16.1 10*3/uL above high threshold 4.4 - 11.3 MG-Plastic Surgery-[facility] 2099 Work Phone: MAGNESIUMon 06-09-2022 Magnesium [Mass/Vol] 2.18 mg/dL Normal 1.60 - 2.40 [facility] Comment on above: Performed By: #### G CARLIN #### [facility] [address] [place] [address] Magnesium [Mass/Vol] 1.90 mg/dL Normal 1.60 - 2.40 [facility] Comment on above: Result Comment: MILD HEMOLYSIS [...] 06/08/2022 23:53) Performed By: #### M G ####[id number] [place] [address] Magnesium, Serumon Magnesium [Mass/Vol] 2.18 mg/dL See Below MG-P lastic Surgery-[facility] 2099 Work Phone: Comment on above: Reference [...] COMPARISON: CT head on 06/02/2022 ACCESSION NUMBER(S): [id number]; [id number]; [id number] ORDERING CLINICIAN: MIGUEL A ROBERT TECHNIQUE: Axial [...] reviewed the images/study and I agree with radiology assistant Dr. Yvette Clinton's findings as stated. This study was interpreted at [facility], [place], [place]. Electronically signed by: CHRISTEL DE LOS SANTOS MD Normal [facility] NR CT HEAD WO CONTRASTon NR CT HEAD WO CONTRAST Patient Name: RM BERMAN STUDY: CT FACIAL BONES; CT HEAD WO CONTRAST; CT CORONAL/SAGITTAL/OBLIQUE RECON; 06/09/2022 12:50 am INDICATION: s/p cranial face recon, Lie Flat: Yes ; s/p bifrontal crani, frontal sinus exenteration, Lie Flat: Yes . COMPARISON: CT head on 06/02/2022 ACCESSION NUMBER(S): [id number]; [id number]; [id number] ORDERING CLINICIAN: MIGUEL A ROBERT TECHNIQUE: Axial [...] reviewed the images/study and I agree with radiology assistant Dr. Yvette Clinton's findings as stated. This study was interpreted at [facility], [place], [place]. Electronically signed by: CHRISTEL DE LOS SANTOS MD Normal [facility] No Panel Informationon 06-09 0.0 {/100_WBC} 0.0-0.0 [facility] Surgery[facility] 2[facility] Work Phone: OT Evaluation v2-occupationa l therapy - co-treatment with PTon 06-09-2022 OT Evaluation v2-occupational therapy - co-treatment with PT Rehab: Info: Mode of Treatmentoccupational therapy; co-treatment with PT to maximize pt safety with mobility and optimize pt performance during session. Time IN11:32 Time OUT11:54 Total Treatment [id number] Patient in ... at end of sessionchair; alarm on Communicated with ... at end of sessionbedside nurse Patient Effortexcellent Symptoms Noted During/After Treatmentnone Patient Profile Reviewedyes Onset of Illness/Injury or Date of [id number] Reason for Referralfall from ladder with injuries [...] Treatment Patient Positionsupine Pre Treatment Blood Pressure [id number] mmHg Pre Treatment Diastolic (mm Hg)77 mmHg Pre Treatment Heart Rate (beats/min)101 Pre Treatment Respiratory Rate (breaths/min)19 Pre Treatment SpO2 (%)99 % Pre Treatment Oxygen Deliveryroom air Post Treatment Patient Positionsitting Post Treatment Blood Pressure [id number] Post Treatment Diastolic (mm Hg)78 mmHg Post [...] Mobility/Tone: Bed Mobility Assessment/Interventionss upine to sit Dqpibh-lc-Sjs [place] (Bed Mobility)standby assist; 1 person assist; verbal cues Comment, Bed MobilityHOB ~30 deg, cues for body positioning and sequencing of mobility Transfer Assessment/Interventionss it to stand transfer; stand to sit transfer; bed to chair transfer Bed-Chair [place] (Transfers)contact guard; 1 person assist Bed-Chair Assistive Device (Transfers)no AD Sit-Stand [place] (Transfers)contact guard; 1 person assist Sit-Stand Assistive Device (Transfers)no AD Stand-Sit [place] (Transfers)contact guard; 1 person assist Stand-Sit Assistive Device (Transfers)no AD ADL: BADL Assessment/Interventionba thing; upper body dressing; lower body dressing; grooming; toileting; feeding [place] Level (Bathing)contact guard; anticipated [place] Level (Upper Body Dressing)standby assist Comment (Upper Body Dressing)donning gown [place] Level (Lower Body Dressing)contact guard assist [place] Level (Grooming)independent [place] Level (Feeding)independent [place] Level (Toileting)anticipate; contact guard Impairments, BADL Safety/Performancebalance ; endurance/activity tolerance; pain Skilled BADL Treatment/InterventionBAD L process/adaptation training; compensatory training; energy conservation Motor: Sitting, Static (Balance)SBA Sitting, Dynamic (Balance)SBA Wpa-pm-Jelkj (Balance)CGA no AD Standing, Static (Balance)CGA no AD Standing, Dynamic (Balance)CGA no AD Sensory: Comment, Pre/Post Treatment PainDenied pain. Positioned for comfort end of session. Sensory General Assessmentno sensation deficits identifi (more content not included)... Normal [facility] PT Evaluation n0-ge-jbkvvbni t - Co-treat with OT to maximizeon 06-09-2022 PT Evaluation [id number]-lv-[id number] - Co-treat with OT to maximize Rehab: Info: Mode of Treatmentphysical therapy; co-treatment; Co-treat with OT to maximize pt safety and function Time IN11:32 Time OUT11:54 Total Treatment Grblexn58 Patient in ... at end of sessionchair; alarm on Communicated with ... at end of sessionbedside nurse Patient Effortexcellent Symptoms Noted During/After Treatmentnone Patient Profile Reviewedyes Onset of Illness/Injury or Date of [id number] Reason for Referralfall from ladder with injuries [...] Treatment Patient Positionsupine Pre Treatment Blood Pressure Sjtjxvit850 mmHg Pre Treatment Diastolic (mm Hg)77 mmHg Pre Treatment Heart Rate (beats/min)101 Pre Treatment Respiratory Rate (breaths/min)19 Pre Treatment SpO2 (%)99 % Pre Treatment Oxygen Deliveryroom air Post Treatment Patient Positionsitting Post Treatment Blood Pressure [id number] Post Treatment Diastolic (mm Hg)78 mmHg Post [...] Mobility/Tone: Bed Mobility Assessment/Interventionss upine to sit Eqhtof-ag-Vmz [place] (Bed Mobility)standby assist; 1 person assist; verbal cues Comment, Bed MobilityHOB ~30 deg, cues for body positioning and sequencing of mobility Transfer Assessment/Interventionss it to stand transfer; stand to sit transfer Sit-Stand [place] (Transfers)contact guard; 1 person assist Sit-Stand Assistive Device (Transfers)no AD Stand-Sit [place] (Transfers)contact guard; 1 person assist Stand-Sit Assistive Device (Transfers)no AD Gait/Stairs Locomotiongait/ambulation independence; distance ambulated; gait/ambulation assistive device Gait Locomotion (Gait)contact guard; 1 person assist Assistive Device (Gait Training)no AD Distance in Feet (Gait Training)x3 ft bed to chair Comment, Gait/Stairs Trainingappropriate balance with stepping Motor: Sitting, Static (Balance)SBA Sitting, Dynamic (Balance)SBA Nwo-li-Sgexa (Balance)CGA no AD Standing, Static (Balance)CGA no [...] but d (more content not included)... Normal [facility] RENAL FUNCTION PANELon 06-09 Albumin [Mass/Vol] 3.5 g/dL Normal 3.4 - 5.0 [facility] Comment on above: Performed By: #### G CARLIN #### [facility] [address] [place] [address] Anion gap [Moles/Vol] 16 mmol/L Normal 10 - 20 [facility] Comment on above: Performed By: #### G CARLIN #### [facility] [address] [place] [address] Calcium [Mass/Vol] 8.5 mg/dL Low 8.6 - 10.6 [facility] Comment on above: Performed By: #### G CARLIN #### [facility] [address] [place] [address] Chloride [Moles/Vol] 99 mmol/L Normal 98 - 107 [facility] Comment on above: Performed By: #### G CARLIN #### [facility] [address] [place] [address] Creatinine [Mass/Vol] 1.05 mg/dL Normal 0.50 - 1.30 [facility] Comment on above: Performed By: #### G CARLIN #### [facility] [address] [place] [address] GFR/1.73 sq M.predicted among non-blacks MDRD (S/P/Bld) [Vol rate/Area] 85 mL/min/{1.73_m2} Normal >90 [facility] Comment on above: Result Comment: CALC ULATIONS OF ESTIMATED GFR ARE PERFORMED USING THE 2020 CKD-EPI STUDY REFIT EQUATION WITHOUT THE RACE VARIABLE FOR THE IDMS-TRACEABLE CREATININE METHODS. https://jasn.asnjournals.org/content/early//ASN.2827552 988 Performed By: #### G CARLIN #### [facility] [address] [place] [address] Glucose [Mass/Vol] 110 mg/dL High 74 - 99 [facility] Comment on above: Performed By: #### G CARLIN #### [facility] [address] [place] [address] HCO3 (Bld) [Moles/Vol] 28 mmol/L Normal 21 - 32 [facility] Comment on above: Performed By: #### G CARLIN #### [facility] [address] [place] [address] Phosphate [Mass/Vol] 3.5 mg/dL Normal 2.5 - 4.9 [facility] Comment on above: Result Comment: The performance [...] considered. Performed By: #### G CARLIN #### [facility] [address] [place] [address] Potassium [Moles/Vol] 4.7 mmol/L Normal 3.5 - 5.3 [facility] Comment on above: Result Comment: MILD HEMOLYSIS DETECTED. The result may be falsely elevated due to hemolysis or other interferents. Clinical correlation is recommended. Repeat testing may be considered. Performed By: #### G CARLIN #### [facility] [address] [place] [address] Sodium [Moles/Vol] 138 mmol/L Normal 136 - 145 [facility] Comment on above: Performed By: #### G CARLIN #### [facility] [address] [place] [address] Urea nitrogen [Mass/Vol] 10 mg/dL Normal 6 - 23 [facility] Comment on above: Performed By: #### G CARLIN #### [facility] [address] [place] [address] Anion gap [Moles/Vol] 16 mmol/L Normal 10 - 20 [facility] Comment on above: Performed By: #### R ENAL ####[id number] [place] [address] Sodium [Moles/Vol] 131 mmol/L Low 136 - 145 [facility] Comment on above: Performed By: #### R ENAL ####[id number] [place] [address] Urea nitrogen [Mass/Vol] 9 mg/dL Normal 6 - 23 [facility] Comment on above: Performed By: #### R ENAL ####[id number] [place] [address] Albumin [Mass/Vol] 3.3 g/dL Low 3.4 - 5.0 [facility] Comment on above: Performed By: #### R ENAL ####[id number] [place] [address] Calcium [Mass/Vol] 8.4 mg/dL Low 8.6 - 10.6 [facility] Comment on above: Performed By: #### R ENAL ####[id number] [place] [address] Chloride [Moles/Vol] 93 mmol/L Low 98 - 107 [facility] Comment on above: Performed By: #### R ENAL ####[id number] [place] [address] Creatinine [Mass/Vol] 0.91 mg/dL Normal 0.50 - 1.30 [facility] Comment on above: Performed By: #### R ENAL ####[id number] [place] [address] eGFR MALE >90 Normal >90 [facility] Comment on above: Result Comment: CALC ULATIONS OF ESTIMATED GFR ARE PERFORMED USING THE 2020 CKD-EPI STUDY REFIT EQUATION WITHOUT THE RACE VARIABLE FOR THE IDMS-TRACEABLE CREATININE METHODS. https://jasn.asnjournals.org/content/early/ASN.2405466 988 Performed By: #### R ENAL ####[id number] [place] [address] Glucose [Mass/Vol] 109 mg/dL High 74 - 99 [facility] Comment on above: Performed By: #### R ENAL ####[id number] [place] [address] HCO3 (Bld) [Moles/Vol] 27 mmol/L Normal 21 - 32 [facility] Comment on above: Performed By: #### R ENAL ####[id number] [place] [address] Phosphate [Mass/Vol] 3.0 mg/dL Normal 2.5 - 4.9 [facility] Comment on above: Result Comment: The performance [...] be considered. Performed By: #### R ENAL ####[id number] [place] [address] Potassium [Moles/Vol] 5.1 mmol/L Normal 3.5 - 5.3 [facility] Comment on above: Result Comment: MILD HEMOLYSIS DETECTED. The result may be falsely elevated due to hemolysis or other interferents. Clinical correlation is recommended. Repeat testing may be considered. Performed By: #### R ENAL ####[id number] [place] [address] Radiologyon 06-09-2022 XR Chest Single view Normal [facility]-P lastic Surgery-[facility] 2099 Work Phone: Renal Function Panelon 06-09 Albumin BCP dye [Mass/Vol] 3.5 g/dL 3.4 - 5.0 MG-Plastic Surgery-[facility] 2099 Work Phone: Anion gap [Moles/Vol] 16 mmol/L 10 - 20 MG-Plastic Surgery-[facility] 2099 Work Phone: Calcium [Mass/Vol] 8.5 mg/dL below low threshold 8.6 - 10.6 MG-Plastic Surgery-[facility] 2099 Work Phone: Chloride [Moles/Vol] 99 mmol/L 98 - 107 MG-P lastic Surgery-[facility] 2099 Work Phone: CO2 [Moles/Vol] 28 mmol/L 21 - 32 MG-Plasti c Surgery-[facility] 2099 Work Phone: Creatinine [Mass/Vol] 1.05 mg/dL See Below MG-Plastic Surgery-[facility] 2099 Work Phone: Comment on above: Reference Range: 0.5 0 - 1.30 Glucose [Mass/Vol] 110 mg/dL above high threshold 74 - 99 [facility] Work Phone: Phosphate [Mass/Vol] 3.5 mg/dL 2.5 - 4.9 MG-P lastic Surgery-[facility] 2099 Work Phone: Comment on above: The [...] [Moles/Vol] 4.7 mmol/L 3.5 - 5.3 MG-Plastic Surgery-[facility] 2100 Work Phone: Comment on above: MILD HEMOLYSIS DETEC JANET. The result may be falsely elevated due tohemolysis or other interferents. Clinical correlation is recommended.Repeat testing may be considered. Sodium [Moles/Vol] 138 mmol/L 136 - 145 [facility] 2100 Work Phone: Urea nitrogen [Mass/Vol] 10 mg/dL 6 - 23 MG-[facility] 2100 Work Phone: Renal Function Panel 85 {mL/min/1.73m2} >90 MG-[facility] 2100 Work Phone: Comment on above: CALCULATIONS OF CHELE MATED GFR ARE PERFORMED USING THE 2020 CKD-EPI STUDY REFIT EQUATION WITHOUT THE RACE VARIABLE FOR THE IDMS-TRACEABLE CREATININE METHODS.https://jasn.asnjournals.org/content/early/ASN .0514526495 ABDOMEN AP VIEWon 022 ABDOMEN AP VIEW Patient Name: RM BERMAN STUDY: CHEST 1 VIEW; ABDOMEN AP VIEW; 06/08/2022 10:29 pm INDICATION: post op eval, ett eval ; eval og placement . COMPARISON: Chest radiograph 06/06/2022 ACCESSION NUMBER(S): [id number]; [id number] ORDERING CLINICIAN: DOM DON FINDINGS: AP radiograph [...] as stated. This study was interpreted at [place], [place]. Electronically signed by: SHE NGUYEN MD Normal [facility] TH CHEST 1 VIEWon 06-09-2022 TH CHEST 1 VIEW Patient Name: RM BERMAN STUDY: CHEST 1 VIEW; 06/09/2022 6:47 am INDICATION: eval ett, for effusions . COMPARISON: Radiograph dated 06/08/2022 ACCESSION NUMBER(S): [id number] ORDERING CLINICIAN: DOM DON FINDINGS: ET tube [...] Electronically signed by: SHE NGUYEN MD Normal [facility] TH CHEST 1 VIEW Patient Name: RM BERMAN STUDY: CHEST 1 VIEW; ABDOMEN AP VIEW; 06/08/2022 10:29 pm INDICATION: post op eval, ett eval ; eval og placement . COMPARISON: Chest radiograph 06/06/2022 ACCESSION NUMBER(S): [id number]; [id number] ORDERING CLINICIAN: DOM DON FINDINGS: AP radiograph [...] as stated. This study was interpreted at [facility], [place], [place]. Electronically signed by: SHE NGUYEN MD Normal [facility] CALCIUM, IONIZEDon 2 CALCIUM,IONIZED 0.91 mmol/L Low 1.10 - 1.33 [facility], [place], operated by [facility] Comment on above: Result Comment: The performance characteristics of ionized calcium tested in heparinized plasma or serum have been validated by the individual laboratory site where testing is performed. Testing on heparinized plasma or serum is not approved by the FDA; however, such approval is not necessary. Performed By: #### I ONC1 #### [facility] [address] 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 Divine Guzman APRN-FE, IRON PLASTIC BULLET MAKER Phone [phone] or [phone]/Doc Halo Electronic Signatures: Christiano Guzman (GAS ADJUSTER-OCCUPATIONAL THERAPY INSTRUCTOR) (Signed 08-Jun-2022 18:40) Authored: Clinical Event Note Last Updated: 08-Jun-2022 18:40 by Christiano Guzman (GAS ADJUSTER-OCCUPATIONAL THERAPY INSTRUCTOR) Normal [facility] Daily Progress Note - Critic al Care-TSICUon [...] note;5. Objective Data: Objective Information T PRBPMAPSpO2 [id number]/[id number] % Date/Time06/08 21::: 21: 21: 21:32 Range(35.9C [...] for the last 24 hours are: IntakeOutputNet [id number] Date: Weight/Scale Type: 08-Jun-2022 18:3790 kg Physical [...] with ladder 05/28. TR from [facility] in [place] List of clinically significant injuries/problems - pneumocephalus [...] the note. I personally evaluated the patient [id number] Electronic Signatures: Jonathan Fong (Resident)) (Signed 08-Jun-2022 21:55) Authored: Service, Subjective Data, Objective Data, Assessment and Plan, Note Completion Nitesh Yousif) (Signed 09-Jun-2022 11:06) Authored: Note Completion Co-Signer: Service, Subjective Data, Objective Data, Assessment and Plan, Note Completion Last Updated: 09-Jun-2022 11:06 by Nitesh Yousif) [facility] Daily Progress Note-Neuroslori kika 06-08-2022 Daily Progress Note-Neurosurgery Service: Neurosurgery Subjective Data: RM BERMAN is a 52 year old Male who is Hospital Day # 8. Objective Data: Objective Information: T PRBPMAPSpO2 Value36.94076100/7095% Date/Time06/08 0:0311/2 0:0311/2 0:0311/2 0:0311/2 0:03 Range(35.9C - 36.8C ) (72 - 109 ) (17 - 20 ) (100 - 118 )/ (70 - 78 ) (94% - 97% ) Pain reported at 06/07 22:47: 9 = Severe ---- Intake and Output ----- Mn/Dy/Year TimeIntakeOutputNet Jun 06, 2022 10:00 pm000 Jun 06, 2022 6:00 [id number] The Intake and Output Totals for the last 24 hours are: IntakeOutputNet [id number] Physical Exam by System: Neurological: Awake, Ox3 [...] the note. I personally evaluated the patient [id number] Electronic Signatures: Fito Ledezma (Resident)) (Signed 08-Jun-2022 01:19) Authored: Service, Subjective Data, Objective Data, Assessment and Plan, Note Completion Barber Castañeda) (Signed 09-Jun-2022 15:26) Authored: Assessment and Plan, Note Completion Co-Signer: Service, Subjective Data, Objective Data, Assessment and Plan, Note Completion Last Updated: 09-Jun-2022 15:26 by Barber Castañeda) Normal [facility] GLUCOSE-POCTon 06-08-2022 Glucose [Mass/Vol] 129 mg/dL High 74 - 99 [facility] Comment on above: Performed By: #### G CARLIN #### [facility] [address] [place] [address] Laboratory - Chemistry and C hemistry - challengeon 06-08-2022 Glucose [Mass/Vol] 129 mg/dL above high threshold 74 - 99 [facility] 2099 Work Phone: Laboratory - Coagulationon 1 [...] s 9.8 - 13.4 [facility] 2099 Work Phone: Laboratory - Hematology and Cell countson 06-08-2022 Erythrocyte distribution width (RBC) [Ratio] 11.8 % See Below [facility]astic [facility] 2099 Work Phone: Comment on above: Reference Range: 11. 5 - 14.5 Hematocrit (Bld) [Volume fraction] 40.9 % below low threshold See Below [facility] 2099 Work Phone: Comment on above: Reference Range: 41. 0 - 52.0 Hemoglobin (Bld) [Mass/Vol] 14.9 g/dL See Below [facility] 2099 Work Phone: Comment on above: Reference Range: 13. 5 - 17.5 MCHC (RBC) [Mass/Vol] 36.4 g/dL above high threshold See Below [facility] 2099 Work Phone: Comment on above: Reference Range: 32. 0 - 36.0 MCV (RBC) [Entitic vol] 95 fL 80 - 100 MG-Plastic Surgery-[facility] 2099 Work Phone: Platelets (Bld) [#/Vol] 322 10*3/uL 150 - 450 MG-Plastic Surgery-[facility] 2099 Work Phone: RBC (Bld) [#/Vol] 4.30 {x10E12/L} below low threshold See Below MG-Plastic Surgery-[facility] 2099 Work Phone: Comment on above: Reference Range: 4.5 0 - 5.90 WBC (Bld) [#/Vol] 16.9 10*3/uL above high threshold 4.4 - 11.3 MG-Plastic Surgery-[facility] 2099 Work Phone: Magnesium, Serumon Magnesium [Mass/Vol] 1.90 mg/dL See Below MG-P last Surgery-[facility] 2099 Work Phone: Comment on above: Reference [...] Panel Informationon 06-08 0.0 {/100_WBC} 0.0-0.0 [facility] 2099 Work Phone: [place] [place] [facility] [place] [facility] [place] [facility] [place] DIAGNOSIS: Frontal sinus fracture. POSTOPERATIVE DIAGNOSIS: Frontal sinus fracture. OPERATION/PROCEDURE: 1. Bifrontal approach for frontal sinus exenteration. 2. Duraplasty. SURGEON: Barber Castañeda MD. NUCLEAR WASTE MANAGEMENT ENGINEER(S): Miguel A Robert, ANESTHESIA: BRIEF HISTORY: This [...] Bovie electrocautery and reflected anteriorly using a [place] 1 retractor and Ray-Ed. The pericranial flap was reflected anteriorly and covered with a moist lap sponge. A cranial pulp plant supervisor was used to make a bur hole at the proximal location of the anterior sagittal sinus. The [place] drill was used to create 2 lateral incisions much more frontal. A B1 with a footplate was used to create a triangular shaped craniotomy. Additional bone was removed with B1 with a footplate. The dura was dissected off the anterior skull base. An [place] drill was used to exenterate the frontal [...] Barber Castañeda MD EST EST DICTATION NUMBER: [id number] INTERNAL JOB NUMBER: [id number] CC: MD Barber Montoya MD, ELSIE CROFT Electronic Signatures: Barber Castañeda () (Signed on 09-Jun-2022 14:58) Authored Unsigned, Draft (SYS GENERATED) (Entered on 08-Jun-2022 13:14) Entered Last Updated: 09-Jun-2022 14:58 by Barber Castañeda) [facility] Operative Reports - [facility] [place]AGNOSIS: 1. Complex craniomaxillofacial trauma with [...] floor reconstruction. SURGEON: Michael Vanegas MD, DDS. NUCLEAR WASTE MANAGEMENT ENGINEER(S): Resident surgeon is Wandy Quinteros. ANESTHESIA: General [...] bone g (more content not included)... Normal [facility] Preop Checkliston 06-08-2022 Preop Checklist Preop Checklist: Preop Checklist: Temperature C36.9 degrees C Temperature F98.4 degrees F Heart Rate83 beats per minute Respiratory Rate20 breath per minute Blood Pressure Loekrevw404 mm/Hg Blood Pressure Kntjdqnvy27 mm/Hg COVID 19 Results in Last 7 daysNot Detected NPOyes Last Food [id number] 23:59 Last Clear Fluid [id number] 23:59 ID Band On Patientpatient ID (name) [...] 08-Jun-2022 06:47 by JONATHAN CLEMONS (THADDEUS) Normal [facility] Radiologyon 06-08-2022 XR Abdomen AP Normal [facility]-Plastic Surgery-[facility] 2099 Work Phone: XR Chest Single view Normal MG-P lastic Surgery-[facility] 2099 Work Phone: Renal Function Panelon 06-08 Albumin BCP dye [Mass/Vol] 3.3 g/dL below low threshold 3.4 - 5.0 MG-Plastic Surgery-[facility] 2099 Work Phone: Anion gap [Moles/Vol] 16 mmol/L 10 - 20 MG-Plastic Surgery-[facility] 2099 Work Phone: Calcium [Mass/Vol] 8.4 mg/dL below low threshold 8.6 - 10.6 MG-Plastic Surgery-[facility] 2099 Work Phone: Chloride [Moles/Vol] 93 mmol/L below low threshold 98 - 107 MG-Plastic Surgery-[facility] 2099 Work Phone: CO2 [Moles/Vol] 27 mmol/L 21 - 32 MG-Plasti c Surgery-[facility] 2099 Work Phone: Creatinine [Mass/Vol] 0.91 mg/dL See Below MG-Plastic Surgery-[facility] 2099 Work Phone: Comment on above: Reference Range: 0.5 0 - 1.30 Glucose [Mass/Vol] 109 mg/dL above high threshold 74 - 99 MG-Plastic Surgery-[facility] 2099 Work Phone: Phosphate [Mass/Vol] 3.0 mg/dL 2.5 - 4.9 MG-P lastic Surgery-[facility] 2099 Work Phone: Comment on above: The [...] [Moles/Vol] 5.1 mmol/L 3.5 - 5.3 MG-Plastic Surgery-[facility] 2099 Work Phone: Comment on above: MILD [...] RACE VARIABLE FOR THE IDMS-TRACEABLE CREATININE METHODS.https://jasn.asnjournals.org/content/early/ASN .7353033738 Daily Progress Note-Neuroslori anand 06-07-2022 Daily Progress Note-Neurosurgery Service: Neurosurgery Subjective Data: RM BERMAN is a 52 year old Male who is Hospital Day # 7. Objective Data: Objective Information: T PRBPMAPSpO2 Value35.85058043/929870% Date/Time06/07 0: 0: 0:16108/07 0:161 3:12108/07 0:16 Range(35.9C - 36.6C ) (69 - 96 ) (16 - 20 ) (114 - 126 )/ (73 - 80 ) (90 - 94 ) (95% - 97% ) Pain reported at 06/06 20:26: 7 = Severe ---- Intake and Output ----- Mn/Dy/[facility] Jun 05, 2022 10:00 [id number] Jun 05, 2022 2:00 [id number] Jun 05, 2022 6:00 am000 The Intake and Output Totals for the last 24 hours are: IntakeOutputNet [id number] Physical Exam by System: Neurological: Awake, Ox3 [...] the note. I personally evaluated the patient [id number] Electronic Signatures: Fito Ledezma (Resident)) (Signed 07-Jun-2022 01:43) Authored: Service, Subjective Data, Objective Data, Assessment and Plan, Note Completion Barber Castañeda) (Signed 09-Jun-2022 15:26) Authored: Assessment and Plan, Note Completion Co-Signer: Service, Subjective Data, Objective Data, Assessment and Plan, Note Completion Last Updated: 09-Jun-2022 15:26 by Barber Castañeda) Normal [facility] Daily Progress Note-Plastic Surgeryon 06-07-2022 Daily Progress Note-Plastic Surgery Service: Plastic Surgery Subjective Data: RM BERMAN is a 52 year old Male who is Hospital Day # 7. Possible OR today. Objective Data: Objective Information: T PRBPMAPSpO2 Value36.75712139/286613% Date/Time06/07 8: 8: 8: 8: 3: 8:08 Range(35.9C - 36.8C ) (69 - 96 ) (16 - 20 ) (111 - 126 )/ (73 - 80 ) (90 - 94 ) (94% - 97% ) Pain reported at 06/07 8:05: 7 = Severe ---- Intake and Output ----- Mn/Dy/Year TimeIntakeOutputNet Jun 07, 2022 6:00 [id number] Jun 06, 2022 10:00 pm000 The Intake and Output Totals for the last 24 hours are: IntakeOutputNet [id number] Physical Exam by System: Constitutional: awake/alert/oriented x3, [...] he was at work and presented to [facility] in [place], [place] and was transferred to [facility] as a trauma. CTH at OSH indicates [...] and plan discussed with Dr. Divine Guzman, GAS ADJUSTER-OCCUPATIONAL THERAPY INSTRUCTOR/IRON PLASTIC BULLET MAKER Phone: [phone] Pager [phone] Doc Halo Time spent on the assessment of patient, gathering and interpreting data, review of medical (more content not included)... Normal [facility] Daily Progress Note-Trauma S urgeryon 06-07-2022 Daily Progress Note-Trauma Surgery Service: Trauma Surgery Subjective Data: RM BERMAN is a 52 year old Male who is Hospital Day # 7. Overnight Events: Patient had an uneventful night. Additional Information: No overnight events. Received suppository today. Head shaved in anticipation for OR. Nausea better controlled. Objective Data: Objective Information: T PRBPMAPSpO2 Value36.60542633/679279% Date/Time06/07 14: 14: 14: 14: 3: 14:17 [...] with ladder 05/28. Transfer from [facility] in [place]. List of clinically significant injuries/problems - Pneumocephalus [...] MD General Surgery, PGY-1 Trauma Surgery, Phone [phone] Attestation: Note Completion: I am a: Resident/Fellow [...] 14:55 by Maria M Baker () Normal [facility] CBCon 06-06-2022 Erythrocyte distribution width (RBC) [Ratio] 11.8 % Normal 11.5 - 14.5 [facility] Comment on above: Performed By: #### C ####[id number] [place] [address] Hematocrit (Bld) [Volume fraction] 44.4 % Normal 41.0 - 52.0 [facility] Comment on above: Performed By: #### C BC ####[id number] [place] [address] Hemoglobin (Bld) [Mass/Vol] 15.7 g/dL Normal 13.5 - 17.5 [facility] Comment on above: Performed By: #### C BC ####[id number] [place] [address] MCHC (RBC) [Mass/Vol] 35.4 g/dL Normal 32.0 - 36.0 [facility] Comment on above: Performed By: #### C BC ####[id number] [place] [address] MCV (RBC) [Entitic vol] 95 fL Normal 80 - 100 [facility] Comment on above: Performed By: #### C BC ####[id number] [place] [address] NUCLEATED RBC 0.0 /100 WBC Normal 0.0-0.0 [facility] [place], operated [facility] Comment on above: Performed By: #### C BC ####[id number] [place] [address] Platelets (Bld) [#/Vol] 265 10*3/uL Normal 150 - 450 [facility] Comment on above: Performed By: #### C BC ####[id number] [place] [address] RBC 4.69 x10E12/L Normal 4.50 - 5.90 [facility] Comment on above: Performed By: #### C BC ####[id number] [place] [address] WBC (Bld) [#/Vol] 7.1 10*3/uL Normal 4.4 - 11.3 [facility] Comment on above: Performed By: #### C BC ####[id number] [place] [address] COAGULATION SCREENon 022 aPTT Coag (Bld) [Time] 26 s Normal 26 - 39 [facility] Comment on above: Result Comment: THE APTT IS NO LONGER USED FOR MONITORING UNFRACTIONATED HEPARIN THERAPY. FOR MONITORING HEPARIN THERAPY, USE THE HEPARIN ASSAY. Performed By: #### C OAGS ####[id number] [place] [address] PT Coag (PPP) [Time] 12.3 s Normal 9.8 - 13.4 [facility] Comment on above: Performed By: #### C OAGS ####[id number] [place] [address] PT, INR 1.1 Normal 0.9 - 1.1 [facility] Comment on above: Performed By: #### C OAGS ####[id number] [place] [address] Daily Progress Note-Neurosur kika 06-06-2022 Daily Progress Note-Neurosurgery Service: Neurosurgery Subjective Data: RM BERMAN is a 52 year old Male who is Hospital Day # 5. Objective Data: Objective Information: T PRBPMAPSpO2 Value36.74004616/986382% Date/Time06/05 21:041 21:041 21: 21:041 21:041 21:04 [...] ----- Mn/Dy/Year TimeIntakeOutputNet Jun 05, 2022 2:00 [id number] Jun 05, 2022 6:00 am000 Jun 04, 2022 10:00 [id number] The Intake and Output Totals for the last 24 hours are: IntakeOutputNet [id number] Physical Exam by System: Neurological: Awake, Ox3 [...] the note. I personally evaluated the patient [id number] Electronic Signatures: Barber Castañeda) (Signed 06-Jun-2022 16:12) Authored: Note Completion Co-Signer: Note Completion Oswald Rowe (Resident)) (Signed 06-Jun-2022 03:07) Authored: Service, Subjective Data, Objective Data, Assessment and Plan, Note Completion Last Updated: 06-Jun-2022 16:12 by Barber Castañeda) [facility] Daily Progress Note-Plastic Surgeryon 06-06-2022 Daily Progress [...] diarrhea. Objective Data: Objective Information: T PRBPMAPSpO2 Value36.87860705/967509% Date/Time06/06 8: 8: 8: 8: 3: 8:53 [...] ----- Mn/Dy/Year TimeIntakeOutputNet Jun 06, 2022 6:00 [id number] Jun 05, 2022 10:00 [id number] Jun 05, 2022 2:00 [id number] The Intake and Output Totals for the last 24 hours are: IntakeOutputNet [id number] Physical Exam by System: Constitutional: NAD Eyes: [...] he was at work and presented to [facility] in [place], [place] and was transferred to [facility] as a trauma. CTH at OSH indicates [...] Zheng-[facility] Plastic and Reconstructive Surgery Available via Kojami, pager: [phone] or Team phones: [phone] Time spent on the assessment of patient, gathering and interpreting data, review of medical record/patient history, personally reviewing radiographic imaging and formulation of this note 30 minutes. With greater than (more content not included)... Normal [facility] Daily Progress Note-Trauma S urgeryon 06-06-2022 Daily [...] night. Objective Data: Objective Information: T PRBPMAPSpO2 Value36.16410629/149063% Date/Time06/06 12: 12: 12: 12: 3: 12:08 [...] s/p fall with ladder 05/28. Transfer from [facility] in [place]. List of clinically significant injuries/problems - Pneumocephalus [...] MD General Surgery, PGY-1 Trauma Surgery, Phone [phone] Attestation: Note Completion: I am a: Resident/Fellow [...] the note. I personally evaluated the patient [id number] Comments/ Additional Findings Patient and requesting conversations with neurosurg and facial surg teams regarding operative plan, recovery, restrictions, etc. Both teams contacted and asked to come speak to them. Electronic Signatures: Maria M Baker (more content not included)... Normal [facility] Laboratory - Blood bankon ABO group Nom (Bld) A [facility]-Pl astic Surgery-[facility] Work Phone: Blood group antibody screen [facility]l [facility] Work Phone: Rh immune globulin screen (Bld) [Interp] Positive [facility] Work Phone: Laboratory - Coagulationon 1 aPTT Coag (PPP) [Time] 26 s 26 - 39 [facility] Work Phone: Comment on above: THE APTT IS NO LONGE R USED FOR MONITORING UNFRACTIONATED HEPARIN THERAPY. FOR MONITORING HEPARIN THERAPY, USE THE HEPARIN ASSAY. INR Coag (PPP) [Relative time] 1.1 {INR} 0.9 - 1.1 -Plastic Surgery-[facility] 2099 Work Phone: PT Coag (PPP) [Time] 12.3 s 9.8 - 13.4 MG-P [facility] 2099 Work Phone: Laboratory - Hematology and Cell countson 06-06-2022 Erythrocyte distribution width (RBC) [Ratio] 11.8 % See Below [facility] 20[facility] Work Phone: Comment on above: Reference Range: 11. 5 - 14.5 Hematocrit (Bld) [Volume fraction] 44.4 % See Below [facility] 20[facility] Work Phone: Comment on above: Reference Range: 41. 0 - 52.0 Hemoglobin (Bld) [Mass/Vol] 15.7 g/dL See Below [facility] 20[facility] Work Phone: [phone] Comment on above: Reference Range: 13. 5 - 17.5 MCHC (RBC) [Mass/Vol] 35.4 g/dL See Below [facility] 20[facility] Work Phone: Comment on above: Reference Range: 32. 0 - 36.0 MCV (RBC) [Entitic vol] 95 fL 80 - 100 [facility] 2099 Work Phone: Platelets (Bld) [#/Vol] 265 [...] [Mass/Vol] 3.6 g/dL Normal 3.4 - 5.0 [facility] Comment on above: Performed By: #### R ENAL #### [facility] [address] [place] [address] Anion gap [Moles/Vol] 16 mmol/L Normal 10 - 20 [facility] Comment on above: Performed By: #### R ENAL #### [facility] [address] [address] [place] [address] Calcium [Mass/Vol] 9.3 mg/dL Normal 8.6 - 10.6 [facility] Comment on above: Performed By: #### R ENAL #### [facility] [address] [place] [address] Chloride [Moles/Vol] 102 mmol/L Normal 98 - 107 [facility] Comment on above: Performed By: #### R ENAL #### [facility] [address] [place] [address] Creatinine [Mass/Vol] 0.98 mg/dL Normal 0.50 - 1.30 [facility] Comment on above: Performed By: #### R ENAL #### [facility] [address] [place] [address] eGFR MALE >90 Normal >90 [facility] Comment on above: Result Comment: CALC ULATIONS OF ESTIMATED GFR ARE PERFORMED USING THE 2020 CKD-EPI STUDY REFIT EQUATION WITHOUT THE RACE VARIABLE FOR THE IDMS-TRACEABLE CREATININE METHODS. https://jasn.asnjournals.org/content//ASN.2864948 988 Performed By: #### R ENAL #### [facility] [address] [place] [address] Glucose [Mass/Vol] 85 mg/dL Normal 74 - 99 [facility] Comment on above: Performed By: #### R ENAL #### [facility] [address] [place] [address] HCO3 (Bld) [Moles/Vol] 26 mmol/L Normal 21 - 32 [facility] Comment on above: Performed By: #### R ENAL #### [facility] [address] [place] [address] Phosphate [Mass/Vol] 3.5 mg/dL Normal 2.5 - 4.9 [facility] Comment on above: Result Comment: The performance characteristics of phosphorus testing in heparinized plasma have been validated by the individual laboratory site where testing is performed. Testing on heparinized plasma is not approved by the FDA; however, such approval is not necessary. Performed By: #### R ENAL #### [facility] [address] [place] [address] Potassium [Moles/Vol] 3.6 mmol/L Normal 3.5 - 5.3 [facility] Comment on above: Performed By: #### R ENAL #### [facility] [address] [place] [address] Sodium [Moles/Vol] 140 mmol/L Normal 136 - 145 [facility] Comment on above: Performed By: #### R ENAL #### [facility] [address] [place] [address] Urea nitrogen [Mass/Vol] 6 mg/dL Normal 6 - 23 [facility] Comment on above: Performed By: #### R ENAL #### [facility] [address] [place] [address] REQUEST-LEUKOREDUCED RED ROBERT LSon 06-06-2022 REQUEST-LEUKOREDUCED RED CELLS ORDER RECD Normal [facility] Comment on above: Performed By: #### O BUS AND TROLLEY DISPATCHER ####[id number] [place] [address] Radiologyon 06-06-2022 XR Chest Single view Normal MG[facility] 2099 Work Phone: Renal Function Panelon 06-06 Albumin BCP dye [Mass/Vol] 3.6 g/dL 3.4 - 5.0 MG-Plastic [facility] 2099 Work Phone: Anion gap [Moles/Vol] 16 mmol/L 10 - 20 [facility] Work Phone: Calcium [Mass/Vol] 9.3 mg/dL 8.6 - 10.6 MG-Tomasa stic Surgery-[facility] 2099 Work Phone: Chloride [Moles/Vol] 102 mmol/L 98 - 107 MG-P lastic Surgery-[facility] 2099 Work Phone: CO2 [Moles/Vol] 26 mmol/L 21 - 32 MG-Plasti c Surgery-[facility] 2099 Work Phone: Creatinine [Mass/Vol] 0.98 mg/dL See Below [facility] Work Phone: Comment on above: Reference Range: 0.5 0 - 1.30 Glucose [Mass/Vol] 85 mg/dL 74 - 99 MG-Tomasa stic Surgery[facility] 2099 Work Phone: Phosphate [Mass/Vol] 3.5 mg/dL 2.5 - 4.9 MG-P lastic Surgery-[facility] 2099 Work Phone: Comment on above: The performance pauline acteristics of phosphorus testing in heparinized plasma have been validated by the individual laboratory site where testing is performed. Testing on heparinized plasma is not approved by the FDA; however, such approval is not necessary. Potassium [Moles/Vol] 3.6 mmol/L 3.5 - 5.3 MG-Plastic Surgery-[facility] 2099 Work Phone: Sodium [Moles/Vol] 140 mmol/L 136 - 145 MG-Tomasa stic Surgery-[facility] 2099 Work Phone: Urea nitrogen [Mass/Vol] 6 mg/dL 6 - 23 MG-Plastic Surgery-[facility] 2099 Work Phone: Renal Function Panel >90 >90 MG-P lastic Surgery-[facility] 2099 Work Phone: Comment on above: CALCULATIONS OF CHELE MATED GFR ARE PERFORMED USING THE 2020 CKD-EPI STUDY REFIT EQUATION WITHOUT THE RACE VARIABLE FOR THE IDMS-TRACEABLE CREATININE METHODS.https://jasn.asnjournals.org/content/early//ASN .6466923790 CHEST 1 VIEWon 06-06-2022 CHEST 1 VIEW Patient Name: RM BERMAN STUDY: CHEST 1 VIEW; 06/06/2022 6:47 pm INDICATION: preop . COMPARISON: None. ACCESSION NUMBER(S): [id number] ORDERING CLINICIAN: YORDAN WELLINGTON FINDINGS: Frontal radiograph [...] Electronically signed by: MARCELINO VEGA MD Normal [facility] TYPE + SCREENon 06-06-2022 ABO TYPE A Normal [facility] Comment on above: Performed By: #### G CARLIN #### [facility] [place] [address] RH TYPE Positive Normal [facility] Comment on above: Performed By: #### G CARLIN #### [facility] [address] [place] [address] URINALYSISon 06-06-2022 Appearance (U) CLEAR Normal CLEAR [facility] Comment on above: Performed By: #### G CARLIN #### [facility] [place] [address] Bilirubin Ql (U) Negative Normal NEGATIVE [facility] Comment on above: Performed By: #### G CARLIN #### [place] [address] [place] [address] Color (U) YELLOW Normal STRAW,YELLO W [facility] Comment on above: Performed By: #### G CARLIN #### [facility] [place] [address] Glucose Ql (U) Negative Normal NEGATIVE [facility] Comment on above: Performed By: #### G CARLIN #### [facility] [place] [address] Hemoglobin Ql (U) Negative Normal NEGATIVE [facility] [place] Comment on above: Performed By: #### G CARLIN #### [facility] [address] [place] [address] Ketones Ql (U) 5 (TRACE) Abnormal NEGATIVE [facility] Comment on above: Performed By: #### G CARLIN #### [facility] [address] [place] [address] Leukocyte esterase Test strip Ql (U) Negative Normal NEGATIVE [facility] Comment on above: Performed By: #### G CARLIN #### [facility] [address] [place] [address] Nitrite Ql (U) Negative Normal NEGATIVE [facility] Comment on above: Performed By: #### G CARLIN #### [facility] [address] [place] [address] pH (U) 7.0 [pH] Normal 5.0 - 8.0 [facility] Comment on above: Performed By: #### G CARLIN #### [place] [address] [place] [address] Protein Ql (U) Negative Normal NEGATIVE [facility] Comment on above: Performed By: #### G CARLIN #### [facility] [place] [address] Specific gravity (U) [Rel density] 1.012 Normal 1.005 - 1.035 [facility] Comment on above: Performed By: #### Josue CARLIN #### [facility] [place] [address] Urobilinogen (U) [Mass/Vol] mg/dL Normal 0.0 - 1.9 [facility] Comment on above: Performed By: #### Josue CARLIN #### [facility] [address] [place] [address] Urinalysison 06-06-2022 Color (U) YELLOW See Below MG-Plastic Surgery-[facility] 2099 Work Phone: Comment on above: Reference Range: STR AW,YELLOW Glucose Ql (U) Negative NEGATIVE MG-Plastic Surgery-[facility] 2099 Work Phone: Ketones Ql (U) 5 (TRACE) Abnormal NEGATIVE MG-Plastic Surgery-[facility] 2099 Work Phone: Leukocyte esterase Test strip Ql (U) Negative NEGATIVE MG-Plastic Surgery-[facility] 2099 Work Phone: pH (U) 7.0 [pH] 5.0 - 8.0 MG-Plastic Surgery-[facility] 2099 Work Phone: Protein (U) [Mass/Vol] Negative NEGATIVE MG-Plastic Surgery-[facility] 2099 Work Phone: RBC (U) [#/Vol] Negative NEGATIVE MG-Plasti c Surgery-[facility] 2099 Work Phone: Specific gravity (U) [Rel density] 1.012 1 See Below MG-Plastic Surgery-[facility] 2099 Work Phone: Comment on above: Reference Range: 1.0 05 - 1.035 Urinalysis Negative NEGATIVE MG-Plastic Surgery-[facility] 2099 Work Phone: Urinalysis <2.0 0.0 - 1.9 MG-Plastic Surgery-[facility] 2099 Work Phone: Urinalysis CLEAR CLEAR MG-Plastic Surgery-[facility] 2099 Work Phone: Daily Progress Note-Neurosur kika 06-05-2022 Daily Progress Note-Neurosurgery Service: Neurosurgery Subjective Data: RM BERMAN is a 52 year old Male who is Hospital Day # 4. Objective Data: Objective Information: T PRBPMAPSpO2 Value36.32756480/239013% Date/Time06/04 20: 20: 20: 20: 12: 20:00 [...] ----- Mn/Dy/Year TimeIntakeOutputNet Jun 04, 2022 10:00 [id number] Jun 04, 2022 2:00 [id number] Jun 04, 2022 6:00 [id number] The Intake and Output Totals for the last 24 hours are: IntakeOutputNet [id number] Physical Exam by System: Neurological: Ox3 no [...] and diffuse pneumocephalus. Patient was transferred to [facility] under trauma and neurosurgery was consulted for [...] the note. I personally evaluated the patient [id number] Electronic Signatures: Barber Castañeda () (Signed 05-Jun-2022 08:45) Authored: Note Completion Co-Signer: Service, Subjective Data, Objective Data, Assessment and Plan, Note Completion Ravinder Garcia (Resident)) (Signed 04-Jun-2022 22:22) Authored: Service, Subjective Data, Objective Data, Assessment and Plan, Note Completion Last Updated: 05-Jun-2022 08:45 by Barber Castañeda) Normal [facility] Daily Progress Note-Plastic Surgeryon 06-05-2022 Daily Progress [...] concerns. Objective Data: Objective Information: T PRBPMAPSpO2 Value36.00478169/1384362% Date/Time06/05 7: 7: 7: 7: 7: 7:58 Range(36.3C - 37C ) (63 - 82 ) (16 - 20 ) (114 - 132 )/ (66 - 86 ) (94 - 102 ) (94% - 98% ) Highest temp of 37 C was recorded at 06/05 0:00 Pain reported at 06/05 7:58: 3 = Mild ---- Intake and Output ----- Mn/Dy/[facility] Jun 05, 2022 6:00 am000 Jun 04, 2022 10:00 [id number] Jun 04, 2022 2:00 [id number] The Intake and Output Totals for the last 24 hours are: IntakeOutputNet [id number] Physical Exam by System: Constitutional: NAD Eyes: [...] he was at work and presented to [facility] in [place], [place] and was transferred to [facility] as a trauma. CTH at OSH indicates [...] Lee, SAMMY- (more content not included)... Normal [facility] Daily Progress Note-Trauma S rambo 06-05-2022 Daily [...] night. Objective Data: Objective Information: T PRBPMAPSpO2 Value36.12700267/039657% Date/Time06/05 11: 13: 11: 11: 12: 11:51 [...] reviewed these laboratory results: Glucose_POCT Trending View [id number] 11:42:00 05-Jun-2022 06:02:00 05-Jun-2022 00:40:00 Glucose-POCT98 96 95 Radiology Results: Results: Impression: 1. Moderate stool burden nonobstructive bowel gas pattern. Otherwise no acute abdominopelvic process. Xray Abdomen AP View [Jun 02 2022 3:12PM] Assessment and Plan: Code Status: Code StatusFull Code Assessment: 52 YOM s/p fall with ladder 05/28. TR from [employer] in [place]. List of clinically significant injuries/problems - pneumocephalus [...] MD General Surgery, PGY-1 Trauma Surgery, Phone [phone] Attestation: Note Completion: I am a: Resident/Fellow [...] the following: I personally evaluated the patient [id number] Comments/ Additional Findings I saw and examined the patient with the resident/ARLYN team. I agree with the note with the additions/clarifications below. 52 yo male with comp (more content not included)... Normal [facility] GLUCOSE-POCTon 06-05-2022 Glucose [Mass/Vol] 98 mg/dL Normal 74 - 99 [facility] Comment on above: Performed By: #### G CARLIN #### [facility] [address] [place] [address] Glucose [Mass/Vol] 96 mg/dL Normal 74 - 99 [facility] Comment on above: Performed By: #### G CARLIN #### [facility] [address] [place] [address] Glucose [Mass/Vol] 95 mg/dL Normal 74 - 99 [facility] Comment on above: Performed By: #### G CARLIN ####[id number] [place] [address] Laboratory - Chemistry and C hemistry - challengeon 06-05-2022 Glucose [Mass/Vol] 98 mg/dL 74 - 99 [facility] Surgery-[facility] [address] Work Phone: Glucose [Mass/Vol] 96 mg/dL 74 - 99 [facility] Surgery-[facility] [address] Work Phone: Glucose [Mass/Vol] 95 mg/dL 74 - 99 [facility] Surgery-[facility] [address] Work Phone: CBCon 06-04-2022 Erythrocyte distribution width (RBC) [Ratio] 11.5 % Normal 11.5 - 14.5 [facility] Comment on above: Performed By: #### G CARLIN #### [facility] [place] [address] Hematocrit (Bld) [Volume fraction] 38.5 % Low 41.0 - 52.0 [facility] Comment on above: Performed By: #### G CARLIN #### [facility] [address] [place] [address] Hemoglobin (Bld) [Mass/Vol] 13.9 g/dL Normal 13.5 - 17.5 [facility] Comment on above: Performed By: #### G CARLIN #### [facility] [address] [place] [address] MCHC (RBC) [Mass/Vol] 36.1 g/dL High 32.0 - 36.0 [facility] Comment on above: Performed By: #### G CARLIN #### [facility] [address] [place] [address] MCV (RBC) [Entitic vol] 91 fL Normal 80 - 100 [facility] Comment on above: Performed By: #### G CARLIN #### [facility] [place] [address] NUCLEATED RBC 0.0 /100 WBC Normal 0.0-0.0 [facility] [place] Comment on above: Performed By: #### G CARLIN #### [facility] [place] [address] Platelets (Bld) [#/Vol] 253 10*3/uL Normal 150 - 450 [facility] Comment on above: Performed By: #### G CARLIN #### [facility] [address] [place] [address] RBC 4.24 x10E12/L Low 4.50 - 5.90 [facility] Comment on above: Performed By: #### G CARLIN #### [facility] [address] [place] [address] WBC (Bld) [#/Vol] 7.3 10*3/uL Normal 4.4 - 11.3 [facility] Comment on above: Performed By: #### G CARLIN #### [facility] [address] [place] [address] Daily Progress Note-Neurosur kika 06-04-2022 Daily Progress Note-Neurosurgery Service: Neurosurgery Subjective Data: RM BERMAN is a 52 year old Male who is Hospital Day # 3. Objective Data: Objective Information: T PRBPMAPSpO2 Value36.32544706/7096% Date/Time06/03 19: 19: 19: 19: 19:30 Range(35.5C - 36.8C ) (65 - 85 ) (18 - 22 ) (105 - 131 )/ (67 - 83 ) (94% - 98% ) Pain reported at 06/03 20:30: 8 = Severe ---- Intake and Output ----- Mn/Dy/Year TimeIntakeOutputNet Jun 03, 2022 2:00 [id number] Jun 03, 2022 6:00 [id number] The Intake and Output Totals for the last 24 hours are: IntakeOutputNet [id number] Physical Exam by System: Neurological: Ox3 no [...] and diffuse pneumocephalus. Patient was transferred to [facility] under trauma and neurosurgery was consulted for [...] the note. I personally evaluated the patient [id number] Electronic Signatures: Barber Castañeda () (Signed 05-Jun-2022 08:44) Authored: Note Completion Co-Signer: Service, Subjective Data, Objective Data, Assessment and Plan, Note Completion Ravinder Garcia (Resident)) (Signed 03-Jun-2022 23:15) Authored: Service, Subjective Data, Objective Data, Assessment and Plan, Note Completion Last Updated: 05-Jun-2022 08:44 by Barber Castañeda) Normal [facility] Daily Progress Note-Plastic Surgeryon 06-04-2022 Daily Progress Note-Plastic Surgery Service: Plastic Surgery Subjective Data: RM BERMAN is a 52 year old Male who is Hospital Day # 4. Patient resting comfortably in bed with HOB elevated. Reporting nausea much improved this morning and feels better overall. Pain controlled at this point. Denies any other acute concerns. Objective Data: Objective Information: T PRBPMAPSpO2 Value36.63123659/8395% Date/Time06/04 7: 7: 7: 7: 7:34 Range(36.3C - 36.9C ) (63 - 85 ) (16 - 20 ) (105 - 132 )/ (66 - 86 ) (94% - 98% ) Highest temp of 36.9 C was recorded at 06/03 23:45 Pain reported at 06/04 2:36: 8 = Severe ---- Intake and Output ----- Mn/Dy/Year TimeIntakeOutputNet Jun 04, 2022 6:00 [id number] Jun 03, 2022 10:00 [id number] Jun 03, 2022 2:00 [id number] The Intake and Output Totals for the last 24 hours are: IntakeOutputNet [id number] Physical Exam by System: Constitutional: NAD Eyes: [...] he was at work and presented to [facility] in [place], [place] and was transferred to [facility] as a trauma. CTH at OSH indicates [...] and plan discussed with Dr. Divine Lee, [facility] Plastic and Reconstructive Surgery Doc Halo, Pager #[phone] (more content not included)... Normal [facility] Daily Progress Note-Trauma S urgeryon 06-04-2022 Daily [...] night. Objective Data: Objective Information: T PRBPMAPSpO2 Value36.26361275/447600% Date/Time06/04 15: 15: 15: 15: 12: 15:42 [...] reviewed these laboratory results: Glucose_POCT Trending View [id number] 12:29:00 04-Jun-2022 06:10:00 Glucose-[id number] H 106 H Complete Blood Count 04-Jun-2022 [...] s/p fall with ladder 05/28. TR from [employer] in [place]. List of clinically significant injuries/problems - pneumocephalus [...] MD General Surgery, PGY-1 Trauma Surgery, Phone [phone] Attestation: Note Completion: I am a: Resident/Fellow [...] the e (more content not included)... Normal [facility] GLUCOSE-POCTon 06-04-2022 Glucose [Mass/Vol] 91 mg/dL Normal 74 - 99 [facility] Comment on above: Performed By: #### G CARLIN ####[id number] [place] [address] Glucose [Mass/Vol] 110 mg/dL High 74 - 99 [facility] Comment on above: Performed By: #### G CARLIN #### [facility] [address] [place] [address] Glucose [Mass/Vol] 106 mg/dL High 74 - 99 [facility] Comment on above: Performed By: #### G CARLIN #### [facility] [address] [place] [address] Glucose [Mass/Vol] 95 mg/dL Normal 74 - 99 [facility] Comment on above: Performed By: #### G CARLIN #### [facility] [address] [place] [address] Laboratory - Chemistry and C hemistry - challengeon 06-04-2022 Glucose [Mass/Vol] 91 mg/dL 74 - 99 [facility] [address] Work Phone: Glucose [Mass/Vol] 110 mg/dL above high threshold 74 - 99 MG-Plastic Surgery-[facility] 2099 Work Phone: [phone] Glucose [Mass/Vol] 106 mg/dL above high threshold 74 - 99 MG-Plastic Surgery-[facility] [address] Work Phone: Laboratory - Hematology and Cell countson 06-04-2022 Erythrocyte distribution width (RBC) [Ratio] 11.5 % See Below [facility] 2[address] Work Phone: Comment on above: Reference Range: 11. 5 - 14.5 Hematocrit (Bld) [Volume fraction] 38.5 % below low threshold See Below MG-Plastic Surgery-[facility] 2099 Work Phone: Comment on above: Reference Range: 41. 0 - 52.0 Hemoglobin (Bld) [Mass/Vol] 13.9 g/dL See Below MG-Plastic Surgery-[facility] 2099 Work Phone: Comment on above: Reference Range: 13. 5 - 17.5 MCHC (RBC) [Mass/Vol] 36.1 g/dL above high threshold See Below MG-Plastic Surgery-[facility] 2099 Work Phone: Comment on above: Reference Range: 32. 0 - 36.0 MCV (RBC) [Entitic vol] 91 fL 80 - 100 MG-Plastic Surgery-[facility] 2099 Work Phone: Platelets (Bld) [#/Vol] 253 10*3/uL 150 - 450 MG-Plastic Surgery-[facility] 2099 Work Phone: RBC (Bld) [#/Vol] 4.24 {x10E12/L} below low threshold See Below MG-Plastic Surgery-[facility] 2099 Work Phone: Comment on above: Reference Range: 4.5 0 - 5.90 WBC (Bld) [#/Vol] 7.3 10*3/uL 4.4 - 11.3 [facility] Surgery-[facility] [address] Work Phone: MAGNESIUMon 06-04-2022 Magnesium [Mass/Vol] 1.84 mg/dL Normal 1.60 - 2.40 [facility] Comment on above: Performed By: #### G CARLIN #### [facility] [address] [place] [address] Magnesium, Serumon Magnesium [Mass/Vol] 1.84 mg/dL See Below MG-P lastic Surgery-[facility] 2099 Work Phone: Comment on above: Reference Range: 1.6 0 - 2.40 No Panel Informationon 06-04 0.0 {/100_WBC} 0.0-0.0 MG-Plastic Surgery-[facility] [address] Work Phone: RENAL FUNCTION PANELon 06-04 Albumin [Mass/Vol] 3.4 g/dL Normal 3.4 - 5.0 [facility] Comment on above: Performed By: #### G CARLIN #### [facility] [address] [place] [address] Anion gap [Moles/Vol] 14 mmol/L Normal 10 - 20 [facility] Comment on above: Performed By: #### G CARLIN #### [facility] [address] [place] [address] Calcium [Mass/Vol] 8.8 mg/dL Normal 8.6 - 10.6 [facility] Comment on above: Performed By: #### G CARLIN #### [facility] [address] [place] [address] Chloride [Moles/Vol] 100 mmol/L Normal 98 - 107 [facility] Comment on above: Performed By: #### G CARLIN #### [facility] [address] [place] [address] Creatinine [Mass/Vol] 0.97 mg/dL Normal 0.50 - 1.30 [facility] Comment on above: Performed By: #### G CARLIN #### [facility] [address] [place] [address] eGFR MALE >90 Normal >90 [facility] Comment on above: Result Comment: CALC ULATIONS OF ESTIMATED GFR ARE PERFORMED USING THE 2020 CKD-EPI STUDY REFIT EQUATION WITHOUT THE RACE VARIABLE FOR THE IDMS-TRACEABLE CREATININE METHODS. https://jasn.asnjournals.org/content/early/ASN.4768641 988 Performed By: #### G CARLIN #### [facility] [address] [place] [address] Glucose [Mass/Vol] 89 mg/dL Normal 74 - 99 [facility] Comment on above: Performed By: #### G CARLIN #### [facility] [address] [place] [address] HCO3 (Bld) [Moles/Vol] 29 mmol/L Normal 21 - 32 [facility] Comment on above: Performed By: #### G CARLIN #### [facility] [address] [place] [address] Phosphate [Mass/Vol] 3.2 mg/dL Normal 2.5 - 4.9 [facility] Comment on above: Result Comment: The performance characteristics of phosphorus testing in heparinized plasma have been validated by the individual laboratory site where testing is performed. Testing on heparinized plasma is not approved by the FDA; however, such approval is not necessary. Performed By: #### G CARLIN #### [facility] [address] [place] [address] Potassium [Moles/Vol] 3.4 mmol/L Low 3.5 - 5.3 [facility] Comment on above: Performed By: #### G CARLIN #### [facility] [address] [place] [address] Sodium [Moles/Vol] 140 mmol/L Normal 136 - 145 [facility] Comment on above: Performed By: #### G CARLIN #### [facility] [address] [place] [address] Urea nitrogen [Mass/Vol] 5 mg/dL Low 6 - 23 [facility] Comment on above: Performed By: #### G CARLIN #### [facility] [address] [place] [address] Renal Function Panelon 06-04 Albumin BCP dye [Mass/Vol] 3.4 g/dL 3.4 - 5.0 MG-Plastic Surgery-[facility] [address]99 Work Phone: Anion gap [Moles/Vol] 14 mmol/L 10 - 20 MG-Plastic Surgery-[facility] 2099 Work Phone: Calcium [Mass/Vol] 8.8 mg/dL 8.6 - 10.6 [facility] Surgery-[facility] 2099 Work Phone: Chloride [Moles/Vol] 100 mmol/L 98 - 107 MG-P lastic Surgery-[facility] 2099 Work Phone: CO2 [Moles/Vol] 29 mmol/L 21 - 32 MG-Plasti c Surgery-[facility] 2099 Work Phone: Creatinine [Mass/Vol] 0.97 mg/dL See Below MG-Plastic Surgery-[facility] 2099 Work Phone: Comment on above: Reference Range: 0.5 0 - 1.30 Glucose [Mass/Vol] 89 mg/dL 74 - 99 [facility] Surgery-[facility] 2099 Work Phone: Phosphate [Mass/Vol] 3.2 mg/dL 2.5 - 4.9 MG-P lastic Surgery-[facility] 2099 Work Phone: Comment on above: The performance pauline acteristics of phosphorus testing in heparinized plasma have been validated by the individual laboratory site where testing is performed. Testing on heparinized plasma is not approved by the FDA; however, such approval is not necessary. Potassium [Moles/Vol] 3.4 mmol/L below low threshold 3.5 - 5.3 MG-Plastic Surgery-[facility] 2099 Work Phone: Sodium [Moles/Vol] 140 mmol/L 136 - 145 [facility] Surgery-[facility] 2099 Work Phone: Urea nitrogen [Mass/Vol] 5 mg/dL below low threshold 6 - 23 MG-Plastic Surgery-[facility] 2099 Work Phone: Renal Function Panel >90 >90 MG-P lastic Surgery-[facility] 2099 Work Phone: Comment on above: CALCULATIONS OF CHELE MATED GFR ARE PERFORMED USING THE 2020 CKD-EPI STUDY REFIT EQUATION WITHOUT THE RACE VARIABLE FOR THE IDMS-TRACEABLE CREATININE METHODS.https://jasn.asnjournals.org/content//ASN .5258447538 Daily Progress Note-Samy anand 06-03-2022 Daily Progress Note-Neurosurgery Service: Neurosurgery Subjective Data: RM BERMAN is a 52 year old Male who is Hospital Day # 2. Objective Data: Objective Information: T PRBPMAPSpO2 Value36.68597886/7994% Date/Time06/02 20:1010/27 20: 20: 20: 20:10 Range(35.5C - 37.5C ) (66 - 84 ) (16 - 22 ) (107 - 146 )/ (71 - 83 ) (94% - 98% ) Highest temp of 37.5 C was recorded at 06/01 16:09 Pain reported at 06/02 20:10: 8 = Severe ---- Intake and Output ----- Mn/Dy/Year TimeIntakeOutputNet Jun 02, 2022 10:00 [id number] Jun 02, 2022 2:00 [id number] Jun 02, 2022 6:00 am000 The Intake and Output Totals for the last 24 hours are: IntakeOutputNet [id number] Physical Exam by System: Neurological: Ox3 no [...] and diffuse pneumocephalus. Patient was transferred to [facility] under trauma and neurosurgery was consulted for [...] the note. I personally evaluated the patient [id number] Electronic Signatures: Barber Castañeda () (Signed 05-Jun-2022 08:44) Authored: Note Completion Co-Signer: Service, Subjective Data, Objective Data, Assessment and Plan, Note Completion Ravinder Garcia (Resident)) (Signed 02-Jun-2022 22:41) Authored: Service, Subjective Data, Objective Data, Assessment and Plan, Note Completion Last Updated: 05-Jun-2022 08:44 by Barber Castañeda () Normal [facility] Daily Progress Note-Plastic Surgeryon 06-03-2022 Daily Progress Note-Plastic Surgery Service: Plastic Surgery Subjective Data: RM BERMAN is a 52 year old Male who is Hospital Day # 3. Patient resting comfortably in bed with HOB elevated. Reporting intermittent nausea (bedside nursing aware and drawing Zofran). Pain controlled at this point. Denies any other acute concerns. Objective Data: Objective Information: T PRBPMAPSpO2 Value36.98228111/8295% Date/Time06/03 4: 4: 4: 4: 4:43 Range(35.5C - 36.8C ) (66 - 85 ) (18 - 22 ) (108 - 131 )/ (67 - 83 ) (94% - 98% ) Pain reported at 06/03 6:53: 8 = Severe ---- Intake and Output ----- Mn/Dy/Year TimeIntakeOutsocorro general hospitalNet Jun 03, 2022 6:00 [id number] Jun 02, 2022 10:00 [id number] Jun 02, 2022 2:00 [id number] The Intake and Output Totals for the last 24 hours are: IntakeOutputNet [id number] Physical Exam by System: Constitutional: NAD Eyes: [...] he was at work and presented to [facility] in [place], [place] and was transferred to [facility] as a trauma. CTH at OSH indicates [...] Plastic and Reconstructive Surgery Doc Halo, Pager #[phone], Team phones: [phone] Time spent on the assessment of patient, [...] Updated: 03-Jun-2022 07:13 by Elina Delaney (PAC) [facility] Daily Progress Note-Trauma Wilbert ricks 06-03-2022 Daily Progress Note-Trauma Surgery Service: Trauma Surgery Subjective Data: RM BERMAN is a 52 year old Male who is Hospital Day # 3. No overnight events. KUB yesterday with stool burden. Patient is still nauseated and endorses headache. Tolerating little PO intake. Overnight Events: Patient had an uneventful night. Objective Data: Objective Information: T PRBPMAPSpO2 Value36.56782524/7296% Date/Time06/03 16: 16: 16: 16: 16:00 Range(35.5C [...] reviewed these laboratory results: Glucose_POCT Trending View [id number] 14:36:00 03-Jun-2022 06:00:00 03-Jun-2022 02:39:00 Glucose-POCT97 116 H 112 H Radiology Results: Results: Impression: 1. Moderate stool burden nonobstructive bowel gas pattern. Otherwise no acute abdominopelvic process. Xray Abdomen AP View [Jun 02 2022 3:12PM] Assessment and Plan: Code Status: Code StatusFull Code Assessment: 52 YOM s/p fall with ladder 05/28. TR from [employer] in [place]. List of clinically significant injuries/problems - pneumocephalus [...] MD General Surgery, PGY-1 Trauma Surgery, Phone [phone] Attestation: Note Completion: I am a: Resident/Fellow [...] the note. I personally evaluated the patient [id number] Comments/ Additional Findings I evaluated and examined [...] Updated: 04-Jun-2022 16:56 by Morgan Mixon) Normal [facility] GLUCOSE-POCTon 06-03-2022 Glucose [Mass/Vol] 89 mg/dL Normal 74 - 99 [facility] Comment on above: Performed By: #### G CARLIN #### [facility] [address] [place] [address] Glucose [Mass/Vol] 97 mg/dL Normal 74 - 99 [facility] Comment on above: Performed By: #### G CARLIN #### [facility] [address] [place] [address] Glucose [Mass/Vol] 116 mg/dL High 74 - 99 [facility] Comment on above: Performed By: #### G CARLIN #### [facility] [address] [place] [address] Glucose [Mass/Vol] 112 mg/dL High 74 - 99 [facility] Comment on above: Performed By: #### G CARLIN #### [facility] [address] [place] [address] Glucose [Mass/Vol] 114 mg/dL High 74 - 99 [facility] Comment on above: Performed By: #### G CARLIN #### [facility] [address] [place] [address] CT IMAGE RECONSTRUCTION 3D V OLUME and [...] outside imaging reviewed. COMPARISON: None. ACCESSION NUMBER(S): [id number]; [id number] ORDERING CLINICIAN: MAKENNA CARVER TECHNIQUE: Noncontrast volumetric [...] as stated. This study was interpreted at [facility], [place], [place]. Electronically signed by: STACEY HAMMOND MD, PHD [facility] Daily Progress Note-Samy anand 06-02-2022 Daily Progress Note-Neurosurgery Service: Neurosurgery Subjective Data: RM BERMAN is a 52 year old Male who is Hospital Day # 1. Objective Data: Objective Information: T PRBPMAPSpO2 Value36.07808422/7695% Date/Time06/01 20: 20: 16:0906/01 20: 20:00 Range(36.7C - 37.5C ) (75 - 84 ) (16 - 20 ) (107 - 146 )/ (71 - 79 ) (94% - 98% ) Highest temp of 37.5 C was recorded at 06/01 16:09 Pain reported at 06/01 22:36: 8 = Severe ---- Intake and Output ----- Mn/Dy/Year TimeIntakeOutputNet Jun 01, 2022 10:00 [id number] Jun 01, 2022 2:00 [id number] Jun 01, 2022 6:00 [id number] The Intake and Output Totals for the last 24 hours are: IntakeOutputNet [id number] Physical Exam by System: Neurological: Ox3 no [...] and diffuse pneumocephalus. Patient was transferred to [facility] under trauma and neurosurgery was consulted for [...] the note. I personally evaluated the patient [id number] Electronic Signatures: Barber Castañeda () (Signed 05-Jun-2022 08:43) Authored: Note Completion Co-Signer: Service, Subjective Data, Objective Data, Assessment and Plan, Note Completion Ravinder Garcia (Resident)) (Signed 01-Jun-2022 23:32) Authored: Service, Subjective Data, Objective Data, Assessment and Plan, Note Completion Last Updated: 05-Jun-2022 08:43 by Barber Castañeda) Normal [facility] Daily Progress Note-Plastic Surgeryon 06-02-2022 Daily Progress [...] head. Objective Data: Objective Information: T PRBPMAPSpO2 Value36.87578921/7897% Date/Time06/02 7: 7: 7: 7: 7:53 Range(36.1C [...] 2022 6:00 am000 Jun 01, 2022 10:00 [id number] Jun 01, 2022 2:00 [id number] The Intake and Output Totals for the last 24 hours are: IntakeOutputNet [id number] Physical Exam by System: Constitutional: NAD Eyes: [...] he was at work and presented to [facility] in [place], [place] and was transferred to [facility] as a trauma. CTH at OSH indicates [...] Plastic and Reconstructive Surgery Doc Halo, Pager #[phone], Team phones: [phone] Time spent on the assessment of patient, [...] 02-Jun-2022 08:51 by Makenna Carver (PAC) Normal [facility] Electrocardiogram 12 Leadon 06-02-2022 Electrocardiogram 12 Lead Ventricular Rate 63 Atrial Rate 63 P-R Interval 132 QRS Duration 92 Q-T Interval 398 QTC Calculation(Bazett) 407 P [place] 62 R [place] 14 T [place] 34 QRS Count 10 Q Onset 225 P Onset 159 P Offset 210 T Offset 424 QTC Fredericia 404 Diagnosis Class Normal Diagnosis Normal sinus rhythm Normal ECG No previous ECGs available Confirmed by Fabian Starks ([id number]) on 07/01/2022 7:55:50 PM Normal [facility] GLUCOSE-POCTon 06-02-2022 Glucose [Mass/Vol] 114 mg/dL High 74 - 99 [facility] Comment on above: Performed By: #### G CARLIN #### [facility] [address] [place] [address] Glucose [Mass/Vol] 95 mg/dL Normal 74 - 99 [facility] Comment on above: Performed By: #### G CARLIN #### [facility] [address] [place] [address] Glucose [Mass/Vol] 107 mg/dL High 74 - 99 [facility] Comment on above: Performed By: #### G CARLIN #### [facility] [address] [place] [address] Glucose [Mass/Vol] 103 mg/dL High 74 - 99 [facility] Comment on above: Performed By: #### G CARLIN #### [facility] [address] [place] [address] HEAD WITHOUT CONTRAST VOLUMETRIC SURGICAL [...] outside imaging reviewed. COMPARISON: None. ACCESSION NUMBER(S): [id number]; [id number] ORDERING CLINICIAN: MAKENNA CARVER TECHNIQUE: Noncontrast volumetric [...] as stated. This study was interpreted at [facility] [facility], [place], [place]. Electronically signed by: STACEY HAMMOND MD, PHD Normal [facility] No Panel Informationon 06-02 [email or web address]?RetrieveTestByDateTime ?[email or web address]=[id number]&Date =02-06-2022&Time=14%3a38% 3a02%3a00&TestType=ECG&Si te=1&OutputType=PDF&Ext=P DF MG-Plastic Surgery-Nathalia ell [...] Worsening nausea/vomiting . COMPARISON: None. ACCESSION NUMBER(S): [id number] ORDERING CLINICIAN: YUN MATA FINDINGS: Moderate stool [...] as stated. This study was interpreted at [facility], [place], [place]. Electronically signed by: JOIE COLBY MD Normal [facility] Admission Risk Screen - Adul ton 06-01-2022 [...] AlertFor Ebola-like Symptoms: Isolate Patient and Notify Provider/Regrader For Contact: Notify Provider/Regrader Advance Directive: Advance Directive/DNRno Advance Directive Information [...] Learning Preferencesverbal instruction Cultural Considerationsnone Developmental Considerationsnone Druze Considerationsnone Learning Assessment (Other Learner): Other learner availableno Depression Screen: During the past month, have you often been bothered by feeling down, depressed or hopelessno During the past month, have you often had little interest or pleasure in doing thingsno Have you had any thoughts of harming anyone elseno [place] Suicide: Risk Screen Not Applicable/Able to Answerable to be screened In the Past Month: Have you wished you were or could go to sleep and not wake upno In the Past Month: Have you had any actual thoughts of killing yourselfno Lifetime: Have you ever done, started to do, or prepared to do anything to end your lifeno [place] Suicide Risknegative Adult Nutrition Screen: Have you [...] Spiritual Screen: Are there any cultural, spiritual, jew practices/values/needs that are important for us to knowno Do you want a visit/item from Pastoral Careno Would you like your Animal Caretaker/Club Director notifiedno CAGE: Is this an injured patient at a Trauma Center ([facility]): yes C: Have you ever felt you needed to Cut down on your drinking: no A: Have people Annoyed you by criticizing your drinking: no G: Have you ever felt Guilty about drinking: no E: Have you ever felt you needed a drink first thing 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 Normal [facility] CBCon 06-01-2022 Erythrocyte distribution width (RBC) [Ratio] 11.3 % Low 11.5 - 14.5 [facility] Comment on above: Performed By: #### G CARLIN #### [facility] [address] [place] [address] Hematocrit (Bld) [Volume fraction] 39.4 % Low 41.0 - 52.0 [facility] Comment on above: Performed By: #### G CARLIN #### [facility] [address] [place] [address] Hemoglobin (Bld) [Mass/Vol] 14.0 g/dL Normal 13.5 - 17.5 [facility] Comment on above: Performed By: #### G CARLIN #### [facility] [address] [place] [address] MCHC (RBC) [Mass/Vol] 35.5 g/dL Normal 32.0 - 36.0 [facility] Comment on above: Performed By: #### G CARLIN #### [facility] [address] [place] [address] MCV (RBC) [Entitic vol] 94 fL Normal 80 - 100 [facility] Comment on above: Performed By: #### G CARLIN #### [facility] [address] [place] [address] NUCLEATED RBC 0.0 /100 WBC Normal 0.0-0.0 [facility] [place] Comment on above: Performed By: #### G CARLIN #### [facility] [address] [place] [address] Platelets (Bld) [#/Vol] 200 10*3/uL Normal 150 - 450 [facility] Comment on above: Performed By: #### G CARLIN #### [facility] [address] [place] [address] RBC 4.21 x10E12/L Low 4.50 - 5.90 [facility] Comment on above: Performed By: #### G CARLIN #### [facility] [address] [place] [address] WBC (Bld) [#/Vol] 8.7 10*3/uL Normal 4.4 - 11.3 [facility] Comment on above: Performed By: #### G CARLIN #### [facility] [address] [place] [address] COAGULATION SCREENon 022 APTT Canceled Normal [facility] Comment on above: Order Comment: TEST COAGULATION SCREEN WAS CANCELLED, 06/01/2022 07:33 CLOTTED. Result Comment: THE APTT IS NO LONGER USED FOR MONITORING UNFRACTIONATED HEPARIN THERAPY. FOR MONITORING HEPARIN THERAPY, USE THE HEPARIN ASSAY. Performed By: #### R ENAL #### [facility] [address] [place] [address] PROTHROMBIN TIME Canceled Normal [facility] Comment on above: Order Comment: TEST COAGULATION SCREEN WAS CANCELLED, 06/01/2022 07:33 CLOTTED. Performed By: #### R ENAL #### [facility] [address] [place] [address] PT, INR Canceled Normal [facility] Comment on above: Order Comment: TEST COAGULATION SCREEN WAS CANCELLED, 06/01/2022 07:33 CLOTTED. Performed By: #### R ENAL #### [facility] [address] [place] [address] CORONAVIRUS 2019, SCREEN ASY MPTOMATICon 06-01-2022 SARS-CoV-2 (COVID-19) RNA JASPAL+probe Ql (Unsp spec) Not detected Normal Not Detected [facility] Comment on above: Result Comment: . This test has received FDA Emergency Use Authorization (EUA) and has been verified by [facility] ([facility]). This test is only authorized for the duration of time that circumstances exist to justify the authorization of the emergency use of in vitro diagnostic tests for the detection of SARS-CoV-2 virus and/or diagnosis of COVID-19 infection under section 564(b)(1) of the Act, 21 U.S.C. 360bbb-3(b)(1), unless the authorization is terminated or revoked sooner. [facility] is certified under CLIA-88 as qualified to perform high complexity testing. Testing is performed in the [facility] located at [address] [place] [address]. SARS-CoV-2/Flu/RSV Multiplex Test: Fact sheet for providers: https://www.fda.gov/media/275008/download Fact sheet for patients: https://www.fda.gov/media/793048/download Performed By: #### G CARLIN #### [address] [place] [address] Lab Specimen Source Nasal, Nasopharyngeal Normal [facility] Comment on above: Performed By: #### G CARLIN #### [address] [place] [address] Consult - Neuro-Surgeryon Consult - Neuro-Surgery Service: Service: Service: Surgery Consult: Consult requested by (Attending Name): Rm Parks Reason: facial fracture History of Present Illness: History Present Illness: HPI: 52 year old with no sig pmhx, 05/28 s/p 14ft fall from ladder, CTH diffuse comminuted facial fx/frontal sinus fx w/intracranial extension and diffuse pneumocephalus. Patient was transferred to [facility] under trauma and neurosurgery was consulted for [...] and diffuse pneumocephalus. Patient was transferred to [facility] under trauma and neurosurgery was consulted for [...] the note. I personally evaluated the patient [id number] Electronic Signatures: Barber Castañeda () (Signed 01-Jun-2022 14:02) Authored: Note Completion Co-Signer: Service, History of Present Illness, Allergies, Objective, Assessment/Recommendation s, Note Completion Ravinder Garcia (Resident)) (Signed 01-Jun-2022 03:06) Authored: Service, History of Present Illness, Allergies, Objective, Assessment/Recommendation s, Note Completion Last Updated: 01-Jun-2022 14:02 by Barber Castañeda) Normal [facility] Consult-Plastic Surgeryon Consult-Plastic Surgery Service: Service: Plastic Surgery History of Present Illness: Admission Reason: facial fracture HPI: RM BERMAN is a 52 year old Male with no significant PMH who fell on 05/28 14 ft from a ladder while he was at work and presented to [facility] in [place], [place] and was transferred to [facility] as a trauma. CTH at OSH indicates [...] Known Allergies: Objective: Objective Information: T PRBPMAPSpO2 Value37.99929421/7194% Date/Time06/01 4: 4: 4: 4: 4:21 Range(36.7C [...] he was at work and presented to [facility] in [place], [place] and was transferred to [facility] as a trauma. CTH at OSH indicates [...] - K (more content not included)... Normal [facility] Covid 19 Resultson 2 SARS-CoV-2 (COVID-19) RNA [...] You may also be contacted by the [facility] to see if any of [...] or Naproxen (Aleve) can also be used. Emxy-iut-ztfqyrp cough and cold medicines can be used according to the instructions on the package. Some vvbz-rtj-tztngkn medicines also contain acetaminophen. Make sure you [...] water are not available, use alcohol-based hand data services developer. Avoid touching your eyes, nose, and mouth [...] 24 felipa (more content not included)... Normal [facility] Daily Progress Note-Plastic Surgeryon 06-01-2022 Daily Progress Note-Plastic Surgery Service: Plastic Surgery Subjective Data: RM BERMAN is a 52 year old Male who is Hospital Day # 1. No acute concerns. States pain is well-controlled. Objective Data: Objective Information: T PRBPMAPSpO2 [id number]/7997% Date/Time06/01 8: 8: 8: 8: 8:53 Range(36.7C - 37.4C ) (75 - 78 ) (16 - 20 ) (107 - 146 )/ (71 - 79 ) (94% - 98% ) Highest temp of 37.4 C was recorded at 06/01 4:21 Pain reported at 06/01 1:15: 3 = Mild ---- Intake and Output ----- Mn/Dy/Year TimeIntakeOutputNet Jun 01, 2022 6:00 [id number] The Intake and Output Totals for the last 24 hours are: IntakeOutputNet [id number] Physical Exam by System: Constitutional: NAD Eyes: [...] he was at work and presented to [facility] in [place], [place] and was transferred to [facility] as a trauma. CTH at OSH indicates [...] Plastic and Reconstructive Surgery Doc Mike, Pager #[phone], Team phones: [phone] Time spent on the assessment of patient, [...] 01-Jun-2022 11:50 by Makenna Carver (PAC) Normal [facility] Discharge Planning [id number] 1 Discharge Planning Note2 Discharge Planning: Discharge Barriersnone Anticipated Discharge [id number] Discharge Planning 06/01/2022 12:24 SWN This Pt. admitted to [facility] ED after falling from a ladder. Pt. injuries include b/l medial and inferior orbital wall fx. He was admitted to [facility] under trauma service. He is pending OR this week and will likely need PT/OT post op. Pt. is not medically ready for discharge. SW will continue to follow to assist with discharge plan. Skylar Acharya RECORDS TECH, HOSPITAL FELLOW [id number] Arben Mckeon 06/02/2022 Transitional Gauge Operator Note 1326 Patient discussed during interdisciplinary rounds. [...] adod: 7days Jacy Savage RN [facility] doc mike..[phone] 06/07/2022 SOCIAL WORK DISCHARGE PLANNING NOTE Discussed patient with team. Patient pending OR with Neurosurgery. Patient not medically ready for discharge. SW will continue to follow to assist with safe discharge plan. Lizbeth Copeland RECORDS TECH, HOSPITAL FELLOW DOC MIKE 06/09/2022 SOCIAL WORK DISCHARGE PLANNING [...] assist with the discharge plan. Skylar Acharya, RECORDS TECH, HOSPITAL FELLOW [id number] Doc Halo 06/13/2022 14:50 Gauge Operator Note: Per medical team patient is not medically ready for discharge. Plan for patient to discharge home with no additional needs. Per patient feels comfortable completing wound care at home and has and son to assist. Will continue to follow patient for all home going and discharge needs. Gisel ALCARAZ RN, [facility] [phone] 06/14/2022 09:29 Gauge Operator Note: Per medical team patient is medically ready for discharge, patient to have nasal packing removed today. Plan for patient to discharge home with no needs. Patient's to assist with transportation. Gisel ALCARAZ RN, [facility] [phone] 06/15/2022 12:31 Gauge Operator Note: Per medical team patient is medically ready for discharge. Nasal packing removed. Patient to discharge home with no needs. Patient's at bedside to assist with transportation. Gisel ALCARAZ RN, [facility] [phone] 06/15/2022 @1500 Nursing discharge note: Pt. discharged to home in stable condition. Discharge education completed with at the bedside. All meds were sent to [facility] pharmacy where he will hand picker upon d/c. Pt transported [facility] via wheelchair. JONATHAN YOUNG RN, BSN, PCCN Assessment: Discharge Planning Assessment [id number] Discharge Planning Assessment Completed byJacy Savage RN [facility] doc halo..[phone] Primary Contact Name and NumberMihaela Berman - [phone](1) Prior Level of Functioningindependent Lives Withspouse(1) Living Arrangementshouse(1) Stated Reason for AdmissionFall(1) Arrived Fromspital (1) PCPDr. Stacey Morocho Preferred Pharmacy Name/LocationDDD in [place] Recent Falls/ Injury/ Need Assist with Ambulationyes / orbital and nasal fx Resource/Environmental Concernsnone(1) InsuranceCommercial Discharge Documentation: Discharge/Transfer Date/[id number] 12:00 Discharged Accompanied Byspouse Transportation Methodprivate car Discharge Modewheelchair Code StatusCode Status order at time of discharge: Full Code Discharge Order Writtenyes [place] DNR Form Sent with Patient and/or Familyn/a [...] Profile - Adult v2 01-Jun-2022 03:37 Normal [facility] GLUCOSE-POCTon 06-01-2022 Glucose [Mass/Vol] 104 mg/dL High 74 - 99 [facility] Comment on above: Performed By: #### G CARLIN #### [facility] [address] [place] [address] MAGNESIUMon 06-01-2022 Magnesium [Mass/Vol] 1.73 mg/dL Normal 1.60 - 2.40 [facility] Comment on above: Performed By: #### G CARLIN #### [facility] [address] [place] [address] Patient Profile - Adult v2on 06-01-2022 Patient Profile - Adult v2 Profile: Initial Info: How to be AddressedJeffrey Spoken Language PreferredEnglish Source of Informationpatient Stated Reason for AdmissionFall Primary Contact Name and NumberMelissa Antonella - [phone] Other Contact Names and NumbersHome phone number [phone] Wants Family/Rep Notified of Admissionno Notify PCPnotify [...] Awakeningyes Weight in kg75.8 kilogram(s) Weight in cxk267.1 pound(s) Weight Methodstated Scale Typebed Height in cm172.5 centimeter(s) Height in feet5 feet Height in inches7.95 inch(es) Height Methodstated BMI (kg/m2)25.473 square meter RSP Based Care: Recent Change in Mood/Behaviordenies Major Change/Loss/Stressor/Fear sdenies Techniques to [place] with Loss/Stress/Changediversi onal activities How would you [...] 01-Jun-2022 04:00) Authored: Initial Info, General Health, [facility] Based Care, Substance, Health Mgmt, Relationship/Environ, Additional Information Last Updated: 08-Jun-2022 21:52 by Yaw Damon (THADDEUS) Normal [facility] RENAL FUNCTION PANELon 06-01 Albumin [Mass/Vol] 3.2 g/dL Low 3.4 - 5.0 [facility] Comment on above: Performed By: #### R ENAL #### [facility] [address] [place] [address] Anion gap [Moles/Vol] 18 mmol/L Normal 10 - 20 [facility] Comment on above: Performed By: #### R ENAL #### [facility] [address] [place] [address] Calcium [Mass/Vol] 9.0 mg/dL Normal 8.6 - 10.6 [facility] Comment on above: Performed By: #### R ENAL #### [facility] [address] [place] [address] Chloride [Moles/Vol] 99 mmol/L Normal 98 - 107 [facility] Comment on above: Performed By: #### R ENAL #### [facility] [address] [place] [address] Creatinine [Mass/Vol] 0.91 mg/dL Normal 0.50 - 1.30 [facility] Comment on above: Performed By: #### R ENAL #### [facility] [address] [place] [address] eGFR MALE >90 Normal >90 [facility] Comment on above: Result Comment: CALC ULATIONS OF ESTIMATED GFR ARE PERFORMED USING THE 2020 CKD-EPI STUDY REFIT EQUATION WITHOUT THE RACE VARIABLE FOR THE IDMS-TRACEABLE CREATININE METHODS. https://jasn.asnjournals.org/content/early/ASN.2898340 988 Performed By: #### R ENAL #### [facility] [address] [place] [address] Glucose [Mass/Vol] 70 mg/dL Low 74 - 99 [facility] Comment on above: Performed By: #### R ENAL #### [facility] [address] [place] [address] HCO3 (Bld) [Moles/Vol] 25 mmol/L Normal 21 - 32 [facility] Comment on above: Performed By: #### R ENAL #### [facility] [address] [place] [address] Phosphate [Mass/Vol] 3.2 mg/dL Normal 2.5 - 4.9 [facility] Comment on above: Result Comment: The performance characteristics of phosphorus testing in heparinized plasma have been validated by the individual laboratory site where testing is performed. Testing on heparinized plasma is not approved by the FDA; however, such approval is not necessary. Performed By: #### R ENAL #### [facility] [address] [place] [address] Potassium [Moles/Vol] 3.8 mmol/L Normal 3.5 - 5.3 [facility] Comment on above: Performed By: #### R ENAL #### [facility] [address] [place] [address] Sodium [Moles/Vol] 138 mmol/L Normal 136 - 145 [facility] Comment on above: Performed By: #### R ENAL #### [facility] [address] [place] [address] Urea nitrogen [Mass/Vol] 9 mg/dL Normal 6 - 23 [facility] Comment on above: Performed By: #### R ENAL #### [facility] [address] [place] [address] TYPE + SCREENon 06-01-2022 ABO TYPE A Normal [facility] Comment on above: Performed By: #### G CARLIN #### [facility] [address] [place] [address] RH TYPE Positive Normal [facility] Comment on above: Performed By: #### G CARLIN #### [facility] [address] [place] [address] Covid-19 PCR (CVDTBH)on SARS-CoV-2 (COVID-19) RNA JASPAL+probe Ql (Unsp spec) Not detected Normal NOT DETECTED [facility] Comment on above: Result Comment: This test is not yet approved or cleared by the [place] FDA. When there are no FDA-approved or cleared tests available, and other criteria are met, FDA can make tests available under an emergency access mechanism called an Emergency Use Authorization (EUA). The EUA for this test is supported by the [place] Machine Operator of Health and Human Service's (HHS's) [...] consistent with SARS-CoV-2. Performed By: #### C [facility] #### [facility] [address] [place] [address] Dr. Sade Martínez Covid-19 PCR ([facility])on 07-08 SARS-CoV-2 (COVID-19) RNA JASPAL+probe Ql (Unsp spec) Not detected Normal NOT DETECTED [facility] Comment on above: Result Comment: This test is not yet approved or cleared by the [place] FDA. When there are no FDA-approved or cleared tests available, and other criteria are met, FDA can make tests available under an emergency access mechanism called an Emergency Use Authorization (EUA). The EUA for this test is supported by the [place] of Health and Human Service's (HHS's) declaration [...] SARS-CoV-2. Performed By: #### C VDTB #### [facility] [address] [place], [place] [id number] Dr. Sade Martínez Covid-19 PCR ([facility])on 08-08 EUA Statement SEE BELOW Normal [facility] Comment on above: Result Comment: This test is not yet approved or cleared by the [place] FDA. When there are no FDA-approved or cleared tests available, and other criteria are met, FDA can make tests available under an emergency access mechanism called an Emergency Use Authorization (EUA). The EUA for this test is supported by the [place] of Health and Human Service?s (HHS?s) declaration [...] SARS-CoV-2. Performed By: #### C VDTB #### [facility] [address] [place] [address] Grisel Deluca SARS-CoV-2 (COVID-19) RNA JASPAL+probe Ql (Unsp spec) Not detected Normal NOT DETECTED [facility] Comment on above: Result Comment: This test is not yet approved or cleared by the [place] FDA. When there are no FDA-approved or cleared tests available, and other criteria are met, FDA can make tests available under an emergency access mechanism called an Emergency Use Authorization (EUA). The EUA for this test is supported by the [place] of Health and Human Service's (HHS's) declaration [...] longer be used). Performed By: #### [facility] #### [facility] [address] [place], [place] [id number] Grisel Deluca Vital Signs Date Time Vital Sign Value Performing Clinician Facility 05-08-2024 15:42-0400 Blood Pressure Location [facility] ARCINIEGAiLz [facility] 05-08-2024 15:42-0400 Diastolic blood pressure 78 mm[Hg] [facility]a ARCINIEGALiz [facility] 05-08-2024 15:42-0400 Heart rate 76 /min Pola ARCINIEGALiz [facility] 05-08-2024 15:42-0400 Respiratory rate 16 /min Pola ARCINIEGALiz [facility] 05-08-2024 15:42-0400 Systolic blood pressure 126 mm[Hg] Pola ARCINIEGALiz [facility] 01-04-2024 14:29-0400 Body height 175.3 cm Pac 9 Work Phone: [facility] 01-04-2024 14:29-0400 Body mass index (BMI) [Ratio] 27.18 kg/m2 Pac 9 Work Phone: [facility] 01-04-2024 14:29-0400 Body temperature 97.11 [degF] Pac 9 Work Phone: [facility] 01-04-2024 14:29-0400 Body weight 83.5 kg Pac 9 Work Phone: [facility] 01-04-2024 14:29-0400 Diastolic blood pressure 84 mm[Hg] Pac 9 Work Phone: [facility] 01-04-2024 14:29-0400 Heart rate 64 /min Pacc 9 Work Phone: [facility] 01-04-2024 14:29-0400 SaO2% (BldA) [Mass fraction] 99 % [facility] 9 Work Phone: [facility] 01-04-2024 14:29-0400 Systolic blood pressure 126 mm[Hg] [facility] 9 Work Phone: [facility] 09-05-2023 09:18-0500 Body height 176.5 cm Christopher Mcgregor MD Work Phone: [facility] 09-05-2023 09:18-0500 Body temperature 97 [degF] Christopher Mcgregor MD Work Phone: [facility] 09-05-2023 09:18-0500 Body weight 81.19 kg Christopher Mcgregor MD Work Phone: [facility] 09-05-2023 09:18-0500 Diastolic blood pressure 86 mm[Hg] Christopher Mcgregor MD Work Phone: [facility] 09-05-2023 09:18-0500 Heart rate 68 /min Christopher Mcgregor MD Work Phone: [facility] 09-05-2023 09:18-0500 Systolic blood pressure 118 mm[Hg] Christopher Mcgregor MD Work Phone: [facility] 04-12-2023 10:21-0400 Body temperature 97.5 [degF] Michael Vanegas MD Work Phone: [facility] 04-12-2023 10:21-0400 Diastolic blood pressure 84 mm[Hg] Michael Vanegas MD Work Phone: [facility] 04-12-2023 10:21-0400 Heart rate 68 /min Michael Vanegas MD Work Phone: [facility] 04-12-2023 10:21-0400 Respiratory rate 20 /min Michael Vanegas MD Work Phone: [facility] 04-12-2023 10:21-0400 SaO2% (BldA) [Mass fraction] 99 % Michael Vanegas MD Work Phone: [facility] 04-12-2023 10:21-0400 Systolic blood pressure 121 mm[Hg] Michael Vanegas MD Work Phone: [facility] 09-05-2022 11:28-0500 Body height 173.99 cm Eveline Acunaa PA-C Work Phone: GM-Kaojsqy-Lhsmmh l 2099 Work Phone: 09-05-2022 11:28-0500 Body mass index (BMI) [Ratio] 26.07 kg/m2 Eveline Acunaa PA-C Work Phone: WE-Wjqpjtv-Aiyldh l 2099 Work Phone: 09-05-2022 11:28-0500 Body surface area Derived from formula 1.94 m2 Eveline Acunaa PA-C Work Phone: PF-Fjkwotg-Qrgahn l 2099 Work Phone: 09-05-2022 11:28-0500 Body temperature 97.3 [degF] Eveline Acunaa PA-C Work Phone: NP-Exmwkep-Fgmjio l 2099 Work Phone: 09-05-2022 11:28-0500 Body weight 78.93 kg Eveline Acunaa PA-C Work Phone: JD-Vkhhihe-Wugjfu l 2099 Work Phone: 09-05-2022 11:28-0500 Diastolic blood pressure 76 mm[Hg] Eveline Acunaa PA-C Work Phone: BU-Nnoiacv-Qbacnw l 2099 Work Phone: 09-05-2022 11:28-0500 Heart rate 73 /min Eveline Acunaa PA-C Work Phone: WE-Gzodvhg-Kzrqmf l 2099 Work Phone: 09-05-2022 11:28-0500 Systolic blood pressure 108 mm[Hg] Eveline Acunaa PA-C Work Phone: VN-Hddgbzs-Blxccv l 2099 Work Phone: 09-05-2022 11:28-0500 0 1 Eveline Pesa PA-C Work Phone: LA-Jqngnaz-Wvcpgn l 2099 Work Phone: Comment on above: [employer] 07-04-2022 13:34-0500 Body height 173.99 cm Eveline Pesa PA-C Work Phone: [facility] 2099 Work Phone: 07-04-2022 13:34-0500 Body mass index (BMI) [Ratio] 23.23 kg/m2 Eveline Pesa PA-C Work Phone: [facility] [...] mm[Hg] Eveline Dai PA-C Work Phone: -[facility]astic [facility] 2100 Work Phone: 06-15-2022 14:45-0500 Body temperature 98.06 [degF] Text Entry Free [facility] 06-15-2022 14:45-0500 Diastolic blood pressure 76 mm[Hg] Text Entry Free [facility] 06-15-2022 14:45-0500 Heart rate 117 /min Text Entry Free [facility] 06-15-2022 14:45-0500 Respiratory rate 18 /min Text Entry Free [facility] 06-15-2022 14:45-0500 SaO2% (BldA) [Mass fraction] 99 % Text Entry Free [facility] 06-15-2022 14:45-0500 Systolic blood pressure 104 mm[Hg] Text Entry Free [facility] Encounters Encounter Date Encounter Type Care Provider Facility Start: 05-17-2024 End: 05-17-2024 ambulatory [facility] Facility:[facility] Start: 05-17-2024 End: 05-17-2024 Patient encounter procedure Christopher Mcgregor MD Work Phone: Plastic Surgery Comment on above: Rosacea (Primary Dx) ; Post-operative state; H/O closed fracture of nasal bones Start: 05-08-2024 End: 05-08-2024 ambulatory Pola GARCIA Facility:[facility] Start: 05-08-2024 End: 05-08-2024 Patient [facility] Start: 04-15-2024 ambulatory Pola GARCIA Facility: [facility] Start: 02-14-2024 End: 02-14-2024 ambulatory [facility] Facility:[facility] Start: 02-14-2024 End: 02-14-2024 Patient encounter procedure [...] Start: 01-16-2024 End: 01-16-2024 ambulatory NANCY CHENG Facility:[facility] Start: 01-08-2024 End: 01-08-2024 ambulatory CHRISTOPHER MCGREGOR Facility:[facility] Start: 01-04-2024 Encounter for other preprocedural examination JENNIFER GUZMAN [facility] Start: 01-04-2024 End: 01-04-2024 Admission to establishment Pac Main Work Phone: Pre Anesthesia Start: 01-04-2024 End: 01-04-2024 Anesthesia consultation [facility] Main Work Phone: Pre Anesthesia Comment on above: Pre-op evaluation (P rimary Dx); Headaches due to old head injury; Acute sinusitis, recurrence not specified, unspecified location; Gastroesophageal reflux disease without esophagitis; CELAYA (dyspnea on exertion); Overweight Start: 01-04-2024 End: 01-04-2024 [place]ced[place] [address] Work Phone: [facility] Work Phone: Start: 01-04-2024 End: 01-04-2024 ambulatory JENNIFER L GUZMAN Facility:[facility] Start: 12-29-2023 End: 12-29-2023 Admission to same day surgery center Christopher Mcgregor MD Work Phone: Plastic Surgery Comment on above: Difficulty breathing (Primary Dx); H/O closed fracture of nasal bones Start: 12-29-2023 End: 12-29-2023 Telemedicine consultation with patient Christopher Mcgregor MD Work Phone: Plastic Surgery Start: 12-29-2023 End: 12-29-2023 ambulatory MICHAEL VANEGAS Facility:[facility] Start: 12-21-2023 Admission to [facility] surgery center Christopher Mcgregor MD Work Phone: Plastic Surgery Comment on above: FMLA paperwork for Neno Berman Start: 12-21-2023 ambulatory Christopher genao MD Work Phone: Plastic Surgery Start: 12-15-2023 Admission to [facility] surgery center Christopher Mcgregor MD Work Phone: Plastic Surgery Comment on above: FMLA papers for Karen Berman () Start: 12-15-2023 ambulatory Christopher genao MD Work Phone: Plastic Surgery Start: 11-30-2023 Telephone encounter Christopher Mcgregor MD Work Phone: Plastic Surgery Comment on above: Dustin - [email or web address] Start: 09-05-2023 End: 09-05-2023 Patient encounter procedure Christopher Mcgregor MD Work Phone: Plastic Surgery Comment on above: Difficulty breathing (Primary Dx); H/O closed fracture of nasal bones; Facial injury, subsequent encounter Start: 09-05-2023 End: 09-05-2023 ambulatory STACEY MOROCHO Facility:[facility] Start: 07-20-2023 Telephone encounter Michael mora MD Work Phone: [facility] [place] Comment on above: [employer] and [employer] Start: 07-18-2023 Telephone encounter Michael mora MD Work Phone: [facility] [place] Start: 06-16-2023 Telephone encounter Michael mora MD Work Phone: [facility] [place] Comment on above: [employer] Start: 06-02-2023 Telephone encounter Michael mora MD Work Phone: [facility] [place] Comment on above: [employer] paperwork Start: 05-17-2023 Telephone encounter Michael mora MD Work Phone: [facility] [place] Comment on above: Patient Update Start: 04-12-2023 End: 04-12-2023 ambulatory Michael Vanegas MD Work Phone: Plastic Surgery Comment on above: Multiple closed frac tures of facial bone, sequela (HCC) (Primary Dx); Open skull base fracture with cerebral laceration and contusion, without coma, with routine healing Start: 04-12-2023 End: 04-12-2023 Patient encounter procedure Michael Vanegas MD Work Phone: [facility] Start: 2023 End: 2023 Subsequent hospital [...] original px Eveline Dai PA-C Work Phone: [facility] 2100 Work Phone: Start: 09-05-2022 ambulatory Provider Pending Facili ty:[id number] Start: 07-25-2022 Postop follow up vis it related to original px Provider AMAProvider Work Phone: [facility] Work Phone: Start: 07-25-[address] Michael Vanegas Facility:[id number] Start: 07-25-2022 ambulatory Provider Pending Facili ty:[facility] Start: 07-04-2022 Postop follow up vis it related to original px Eveline Dai PA-C Work Phone: [facility] Work Phone: Start: 07-04-2022 ambulatory Provider Pending Facili ty:[id number] Start: 06-01-2022 End: 06-15-2022 Evaluation and management of inpatient Nitesh Yousif [facility] TT08 Rm [id number] Start: 08-10-2021 [...] Performed By: #### G CARLIN #### [facility] [address] [place] [address] Start: 06-01-2022 Antibody screen Jami Mc Comment on above: Performed By: #### G CARLIN #### [facility] [address] [place] [address] Reconstruction of fa cial bones Pola GARCIA Reconstruction of nose Zenon pedro GARCIA Plan of Treatment Date Care Activity Detail Author Start: 05-28-2032 Urine microalbumin profile DTaP,Tdap,Td Vaccine (2 - Td or Tdap) [facility] Start: 01-03-2027 Diabetes Screening Diabetes Screenin g [facility] Start: 05-31-2025 Diabetes Screening Diabetes Screenin g [facility] Start: 08-29-2024 End: 08-29-2024 Patient encounter procedure 08/29/2024 1:00 PM EST Office Visit [facility] [place] [address] [place] [id number] Mihaela Iniguez APRN.OCCUPATIONAL THERAPY INSTRUCTOR [address] [place] [address] Rosacea [L71.9] [facility] [place] Comment on above: Rosacea [L71.9] Start: 05-17-2024 End: 05-17-2024 Patient encounter procedure 05/17/2024 1:45 PM EDT Office Visit Plastic Surgery [address] [place] [address] Christopher Mcgregor MD [address] [place], [place] [id number] Return in about 3 months (around 05/16/2024) for Follow up Plastic Surgery Comment on above: Return in about 3 mo nths (around 05/16/2024) for Follow up Start: 04-07-2024 Covid-19 Vaccine ( season) Covid-19 Vaccine ( season) [facility] Start: 04-07-2024 Influenza vaccination [facility] Start: 02-14-2024 End: 02-14-2024 Patient encounter procedure 02/14/2024 2:00 PM EDT Office Visit Plastic Surgery [address] [place] [address] Christopher Mcgregor MD [address] [place], [place] [id number] 02/[address] Mcgregor for post op appointment Plastic Surgery Comment on above: 02/[address] Mcgregor for post op appointment Start: 01-16-2024 End: 01-16-2024 Patient encounter procedure 01/16/2024 4:00 PM EDT Office Visit Plastic Surgery [address] [address] Nancy Cheng PA-C [address] [place] [address] Post op Plastic Surgery Comment on above: Post op Start: 01-08-2024 End: 01-08-2024 Admission to same day surgery center 01/08/2024 10:15 AM EDT - 01/08/2024 2:15 PM EDT Surgery Admitting [address] [place] [address] Christopher Mcgregor MD [address] [place] [address] REVISION RHINOPLASTY - using donor cartilage Admitting Comment on above: REVISION RHINOPLASTY - using donor cartilage Start: 01-08-2024 End: 01-08-2024 Excision inferior turbinate partial/complete RESECTION TURBINATE Difficulty breathing H/O closed fracture of nasal bones Facial injury, subsequent encounter 01/08/2024 10:15 AM EDT [facility] Start: 01-08-2024 End: 01-08-2024 Rhinoplasty secondary minor revision REVISION RHINOPLASTY Difficulty breathing H/O closed fracture of nasal bones Facial injury, subsequent encounter 01/08/2024 10:15 AM EDT [facility] Start: 01-08-2024 End: 01-08-2024 Septoplasty/submucous resecj w/wo cartilage grf SEPTOPLASTY Difficulty breathing H/O closed fracture of nasal bones Facial injury, subsequent encounter 01/08/2024 10:15 AM EDT [facility] Start: 01-08-2024 Subsequent hospital visit by physician 01/08/2024 10:15 AM EDT Hospital Encounter Admitting [address] [place] [address] Christopher Mcgregor MD [address] [facility] [place] [address] Difficulty breathing [R06.89], H/O closed fracture of nasal bones [Z87.81], Facial injury, subsequent encounter [S09.93XD] Admitting Comment on above: Difficulty breathing [R06.89], H/O closed fracture of nasal bones [Z87.81], Facial injury, subsequent encounter [S09.93XD] Start: 01-04-2024 End: 01-04-2024 Anesthesia consultation 01/04/2024 2:40 PM EDT PAT Pre Anesthesia [address] [place] [address] 9, Pacc Main [address] [place], [place] [id number] PACC Pre Anesthesia Comment on above: PACC Start: 12-29-2023 End: 12-29-2023 Admission to same day surgery center 12/29/2023 3:45 PM EDT [facility] Plastic Surgery [address] [place] [address] Christopher Mcgregor MD [address] [place] [address] Virtual Discussion of Upcoming Procedure Plastic Surgery Comment on above: Virtual Discussion o f Upcoming Procedure Start: 08-07-2023 Behavioral Health Screening Behavioral Health Screening [facility] Start: 08-07-2023 Depression Assessment Depression Ass essment [facility] Start: 05-28-2023 Screening for malign ant neoplasm of lung Lung Cancer Screening [facility] Start: 04-07-2023 Covid-19 Vaccine ( season) Covid-19 Vaccine ( season) [facility] Start: 04-07-2023 Influenza vaccination [facility] Start: 10-03-2022 DEMAR, Provider : Michael Vanegas, Status: Pen, Time: 11:30 AM DEMAR, Provider: Michael Vanegas, Status: Pen, Time: 11:30 AM [facility] 2100 Work Phone: Start: 09-05-2022 FUV, Provider: Eveline Dai, Status: Pen, Time: 11:00 AM FUV, Provider: Eveline Dai, Status: Pen, Time: 11:00 AM [facility] Work Phone: Start: 08-07-2022 DEPRESSION ASSESSMENT DEPRESSION ASS ESSMENT [facility] Start: 07-25-2022 FUV, Provider: Michael Vanegas, Status: Pen, Time: 3:00 PM FUV, Provider: Michael Vanegas, Status: Pen, Time: 3:00 PM [facility] 2100 Work Phone: Start: 07-04-2022 Patient encounter procedure [facility] Start: 06-15-2022 End: 06-16-2023 Hydrogen Peroxide 3% Topical 1 application Solution Once ; SolutionDOSE = 1 application(s) Topical OnceApply to scalpClinician Notes: Please place at bedside, Plastic surgery team to return to clean dry blood from incision. Start: 15-Jun-2022 End: 15-Jun-2023 Ordered: 15-Jun-2022 Michael Lee Intent Comments: Please place at bedside, Plastic surgery team to return to clean dry blood from incision. [facility] Comment on above: Please place at beds calli, Plastic surgery team to return to clean dry blood from incision. Start: 06-08-2022 End: 06-09-2023 [facility] Comment on above: IF patient HAS a [...] series) COVID-19 VACCINE (4 - Pfizer series) [facility] Start: 2020 SHINGRIX VACCINE (1 of 2) SHINGRIX VACCINE (1 of 2) [facility] Start: 2015 COLOGUARD (FIT-DNA) COLOGUARD (FIT-D NA) [facility] Start: 2015 Colonoscopy COLONOSCOPY [facility] Start: 2015 COLORECTAL CANCER SCREENING COLORECTAL CANCER SCREENING [facility] Start: [address] COLONOGRAPHY [facility] Start: 2015 DIABETES SCREEN DIABETES SCREEN [facility] Start: 2015 Diabetes Screening Diabetes Screenin g [facility] Start: 2015 FECAL OCCULT BLOOD FECAL OCCULT BLOO D [facility] Start: 2015 Screening for malign ant neoplasm of colon [facility] Start: 2015 SIGMOIDOSCOPY SIGMOIDOSCOPY [facility] Start: 2005 Lipid 1996 panel - Serum or Plasma Lipid Screening [facility] Start: 2005 Lipid panel Lipid Screening [facility] Start: 2005 LIPID SCREEN LIPID SCREEN [facility] Start: 1989 Hepatitis B Vaccine (1 of 3 - 19+ 3-dose series) Hepatitis B Vaccine (1 of 3 - 19+ 3-dose series) [facility] Start: 1989 Urine microalbumin profile [facility] Start: 1988 Anxiety Screening Anxiety Screening [facility] Start: 1988 Depression Screening Depression Scre ening [facility] Start: 1988 HEPATITIS C SCREENING HEPATITIS C [facility] Start: 1988 Hepatitis C screening Hepatitis C [facility] Start: 1988 HIV SCREENING HIV SCREENING [facility] Start: 1988 HIV screening HIV Screening [facility] Start: 1970 HEPATITIS B (1 of 3 - 3-dose series) HEPATITIS B (1 of 3 - 3-dose series) [facility] Start: 1970 Hepatitis B Vaccine (1 of 3 - 3-dose series) Hepatitis B Vaccine (1 of 3 - 3-dose series) [facility] PLAST[facility] A60 Immunizations Immunization Date Immunization Notes Care Provider Fa cili 05-28-2022 tetanus toxoid, redu jaz diphtheria toxoid, and acellular pertussis vaccine, adsorbed Eveline Dai PA-C Work Phone: -[facility]astic Surgery[facility] 2100 Work Phone: 06-04-2021 Pfizer-BioNTech COVI D-19 Vacc 30 MCG/0.3ML Intramuscular Suspension Eveline Dai PA-C Work Phone: [facility] 11-21-2020 Pfizer-BioNTech COVI D-19 Vacc 30 MCG/0.3ML Intramuscular Suspension Eveline Dai PA-C Work Phone: [facility] 10-29-2020 Pfizer-BioNTech COVI D-19 Vacc 30 MCG/0.3ML Intramuscular Suspension Eveline Dai PA-C Work Phone: [facility] Payers Date Payer Category Payer Unknown 2022 Unknown 1970 Unknown [id number] 2.16.84 [id number] 1970 Unknown [id number] [id number] 1970 Unknown [id number] 2.16.84 [id number] 1970 Unknown [id number] 2. [id number] 1970 Unknown [id number] 2. [id number] 1970 Unknown [id number] 2. [id number] 1970 Unknown [id number] 2. [id number] 1970 Unknown [id number] 2. [id number] 1970 Unknown [id number] 2. [id number] 1970 Unknown [id number] 2. [id number] 1970 Unknown [id number] 2. [id number] 1970 Unknown [id number] 2.16. [id number] 1970 Unknown [id number] 2.16.8 [id number] 1959 Unknown [id number] Social History Date Type Detail Facility [facility] Tobacco smoking consumption unknown [facility] Start: 2023 End: 01-08-2024 History of Social function [facility] Start: 2023 End: 01-08-2024 Area Deprivation Index [facility] National Score (1-10 0), lower number is lower risk 80 [facility] Start: 1970 Sex Assigned At Not on file [facility] Start: 01-04-2024 End: 05-08-2024 Tobacco smoking status NHIS Ex-smoker [facility] Start: 05-07-1987 End: 05-07-2022 History of tobacco use Current smoker [facility] Start: 05-07-1987 End: 05-07-2022 History of tobacco use Cigarette Smoker [facility] Start: 01-04-2024 Tobacco use and exposure Smoke less tobacco non-user [facility] Start: 01-04-2024 End: 01-08-2024 Alcohol intake Ex-drinker (finding) [facility] Medical Equipment Procedure Code Equipment Code Equipment Origin al Text Equipment Identifier Dates Graft Costal Cartilage 3.5cm Bone Frozen - [id number] Start: 01-08-2024 Cortiva Allograf t Dermis 2cm X 4cm - [id number] Start: 01-08-2024 Functional Status Date Assessment Result Facility 05-08-2024 Functional Status N/A [facility] Functional observable [facility] Mental Status Date Assessment Result Facility 06-06-2022 Cognitive functi ons [id number] [facility] Clinical Notes 06-01-2022 to 05-17-2024 Christopher Mcgregor MD - 05/17/2024 2:08 PM Christopher Holt MD - 02/14/2024 2:00 PM Nancy Sanchez PA-C - 01/25/2024 1:34 PM EDTPatient Instructions<item> Note Date & Type Note Facility 05-17-2024 Note HNO ID: [id number] Author: CHRISTOPHER MCGREGOR MD Service: ? Author [...] Date: May 22, 2024 Time: 7:42 AM [facility] 05-17-2024 History of Present illness Narrative Images [...] Time: 7:42 AM documented in this encounter [facility] 05-08-2024 Note General Surgery Offi ce/Clinic Note [...] mRNA BNT-162b2 vax 10/29/2020 Recorded [facility] Comment on above: Result Comment: Elec [...] Time: 9:46 AM documented in this encounter [facility] 02-14-2024 Note HNO ID: [id number] Author: CHRISTOPHER MCGREGOR MD Service: ? Author [...] Date: February 16, 2024 Time: 9:46 AM [facility] 01-25-2024 Note HNO ID: [id number] Author: NANCY CHENG PA-C Service: ? Author Type: Physician Asbestos Worker Helper Type: Progress Notes Filed: 01/25/2024 13:35 Note [...] room. Nancy Cheng PA-C January 16, 2024 [facility] 01-25-2024 History of Present illness Narrative Images [...] January 16, 2024 documented in this encounter [facility] 01-08-2024 Note HNO ID: [id number] Author: JOELLEN RIBEIRO APRN.RADIOLOGIC TECHNOLOGY TEACHER Service: ? Author Type: Nurse Customer Care Representative Type: Anesthesia Procedure Notes Filed: 01/08/2024 12:05 [...] January 08, 2024 TIME: 12:05 PM CSN: [id number] [facility] 01-08-2024 Note HNO ID: [id number] Author: JOELLEN RIBEIRO APRN.CRNA Service: ? Author Type: Nurse Customer Care Representative Type: Anesthesia Procedure Notes Filed: 01/08/2024 12:05 Note Text: ANESTHESIOLOGY PROCEDURE NOTE Airway General Information Procedure Start Time/Medication Administration: 01/08/2024 11:39 AM Procedure End Time: 01/08/2024 11:40 AM Patient location during procedure: OR Timeout Performed Pre-procedure: timeout performed Consent Obtained: Yes Patient identity confirmed: arm band and patient Staffing RADIOLOGIC TECHNOLOGY TEACHER: Joellen Ribeiro APRN.CRNA Performed by: ROHAN Indications [...] January 08, 2024 TIME: 12:04 PM CSN: [id number] [facility] 01-04-2024 Instructions Jennifer Guzman APRN.OCCUPATIONAL THERAPY INSTRUCTOR - 01/04/2024 3:00 PM EDT PATIENT PREOPERATIVE INSTRUCTIONS Christopher Mcgregor MD has scheduled you for your procedure at this surgery center: If no call by 4pm the day before surgery, please call this number. [facility] [place] Scheduling Office: [phone] --[address] [place] [address]. Please read below carefully for your personalized [...] Procedures: - YOU MUST HAVE A RESPONSIBLE DISH MAKER TAKE YOU HOME. A ENGRAVER SEALS OR AMPOULE EXAMINER CANNOT BE MADE A RESPONSIBLE DISH MAKER. - We recommend that a responsible person [...] call the Monday before. Your surgeon s bore mill operator for plastic will tell you what time to call the office. - If you have not reached the departmental bore mill operator for plastic by 5 P.M., call [phone] after 5 P.M. the day before your surgery. Please be aware that emergency situations arise, which may delay or change your surgical time. If this happens, we will notify you as soon as possible and regret any inconvenience. If you already have an Advance Directive, please fax a copy to [phone] or email to for it to be [...] Jennifer Guzman APRN.FE documented in this encounter [facility] 01-04-2024 History and physical note Images from [...] injury Positive for: headaches (migraines). Negative for: EMPLOYEE DEVELOPMENT MANAGER tumor, delirium, dementia, multiple sclerosis, peripheral neuropathy, [...] chest pain, CHF, DVT/PE, hyperlipidemia, hypertension, recent VT, murmur/valvular heart disease and open heart surgery. [...] Prior to Admission medications as of 01/04/24 1908 Medication Sig Last Dose Taking oxymetazoline (AFRIN, [...] or any previous visit (from the past 66728 hour(s)). Instructions Given to Patient: Instructions located in the after visit summary. Patient given verbal and written preop instructions and voices comprehension and compliance. SIGNATURE: Jennifer Guzman APRN.CNP PATIENT NAME: Rm Berman DATE: January 04, 2024 TIME: 3:13 PM PAGER/CONTACT #: [facility] 01-04-2024 History and physical note Images from [...] COVID-19 vaccine, age 12+ yr, 2022- season (PFI[employer]ER[employer] 06/04/2021 Imm Admin: COVID-19 original vaccine, age 12+ yr, monovalent (PFIZER-BIONTECH - PURPLE TOP) 11/21/2020 Imm Admin: COVID-19 original vaccine, age 12+ yr, monovalent ([place]-BIONTECH - PURPLE TOP) Only the first 3 [...] injury Positive for: headaches (migraines). Negative for: EMPLOYEE DEVELOPMENT MANAGER tumor, delirium, dementia, multiple sclerosis, peripheral neuropathy, [...] chest pain, CHF, DVT/PE, hyperlipidemia, hypertension, recent VT, murmur/valvular heart disease and open heart surgery. [...] or any previous visit (from the past 94927 hour(s)). Instructions Given to Patient: Instructions located in the after visit summary. Patient given verbal and written preop instructions and voices comprehension and compliance. SIGNATURE: Jennifer Guzman APRN.CNP PATIENT NAME: Rm Berman DATE: January 04, 2024 TIME: 3:13 PM PAGER/CONTACT #: documented in this encounter [facility] 12-29-2023 History of Present illness Narrative VIRTUAL VISIT PROGRESS NOTE This is a virtual visit using [employer] Video Visit. It required patient-provider interaction for the medical decision making as documented below. I have communicated my name and active licensure. The patient's identity and physical location were verified at the time of this visit. Either the patient or their legal housing management representative has been informed of the risks [...] Time: 1:03 PM documented in this encounter [facility] 12-29-2023 Note HNO ID: [id number] Author: CHRISTOPHER MCGREGOR MD Service: ? Author Type: Physician Type: Progress Notes Filed: 01/05/2024 13:04 Note Text: VIRTUAL VISIT PROGRESS NOTE This is a virtual visit using [employer] Video Visit. It required patient-provider interaction for the medical decision making as documented below. I have communicated my name and active licensure. The patient's identity and physical location were verified at the time of this visit. Either the patient or their legal housing management representative has been informed of the risks [...] Date: January 05, 2024 Time: 1:03 PM [facility] 11-30-2023 Telephone encounter Note Yoon from [place] called she has not heard from . Yoon has tried [facility] at [phone], no luck. She's faxed, ,called no one is returning her call. Yoon is working w the pt to get him scheduled for surgery. Sent staff message to Laura. Yoon #[phone] Thanks [facility] 11-30-2023 Miscellaneous Notes Yoon from [place] called she has not heard from CC. Yoon has tried [facility] at [phone], no luck. She's faxed, ,called CC no one is returning her call. Yoon is working w the pt to get him scheduled for surgery. Sent staff message to LauraEric Nettles #[phone] Thanks documented in this encounter [facility] 09-05-2023 Note HNO ID: [id number] Author: ANA SMITH ST Service: ? Author Type: Surg Hourly Manager Type: Progress Notes Filed: 09/05/2023 12:23 Note Text: DATE OF PHOTOS: 09/05/2023 Body Part: Full Face ST Annalisa September 05, 2023 12:23 PM [facility] 09-05-2023 History of Present illness Narrative CC: [...] Time: 3:07 PM documented in this encounter [facility] 09-05-2023 Note HNO ID: [id number] Author: CHRISTOPHER MCGREGOR MD Service: ? Author [...] Date: September 08, 2023 Time: 3:07 PM [facility] 07-20-2023 Miscellaneous Notes C9 and [employer] signed, faxed, and emailed to [facility]in. Scanned into chart documented in this encounter [facility] 07-18-2023 Telephone encounter Note Denice calling from [employer] says pre acces sent us a fax last week for a c9 form. I have not received anything. Can this be sent over again please or scanned into the chart. Please advise. Thank you [facility] 07-18-2023 Miscellaneous Notes Denice calling from [facility] says pre savannah sent us a fax last week for a c9 form. I have not received anything. Can this be sent over again please or scanned into the chart. Please advise. Thank you documented in this encounter [facility] 06-16-2023 Telephone encounter Note Received medco14 for office visit of 04/12/[address] Vanegas. Okay to sign? Please advise. Thank you [facility] 06-16-2023 Miscellaneous Notes Received medco14 for office visit of 04/12/[address] Vanegas. Okay to sign? Please advise. Thank you documented in this encounter [facility] 06-02-2023 Miscellaneous Notes Received Medco [address] Vanegas desk documented in this encounter [facility] 05-17-2023 Miscellaneous Notes Called Harshil. Gave him the appointment line number- also let him know that the lead front desk agent was given this information. They should be calling but if not the patient has the information to make the appointment himself. noted that she will call today regarding appointment, Emilee Lagos RN May 17, 2023 2:00 PM documented in this encounter [facility] 05-17-2023 Miscellaneous Notes Patient's is calling to let us know that the surgeon that Dr. Vanegas referred him to has not reached out to him yet. documented in this encounter [facility] 04-12-2023 History of Present illness Narrative Plastic [...] him for management. documented in this encounter [facility] 2023 History of Present illness Narrative Radiology [...] 2023 9:58 AM documented in this encounter [facility] 06-15-2022 Note Send Summary: Discharge Summary Providers: [...] at Discharge: home Vital Signs: T PRBPMAPSpO2 [id number]/7797% Date/Time06/15 8: 8: 8: 8: 8:35 Range(35.9C [...] b/l frontal contusions. Pt then transferred from [place] to [facility] for facial trauma consult and possible surgical [...] follow-up with plastics (more content not included)... [facility] 06-09-2022 Note Clinical Event: Clinical Event Note: TopicICU Attending Daily Progress Note Details 52 M, fall of ladder on 05/28 and sustained multiple facial fractures and skull fracture. Also sustained cerebral parenchymal contusions. Transferred from [place] for OR 06/08 with neurosurgery and PRS [...] note for further details. Electronic Signatures: Elsie Croft) (Signed 09-Jun-2022 18:11) Authored: Clinical Event Note Last Updated: 09-Jun-2022 18:11 by Elsie Croft) [facility] 06-08-2022 Note Post Operative Note: PreOp Diagnosis: Frontal sinus fractures with intracranial involvement Post-Procedure Diagnosis: Frontal sinus fractures with intracranial involvement Procedure: 1. Multiple nasal bone ORIFs 2. Calvarium bone harvest for nasal graft 3. Cribiform defect ORIF 4. Refer to neurosurg note 5. Surgeon: Dr. Michael Vanegas Resident/Fellow/Other Asbestos Worker Helper: Christiano Guzman APRN/Wandy CEDENO PGY-2 Anesthesia: General I.V. Fluids: 3 L Estimated Blood Loss (mL): 250 mL Specimen: no Findings: Multiple nasal bone fractures Patient Returned To/Condition: PACU then TICU/Intubated Urine Output: 1095 mL Drains and/or Catheters: 10 fr BROOKE Implants: Plates and screws Electronic Signatures: Christiano Guzman (GAS ADJUSTER-OCCUPATIONAL THERAPY INSTRUCTOR) (Signed 08-Jun-2022 18:39) Authored: Note Completion, Post Operative Note Michael Vanegas) (Signed 11-Jun-2022 12:35) Co-Signer: Note Completion, Post Operative Note Last Updated: 11-Jun-2022 12:35 by Michael Vanegas) [facility] 06-08-2022 Note PROCEDURE DETAILS Preoperative Diagnosis: frontal sinus fracture Postoperative Diagnosis: frontal sinus fracture Surgeon: Garry Resident/Fellow/Other Asbestos Worker Helper: Ida Robert Procedure: 1. bifrontal approach for frontal sinus exenteration 2. duraplasty Estimated Blood Loss: 100 Findings: frontal sinus fracture, orbitofrontal durotomy (traumatic) Specimens(s) Collected: no, Complications: none Implants: DuraGen, DuraSeal Date of Dictation: 08-Jun-2022 Dictated By: Miguel A Robert MD Dictation Job Number: [id number] Attestation: Note Completion: Attending AttestationI was present for delvalle portions of the procedure and the procedure lasted longer than 5 minutes. I am a:Resident/Fellow Electronic Signatures: Miguel A Robert (Resident)) (Signed 08-Jun-2022 12:54) Authored: Post-Operative Note, Chart Review, Note Completion Barber Castañeda) (Signed 09-Jun-2022 15:47) Authored: Note Completion Co-Signer: Post-Operative Note, Chart Review, Note Completion Last Updated: 09-Jun-2022 15:47 by Barber Castañeda) [facility] 06-08-2022 History of Present illness Narrative Rm Berman is 52 year old male presenting for a post-op visit after being seen by trauma for a fall from a ladder. Patient required the OR on 06/08/22 Procedure: 1. Multiple nasal bone ORIFs 2. Calvarium bone harvest for nasal graft 3. Cribiform defect ORIF. Hospital course was uncomplicated and patient was discharged home. [employer] Work Phone: 06-08-2022 History of Present illness Narrative Rm Berman is 52 year old male presenting for a post-op visit after being seen by trauma for a fall from a ladder. Patient required the OR on 06/08/22 Procedure: 1. Multiple nasal bone ORIFs 2. Calvarium bone harvest for nasal graft 3. Cribiform defect ORIF. Hospital course was uncomplicated and patient was discharged home. [facility] Work Phone: 06-08-2022 History of Present illness Narrative Rm Berman is 52 year old male s/p 06/08/22 Multiple nasal bone ORIFs, calvarium bone harvest for nasal graft, cribiform defect ORIF. Patient presents for a post operative follow up. [facility] Work Phone: 06-08-2022 History of Present illness Narrative Rm Berman is 52 year old male s/p Multiple nasal bone ORIFs, calvarium bone harvest for nasal graft, cribiform defect ORIF on 06/08/22. Patient presents for a virtual visit follow up. [facility] Work Phone: 06-08-2022 Reason for referral (narrative) [...] ORIF and calvarial bone harvest with Plastics [facility] 06-08-2022 Note History & Physical R eviewed: [...] the note. I personally evaluated the patient [id number] Electronic Signatures: Fito Ledezma (Resident)) (Signed 07-Jun-2022 18:48) Authored: History & Physical Reviewed, ERAS, Consent, Note Completion Barber Castañeda) (Signed 09-Jun-2022 15:27) Authored: Note Completion Co-Signer: History & Physical Reviewed, ERAS, Consent, Note Completion Last Updated: 09-Jun-2022 15:27 by Barber Castañeda) [facility] 06-07-2022 Note History & Physical R eviewed: [...] the note. I personally evaluated the patient [id number] Electronic Signatures: Barber Castañeda) (Signed 09-Jun-2022 15:25) Authored: Note Completion Co-Signer: History & Physical Reviewed, ERAS, Consent, Note Completion Yordan Wellington (Resident)) (Signed 06-Jun-2022 17:03) Authored: History & Physical Reviewed, ERAS, Consent, Note Completion Last Updated: 09-Jun-2022 15:25 by Barber Castañeda) [facility] 06-01-2022 Note Clinical Event: Clinical Event Note: [...] MD Trauma Surgery Objective Information T PRBPMAPSpO2 [id number]/7996% Date/Time06/01 16: 16: 16: 16: 16:09 Range(36.7C [...] Updated: 01-Jun-2022 19:13 by Yun Mata (Resident)) [facility] 06-01-2022 Note Clinical Note - Phar ida v2: Education: Document TopicMedication Education MedicationSources used to confirm home medication list: H&P Note 06/01/22, Pharmacy Fill Hx (via [employer]), OARRS Per H&P note, patient denies taking medications. Only medications on pharmacy fill history are from January 2022 for short courses azithromycin and dexamethasone. OARRS was also negative for any prescription medications. Medication reconciliation complete Please reach out via [employer]th aspect for questions Prashant Man, PharmD, PGY1 Personal Computer Network Analyst [facility] Is This Intervention Medication Reconciliation Relatedyes Time Required1 - 5 minutes Electronic Signatures: Prashant Man ([facility]) (Signed 01-Jun-2022 08:34) Authored: Education Nilson Reynoso ([facility]) (Signed 02-Jun-2022 09:00) Co-Signer: Education Last Updated: 02-Jun-2022 09:00 by Nilson Reynoso ([facility]) [facility] Chief complaint Narrative - Reported An interactive audio and video telecommunication system which permits real time communications between the patient (at the originating site) and provider (at the distant site) was utilized to provide this telehealth service.[facility] Work Phone: Evaluation + Plan note No data available for this section [facility] [place] Evaluation note Skin: Warm, dry. Hea led [...] breathing.Constitutional: A&O x3, sitting upright in bed. [facility] Evaluation note Diagnosis Multiple closed fractures of facial bone, sequela (HCC) Open skull base fracture with cerebral laceration and contusion, without coma, with routine healing [facility] Multiple closed fractures of facial bone, sequela (HCC)- Primary Open skull base fracture with cerebral laceration and contusion, without coma, with routine healing [facility] Diagnosis Difficulty breathing- Primary Other dyspnea and respiratory abnormality H/O closed fracture of nasal bones Personal history of traumatic fracture Facial injury, subsequent encounter [facility] Diagnosis Pre-op evaluation- Primary Preoperative [...] Assessment & Plan Note - Jennifer Guzman APRN.OCCUPATIONAL THERAPY INSTRUCTOR - 01/04/2024 3:12 PM EDT Associated Problem(s): [...] sensitivity to light [facility] Diagnosis Difficulty breathing- Primary Other dyspnea and respiratory abnormality H/O closed fracture of nasal bones Personal history of traumatic fracture Difficulty breathing Other dyspnea and respiratory abnormality H/O closed fracture of nasal bones Personal history of traumatic fracture Facial injury, subsequent encounter [facility] Diagnosis Post-operative state- Primary Other postprocedural status [facility] Diagnosis Post-operative state- Primary Other postprocedural status [facility] Diagnosis Pre-op evaluation- Primary Preoperative [...] of traumatic fracture documented in this encounter [facility] Discharge instructions* Activity:activity as tolerated. May [...] to reschedule please contact our office at [phone]. * Call Provider If:Breathing harder than normal [...] Referral: Postoperative Follow-up AppointmentScheduled Date/Time: 04-Jul-2022 02:00Location: [facility] [address] [facility] [address]Phone Number: [phone]: Please arrive 10-15 minutes early to your appointment. Please bring your photo ID, current list of medications and dosages, insurance card and any copays that may apply. If unable to keep this appointment, please call to cancel at least 24 hrs prior to appointment. * Follow Up Appointment 2:Physician/Dept/Service: Dr. Barber Castañeda, NeurosurgeryPhone Number: [phone]: Per Dr. Castañeda no appointment needed. [facility] No data available for this section [facility] General Surgery [place] Progress note No data available for this section HardyJuan Jose General Surgery [place] Summary Purpose Family History No Family History [...] MAXILLOFACIAL W/O CONTRAST MATERIAL Michael Vanegas MD [address] [place] [address] Ct Imaging [place] [address] Referral ID Status Reason Start Date Expiration Date Visits Requested Visits Authorized [id number] Waiting for Response Auto-Genera janet Referral Patient [...] healing Procedures CONSULT TO PLASTIC SURGERY OFFICE/OUTPATIENT [facility] 60-74 MINUTES Michael Vanegas MD [address] [place] [address] Referral ID Status Reason Start Date Expiration Date Visits Requested Visits Authorized [id number] Pending Review PCP Requested Referral 04/12/2023 04/11/2024 1 1 Specialty Diagnoses / Procedures Referred By Mingo leyva Referred To Contact Dermatology Diagnoses Rosacea Procedures CONSULT TO DERMATOLOGY OFFICE/OUTPATIENT [facility] MDM 60 MINUTES Nancy Cheng PA-C [address] [place] [address] Referral ID Status Reason Start Date Expiration Date Visits Requested Visits Authorized [id number] Pending Review PCP Requested Referral 4 05/17/2025 1 1 Additional Source Comments (unrecognized sect ion and content) No Status Records FoundNo Status Records FoundNo Status Records FoundNo Status Records FoundNo Status Records Found INFORMATION SOURCE (unrecogn ized section and content) DATE CREATED AUTHOR 08/15/2021 [facility] [place] [facility] DATE CREATED AUTHOR AUTHOR'S ORGANIZ ATION 11/29/2022 [employer] DATE CREATED AUTHOR AUTHOR'S ORGANIZ ATION 01/17/2023 [facility] DATE CREATED AUTHOR AUTHOR'S ORGANIZ ATION 05/10/2024 [facility] DATE CREATED AUTHOR AUTHOR'S ORGANIZ ATION 05/24/2024 [facility] <item> Privacy Markings (unrecogniz ed section and [...] or prosecute any alcohol or drug abuse patient.[facility] the event this information is protected by the Federal Confidentiality of Alcohol and Drug Abuse Patient Records regulations: The Federal rules restrict any use of the information to criminally investigate or prosecute any alcohol or drug abuse patient.[facility] Center[facility] the event this information is protected by the Federal Confidentiality of Alcohol and Drug Abuse Patient Records regulations: The Federal rules restrict any use of the information to criminally investigate or prosecute any alcohol or drug abuse patient.[facility] Center[facility] the event this information is protected by the Federal Confidentiality of Alcohol and Drug Abuse Patient Records regulations: The Federal rules restrict any use of the information to criminally investigate or prosecute any alcohol or drug abuse patient.[facility] CenterIn the event this information is protected by the Federal Confidentiality of Alcohol and Drug Abuse Patient Records regulations: The Federal rules restrict any use of the information to criminally investigate or prosecute any alcohol or drug abuse patient.[facility] CenterIn the event this information is protected by the Federal Confidentiality of Alcohol and Drug Abuse Patient Records regulations: The Federal rules restrict any use of the information to criminally investigate or prosecute any alcohol or drug abuse patient.[facility] CenterIn the event this information is protected by the Federal Confidentiality of Alcohol and Drug Abuse Patient Records regulations: The Federal rules restrict any use of the information to criminally investigate or prosecute any alcohol or drug abuse patient.[facility] CenterIn the event this information is protected by the Federal Confidentiality of Alcohol and Drug Abuse Patient Records regulations: The Federal rules restrict any use of the information to criminally investigate or prosecute any alcohol or drug abuse patient.[facility] CenterIn the event this information is protected by the Federal Confidentiality of Alcohol and Drug Abuse Patient Records regulations: The Federal rules restrict any use of the information to criminally investigate or prosecute any alcohol or drug abuse patient.[facility] CenterIn the event this information is protected by the Federal Confidentiality of Alcohol and Drug Abuse Patient Records regulations: The Federal rules restrict any use of the information to criminally investigate or prosecute any alcohol or drug abuse patient.[facility] CenterIn the event this information is protected by the Federal Confidentiality of Alcohol and Drug Abuse Patient Records regulations: The Federal rules restrict any use of the information to criminally investigate or prosecute any alcohol or drug abuse patient.[facility] CenterIn the event this information is protected by the Federal Confidentiality of Alcohol and Drug Abuse Patient Records regulations: The Federal rules restrict any use of the information to criminally investigate or prosecute any alcohol or drug abuse patient.[facility] CenterIn the event this information is protected by the Federal Confidentiality of Alcohol and Drug Abuse Patient Records regulations: The Federal rules restrict any use of the information to criminally investigate or prosecute any alcohol or drug abuse patient.[facility] CenterIn the event this information is protected by the Federal Confidentiality of Alcohol and Drug Abuse Patient Records regulations: The Federal rules restrict any use of the information to criminally investigate or prosecute any alcohol or drug abuse patient.[facility] CenterIn the event this information is protected by the Federal Confidentiality of Alcohol and Drug Abuse Patient Records regulations: The Federal rules restrict any use of the information to criminally investigate or prosecute any alcohol or drug abuse patient.[facility] CenterIn the event this information is protected by the Federal Confidentiality of Alcohol and Drug Abuse Patient Records regulations: The Federal rules restrict any use of the information to criminally investigate or prosecute any alcohol or drug abuse patient.[facility] CenterIn the event this information is protected by the Federal Confidentiality of Alcohol and Drug Abuse Patient Records regulations: The Federal rules restrict any use of the information to criminally investigate or prosecute any alcohol or drug abuse patient.[facility] CenterIn the event this information is protected by the Federal Confidentiality of Alcohol and Drug Abuse Patient Records regulations: The Federal rules restrict any use of the information to criminally investigate or prosecute any alcohol or drug abuse patient.[facility] Reason for Visit (unrecogniz ed section and content) Specialty Diagnoses / Procedures Referred By Contac t Referred To Contact CT IMAGING Diagnoses Multiple closed fractures of facial bone, sequela (HCC) Open skull base fracture with cerebral laceration and contusion, without coma, with routine healing Procedures CT FACIAL BONE/ISIDRA WO IVCON CT MAXILLOFACIAL W/O CONTRAST MATERIAL Michael Vanegas MD [address] [place] [address] Ct Imaging [place] [address] Referral ID Status Reason Start Date Expiration Date Visits Requested Visits Authorized [id number] Waiting for Response Auto-Genera janet Referral Patient Cleared - Admin/Chair man/Directo r advise to proceed or did not respond 02/09/2023 03/10/2024 1 1 Reason Comments Consult Specialty Diagnoses / Procedures Referred By Contac t Referred To Contact Plastic Surgery / HEMATOLOGY/ONCOLOGY Diagnoses facial surgery Procedures NEW DPSI GENERAL Self Michael Vanegas MD [address] [place] [address] Referral ID Status Reason Start Date Expiration Date Visits Re quested Visits Authorized [id number] Closed 03/30/2023 06/28/2023 1 1 Reason Comments Patient Update Reason Comments Medco14 paperwork Reason Comments C9 and Medco14 Reason Comments Consult Specialty Diagnoses / Procedures Referred By Contac t Referred To Contact Plastic Surgery / PLASTIC SURGERY Diagnoses 2nd opinion per Dr. Vanegas for face surgery Procedures EST DPSI GENERAL Stacey Morocho MD [address] [place] [address] Christopher Mcgregor MD [address] [place] [address] Referral ID Status Reason Start Date Expiration Date Visits Re quested Visits Authorized [id number] Closed 09/05/2023 09/05/2023 1 1 Reason Comments Dustin - workmans comp Specialty Diagnoses / Procedures Referred By Contact Referred To Contact Anesthesiology / ANESTHESIOLOGY Diagnoses PACC Procedures COMPLETE PACC Self [address], [address] [place] [address] Referral ID Status Reason Start Date Expiration Date Visits Re quested Visits Authorized [id number] Closed 01/04/2024 01/04/2024 1 1 Reason Comments Pre-Op Visit Specialty Diagnoses / Procedures Referred By Contac t Referred To Contact Plastic Surgery / PLASTIC SURGERY Diagnoses Virtual Discussion of Upcoming Procedure Procedures VIDEO SPEC EST Michael Vanegas MD [address] [place] [address] Christopher Mcgregor MD [address] [facility] [place] [address] Referral ID Status Reason Start Date Expiration Date Visits Re quested Visits Authorized [id number] Closed 12/29/2023 12/29/2023 1 1 Reason Comments Post Op Specialty Diagnoses / Procedures Referred By Contac t Referred To Contact Plastic Surgery / PLASTIC SURGERY Diagnoses Post op Procedures POST OP Self Nancy Cheng PA-C [address] [address] Referral ID Status Reason Start Date Expiration Date Visits Re quested Visits Authorized [id number] Closed 01/16/2024 01/16/2024 1 1 Specialty Diagnoses / Procedures Referred By Contac t Referred To Contact Plastic Surgery / PLASTIC SURGERY Diagnoses 02/[address] Mcgregor for post op appointment Procedures POST OP Christopher Mcgregor MD [address] [facility] [place] [address] Christopher Mcgregor MD [address] [place] [address] Referral ID Status Reason Start Date Expiration Date Visits Re quested Visits Authorized [id number] Closed 02/14/2024 02/14/2024 1 1 Reason Comments [email or web address] Reason Comments Post Op Specialty Diagnoses / Procedures Referred By Contac t Referred To Contact Plastic Surgery / PLASTIC SURGERY Diagnoses Return in about 3 months (around 05/16/2024) for Follow up Procedures POST OP Christopher Mcgregor MD [address] [place] [address] [place] [address] [place] [id number] Referral ID Status Reason Start Date Expiration Date Visits Re quested Visits Authorized [id number] Closed 05/17/2024 05/17/2024 1 1 Care Teams (unrecognized sec tion and content) [employer]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 Specialty Start Date End Date Stacey Morocho MD PCP - General Family Medicine 03/12/15 Stacey Morocho MD Family Medicine 03/12/15 [employer]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 Specialty Start Date End Date Stacey Morocho MD PCP - General Family Medicine 03/12/15 Stacey Morocho MD Family Medicine 03/12/15 [employer]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 Specialty Start Date End Date Stacey Morocho MD PCP - General Family Medicine 03/12/15 Stacey Morocho MD Family Medicine 03/12/15 [employer]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 Specialty Start Date End Date Stacey Morocho MD PCP - General Family Medicine 03/12/15 Stacey Morocho MD Family Medicine 03/12/15 [employer]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 Start Date End Date Stacey Morocho MD PCP - General Family Medicine 03/12/15 Stacey Morocho MD Family Medicine 03/12/15 [employer]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 Start Date End Date Stacey Morocho MD PCP - General Family Medicine 03/12/15 Stacey Morocho MD Family Medicine 03/12/15 [employer]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 Start Date End Date Stacey Morocho MD PCP - General Family Medicine 03/12/15 Stacey Morocho MD Family Medicine 03/12/15 [employer]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 Start Date End Date Stacey Morocho MD PCP - General Family Medicine 03/12/15 Stacey Morocho MD Family Medicine 03/12/15 [employer]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 Start Date End Date Stacey Morocho MD PCP - General Family Medicine 03/12/15 Stacey Morocho MD Family Medicine 03/12/15 [employer]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 Start Date End Date Stacey Morocho MD PCP - General Family Medicine 03/12/15 Stacey Morocho MD Family Medicine 03/12/15 [employer]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 Start Date End Date Stacey Morocho MD PCP - General Family Medicine 03/12/15 Stacey Morocho MD Family Medicine 03/12/15 [employer]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 [facility] [employer] [facility]. provides no warranty or guarantee of the accuracy or completeness of information in this document.
[2024-06-19] MEDS: 0.9 % SODIUM CHLORIDE 500 ML 50 ML IV (08:56)
[2024-06-19 11:05] VITALS: BP 99/55; PULSE 70; TEMP 36.6; O2SAT 93
[2024-06-19 11:20] VITALS: BP 95/51; PULSE 51; TEMP 36.6; O2SAT 95
--- NOTE | 2024-06-19 11:22 | PC.NURSE ---
BLOOD PRESSURE IS LOW, DR HERRERA IS AWARE AND HAS ADMINISTERED MEDICATION TO ELEVATE BLOOD PRESSURE.
[2024-06-19 11:35] VITALS: BP 96/73; PULSE 64; O2SAT 97
[2024-06-19 11:45] VITALS: BP 113/73; PULSE 60; TEMP 36.6; O2SAT 99
== END 2024-06-19 11:45 | disposition home or self-care (01) ==
PROVIDERS: PCP Family Medicine; Visit Provider Surgery
PROC: (CPT 00812; principal; 2024-06-19 09:35)
DX: Z12.11 Encounter for screening for malignant neoplasm of colon (principal); K21.9 Gastro-esophageal reflux disease without esophagitis; Z80.0 Family history of malignant neoplasm of digestive organs; Z87.891 Personal history of nicotine dependence; G47.33 Obstructive sleep apnea (adult) (pediatric)
CPT/HCPCS: 00812; 45378; J2371; J2704